=== PATIENT | male | born 1965 | race Caucasian/White ===

== ENCOUNTER 2017-12-16 17:20 | Inpatient (IN) ==
[~2017-12-16 17:20] MED LIST: *HR* Amiodarone Premix 150 MG/100 ML BAG IVPB ONE; *HR* Atropine Sulfate 1 MG/10 ML SYRINGE IV ONE; *HR* EPINEPHrine 1 MG/10 ML SYRINGE IVP ONE; *HR* Norepinephrine 4 MG/4 ML VIAL IVC ONE
[2017-12-16 17:49] LABS: ABG Base Excess -15 mEq/L (-2 to 3); ABG HCO3 21 mEq/L (21-27); ABG Oxygen Saturation 51 % (95-98); ABG PCO2 125 mmHg (35-45); ABG PH 6.84 pH Units (7.32-7.45); ABG PO2 51 mmHg (85-104); ABG TCO2 25 mEq/L (20-26); Blood Gas PEEP 10 cm H2O; Blood Gas Respiration Rate 16; Blood Gas VT 500 cc
[2017-12-16 18:18] LABS: Mean Platelet Volume 10.2 fL (9.4-12.4); Segmented Neutrophils % 51.2 %
[2017-12-16 18:19] LABS: Basophils # 0.4 K/mcL (0.0-0.2); Basophils % 1.1 %; Eosinophils # 0.4 K/mcL (0.0-0.6); Eosinophils % 1.3 %; Hematocrit 40.3 % (37.5-50.1); Hemoglobin 13.2 g/dL (12.9-16.9); Lymphocytes # 10.6 K/mcL (0.6-4.6); Lymphocytes % 33.6 %; Mean Corpuscular HGB Conc 32.8 g/dL (31.6-35.5); Mean Corpuscular Volume 91.6 fL (83.0-100.0); Monocytes # 1.2 K/mcL (0.0-1.3); Monocytes % 3.8 %; Neutrophils # 16.2 K/mcL (1.6-8.9); Nucleated Red Blood Cells 0.3 /100 WBC (0); Platelet Count 187 K/mcL (140-400); Red Cell Distribution Width 13.1 % (11.5-14.5)
--- NOTE | 2017-12-16 18:23 | Emergency Department Note ---
Disposition Clinical Impression: Cardiac arrest, Lactic acidosis, Pulmonary hemorrhage, Unresponsive, Elevated troponin, Hyperglycemia Hypercapnic respiratory failure Qualifiers: Chronicity: acute Qualified Code(s): J96.02 - Acute respiratory failure with hypercapnia Leukocytosis Qualifiers: Leukocytosis type: unspecified Qualified Code(s): D72.829 - Elevated white blood cell count, unspecified Disposition: Admitted As Inpatient Condition: Critical CPR HPI - General Chief Complaint: ED Cardiac Arrest/CPR Stated Complaint: cardiac arrest Time Seen by Provider: 12/16/17 17:31 Source: EMS Mode of arrival: EMS Limitations: altered mental status Nursing Notes Reviewed: Yes Vital Signs Reviewed: Yes - History of Present Illness HPI Narrative: 52-year-old male presents to the ER in full arrest. Report is obtained from EMS and family. Initially was reported that he was unresponsive found to be in V. tach at the time of arrival. He was shocked 4 times prior to arrival. Around 15 minutes prior to him getting here he became a full arrest and CPR was initiated. Upon arrival the patient was noted to be in asystole. ACLS was followed. He received epinephrine and bicarbonate. Shortly after we did have return of spontaneous circulation with a wide-complex rhythm. Heart rate was around 116. Pressure originally normotensive. He was noted to be hypoxic in the 50s to 60s upon initial presentation with blood from his ET tube. AED Applied by Bystander/Nutrition Professor: Yes Shock Advised: Yes Number of Shocks Delivered: >3 Treatments Prior to Arrival: BMV, defibrillated shocks # (4) - Related Data Home Medications Medication Instructions Recorded Confirmed Aspirin [Adult Low Dose Aspirin EC] 81 mg PO DAILY 10/19/15 12/16/17 Lactobacillus Rhamnosus GG 1 cap PO DAILY 10/19/15 12/16/17 [Culturelle] Cholecalciferol (D-3) [Vitamin D] 2,000 unit PO DAILY 08/26/17 12/16/17 Melatonin [Melatin] 3 mg PO HS 08/26/17 12/16/17 Memantine [Namenda] 5 mg PO BID 08/26/17 12/16/17 Pantoprazole Sodium 40 mg PO DAILY 08/26/17 12/16/17 Insulin Glargine [Lantus] 36 unit SQ DAILY 12/16/17 12/16/17 Lidocaine Patch [Lidoderm 5% patch] 2 each TP DAILY 12/16/17 12/16/17 Sertraline [Zoloft] 100 mg PO DAILY 12/16/17 12/16/17 Sildenafil Citrate [Viagra] 100 mg PO DAILY PRN 12/16/17 12/16/17 Topiramate [Topamax] 100 mg PO BID 12/16/17 12/16/17 glipiZIDE [Glipizide] 10 mg PO DAILY 12/16/17 12/16/17 Rifaximin [Xifaxan] 550 mg PO DAILY 12/17/17 12/17/17 Previous Rx's Medication Instructions Recorded Acetaminophen [Tylenol] 325 mg PO Q6HR PRN #10 tablet 11/03/15 Allergies Allergy/AdvReac Type Severity Reaction Status Date / Time codeine Allergy Hives Verified 08/26/17 08:05 [From Tylenol-Codeine #3] diphenhydramine Allergy Unconscious Verified 08/26/17 08:05 [From Benadryl] hydrocodone [From Vicodin] Allergy Hives Verified 08/26/17 08:05 Latex, Natural Rubber Allergy Hives Verified 08/26/17 08:05 metoclopramide [From Reglan] Allergy See Verified 08/26/17 08:05 Comments Oxycodone [From Percocet] Allergy Hives Verified 08/26/17 08:05 tramadol Allergy Hives Verified 08/26/17 08:05 Limitations: ROS unobtainable due to patients medical condition CPR PMH - Past Medical History Medical history: Reports: non-contributory Male Surgical history: Reports: colectomy Psychiatric history: Reports: PTSD - Social History Smoking Status: Former smoker Alcohol use: Reports: none Drug use: Reports: none Physical Exam - General Limitations: other (Currently being bagged) General appearance: obtunded - Head Head exam: other (Cyanotic) - Chest Chest inspection: Present: normal inspection - Respiratory Respiratory exam: Present: other (Course breath sounds bilaterally.) - Cardiovascular Cardiovascular exam: Present: other (CPR in progress) - Abdominal Exam Abdominal exam: Present: soft. Absent: distention, rigidity - Extremities Exam Extremities exam: Present: normal inspection - Expanded Upper Extremity Exam Shoulder exam: Present: normal inspection Arm exam: Present: normal inspection Elbow exam: Present: normal inspection Forearm/Wrist exam: Present: normal inspection Hand exam: Present: normal inspection - Expanded Lower Extremity Exam Hip/Pelvis exam: Present: normal inspection Upper leg exam: Present: normal inspection Knee exam: Present: normal inspection Lower leg exam: Present: normal inspection Ankle exam: Present: normal inspection Foot/toe exam: Present: normal inspection - Neurological Exam Neurological exam: Present: other (Obtunded) Course Course Narrative: Patient seen immediately upon arrival. CPR in progress. Initial rhythm asystole on pulse check. After round of CPR the patient was noted to be in PEA. The patient was intubated in the department first pass without difficulty. Patient received epinephrine and bicarbonate. He then had return of spontaneous circulation with a wide complex tachycardia in the 115 range. Plan to speak with interventional cardiology for potential Tile Classifier following arrest. A right femoral trauma line was inserted during CPR. Please see note for details. Once return of spontaneous circulation this was exchanged for a right femoral central line. - Reevaluation(s) Reevaluation #1: Patient now bradycardic to 55. 0.5 mg atropine given. Quickly went to PE a. CPR resumed. At the time of CPR the patient began to have gross blood from his endotracheal tube. Roughly 500 mL was removed. He remained 55-60% while intubated. After additional bicarbonate and epinephrine the patient had return of spontaneous circulation. Reevaluation #2: The patient continues to have gross blood from his endotracheal tube. Currently around 750 mL. His pressures are starting to drop. Plan to speak again with interventional cardiology. His ABG shows a severe acidosis. Additional bicarbonate given with a total of 3. At this point plan to begin transfusion with trauma blood. 2 units will be ordered. Reevaluation #3: Pressures continued to drop. Now systolic around 60. Levophed for hypotension. , Blood being infused. Additional Reevaluation(s): Patient to Tile Classifier at 18:55. - Consultations Consultation #1: Immediately after ROSC, I spoke with the senior staff accountant Dr. Heredia. Discussed what was available in terms of the patient's history, EKG which was transmitted for her interpretation as well as our interventions up to this point. Discussed the patient's presenting rhythm was reported as ventricular tachycardia with 4 shocks given. Reports that she will interpret the EKG, requests to get labs currently to find a potential reversible etiology and to call back. Does not recommend to go to the r&d lab technician at this time. Time: 17:29 Consultation #2: I spoke again with Dr. Heredia after she evaluated the EKG. Reports that it appears to be a ventricular rhythm status post his arrest. She reviewed his ABG showing a severe acidosis. There is also concern as to whether or not he did not receive CPR at the beginning of his unresponsiveness. I discussed I had not been able to speak with family up but we will get a better history and find out. She requests to repeat an ABG and an EKG. Consultation #3: I spoke again with Dr. Heredia after speaking with family. Family reports that he did not require CPR prior to EMS arrival and that he was breathing on his own at the time of their arrival. Discussed that we are currently starting trauma blood and he is requiring a pressor. She will be down to see the patient. Time: 18:24 Additional Consultation(s): 18:30 Dr. Heredia at bedside to discuss options of potential Tile Classifier. There is a concern over the blood coming from the patient's endotracheal tube as he will have to be anticoagulated for the procedure. This seemed to arise after his second round of CPR. Roughly 700 mL has been removed. Trauma blood ordered. On bedside evaluation the bleeding has significantly declined. At this point it was decided the patient would go to the Tile Classifier for evaluation. Vital Signs O2 Sat by Pulse Oximetry 74 12/16/17 17:22 Temperature 98.8 F 12/17/17 20:00 Pulse Rate 70 12/17/17 21:00 Respiratory Rate 20 12/17/17 21:00 Blood Pressure 122/70 12/17/17 21:00 O2 Sat by Pulse Oximetry 100 12/17/17 21:00 Oxygen Delivery Oxygen Delivery Ventilator Procedures - Central Line Placement Right Femoral Central Line Insertion: emergent Procedural Pause: assemble equipment and verify supplies Patient Placed on Monitor/Pulse Ox: Yes During the Procedure: clinician is wearing sterile gloves, cap, mask,& gown during insertion, sterile field and sterile technique are maintained Central Line Prep: Chlorhexidine scrub Prep the Procedure Site: apply chloraprep to the skin using a back and forth scrubbing motion Ultrasound Used for Placement: No Central Line Lumen Inserted: single Post Procedure: sutured in place, good blood return, all ports aspirated, flushed, capped Patient Tolerated Procedure: well Name of Clinician Inserting Central Line: Dr. Odalis Preston Clinician Assisting/Completing Checklist: Dr. Sullivan Additional Comments: Right femoral trauma line placed during cardiac arrest. After return of spontaneous circulation the trauma line was removed and a right femoral central line was placed over guidewire exchange. - Intubation Time out performed: Yes Laryngoscope: Low ET Tube Size: Oral ET Tube Uncuffed: No Tube Secured Depth (cm): 22 Tube Secured Location: lips Tube Placement Confirmation: visualized tube passing through cords, equal breath sounds bilaterally, no breath sounds over epigastrium, confirmation by capnometry Patient Tolerated Procedure: well, no complications Intubation Complications: none Cardiac Arrest/CPR - MDM Narrative Medical decision making narrative: 52-year-old male presents to the ER in cardiac arrest. Witnessed decompensation at home with initial presenting ventricular tachycardia. Defibrillated 4 times prior to arrival. Patient presented in asystole with return of spontaneous circulation after ACLS. Interventional cardiology was consulted who did not deem him a candidate for initial emergent Tile Classifier evaluation. Please see prior documentation for complete details. He then deteriorated back into pulseless electrical activity. After his second return of spontaneous circulation he had roughly 900 mL in total of blood out of his endotracheal tube. His pressure deteriorated requiring trauma blood and eventually vasopressor support. Severe acidosis treated with bicarbonate pushes. EKG post resuscitation demonstrates a new wide-complex rhythm that was treated empirically for hyperkalemia with calcium, insulin and bicarbonate. Interventional cardiology evaluated the patient in the emergency department and the patient was taken to the Tile Classifier at 18:55 for further evaluation given his ventricular tachycardia and arrest. - Lab Data Lab results reviewed: Yes I reviewed the patient's lab results. Result diagrams: 12/17/17 13:50 12/17/17 03:25 Lab Results 12/16/17 12/16/17 12/16/17 Range/Units 17:22 17:31 17:58 WBC (4.3-11.1) K/mcL RBC (4.19-5.50) M/mcL Hgb (12.9-16.9) g/dL Hct (37.5-50.1) % MCV (83.0-100.0) fL MCH (28.0-33.3) pg MCHC (31.6-35.5) g/dL RDW (11.5-14.5) % Plt Count (140-400) K/mcL MPV (9.4-12.4) fL Immature Gran % (0-4) % Seg Neutrophils % % Lymphocytes % % Monocytes % % Eosinophils % % Basophils % % Neutrophils # (1.6-8.9) K/mcL Lymphocytes # (0.6-4.6) K/mcL Monocytes # (0.0-1.3) K/mcL Eosinophils # (0.0-0.6) K/mcL Basophils # (0.0-0.2) K/mcL Nucleated RBCs/100 WBC (0) /100 WBC PT 14.8 H (9.4-12.1) Seconds INR 1.4 APTT 51.5 H (26.0-36.0) Seconds Sample Site ABG pH 6.84 L* (7.32-7.45) pH Units ABG pCO2 125 H* (35-45) mmHg ABG pO2 51 L (85-104) mmHg ABG HCO3 21 (21-27) mEq/L ABG Total CO2 25 (20-26) mEq/L ABG O2 Saturation 51 L (95-98) % ABG Base Excess -15 L (-2 to 3) mEq/L [place] Test Respiration Rate 16 O2 Delivery Device Adult Vent Inspired O2 100.0 (1-15=lpm jr62-111=%) Tidal Volume 500 cc PEEP 10 cm H2O Sodium (136-145) mEq/L Potassium (3.5-5.1) mEq/L Chloride (98-107) mEq/L Carbon Dioxide (23-29) mEq/L BUN (6-20) mg/dL Creatinine (0.70-1.30) mg/dL Est GFR ( Amer) (> 60) Est GFR (Non-Af Amer) (> 60) BUN/Creatinine Ratio (6-26) Glucose (70-105) mg/dL POC Glucose 361 H (70-99) mg/dL Calculated Osmolality (280-300) Lactic Acid (0.5-2.2) mmol/L Calcium (8.6-10.3) mg/dL Troponin I (< 0.04) ng/mL B-Natriuretic Peptide (Less than 100) pg/mL Blood Type Antibody Screen Crossmatch 12/16/17 12/16/17 12/16/17 Range/Units 17:58 17:58 17:58 WBC 31.6 H* (4.3-11.1) K/mcL RBC 4.40 (4.19-5.50) M/mcL Hgb 13.2 (12.9-16.9) g/dL Hct 40.3 (37.5-50.1) % MCV 91.6 (83.0-100.0) fL MCH 30.0 (28.0-33.3) pg MCHC 32.8 (31.6-35.5) g/dL RDW 13.1 (11.5-14.5) % Plt Count 187 (140-400) K/mcL MPV 10.2 (9.4-12.4) fL Immature Gran % 9.0 H (0-4) % Seg Neutrophils % 51.2 % Lymphocytes % 33.6 % Monocytes % 3.8 % Eosinophils % 1.3 % Basophils % 1.1 % Neutrophils # 16.2 H (1.6-8.9) K/mcL Lymphocytes # 10.6 H (0.6-4.6) K/mcL Monocytes # 1.2 (0.0-1.3) K/mcL Eosinophils # 0.4 (0.0-0.6) K/mcL Basophils # 0.4 H (0.0-0.2) K/mcL Nucleated RBCs/100 WBC 0.3 H (0) /100 WBC PT (9.4-12.1) Seconds INR APTT (26.0-36.0) Seconds Sample Site ABG pH (7.32-7.45) pH Units ABG pCO2 (35-45) mmHg ABG pO2 (85-104) mmHg ABG HCO3 (21-27) mEq/L ABG Total CO2 (20-26) mEq/L ABG O2 Saturation (95-98) % ABG Base Excess (-2 to 3) mEq/L [place] Test Respiration Rate O2 Delivery Device Inspired O2 (1-15=lpm ob87-406=%) Tidal Volume cc PEEP cm H2O Sodium (136-145) mEq/L Potassium (3.5-5.1) mEq/L Chloride (98-107) mEq/L Carbon Dioxide (23-29) mEq/L BUN (6-20) mg/dL Creatinine (0.70-1.30) mg/dL Est GFR ( Amer) (> 60) Est GFR (Non-Af Amer) (> 60) BUN/Creatinine Ratio (6-26) Glucose (70-105) mg/dL POC Glucose (70-99) mg/dL Calculated Osmolality (280-300) Lactic Acid > 10.0 H* (0.5-2.2) mmol/L Calcium (8.6-10.3) mg/dL Troponin I (< 0.04) ng/mL B-Natriuretic Peptide 216 H (Less than 100) pg/mL Blood Type Antibody Screen Crossmatch 12/16/17 12/16/17 12/16/17 Range/Units 17:58 18:23 18:25 WBC (4.3-11.1) K/mcL RBC (4.19-5.50) M/mcL Hgb (12.9-16.9) g/dL Hct (37.5-50.1) % MCV (83.0-100.0) fL MCH (28.0-33.3) pg MCHC (31.6-35.5) g/dL RDW (11.5-14.5) % Plt Count (140-400) K/mcL MPV (9.4-12.4) fL Immature Gran % (0-4) % Seg Neutrophils % % Lymphocytes % % Monocytes % % Eosinophils % % Basophils % % Neutrophils # (1.6-8.9) K/mcL Lymphocytes # (0.6-4.6) K/mcL Monocytes # (0.0-1.3) K/mcL Eosinophils # (0.0-0.6) K/mcL Basophils # (0.0-0.2) K/mcL Nucleated RBCs/100 WBC (0) /100 WBC PT (9.4-12.1) Seconds INR APTT (26.0-36.0) Seconds Sample Site ABG pH 7.01 L* D (7.32-7.45) pH Units ABG pCO2 81 H* D (35-45) mmHg ABG pO2 192 H D (85-104) mmHg ABG HCO3 21 (21-27) mEq/L ABG Total CO2 23 (20-26) mEq/L ABG O2 Saturation 99 H (95-98) % ABG Base Excess -11 L (-2 to 3) mEq/L [place] Test Respiration Rate 24 O2 Delivery Device Adult Vent Inspired O2 100.0 (1-15=lpm ki44-175=%) Tidal Volume 450 cc PEEP 8 cm H2O Sodium 142 (136-145) mEq/L Potassium 2.8 L (3.5-5.1) mEq/L Chloride 107 (98-107) mEq/L Carbon Dioxide 21 L (23-29) mEq/L BUN 10 (6-20) mg/dL Creatinine 1.28 (0.70-1.30) mg/dL Est GFR ( Amer) > 60 (> 60) Est GFR (Non-Af Amer) 59 L (> 60) BUN/Creatinine Ratio 8 (6-26) Glucose 458 H (70-105) mg/dL POC Glucose (70-99) mg/dL Calculated Osmolality 313 H (280-300) Lactic Acid (0.5-2.2) mmol/L Calcium 8.3 L (8.6-10.3) mg/dL Troponin I 0.07 H* (< 0.04) ng/mL B-Natriuretic Peptide (Less than 100) pg/mL Blood Type O NEGATIVE Antibody Screen NEGATIVE Crossmatch See Detail 12/16/17 Range/Units 19:09 WBC (4.3-11.1) K/mcL RBC (4.19-5.50) M/mcL Hgb (12.9-16.9) g/dL Hct (37.5-50.1) % MCV (83.0-100.0) fL MCH (28.0-33.3) pg MCHC (31.6-35.5) g/dL RDW (11.5-14.5) % Plt Count (140-400) K/mcL MPV (9.4-12.4) fL Immature Gran % (0-4) % Seg Neutrophils % % Lymphocytes % % Monocytes % % Eosinophils % % Basophils % % Neutrophils # (1.6-8.9) K/mcL Lymphocytes # (0.6-4.6) K/mcL Monocytes # (0.0-1.3) K/mcL Eosinophils # (0.0-0.6) K/mcL Basophils # (0.0-0.2) K/mcL Nucleated RBCs/100 WBC (0) /100 WBC PT (9.4-12.1) Seconds INR APTT (26.0-36.0) Seconds Sample Site Art Line ABG pH 7.03 L* (7.32-7.45) pH Units ABG pCO2 81 H* (35-45) mmHg ABG pO2 54 L D (85-104) mmHg ABG HCO3 21 (21-27) mEq/L ABG Total CO2 24 (20-26) mEq/L ABG O2 Saturation 69 L (95-98) % ABG Base Excess -11 L (-2 to 3) mEq/L [place] Test N/A Respiration Rate 24 O2 Delivery Device Adult Vent Inspired O2 100.0 (1-15=lpm aa20-241=%) Tidal Volume 450 cc PEEP 15 cm H2O Sodium (136-145) mEq/L Potassium (3.5-5.1) mEq/L Chloride (98-107) mEq/L Carbon Dioxide (23-29) mEq/L BUN (6-20) mg/dL Creatinine (0.70-1.30) mg/dL Est GFR ( Amer) (> 60) Est GFR (Non-Af Amer) (> 60) BUN/Creatinine Ratio (6-26) Glucose (70-105) mg/dL POC Glucose (70-99) mg/dL Calculated Osmolality (280-300) Lactic Acid (0.5-2.2) mmol/L Calcium (8.6-10.3) mg/dL Troponin I (< 0.04) ng/mL B-Natriuretic Peptide (Less than 100) pg/mL Blood Type Antibody Screen Crossmatch - Radiology Data Radiology results reviewed: Yes I reviewed the patient's radiology results. Chest X-Ray 12/16/17 17:31 IMPRESSION: 1. Endotracheal tube tip is 5.1 cm above the lalit. 2. No pneumothorax. 3. Diffuse interstitial airspace opacities are nonspecific, possibly representing multifocal infection or pulmonary edema. 4. Mild cardiomegaly. D/ / 12/16/2017 17:54:31 Refugio Roque MD / [email or web address] Interpreting Provider: Refugio Roque MD - EKG Data EKG attestation: Yes I reviewed and interpreted this EKG. EKG results narrative: Postarrest EKG demonstrates a wide complex tachycardia with a rate of 116. Prolonged QRS duration of 222. Appearance of left bundle branch block. Previous EKG demonstrates sinus rhythm. Critical Care Time Critical Care Time: Yes Total Critical Care Time: 60 Attestation: The high probability of a clinically significant, sudden or life threatening deterioration of the [CV] system(s) required my full and direct attention, intervention and personal management. The aggregate critical care time was [60] minutes. This time is in addition to time spent performing reported procedures but includes the following: [x] Data Review and interpretation [x] Patient assessment and monitoring of vital signs [x] Documentation [x] Medication orders and management Attestation Statement - Attestation Attestation: I examined this patient and my medical decision-making was reviewed with the Resident Physician, Dr. Sullivan. I agree with the documented findings, disposition and treatment plan as described except to the extent set forth below. Patient's 52-year-old white male who is brought to us by EMS in full cardiac arrest. Unable to obtain information until family arrived and more detailed information provided by patient's . Full resuscitation per ACLS guidelines was instituted. I agreed with patient's physical exam assessment. Patient's initial EKG showed a wide complex tachycardia with a bundle-branch morphology, all new and in the setting of V. tach arrest meets criteria for heart catheterization. Dr. Heredia was notified 2 and declined heart catheter each time. Dr. Cortez was notified and cardiology. Please see code resuscitation sheet for details of resuscitation. After numerous phone calls and involvement of ED director and had a cardiology patient was ultimately taken to r&d lab technician. Critical care procedures included rapid sequence intubation , right femoral line central venous catheter placement, bedside ultrasound, and management of cardiac arrest. Please see detailed procedure notes. I agree with ED course and was present at bedside to place CVL, and supervise intubationa dn resuscitation. I personally spoke with and family members toobtain additional hx, and provide updates in his status.
[2017-12-16 18:24] LABS: INR 1.4; Prothrombin Time 14.8 Seconds (9.4-12.1)
[2017-12-16 18:27] LABS: Activated Partial Thrombo Time 51.5 Seconds (26.0-36.0)
[2017-12-16 18:29] LABS: ABG Base Excess -11 mEq/L (-2 to 3); ABG HCO3 21 mEq/L (21-27); ABG Oxygen Saturation 99 % (95-98); ABG PCO2 81 mmHg (35-45); ABG PH 7.01 pH Units (7.32-7.45); ABG PO2 192 mmHg (85-104); ABG TCO2 23 mEq/L (20-26); Blood Gas PEEP 8 cm H2O; Blood Gas Respiration Rate 24; Blood Gas VT 450 cc
[2017-12-16] MEDS ORDERED: Heparin 1,000 UNITS/500 mL 500 ML ONE (18:37)
[2017-12-16] MEDS ORDERED: 0.9 % Sodium Chloride 1,000 ML ONE (18:37)
[2017-12-16] MEDS ORDERED: Nitroglycerin 1,000 MCG/10 ML VIAL IV ONE (18:37)
[2017-12-16] MEDS ORDERED: *HR* Heparin 10,000 UNIT/10 ML VIAL ONE (18:37)
[2017-12-16] MEDS ORDERED: ISOVUE-370 200 ML INFUS..BTL IV ONE (18:37)
[2017-12-16 18:38] LABS: BUN/Creatinine Ratio 8 (6-26); Blood Urea Nitrogen 10 mg/dL (6-20); Calcium 8.3 mg/dL (8.6-10.3); Carbon Dioxide 21 mEq/L (23-29); Chloride 107 mEq/L (98-107); Glucose 458 mg/dL (70-105); Osmolality,Calculated 313 (280-300); Potassium 2.8 mEq/L (3.5-5.1); Sodium 142 mEq/L (136-145); eGFR For African Americans > 60 (> 60); eGFR For Non-African Americans 59 (> 60)
[2017-12-16 18:48] LABS: Troponin I 0.07 ng/mL (< 0.04)
[2017-12-16] MEDS ORDERED: Potassium Chloride 40 MEQ, Lidocaine 1% 2 ML in D5% in Water 500 ML IVPB ONE (19:08)
[2017-12-16 19:14] LABS: ABG Base Excess -11 mEq/L (-2 to 3); ABG HCO3 21 mEq/L (21-27); ABG Oxygen Saturation 69 % (95-98); ABG PCO2 81 mmHg (35-45); ABG PH 7.03 pH Units (7.32-7.45); ABG PO2 54 mmHg (85-104); ABG TCO2 24 mEq/L (20-26); Blood Gas PEEP 15 cm H2O; Blood Gas Respiration Rate 24; Blood Gas VT 450 cc
[2017-12-16] MEDS ORDERED: *HR* Ticagrelor 90 MG TABLET ONE (19:28)
[2017-12-16] MEDS ORDERED: Amiodarone Premix 360 MG/200 ML BAG IVC ONE (19:49)
[2017-12-16] MEDS ORDERED: Lacri-Lube 3.5 GM TUBE BOTH EYES PRN (19:53)
--- NOTE | 2017-12-16 19:58 | Invasive Diagnostic Lab Proc ---
Name: Ronni Delgado Date of Study: 12/16/2017 Date: 1965 Ht: 68.9in Medical Record#: [id number] Age: 52 Wt: 244.71lb Gender: Male BSA: 2.25 Order #: [id number] BMI: 36.24 Physicians Procedure Physician: Ludy Heredia MD, [facility] Referring MD: Referring MD: Staff Name Position Time In Afshin Simon RN Welding Tester 07:08 PM Carmelo Manzano RT (R) Scrub 07:08 PM Bishop Almanzar RN Welding Tester 07:09 PM Torie Quinonez RN Monitor 07:09 PM Amelia De La Fuente RT 07:10 PM Indications Indication STEMI Cardiac arrest Procedures Performed Procedure L HRT ARTERY/VENTRICLE ANGIO PRQ CARD VIOLA STENT W/ANGIO 1 VSL Pre-Procedure Checklist H&P is on chart. ID band is on and ID verified with patient. Patient NPO for procedure The procedure was described for the patient and questions were answered. ECG is on chart. Plan of Care Patient will tolerate the procedure without complications. Adequate level of comfort will be maintained. Hemodynamics will remain stable Patient will recover from procedure without complications. Respiratory function will be maintained. Cardiac rhythm will remain stable. Patient temperature will be maintained. Patient and/or family have verbalized understanding of the procedure. Patient Education Developmentally Appropriate for Age: No Intravenous Access Time IV Size Location DC'd Fluid/Drip Rate Units RN 07:00 PM Rt groin Levophed Afshin Simon RN 07:00 PM 18g 1 /" Patent On Arrival Rt Arm Afshin Simon RN Allergies Oxycodone BENADRYL,CODIENE codeine ACETA/HYDROCODONE (500MG/5MG) Acetaminophen/Oxycodone Hydr NKDA Latex, Natural Rubber hydrocodone acetaminophen tramadol diphenhydramine Vital Signs Time BP (mmHg) HR (bpm) O2 Sat. RR (bpm) LOC 07:04 PM 117 / 74 111 77 % 07:09 PM 105 / 70 110 81 % 07:14 PM 109 / 68 106 96 % 07:19 PM 113 / 75 105 99 % 07:24 PM 124 / 75 105 99 % 07:29 PM 126 / 82 105 100 % Procedural Medications Time Medication Dose Units Method Given By 07:08 PM Lidocaine 2% 20 ml Subcutaneous Ludy Heredia, MD, FACC 07:16 PM Heparin 5000 units Intravenous Afshin Simon RN 07:17 PM Levophed 20 mcg/min Intravenous 07:17 PM Amiodarone 33.3 ml/hr Intravenous 07:25 PM Brilinta 180 mg Orally Afshin Simon RN 07:34 PM Potassium Chloride 100 ml/hr Intravenous Afshin Simon RN Chucho Score Preprocedure Postprocedure Activity Activity Circulation Circulation Consciousness Consciousness O2 Saturation O2 Saturation Respiratory Respiratory Total Score Total Score Contrast Agent: Isovue Diagnostic Contrast: 125 ml Total Contrast: 125 ml Fluoro Dose: 460 mGy Activated Clotting Time Time Seconds to Clot 07:34 PM 283 Procedure Log Time Note Enter By 07:00 PM 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 Respiratory present [facility] 07:00 PM Patient arrived at 19:17 with Amiodarone Intravenous drip @ 33.3 ml/hr [facility] 07:00 PM Carmelo Manzano RT (R) Position: Scrub Time in: 19:08 [facility] 07:00 PM Amelia De La Fuente RT Position: Time in: 19:10 [facility] 07:00 PM Pt arrived to labor relations analyst 2 at 19:00 [facility] 07:00 PM Torie Quinonez RN Position: Monitor Time in: 19:00 [facility] 07:00 PM Patient arrived at 19:17 with Levophed Intravenous drip @ 20 mcg/min [facility] 07:00 PM Afshin Simon RN Position: Welding Tester Time in: 19:00 [facility] 07:03 PM CathStat 07:03 PM Vitals capture started with the following parameters, Patient=Adult, Interval=5 min, Initial Evitdudu=982 mmHg, Deflation Rate=5 mmHg, Cuff placed on Right Arm 07:04 PM PV=735 bpm, FOVA=852/74 mmhg, SpO2=77.0 % 07:04 PM Hair removed from procedure site in procedure lab using clippers. Bilateral groin prepped with Chloraprep by Torie Quinonez RN, then patient was draped. Skin intact. [facility] 07:06 PM Recorded ECG: TB=622 Condition=Condition 1 07:07 PM Sign in performed according to hospital policy. [facility] PM Procedure start 19:09 [facility] 07:08 PM Time out performed according to hospital policy 07:08 PM Time: : 20 ml Lidocaine 2% to left groin Subcutaneous Given by Ludy Heredia MD, [facility] oummers 07:09 PM Pressure channel 1 zero failed. 07:09 PM Pressure channel 1 zeroed. 07:09 PM Patient charges- Angio tray pack, Navilyst 3mm J, Pulse Oximetry and ACIST tubing and transducer tsoumm 07:09 PM Bishop Almanzar RN Position: Welding Tester Time in: 19:09 tsoummers 07:09 PM Patient charges- Angio tray pack, Navilyst 3mm J, Pulse Oximetry and ACIST tubing and transducer tsoummers 07:09 PM Recorded Pressure: Ao, MR=576, Condition=Condition 1 (Aorta) Ao 74/42/56 07:09 PM TT=330 bpm, XDFM=816/70 mmhg, SpO2=81.0 % 07:10 PM Access obtained by percutaneous puncture. 6Fr 10cm Terumo [place] sheath placed in left Femoral artery. [id number] oummers 07:10 PM 0.035 145cm Navilyst 3mmJ wire [id number] oumm 07:10 PM 5Fr FL 4 catheter inserted over the wire [facility] mm 07:10 PM wire removed 07:10 PM LCA angiography performed in multiple views. tsoumm 07:10 PM Catheter removed mm 07:11 PM 5Fr FR 4 catheter inserted over the wire [facility] mm 07:12 PM Recorded Pressure: Ao, PE=538, Condition=Condition 1 (Aorta) Ao 79/67/73 07:12 PM RCA angiography performed in multiple views. tsoumm 07:12 PM Catheter removed mm 07:12 PM 5Fr Pigtail catheter inserted over the wire [facility] mm 07:13 PM Catheter selectively placed in left ventricle tsoumm 07:14 PM Recorded Pressure: LV, IC=009, Condition=Condition 1 (Left Ventricle) LV 70/23/27 07:14 PM XP=168 bpm, BXLD=268/68 mmhg, SpO2=96.0 % 07:14 PM Recorded Pressure: LV, Ao, HU=625, Condition=Condition 1 (Left Ventricle) LV 80/39/49, (Aorta) Ao 88/68/79 07:15 PM Bolus angiogram of left Ventricle complete: 8 ml/sec for a total of 24 mls 07:15 PM Catheter removed 07:15 PM Inflation device was opened. 07:15 PM 6Fr XB LAD 3.5 Baxter Bright-Tip guide catheter was used to cannulate the PCI vessel successfully. reused? No tsoummers 07:15 PM .014 Prowater 180cm guide wire across target lesion- successful. reused? No tsoummers 07:15 PM Coronary Dominance: right tsoumm 07:15 PM Lesion found in Proximal LAD. Pre Stenosis: 90 Pre GHULAM Flow: 3: Complete and Brisk Flow/Perfusion 07:16 PM Proximal Left Anterior Descending Coronary Artery with 90% stenosis. If graft is supplying this territory, 0 % stenosis. 07:17 PM Time: 19:16 Heparin 5000 units Intravenous Given by Afshin Simon RN 07:18 PM Recorded Pressure: Ao, EL=514, Condition=Condition 1 (Aorta) Ao 86/65/74 07:19 PM TO=139 bpm, GCVQ=694/75 mmhg, SpO2=99.0 % 07:19 PM 3.5mm x 16mm Synergy drug-eluting stent across target lesion- successful Lot #[id number] 07:21 PM Stent deployed @ 12 anisa for 30 seconds 07:22 PM Stent balloon reinflated @ 20 anisa for 16 seconds [facility] 07:22 PM Recorded Pressure: Ao, SB=523, Condition=Condition 1 (Aorta) Ao 93/66/77 07:24 PM Stent delivery system removed intact. tsmm 07:24 PM Recorded Pressure: Ao, RN=620, Condition=Condition 1 (Aorta) Ao 99/70/82 07:24 PM OG=117 bpm, LIFD=999/75 mmhg, SpO2=99.0 % 07:24 PM Guide wire removed intact. mm 07:24 PM Guide catheter removed intact. [facility] 07:26 PM Bolus angiogram of left Femoral complete: 4 ml/sec for a total of 7 mls 07:27 PM Time: 19:25 Brilinta 180 mg Orally crushed via OG tube Given by Afshin Simon RN [facility] 07:27 PM Procedure completed at 19:27 [facility] 07:27 PM Sign out completed: Radiation Dose 460.38 mGy Fluoro Time: 3.3 Isovue 370 - 200ml contrast 125 ml given by Ludy Heredia MD, [facility]. Complications: NoneCardiac Rehab Consult needed: YesConfirmed administered medications: Yes [facility] 07:27 PM Isovue 370 - 200ml,1 Bottle(s) used. 07:27 PM Sheath left in place to be pulled on floor/holding area 07:28 PM Estimated Blood Loss: less than 20cc mm 07:28 PM Post ECG Sinus Tachycardia mm 07:28 PM Post Blood Pressure 124/75 [facility] 07:28 PM Education needs Procedure, Plan of Care, and Responsibilities of Patient in Care [facility] 07:28 PM Learning barriers :Sedated [facility] 07:28 PM Site status No bleeding/hematoma - Lt Groin as reported by Carmelo Manzano RT (R) at 19:28 [facility] 07:28 PM Opsite applied [facility] 07:29 PM Plavix, Effient or Brilinta given Yes mm 07:29 PM Family placed in consult room. oumm 07:29 PM Complications: None [facility] 07:29 PM Fluoro Time: 3.3 tsoumm 07:29 PM BP=587 bpm, TMTT=051/82 mmhg, HeS5=427.0 % 07:30 PM Isovue 370 - 200ml contrast 125 ml given by ludy heredia. [facility] 07:30 PM Radiation Dose 460.38 mGy [facility] 07:34 PM At 19:34 the ACT was 283 seconds. [facility] 07:35 PM Time: 19:34 40meq Potassium Chloride 100 ml/hr Intravenous Given by Afshin Simon RN [facility] 07:35 PM OG tube verified placement per auscultation per Bishop Almanzar [facility] 07:50 PM bedside report given to ICU nurse [facility] 07:50 PM Patient out of room: 19:50 [facility] Complications Complication None Hemodynamics Pressures Site Systolic/A Wave Diastolic/V Wave Mean AO 74 42 56 AO 79 67 73 LV 70 23 27 LV 80 39 49 AO 88 68 79 AO 86 65 74 AO 93 66 77 AO 99 70 82 Post Procedure Information Blood Pressure: 124/75 mmHg Rhythm: Sinus Tachycardia Post procedural instructions were given Site Checks Time Location Status Staff Sheath In? Note 07:28 PM Lt Groin No bleeding/hematoma Carmelo Manzano RT (R) Pulses Updated by Torie Quinonez RN on 12/16/2017 7:50:22 PM electronically signed on 12/16/2017 7:50:53 PM with status of Final
[2017-12-16] MEDS ORDERED: *HR* Meperidine 50 MG/ML SYRINGE IVP PRN (20:10)
[2017-12-16] MEDS ORDERED: 0.9 % Sodium Chloride 500 ML ONE (20:20)
--- NOTE | 2017-12-16 20:40 | Internal Med History&Physical ---
<John Pandya - Last Filed: 12/17/17 02:13> Date of Encounter: 12/17/17 Time of Encounter: 20:40 Internal Medicine - H&P: HPI Chief complaint: Cardiac arrest Admitted From: Emergency Dept History of present illness: Mr. Delgado is a 52 year old male with possible history of diabetes, TIA with left-sided weakness who presented to the emergency department in cardiac arrest. Patient was unconscious and is unable to get history as when he came to the ICU he is arty unabated. History was obtained from family by my self as well as through sweatband decorating machine operator in the emergency department physician. According to family patient was normal prior to the event occurring today. Stated he was outside cutting tree branches and can side because he was not feeling well. He reported to family that he was lightheaded and nauseated. He started coughing up/spitting blood. He then told his son to get a bucket in case he vomited. The son at that time went to the back and also called 911. Patient went back and noticed that he was lying on the couch staring at the ceiling and started breathing funny to her he was snorting. Patient then turned blue. Stated only last a few minutes patient's breathing then normalized and his color did come back. Patient was very confused after coming back. There were no chest compressions done at this time. Took about 15 minutes for EMS to arrive son said that you must stabilize the patient and then brought him into the embolus. CPR apparently was started in the ambulance on their Y as patient is going to V. tach with a started CPR and ACS protocol was followed. Upon arrival to the emergency department he was in asystole. They gave epinephrine and bicarbonate shortly after he did have ROSC With a wide complex rhythm. Patient was noted to be hypoxic in the 50s and 60s as he was intubated in the emergency department. After patient gained Rosc they noticed blood coming out from the endotracheal tube. They got approximately 800 mL of blood coming up from that. He has never had hemoptysis prior to this event. The emergency department team spoke with the sweatband decorating machine operator Dr. Heredia who agreed to take him to the catheter lab. Patient did become bradycardic one-time a 55 and was given a half milligram of atropine. Then he quickly again went into PA and CPR was again resumed additional bicarbonate and epi were given and then he again had ROSC ABG was done which did show severe acidosis total of 3 bicarbonate amps were given. Patient's pressures continue to drop and he started hypotension. And also gave 2 units of packed red blood cells. Patient was then taken to the [facility] where they placed a stent in LAD due to 90% occlusion. Patient was then transferred to the ICU for further management Past Med Surg Social Fam HX - Past Medical History Medical history: non-contributory Psychiatric history: PTSD - Past Surgical History Surgical History: colectomy - Social History Smoking Status: Former smoker Smokeless Tobacco Status: No Alcohol use: none Drug use: none - Family History Mother Hx Family Cardiac Disorders: Yes Hx Family Cancer: Yes (BLOOD CANCER-LEUKEMIA FAMILY) Hx Family Endocrine Disorder: Yes (DIABETES) Father Living Status: Still Living Hx Family Cardiac Disorders: Yes (CAD s/p PCI, CMP, ICD) Internal Medicine - H&P: Meds Aspirin [Adult Low Dose Aspirin EC] 81 mg PO DAILY 10/19/15 [History] Lactobacillus Rhamnosus GG [Culturelle] 1 cap PO DAILY 10/19/15 [History] Acetaminophen [Tylenol] 325 mg PO Q6HR PRN #10 tablet 11/03/15 [Rx] Cholecalciferol (D-3) [Vitamin D] 2,000 unit PO DAILY 08/26/17 [History] Melatonin [Melatin] 3 mg PO HS 08/26/17 [History] Memantine [Namenda] 5 mg PO BID 08/26/17 [History] Pantoprazole Sodium 40 mg PO DAILY 08/26/17 [History] Insulin Glargine [Lantus] 36 unit SQ DAILY 12/16/17 [History] Lidocaine Patch [Lidoderm 5% patch] 2 each TP DAILY 12/16/17 [History] Sertraline [Zoloft] 100 mg PO DAILY 12/16/17 [History] Sildenafil Citrate [Viagra] 100 mg PO DAILY PRN 12/16/17 [History] Topiramate [Topamax] 100 mg PO BID 12/16/17 [History] glipiZIDE [Glipizide] 10 mg PO DAILY 12/16/17 [History] 3 Allergy/AdvReac Type Severity Reaction Status Date / Time codeine Allergy Hives Verified 08/26/17 08:05 [From Tylenol-Codeine #3] diphenhydramine Allergy Unconscious Verified 08/26/17 08:05 [From Benadryl] hydrocodone [From Vicodin] Allergy Hives Verified 08/26/17 08:05 Latex, Natural Rubber Allergy Hives Verified 08/26/17 08:05 metoclopramide [From Reglan] Allergy See Verified 08/26/17 08:05 Comments Oxycodone [From Percocet] Allergy Hives Verified 08/26/17 08:05 tramadol Allergy Hives Verified 08/26/17 08:05 ROS unobtainable: due to endotracheal tube All Systems PM: A 10-system review of systems was performed and is negative for pertinent findings except as documented above in the HPI. - Constitutional Vitals: Temp Pulse Resp BP Pulse Ox 99.1 F 106 12 106/73 94 12/16/17 17:31 12/16/17 18:49 12/16/17 18:49 12/16/17 18:49 12/16/17 18:49 General appearance: Present: no acute distress Exam: Somnolent and sedated - Head Head exam: Present: atraumatic, normocephalic - Eye Eye exam: Present: PERRL - Neck Neck exam general surgery: Present: supple, trachea midline. Absent: lymphadenopathy - Respiratory Respiratory exam: Present: rhonchi. Absent: accessory muscle use, rales, wheezes - Cardiovascular Cardiovascular exam: Present: RRR, +S1, +S2. Absent: diastolic murmur, gallop, rubs, systolic murmur - GI/Abdominal GI/Abdominal exam: Present: normal bowel sounds, soft, no peritoneal signs. Absent: distended, tenderness - Extremities Exam Extremities exam: Present: warm, radial pulses palpable and symmetrical. Absent : calf tenderness, cyanotic, pedal edema - Neurological Exam Neurological exam: Present: CN II-XII intact, oriented X3, no focal deficits. Absent: pronater drift, facial droop, speech deficit - Skin Skin exam: Present: dry, intact Internal Med - H&P Results - Labs CBC & Chem 7: 12/16/17 19:36 12/16/17 19:36 - VTE Reasons for not Prescribing Prophylaxis: Not indicated-Anticoagulated or INR therapeutic - Assessment and plan (1) Cardiopulmonary arrest with successful resuscitation Current Visit: Yes Status: Acute Assessment and plan: Patient presented to the emergency department in cardiac arrest. To see was fully done in the emergency department please refer to the history of present illness. Patient was unresponsive with asystole/PA/V.tach multiple times and did get Rosc More than once. They she was given multiple aunts of bicarbonate was intubated and placed on the ventilator. Patient also received multiple rounds of epinephrine. Patient was taken to the catheter lab where a stent was placed in the LAD. Patient was then transferred to the ICU. Patient was started on Levaquin fed while in the emergency department. He arrived here to the ICU blood pressure was stable. At 120/70 without any sedation. Patient was started on hypothermic postarrest protocol. After starting the protocol patient then became more responsive and was able to follow commands where he would open his eyes and squeeze hands on both sides and able to move his feet when asked. At this time we decided to stop the hypothermic protocol this was agreed upon by interventionalist Dr. Heredia at bedside. Patient was then sedated using Precedex and fentanyl. We have fed had to be turned on due to this blood pressure dropping most likely due to sedation. Consult with cardiology and follow their recommendations for post catheter treatment. Continue patient on ventilator and intubated with sedation. (2) S/P coronary artery stent placement Current Visit: Yes Status: Acute Assessment and plan: Stent placed in the proximal LAD from 90% occlusion. For full report please refer to cardiology consultation. Patient is currently on amiodarone per their request (3) Cardiac arrest Current Visit: Yes Status: Acute Assessment and plan: Refer to above assessment and plan for cardiac arrest most this was done in the emergency Department there has been none in the ICU during his stay here up to now. (4) Hypercapnic respiratory failure Current Visit: Yes Status: Acute Assessment and plan: Patient was placed on the ventilator and sedated with Precedex and fentanyl. Patient did have elevated lactic acid within Qualifiers: Chronicity: acute Qualified Code(s): J96.02 - Acute respiratory failure with hypercapnia (5) Lactic acidosis Current Visit: Yes Status: Acute Assessment and plan: Patient did have elevated lactic acid. This most likely is due to the stress of the body after having CPR and undergoing arrest. We will continue to monitor N Almendarez. (6) Cardiomyopathy Current Visit: Yes Status: Acute Assessment and plan: Managed by cardiology but patient and [facility] had an EF of 25% will get formal echocardiogram once patient stabilizes tomorrow. 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 This most likely is due to bleeding during CPR. Due to patient's current hemodynamic status we do not feel sending patient to CT for further evaluation is needed at this time and can be done later. Consider CT chest, abdomen and pelvis once patient stabilizes. For further evaluation (9) Coronary artery disease Current Visit: Yes Status: Acute Assessment and plan: Continue home meds once patient is more stable Qualifiers: Coronary Disease-Associated Artery/Lesion type: [place] artery [place] vs. transplanted heart: [place] heart Associated angina: with unspecified angina Qualified Code(s): I25.119 - Atherosclerotic heart disease of [place] coronary artery with unspecified angina pectoris - Time Spent With Patient Total time spent is greater than 50% in coordination of care (as documented) at patient's floor/unit and/or counseling patient: <Vincenzo Garza P - Last Filed: 12/17/17 03:57> Date of Encounter: 12/17/17 Internal Medicine - H&P: HPI History of present illness: Mr. Delgado is a 52 year old male All Systems PM: A 10-system review of systems was performed and is negative for pertinent findings except as documented above in the HPI. - Constitutional Vitals: Temp Pulse Resp BP Pulse Ox 98.3 F 79 20 115/66 98 12/17/17 03:00 12/17/17 03:00 12/17/17 03:26 12/17/17 03:00 12/17/17 03:26 Internal Med - H&P Results - Labs CBC & Chem 7: 12/16/17 19:36 12/16/17 19:36 Labs: Short CBC 12/16/17 Range/Units 19:36 WBC 33.3 H* (4.3-11.1) K/mcL Hgb 15.6 D (12.9-16.9) g/dL Hct 45.6 (37.5-50.1) % Plt Count 196 (140-400) K/mcL Neutrophils # 26.8 H (1.6-8.9) K/mcL BMP 12/16/17 19:36 Sodium 140 Potassium 3.6 D Chloride 108 H Carbon Dioxide 23 BUN 11 Creatinine 1.34 H Glucose 452 H Calcium 7.7 L Cardiac Enzymes 12/16/17 Range/Units 19:36 Troponin I 0.66 H* (< 0.04) ng/mL - ABG Interpretation ABG results: 12/16/17 12/17/17 20:52 01:17 ABG pH 7.10 L* 7.25 L D ABG pCO2 73 H* 47 H D ABG pO2 161 H D 71 L D ABG HCO3 23 21 ABG Total CO2 25 22 ABG O2 Saturation 99 H 91 L ABG Base Excess -9 L -7 L - Impressions ITS Impressions Chest X-Ray 12/16/17 19:49 IMPRESSION: NG tube and endotracheal tube appear stable in appearance and in adequate position. Diffuse interstitial airspace disease in a perihilar and dependent distribution remains somewhat asymmetric right compared to left. Findings overall are improved from the comparison. Findings may represent asymmetric edema, multifocal pneumonia, or a combination of the above. D/ : / 12/16/2017 21:56:58 Luiz Saldana MD / echo Interpreting Provider: Luiz Saldana MD X-Ray 12/16/17 19:56 IMPRESSION: NG tube and endotracheal tube appear stable in appearance and in adequate position. Diffuse interstitial airspace disease in a perihilar and dependent distribution remains somewhat asymmetric right compared to left. Findings overall are improved from the comparison. Findings may represent asymmetric edema, multifocal pneumonia, or a combination of the above. D/ /16/2017 21:56:58 Luiz Saldana MD / echo Interpreting Provider: Luiz Saldana MD - Attending Attestation I saw, examined, and evaluated the patient. Discussed with the resident and agree with resident's findings and plan as documented in the resident's note. Briefly, patient presented in cardiac arrest. Now in ICU intubated and sedated. He is s/p [facility] with 1 stent in LAD. Will monitor closely overnight. - Time Spent With Patient Total time spent is greater than 50% in coordination of care (as documented) at patient's floor/unit and/or counseling patient:
[2017-12-16] MEDS ORDERED: Acetaminophen 325 MG TABLET PO ONE (20:42)
[2017-12-16] MEDS ORDERED: Vecuronium 50 MG in 0.9 % Sodium Chloride 150 ML IVC SCH (20:45)
[2017-12-16 20:55] LABS: ABG Base Excess -9 mEq/L (-2 to 3); ABG HCO3 23 mEq/L (21-27); ABG Oxygen Saturation 99 % (95-98); ABG PCO2 73 mmHg (35-45); ABG PO2 161 mmHg (85-104); ABG TCO2 25 mEq/L (20-26); Blood Gas Modality VC; Blood Gas PEEP 5 cm H2O; Blood Gas Respiration Rate 18; Blood Gas VT 550 cc
[2017-12-16] MEDS: FentaNYL (PF) 1,000 MCG in 0.9 % Sodium Chloride 80 ML IVC SCH (21:02)
--- NOTE | 2017-12-16 21:10 | Cardiology Consult Note ---
Date of Encounter: 12/16/17 Time of Encounter: 18:30 Assessment and Plan (1) Cardiopulmonary arrest with successful resuscitation Current Visit: Yes Status: Acute Pt was taken emergently to cardiac catheterization lab after stabilized by ED. Unable to oxygenate patient initially which improved with suctioning of BRB. Hemodynamically improved with pressors, trauma blood. Pulmonary hemorrhage resolved prior to transport to photofinishing laboratory worker. Cardiac catheterization demonstrated global LV dysfunction with EF 30%. RCA, Cx angiographically normal. Proximal LAD with 90% lesion- successfully stented with VIOLA to 0%. Will place on hypothermia protocol. No further arrhythmias or bleeding from ETT while in photofinishing laboratory worker. Family updated regarding results of catheterization and advised of critical illness of patient. Will interrogate loop recorder. Conflicting information regarding how long patient was down with/without CPR. (2) Coronary artery disease Current Visit: Yes Status: Acute S/P PCI of LAD. Statin, DAPT. Will add beta blockade and LOREN-I as BP tolerates. Qualifiers: Coronary Disease-Associated Artery/Lesion type: [place] artery [place] vs. transplanted heart: [place] heart Associated angina: with unspecified angina Qualified Code(s): I25.119 - Atherosclerotic heart disease of [place] coronary artery with unspecified angina pectoris (3) S/P coronary artery stent placement Current Visit: Yes Status: Acute (4) Cardiomyopathy Current Visit: Yes Status: Acute EF may be reduced due to cardiac arrest/resuscitation. Will check echocardiogram. Obtain records from [place] regarding prior cardiac testing. Qualifiers: Cardiomyopathy type: unspecified Qualified Code(s): I42.9 - Cardiomyopathy , unspecified Discussion w patient/family: The assessment and plan as outlined above was discussed with the patient and/or family members who expressed understanding and agreement. All questions were answered. Thank you for involving us in the care of your patient. Please call with any questions. History of Present Illness Consult date: 12/16/17 Consult reason: cardiac arrest Chief complaint: cardiac arrest History of present illness: Mr. Delgado is a 52 year old male with hx DM, TIA presents to [place] ED in cardiopulmonary arrest. Pt unable to provide history. History obtained from family, ED. According to family, pt was in baseline state of health until this afternoon. Was outside cutting tree branches and came inside bc did not feel well. Reportedly felt lightheaded, nauseated. Started coughing/spitting blood. Told son to get bucket for possible emesis. Son called EMS and went back to patient. Patient was lying on couch staring at ceiling at this point and then started "breathing funny, snorting." Patient then turned blue. After a few minutes, pt's breathing seemed to normalize and color came back per son, but pt seemed very confused. According to son took approximately 15minutes for EMS to arrive. Per son, EMS stablilized patient and brought into ambulance. Per reports, during transport pt became unstable and required CPR as well as defib x 4 for VT. Upon arrival to ED pt was noted to be in asystole. ACLS protocol initiated. Was in PEA after intial round of CPR. Received epinephrine and bicarbonate and had ROSC. Initial EKG demonstrated wide complex rhythm consistent with accelerated idioventricular rhythm. Had another episode of PEA and again received CPR. Had another round of epinephrine , bicarbonate. Pt then noted to have BRB from ETT. O2 sats in 50-60s. Suctioned approximately 850cc of BRB from ETT. Pt was administered trauma blood. Started on pressors. Presenting ABG 6.84/125/51/21 on FiO2 100%. Lactate > 10. Per family, no cardiac history other than loop recorder. Pt had loop recorder implanted at [facility] last year due to "mini-strokes" per family. Per family, has had prior cardiac catheterizations with no CAD- no records available for my review. Per family, all prior cardiac care at [place]. Past Med Surg Social Fam HX - Past Medical History Source: obtained from family Medical history: diabetes, GERD, TIA Psychiatric history: PTSD - Past Surgical History Surgical History: colectomy - Social History Smoking Status: Former smoker Smokeless Tobacco Status: No Alcohol use: none Drug use: none - Family History Mother Hx Family Cardiac Disorders: Yes Hx Family Cancer: Yes (BLOOD CANCER-LEUKEMIA FAMILY) Hx Family Endocrine Disorder: Yes (DIABETES) Father Living Status: Still Living Hx Family Cardiac Disorders: Yes (CAD s/p PCI, CMP, ICD) Medications and Allergies Aspirin [Adult Low Dose Aspirin EC] 81 mg PO DAILY 10/19/15 [History] Lactobacillus Rhamnosus GG [Culturelle] 1 cap PO DAILY 10/19/15 [History] Acetaminophen [Tylenol] 325 mg PO Q6HR PRN #10 tablet 11/03/15 [Rx] Cholecalciferol (D-3) [Vitamin D] 2,000 unit PO DAILY 08/26/17 [History] Melatonin [Melatin] 3 mg PO HS 08/26/17 [History] Memantine [Namenda] 5 mg PO BID 08/26/17 [History] Pantoprazole Sodium 40 mg PO DAILY 08/26/17 [History] Insulin Glargine [Lantus] 36 unit SQ DAILY 12/16/17 [History] Lidocaine Patch [Lidoderm 5% patch] 2 each TP DAILY 12/16/17 [History] Sertraline [Zoloft] 100 mg PO DAILY 12/16/17 [History] Sildenafil Citrate [Viagra] 100 mg PO DAILY PRN 12/16/17 [History] Topiramate [Topamax] 100 mg PO BID 12/16/17 [History] glipiZIDE [Glipizide] 10 mg PO DAILY 12/16/17 [History] 3 Allergy/AdvReac Type Severity Reaction Status Date / Time codeine Allergy Hives Verified 08/26/17 08:05 [From Tylenol-Codeine #3] diphenhydramine Allergy Unconscious Verified 08/26/17 08:05 [From Benadryl] hydrocodone [From Vicodin] Allergy Hives Verified 08/26/17 08:05 Latex, Natural Rubber Allergy Hives Verified 08/26/17 08:05 metoclopramide [From Reglan] Allergy See Verified 08/26/17 08:05 Comments Oxycodone [From Percocet] Allergy Hives Verified 08/26/17 08:05 tramadol Allergy Hives Verified 08/26/17 08:05 ROS unobtainable: due to endotracheal tube All Systems Review: The remainder of the systems were reviewed and are negative Physical Examination General: Other (intubated, unresponsive on mechanical ventilation) HEENT: Atraumatic, Normocephaly, Mucus Membranes Moist Neck: No JVD, Normal carotid pulses Cardiac: Reg Rate and Rhythm, Normal S1 and S2, No Murmur Lungs: Normal Breath Sounds, No Wheeze, Rales, Rhonchi Neuro: Other (unresponsive, did move R arm spontaneously while examining patient ) Abdomen: Soft, Non-Tender Skin: No rashes noted on visualized skin Musculoskeletal: No Chest Wall Tenderness Extremities: No Clubbing, No Cyanosis, No Edema, Normal Pulses Results 12/16/17 17:58 12/16/17 17:58 - EKG Interpretation EKG results cardiology: personally reviewed (accelerated idioventricular rhythm) Consult Discharge Plan - Plan [facility]: [facility]Primary Care Provider[facility] -
[2017-12-16 21:11] LABS: Basophils % 0.5 %; Eosinophils % 0.1 %; Lymphocytes % 8.3 %; Red Cell Distribution Width 13.6 % (11.5-14.5)
[2017-12-16 21:12] LABS: Basophils # 0.2 K/mcL (0.0-0.2); Hematocrit 45.6 % (37.5-50.1); Hemoglobin 15.6 g/dL (12.9-16.9); Immature Granulocytes % 2.2 % (0-4); Lymphocytes # 2.8 K/mcL (0.6-4.6); Mean Corpuscular HGB Conc 34.2 g/dL (31.6-35.5); Mean Corpuscular Hemoglobin 30.3 pg (28.0-33.3); Mean Corpuscular Volume 88.5 fL (83.0-100.0); Mean Platelet Volume 9.7 fL (9.4-12.4); Monocytes # 2.8 K/mcL (0.0-1.3); Monocytes % 8.3 %; Platelet Count 196 K/mcL (140-400); Red Blood Count 5.15 M/mcL (4.19-5.50); Segmented Neutrophils % 80.6 %
[2017-12-16] MEDS: Lacri-Lube 3.5 GM TUBE BOTH EYES SCH ×2 (21:18→23:46)
[2017-12-16 21:20] LABS: Neutrophils # 26.8 K/mcL (1.6-8.9)
[2017-12-16 21:42] LABS: BUN/Creatinine Ratio 8 (6-26); Blood Urea Nitrogen 11 mg/dL (6-20); Calcium 7.7 mg/dL (8.6-10.3); Carbon Dioxide 23 mEq/L (23-29); Chloride 108 mEq/L (98-107); Glucose 452 mg/dL (70-105); Osmolality,Calculated 309 (280-300); Potassium 3.6 mEq/L (3.5-5.1); Sodium 140 mEq/L (136-145); Troponin I 0.66 ng/mL (< 0.04); eGFR For African Americans > 60 (> 60); eGFR For Non-African Americans 56 (> 60)
[2017-12-16] MEDS: Norepinephrine 8 MG in D5% in Water 500 ML IVC SCH (22:59)
--- NOTE | 2017-12-16 23:20 | Electrocardiograph Report ---
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
[2017-12-16] MEDS: Amiodarone Premix 360 MG/200 ML BAG IVC SCH (23:43)
[2017-12-16] MEDS: Dexmedetomidine HCl 400 MCG/100 ML MLS IVC SCH (23:43)
[2017-12-16] MEDS: Chlorhexidine Rinse 15 ML MOUTHWASH MM SCH (23:46)
[2017-12-17] MEDS ORDERED: *HR* Dextrose 50 % in Water (Syg) 50 ML SYRINGE IVP PRN ×2 (00:07→08:08)
[2017-12-17] MEDS ORDERED: D5% in Water 1,000 ML IVC PRN (00:07)
[2017-12-17] MEDS ORDERED: Dextrose Gel 15 GM/37.5 ML TUBE PO PRN ×2 (00:07)
[2017-12-17] MEDS: Insulin LISPRO 300 UNITS/3 ML VIAL SQ SCH ×2 (00:34→05:27)
[2017-12-17 01:21] LABS: ABG Base Excess -7 mEq/L (-2 to 3); ABG HCO3 21 mEq/L (21-27); ABG Oxygen Saturation 91 % (95-98); ABG PCO2 47 mmHg (35-45); ABG PH 7.25 pH Units (7.32-7.45); ABG PO2 71 mmHg (85-104); ABG TCO2 22 mEq/L (20-26); Blood Gas Modality VC; Blood Gas PEEP 5 cm H2O; Blood Gas Respiration Rate 14; Blood Gas VT 500 cc
[2017-12-17 03:42] LABS: Basophils % 0.2 %; Immature Granulocytes % 1.1 % (0-4)
[2017-12-17 03:44] LABS: Basophils # 0.1 K/mcL (0.0-0.2); Hematocrit 44.1 % (37.5-50.1); Hemoglobin 15.4 g/dL (12.9-16.9); Lymphocytes # 0.7 K/mcL (0.6-4.6); Lymphocytes % 2.1 %; Mean Corpuscular HGB Conc 34.9 g/dL (31.6-35.5); Mean Platelet Volume 9.7 fL (9.4-12.4); Monocytes % 6.3 %; Neutrophils # 28.7 K/mcL (1.6-8.9); Platelet Count 197 K/mcL (140-400); Red Blood Count 5.13 M/mcL (4.19-5.50); Red Cell Distribution Width 13.6 % (11.5-14.5); Segmented Neutrophils % 90.3 %
[2017-12-17 03:54] LABS: INR 1.3; Prothrombin Time 13.6 Seconds (9.4-12.1)
[2017-12-17 04:23] LABS: BUN/Creatinine Ratio 11 (6-26); Blood Urea Nitrogen 14 mg/dL (6-20); Calcium 7.6 mg/dL (8.6-10.3); Carbon Dioxide 20 mEq/L (23-29); Chloride 107 mEq/L (98-107); Chol/HDL Ratio 5.5 (0-4.9); Cholesterol 115 mg/dL (< 200); Glucose 491 mg/dL (70-105); HDL Cholesterol 21 mg/dL (40-59); LDL Cholesterol,Calculated 30 mg/dL (0-99); Osmolality,Calculated 302 (280-300); Potassium 5.4 mEq/L (3.5-5.1); Sodium 135 mEq/L (136-145); Thyroid Stimulating Hormone 3.953 mcIU/mL (0.340-5.600); Triglycerides 318 mg/dL (< 150); Troponin I 1.56 ng/mL (< 0.04); eGFR For African Americans > 60 (> 60); eGFR For Non-African Americans > 60 (> 60)
[2017-12-17 04:45] LABS: Platelet Estimate Normal (Normal)
[2017-12-17 05:03] LABS: ABG Base Excess -4 mEq/L (-2 to 3); ABG HCO3 22 mEq/L (21-27); ABG Oxygen Saturation 97 % (95-98); ABG PCO2 44 mmHg (35-45); ABG PH 7.31 pH Units (7.32-7.45); ABG PO2 102 mmHg (85-104); ABG TCO2 23 mEq/L (20-26); Blood Gas Modality VC; Blood Gas PEEP 5 cm H2O; Blood Gas Respiration Rate 18; Blood Gas VT 550 cc
[2017-12-17] MEDS: Lacri-Lube 3.5 GM TUBE BOTH EYES SCH ×6 (05:28→23:20)
--- NOTE | 2017-12-17 07:30 | Pulmonology History & Physical ---
<Anam Washington W - Last Filed: 12/17/17 10:18> Date of Encounter: 12/17/17 History of Present Illness HPI: Mr. Delgado is a 52 year old male Medications and Allergies Aspirin [Adult Low Dose Aspirin EC] 81 mg PO DAILY 10/19/15 [History] Lactobacillus Rhamnosus GG [Culturelle] 1 cap PO DAILY 10/19/15 [History] Acetaminophen [Tylenol] 325 mg PO Q6HR PRN #10 tablet 11/03/15 [Rx] Cholecalciferol (D-3) [Vitamin D] 2,000 unit PO DAILY 08/26/17 [History] Melatonin [Melatin] 3 mg PO HS 08/26/17 [History] Memantine [Namenda] 5 mg PO BID 08/26/17 [History] Pantoprazole Sodium 40 mg PO DAILY 08/26/17 [History] Insulin Glargine [Lantus] 36 unit SQ DAILY 12/16/17 [History] Lidocaine Patch [Lidoderm 5% patch] 2 each TP DAILY 12/16/17 [History] Sertraline [Zoloft] 100 mg PO DAILY 12/16/17 [History] Sildenafil Citrate [Viagra] 100 mg PO DAILY PRN 12/16/17 [History] Topiramate [Topamax] 100 mg PO BID 12/16/17 [History] glipiZIDE [Glipizide] 10 mg PO DAILY 12/16/17 [History] 3 Allergy/AdvReac Type Severity Reaction Status Date / Time codeine Allergy Hives Verified 08/26/17 08:05 [From Tylenol-Codeine #3] diphenhydramine Allergy Unconscious Verified 08/26/17 08:05 [From Benadryl] hydrocodone [From Vicodin] Allergy Hives Verified 08/26/17 08:05 Latex, Natural Rubber Allergy Hives Verified 08/26/17 08:05 metoclopramide [From Reglan] Allergy See Verified 08/26/17 08:05 Comments Oxycodone [From Percocet] Allergy Hives Verified 08/26/17 08:05 tramadol Allergy Hives Verified 08/26/17 08:05 All Systems: The remainder of the systems were reviewed and are negative Physical Examination Vital Signs: Vital Signs, Last 4 Hours Temp Pulse Resp BP Pulse Ox 12/17/17 09:00 99.1 F 73 20 90/57 98 12/17/17 08:00 99.2 F 80 20 83/51 97 12/17/17 07:41 99.3 F 12/17/17 07:00 99.2 F 79 20 100/60 98 12/17/17 06:14 18 109/66 98 12/17/17 06:00 99.2 F 77 18 107/64 98 Results - Laboratory Findings CBC and BMP: 12/17/17 03:25 12/17/17 03:25 ABG ABG pH 7.31 pH Units (7.32-7.45) L 12/17/17 04:55 ABG pCO2 44 mmHg (35-45) 12/17/17 04:55 ABG pO2 102 mmHg (85-104) 12/17/17 04:55 ABG O2 Saturation 97 % (95-98) 12/17/17 04:55 PT/INR, D-dimer PT 13.6 Seconds (9.4-12.1) H 12/17/17 03:25 Abnormal lab findings: Abnormal lab results WBC 31.8 K/mcL (4.3-11.1) H* 12/17/17 03:25 Neutrophils # 28.7 K/mcL (1.6-8.9) H 12/17/17 03:25 Monocytes # 2.0 K/mcL (0.0-1.3) H 12/17/17 03:25 Nucleated RBCs/100 WBC 0.3 /100 WBC (0) H 12/16/17 17:58 PT 13.6 Seconds (9.4-12.1) H 12/17/17 03:25 APTT 51.5 Seconds (26.0-36.0) H 12/16/17 17:58 ABG pH 7.31 pH Units (7.32-7.45) L 12/17/17 04:55 ABG Base Excess -4 mEq/L (-2 to 3) L 12/17/17 04:55 Sodium 135 mEq/L (136-145) L 12/17/17 03:25 Potassium 5.4 mEq/L (3.5-5.1) H D 12/17/17 03:25 Carbon Dioxide 20 mEq/L (23-29) L 12/17/17 03:25 Glucose 491 mg/dL (70-105) H 12/17/17 03:25 POC Glucose 473 mg/dL (70-99) H* 12/17/17 00:19 Calculated Osmolality 302 (280-300) H 12/17/17 03:25 Lactic Acid 3.3 mmol/L (0.5-2.2) H 12/16/17 23:20 Calcium 7.6 mg/dL (8.6-10.3) L 12/17/17 03:25 Troponin I 1.56 ng/mL (< 0.04) H* 12/17/17 03:25 B-Natriuretic Peptide 216 pg/mL (Less than 100) H 12/16/17 17:58 Triglycerides 318 mg/dL (< 150) H 12/17/17 03:25 VLDL Cholesterol, Calc 64 mg/dL (< 31) H 12/17/17 03:25 HDL Cholesterol 21 mg/dL (40-59) L 12/17/17 03:25 Cholesterol/HDL Ratio 5.5 (0-4.9) H 12/17/17 03:25 - Attending Attestation I examined this patient and my medical decision-making was reviewed with the Resident Physician. I agree with the documented findings, disposition and treatment plan as described except to the extent set forth below. We independently had [id number] contact with the patient I spent 35min of Critical Care time with this patient. It involved decision making of high complexity to assess, manipulate, and support vital organ system failure and/or to prevent further life threatening deterioration of the patient' s condition. The time involved in the performance of separately reportable procedures was not counted toward critical care time. Patient seen and examined at bedside Labs, radiology, chart personally reviewed. Management was reviewed during multidisciplinary critical care rounds. 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 Daily SAT as clinically able. Pulm: nAcute respiratory failure s/t to cardiogenic edema. Minor hemoptysis has resolved suspect hemorrhage related to CHF. Acceptable gas exchange today on Vent. Use low tidal volume vent strategy (i decreased TV today); likely aspiration on ABx. NO SBT today s/t to post arrest with cardiac ischemia. Cards: S/p cardiac arrest s/t ACS. Emergent LHC with PCI to LAD (90% occlusion) appreciate cardiology recs. Cardiogenic shock on Vasopressor. ECHO pending; cont Amiodarone. ASA statin (BB contraindicated because of blood pressure) FEN-GI: NPO for now GI prophylaxis given Renal: UOP and accetable. Cont to monitor sCr ID: Start empiric abx for aspiration cultures will be obtained Heme/Onc: DVT porphylaxis given Endo: Glucose Monitored Integ/MSK: Skin Care per routine ICU Nursing Protocol to prevent ulcers. Lines: All lines examined without evidence of infection : Dispo: Reamin in ICU CODE: Full Code <Linda Camara - Last Filed: 12/17/17 16:42> Date of Encounter: 12/17/17 Time of Encounter: 07:30 Assessment and Plan (1) Cardiopulmonary arrest with successful resuscitation Current visit: Yes Status: Acute Patient taken urgently to cardiac catheterization lab by ED. There was noted to be blood in the ETT during CPR, likely pulmonary hemorrhage. Cath demonstrated EF 30%. Proximal LAD with 90% lesion was successfully stented with VIOLA -per cardiology on amiodarone, DAPT, Lipitor, metoprolol (2) Abnormal head CT Current visit: Yes Status: Acute Radiology call with results of the head CT scan that demonstrated temporal lesions that appeared not to be hemorrhagic or infarct in nature but instead a mass. They recommended contrast enhanced CT scan to further evaluate. The family of the patient was notified of the results and the new imaging. -Contrast enhanced CT scan of head ordered (3) Leukocytosis Current visit: Yes Status: Acute Leukocytosis WBC 31.6 in setting of cardiopulmonary arrest, concern for aspiration pneumonia WBC 20.5 CXR concerning for edema or pneumonia -repeat CBC in a.m. -treat empirically with IV Zosyn, will de-escalate as able -blood cultures and sputum pending Qualifiers: Leukocytosis type: unspecified Qualified Code(s): D72.829 - Elevated white blood cell count, unspecified (4) Cardiomyopathy Current visit: Yes Status: Acute New Cardiomyopathy with EF on catheterization 30%. Likely due to cardiac arrest plan to order TTE. -Ordered TTE Qualifiers: Cardiomyopathy type: unspecified Qualified Code(s): I42.9 - Cardiomyopathy , unspecified (5) Hypercapnic respiratory failure Current visit: Yes Status: Acute Hypercapnic respiratory failure requiring intubation Initial ABG: pH 6.84, CO2 125, HCO3 21 Repeat ABG: pH 7.38,CO2 42, HCO3 25 -continue mechanical ventilation -ABG in a.m. Qualifiers: Chronicity: acute Qualified Code(s): J96.02 - Acute respiratory failure with hypercapnia (6) Atrial fibrillation Current visit: Yes Status: Acute Loop recorder was interrogated by cardiology and demonstrated atrial fibrillation with RVR. No VT/VF recorded. -Cardiology started amiodarone and will discuss long-term anticoagulation with patient. Qualifiers: Atrial fibrillation type: paroxysmal Qualified Code(s): I48.0 - Paroxysmal atrial fibrillation (7) Hyperglycemia Current visit: Yes Status: Acute Hyperglycemia with glucose 491 initially. -Continue IV insulin drip -Accu check q1h -NPO (8) Elevated troponin Current visit: Yes Status: Acute Elevated Troponin 0.07 > 0.66 > 1.56 -management as above (9) Coronary artery disease Current visit: Yes Status: Acute s/p PCI to LAD with VIOLA. -Management as above Qualifiers: Coronary Disease-Associated Artery/Lesion type: [place] artery [place] vs. 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 Delgado is a 52 year old male with PMH diabetes, TIA, Gerd who presented to [facility] in cardiopulmonary arrest. Upon my examination the patient was intubated so history was primarily taken from medical records. Her medical records the patient had been at home shopping would wear he started to feel unwell. He was lightheaded and nauseated, coughing up blood. His son called EMS. The patient then started to turn blue and was breathing irregularly which lasted about a minute and then resolved. While in the ambulance the patient became unstable and required CPR and defib x 4 for VT. upon arrival to the ED the patient was in asystole and a CLS protocol was initiated. After initial round of CPR he was in PEA but after epinephrine and HCO3 had ROSC. Initial EKG demonstrated by complex rhythm consistent with accelerated idioventricular rhythm. He went into PEA again received CPR, epinephrine, HCO3. In his endotracheal tube was noted he had bright red blood. He was given trauma blood after suctioning of about 850cc. According to family he has a loop recorder that was implanted last year due to "mini strokes". He is had cardiac catheterization in the past with no stenting needed. Of note he was sent for cardiac catheterization. Troponin initially 0.07 and increased to 1.56. Glucose is noted to be 491. Past Med Surg Social Fam HX - Past Medical History Medical history: non-contributory Psychiatric history: PTSD - Past Surgical History Surgical History: colectomy - Social History Smoking Status: Former smoker Smokeless Tobacco Status: No Alcohol use: none Drug use: none - Family History Father Living Status: Still Living Hx Family Cardiac Disorders: Yes (CAD s/p PCI, CMP, ICD) Mother Hx Family Cardiac Disorders: Yes Hx Family Cancer: Yes (BLOOD CANCER-LEUKEMIA FAMILY) Hx Family Endocrine Disorder: Yes (DIABETES) ROS unobtainable: due to endotracheal tube All Systems: The remainder of the systems were reviewed and are negative Physical Examination Vital Signs: Vital Signs, Last 4 Hours Temp Pulse Resp BP Pulse Ox 12/17/17 06:14 18 109/66 98 12/17/17 06:00 99.2 F 77 18 107/64 98 12/17/17 05:00 99.1 F 81 18 116/69 98 12/17/17 04:55 99.1 F 12/17/17 04:00 98.6 F 76 19 108/65 97 General appearance: no acute distress, asleep Eyes: nonicteric ENT: oropharynx moist Neck: supple Effort: normal Inspection: normal Auscultation: bilateral: clear Cardiovascular: regular rate and rhythm Gastrointestinal: normoactive bowel sounds Integumentary: normal Extremities: no cyanosis Musculoskeletal: no deformities unable to assess due to mental status Results - Laboratory Findings CBC and BMP: 12/17/17 13:50 12/17/17 03:25 ABG ABG pH 7.31 pH Units (7.32-7.45) L 12/17/17 04:55 ABG pCO2 44 mmHg (35-45) 12/17/17 04:55 ABG pO2 102 mmHg (85-104) 12/17/17 04:55 ABG O2 Saturation 97 % (95-98) 12/17/17 04:55 PT/INR, D-dimer PT 13.6 Seconds (9.4-12.1) H 12/17/17 03:25 Abnormal lab findings: Abnormal lab results WBC 31.8 K/mcL (4.3-11.1) H* 12/17/17 03:25 Neutrophils # 28.7 K/mcL (1.6-8.9) H 12/17/17 03:25 Monocytes # 2.0 K/mcL (0.0-1.3) H 12/17/17 03:25 Nucleated RBCs/100 WBC 0.3 /100 WBC (0) H 12/16/17 17:58 PT 13.6 Seconds (9.4-12.1) H 12/17/17 03:25 APTT 51.5 Seconds (26.0-36.0) H 12/16/17 17:58 ABG pH 7.31 pH Units (7.32-7.45) L 12/17/17 04:55 ABG Base Excess -4 mEq/L (-2 to 3) L 12/17/17 04:55 Sodium 135 mEq/L (136-145) L 12/17/17 03:25 Potassium 5.4 mEq/L (3.5-5.1) H D 12/17/17 03:25 Carbon Dioxide 20 mEq/L (23-29) L 12/17/17 03:25 Glucose 491 mg/dL (70-105) H 12/17/17 03:25 POC Glucose 473 mg/dL (70-99) H* 12/17/17 00:19 Calculated Osmolality 302 (280-300) H 12/17/17 03:25 Lactic Acid 3.3 mmol/L (0.5-2.2) H 12/16/17 23:20 Calcium 7.6 mg/dL (8.6-10.3) L 12/17/17 03:25 Troponin I 1.56 ng/mL (< 0.04) H* 12/17/17 03:25 B-Natriuretic Peptide 216 pg/mL (Less than 100) H 12/16/17 17:58 Triglycerides 318 mg/dL (< 150) H 12/17/17 03:25 VLDL Cholesterol, Calc 64 mg/dL (< 31) H 12/17/17 03:25 HDL Cholesterol 21 mg/dL (40-59) L 12/17/17 03:25 Cholesterol/HDL Ratio 5.5 (0-4.9) H 12/17/17 03:25 - VTE Reasons for not Prescribing Prophylaxis: Not indicated-Anticoagulated or INR therapeutic
[2017-12-17] MEDS ORDERED: Insulin Regular, Human 100 UNIT/ML IV PRN (08:08)
[2017-12-17] MEDS ORDERED: D5% in 0.45% NACL w KCl 20 MEQ/1,000 ML MLS IVC PRN (08:08)
[2017-12-17] MEDS ORDERED: Insulin Human Regular 100 UNIT in 0.9 % Sodium Chloride 100 ML IVC SCH (08:15)
[2017-12-17] MEDS: Chlorhexidine Rinse 15 ML MOUTHWASH MM SCH ×2 (08:15→20:26)
[2017-12-17] MEDS: Pantoprazole 40 MG VIAL IVP SCH (08:15)
[2017-12-17] MEDS: Amiodarone Premix 360 MG/200 ML BAG IVC SCH ×2 (08:15→22:07)
[2017-12-17] MEDS: Aspirin 81 MG TAB.CHEW PO SCH (08:15)
--- NOTE | 2017-12-17 09:14 | Cardiology Progress Note ---
Date of Encounter: 12/17/17 Time of Encounter: 09:00 Assessment and Plan (1) Cardiopulmonary arrest with successful resuscitation Current Visit: Yes Status: Acute Pt was taken emergently to cardiac catheterization lab after stabilized by ED. Unable to oxygenate patient initially which improved with suctioning of BRB. Hemodynamically improved with pressors, trauma blood. Pulmonary hemorrhage resolved prior to transport to labor relations representative. Cardiac catheterization demonstrated global LV dysfunction with EF 30%. RCA, Cx angiographically normal. Proximal LAD with 90% lesion- successfully stented with VIOLA to 0%. Conflicting information regarding how long patient was down with/without CPR. No arrhythmias noted overnight, remains in NSR. On amiodarone gtt per protcol. Purposeful movements per bedside RN. Leukocytosis, WBC >30, Pulmonology following. Head CT ordered. Interrogate loop today, further recommendations to follow. Awaiting OR records for hx, recent testing. (2) Cardiomyopathy Current Visit: Yes Status: Acute EF may be reduced due to cardiac arrest/resuscitation. Will check echocardiogram. Obtain records from OR regarding prior cardiac testing. Prior EF assessment at [facility] (2012) demonstrated preserved LVEF per LV gram EF 30 %. BNP mildly elevated upon presentation. No overt volume overload noted upon exam. Qualifiers: Cardiomyopathy type: unspecified Qualified Code(s): I42.9 - Cardiomyopathy , unspecified (3) Atrial fibrillation Current Visit: Yes Status: Acute Loop recorder ([employer] interrogated. Appears rhythm prior to event was atrial fibrillation with RVR. No VT/VF noted on loop recorder interrogation. Will need to discuss long-term AC; CHA2Ds Vasc=5 (DMII, CAD, CMP, TIA). Discussed with Dr. Murdock who recommends starting in the outpatient setting after 2-3 weeks of DAPT. Will continue to follow and monitor. No PAF noted since admission. Discussed with Dr. Murdock; will continue amiodarone for now. Qualifiers: Atrial fibrillation type: paroxysmal Qualified Code(s): I48.0 - Paroxysmal atrial fibrillation (4) Coronary artery disease Current Visit: Yes Status: Acute S/P PCI of LAD. Statin, DAPT. Will add beta blockade and LOREN-I as BP tolerates. Qualifiers: Coronary Disease-Associated Artery/Lesion type: hughes artery [place] vs. transplanted heart: hughes heart Associated angina: with unspecified angina Qualified Code(s): I25.119 - Atherosclerotic heart disease of hughes coronary artery with unspecified angina pectoris (5) S/P coronary artery stent placement Current Visit: Yes Status: Acute Discussion w patient/family: The assessment and plan as outlined above was discussed with the patient and/or family members who expressed understanding and agreement. All questions were answered. Thank you for involving us in the care of your patient. Please call with any questions. The patient will be discussed and reviewed with , changes to be made accordingly. Subjective Principal diagnosis: Cardio-pulmonary arrest Interval history: Seen and examined. Remains intubated/sedated. Bedside RN reports purposeful movements this AM. Objective Vital Signs, Last 4 Hours Temp Pulse Resp BP Pulse Ox 12/17/17 07:41 99.3 F 12/17/17 06:14 18 109/66 98 12/17/17 06:00 99.2 F 77 18 107/64 98 General: Other (intubated/sedated) Cardiac: Reg Rate and Rhythm, Normal S1 and S2 Lungs: Normal Breath Sounds Neuro: Other (intubated/sedated) Abdomen: Soft Extremities: No Edema, Normal Pulses, Other (bilateral LE's cool to touch) Results 12/17/17 03:25 12/17/17 03:25 Lab Results 12/16/17 12/16/17 12/17/17 19:36 19:36 03:25 WBC 33.3 H* 31.8 H* Hgb 15.6 D 15.4 Hct 45.6 44.1 Plt Count 196 197 INR Sodium 140 Potassium 3.6 D Chloride 108 H Carbon Dioxide 23 BUN 11 Creatinine 1.34 H Glucose 452 H Calcium 7.7 L Troponin I 0.66 H* TSH 12/17/17 12/17/17 03:25 03:25 WBC Hgb Hct Plt Count INR 1.3 Sodium 135 L Potassium 5.4 H D Chloride 107 Carbon Dioxide 20 L BUN 14 Creatinine 1.26 Glucose 491 H Calcium 7.6 L Troponin I 1.56 H* TSH 3.953 Active Medications Albuterol Sulfate (Albuterol Inhaler) 2 puff IH Q2HR PRN PRN Reason: Shortness Of Breath/Wheezing Stop: 06/17/18 19:54 Artificial Tears (Lacri-Lube) 1 appl BOTH EYES Q4HR KATIE PRN Reason: Protocol Stop: 06/17/18 20:01 Last Admin: 12/17/17 08:15 Dose: 1 appl Artificial Tears (Lacri-Lube) 1 appl BOTH EYES Q2HR PRN; Protocol PRN Reason: Dry Eyes Stop: 06/17/18 19:54 Aspirin (Aspirin) 81 mg PO DAILY KATIE Stop: 06/18/18 09:01 Last Admin: 12/17/17 08:15 Dose: 81 mg Atorvastatin Calcium (Lipitor) 80 mg PO HS KATIE Stop: 06/17/18 21:01 Last Admin: 12/16/17 23:46 Dose: 80 mg Chlorhexidine Gluconate (Chlorhexidine Rinse) 15 ml MM BID KATIE Stop: 06/17/18 21:01 Last Admin: 12/17/17 08:15 Dose: 15 ml Clopidogrel Bisulfate (Plavix) 75 mg PO DAILY KATIE Stop: 06/18/18 09:01 Last Admin: 12/17/17 08:15 Dose: 75 mg Dextrose/Water (Dextrose 50% (Syg)) 25 ml IVP AD PRN PRN Reason: Hypoglycemia Stop: 06/18/18 00:08 Dextrose/Water (Dextrose 50% (Syg)) 25 ml IVP Q15MIN PRN PRN Reason: Hypoglycemia Stop: 06/18/18 08:09 Glucagon (Glucagen) 1 mg IM ONCE PRN PRN Reason: Hypoglycemia Stop: 06/18/18 00:08 Glucose (Gluctose) 15 gm PO ONCE PRN PRN Reason: Hypoglycemia Stop: 06/18/18 00:08 Glucose (Gluctose) 30 gm PO ONCE PRN PRN Reason: Hypoglycemia Stop: 06/18/18 00:08 Amiodarone HCl/Dextrose (Amiodarone Drip Premix 360mg/200ml) 360 mg in 200 mls @ 16.667 mls/hr IVC CONT KATIE PRN Reason: 0.5 MG/MIN Stop: 06/18/18 02:01 Last Admin: 12/17/17 08:15 Dose: 0.5 mg/min, 16.667 mls/hr Norepinephrine Bitartrate 8 mg (/ Dextrose) 508 mls @ 76.2 mls/hr IVC CONT KATIE ; 20 MCG/MIN PRN Reason: Protocol Stop: 06/17/18 20:01 Last Titration: 12/17/17 05:29 Dose: 0 mcg/min, 0 mls/hr Dexmedetomidine HCl (Precedex Premix) 400 mcg in 100 mls @ 5.557 mls/hr IVC .Q18H KATIE; 0.2 MCG/KG/HR PRN Reason: Protocol Stop: 06/17/18 20:01 Last Admin: 12/16/17 23:43 Dose: Not Given Fentanyl Citrate 1,000 mcg/ (Sodium Chloride) 100 mls @ 5 mls/hr IVC CONT KATIE; 50 MCG/HR PRN Reason: Protocol Stop: 06/17/18 20:01 Last Admin: 12/16/17 21:02 Dose: 50 mcg/hr, 5 mls/hr Vecuronium [place] 50 mg/ (Sodium Chloride) 200 mls @ 26.67 mls/hr IVC CONT KATIE ; 1 MCG/KG/MIN PRN Reason: Protocol Stop: 06/17/18 20:46 Last Admin: 12/16/17 21:18 Dose: Not Given Midazolam HCl 50 mg/ Sodium (Chloride) 100 mls @ 4 mls/hr IVC CONT KATIE; 2 MG/HR PRN Reason: Protocol Stop: 06/17/18 20:46 Last Admin: 12/17/17 07:01 Dose: 4 mg/hr, 8 mls/hr Dextrose (Dextrose 5%) 1,000 mls @ 100 mls/hr IVC .Q10H PRN PRN Reason: HYPOGLYCEMIA Stop: 06/18/18 00:08 Insulin Human Regular 100 unit (/ Sodium Chloride) 101 mls @ 11.11 mls/hr IVC CONT KATIE; 11 UNIT/HR PRN Reason: Protocol Stop: 06/18/18 08:46 Last Admin: 12/17/17 09:28 Dose: Not Given Insulin Human Regular (Humulin R) 5 unit IV ONCE PRN PRN Reason: SEE COMMENTS Stop: 06/18/18 08:09 Metoprolol Tartrate (Lopressor) 12.5 mg PO Q6HR [facility] Stop: 06/18/18 00:01 Last Admin: 12/17/17 05:29 Dose: Not Given Pantoprazole Sodium (Protonix) 40 mg IVP DAILY [facility] Stop: 06/18/18 09:01 Last Admin: 12/17/17 08:15 Dose: 40 mg - Imaging and Cardiology Echo: pending Cardiac cath: report reviewed - EKG Interpretation EKG results cardiology: personally reviewed - VTE Reasons for not Prescribing Prophylaxis: Not indicated-Anticoagulated or INR therapeutic Consult Discharge Plan - Plan [facility]: [facility] [Primary Care Provider[facility] -
[2017-12-17] MEDS: Insulin Human Regular 100 UNIT in 0.9 % Sodium Chloride 100 ML IVC SCH ×2 (09:28→21:51)
[2017-12-17] MEDS ORDERED: *HR* Midazolam HCl 5 MG/5 ML VIAL IVP ONE (09:48)
[2017-12-17] MEDS ORDERED: *HR* Rocuronium Bromide 50 MG/5 ML VIAL IVC ONE (09:48)
[2017-12-17] MEDS: FentaNYL (PF) 1,000 MCG in 0.9 % Sodium Chloride 80 ML IVC SCH ×2 (10:55→21:53)
[2017-12-17] MEDS: Dexmedetomidine HCl 400 MCG/100 ML MLS IVC SCH (10:57)
[2017-12-17 12:22] LABS: ABG Base Excess -1 mEq/L (-2 to 3); ABG HCO3 25 mEq/L (21-27); ABG Oxygen Saturation 99 % (95-98); ABG PCO2 42 mmHg (35-45); ABG PH 7.38 pH Units (7.32-7.45); ABG PO2 162 mmHg (85-104); ABG TCO2 26 mEq/L (20-26); Blood Gas Modality ASSIST CONTROL; Blood Gas PEEP 5 cm H2O; Blood Gas Respiration Rate 20; Blood Gas VT 500 cc
[2017-12-17] MEDS: *HR* Heparin 5,000 UNIT/ML VIAL SQ SCH ×2 (13:32→20:26)
[2017-12-17 14:06] LABS: Basophils % 0.1 %; Hematocrit 39.8 % (37.5-50.1); Hemoglobin 14.2 g/dL (12.9-16.9); Immature Granulocytes % 0.5 % (0-4); Lymphocytes # 1.7 K/mcL (0.6-4.6); Mean Corpuscular HGB Conc 35.7 g/dL (31.6-35.5); Mean Corpuscular Hemoglobin 30.7 pg (28.0-33.3); Mean Corpuscular Volume 86.1 fL (83.0-100.0); Mean Platelet Volume 9.4 fL (9.4-12.4); Monocytes # 1.7 K/mcL (0.0-1.3); Monocytes % 8.3 %; Platelet Count 155 K/mcL (140-400); Red Blood Count 4.62 M/mcL (4.19-5.50); Red Cell Distribution Width 13.6 % (11.5-14.5); Segmented Neutrophils % 83.1 %
--- NOTE | 2017-12-17 15:32 | Event Note ---
Date of Encounter: 12/17/17 Time of Encounter: 15:32 The pulmonary H&P was supposed to be a pulmonary consult note.
[2017-12-17] MEDS ORDERED: Isovue-370 500 ML INFUS..BTL IV ONE (15:49)
[2017-12-17] MEDS: Piperacillin/Tazobactam 3.375 GM in 0.9 % Sodium Chloride Mini Bag 100 ML IVPB SCH ×2 (15:59→23:20)
--- NOTE | 2017-12-17 16:06 | Event Note ---
Date of Encounter: 12/17/17 Time of Encounter: 16:03 Radiology called with results of head CT that demonstrated temporal lesions that appeared not be hemorrhagic in nature but may be a mass. Radiology recommended contrast enhanced CT scan to further evaluate. He has a loop recorder so MRI cannot be done. Contrast enhanced CT scan of head was ordered
[2017-12-17 16:41] LABS: VBG Ionized Calcium 1.07 mmol/L (1.15-1.35); VBG PH 7.34 pH Units (7.32-7.42)
[2017-12-18] MEDS: Norepinephrine 8 MG in D5% in Water 500 ML IVC SCH (01:12)
[2017-12-18 04:26] LABS: ABG Base Excess 1 mEq/L (-2 to 3); ABG HCO3 24 mEq/L (21-27); ABG Oxygen Saturation 97 % (95-98); ABG PCO2 34 mmHg (35-45); ABG PH 7.46 pH Units (7.32-7.45); ABG PO2 83 mmHg (85-104); ABG TCO2 25 mEq/L (20-26); Blood Gas Modality PRVC; Blood Gas PEEP 5 cm H2O; Blood Gas Respiration Rate 20; Blood Gas VT 500 cc
[2017-12-18 04:28] LABS: Basophils % 0.2 %; Eosinophils # 0.1 K/mcL (0.0-0.6); Eosinophils % 0.3 %; Hematocrit 36.7 % (37.5-50.1); Hemoglobin 12.7 g/dL (12.9-16.9); Immature Granulocytes % 0.5 % (0-4); Lymphocytes # 2.1 K/mcL (0.6-4.6); Lymphocytes % 12.4 %; Mean Corpuscular HGB Conc 34.6 g/dL (31.6-35.5); Mean Corpuscular Hemoglobin 29.7 pg (28.0-33.3); Mean Corpuscular Volume 85.7 fL (83.0-100.0); Mean Platelet Volume 9.9 fL (9.4-12.4); Monocytes # 0.9 K/mcL (0.0-1.3); Monocytes % 5.1 %; Neutrophils # 13.7 K/mcL (1.6-8.9); Platelet Count 123 K/mcL (140-400); Red Blood Count 4.28 M/mcL (4.19-5.50); Red Cell Distribution Width 13.7 % (11.5-14.5); Segmented Neutrophils % 81.5 %
[2017-12-18 04:38] LABS: BUN/Creatinine Ratio 17 (6-26); Blood Urea Nitrogen 17 mg/dL (6-20); Carbon Dioxide 25 mEq/L (23-29); Chloride 111 mEq/L (98-107); Glucose 128 mg/dL (70-105); Osmolality,Calculated 297 (280-300); Potassium 3.1 mEq/L (3.5-5.1); Sodium 142 mEq/L (136-145); eGFR For African Americans > 60 (> 60); eGFR For Non-African Americans > 60 (> 60)
[2017-12-18] MEDS: *HR* Heparin 5,000 UNIT/ML VIAL SQ SCH ×3 (06:12→20:53)
[2017-12-18] MEDS: Lacri-Lube 3.5 GM TUBE BOTH EYES SCH ×6 (06:12→23:38)
--- NOTE | 2017-12-18 07:06 | Pulmonology Progress Note ---
<PadminiAnam W - Last Filed: 12/18/17 10:51> Date of Encounter: 12/18/17 Objective PUL Vital signs: Last Vital Signs Temp 99.5 F 12/18/17 06:00 Pulse 68 12/18/17 06:00 Resp 20 12/18/17 06:00 BP 107/62 12/18/17 06:00 Pulse Ox 96 12/18/17 06:00 Ventilator Settings Ventilator Settings: Ventilator Settings, Last 8 Hours Ventilator Mode VC+ Ventilator Mode VC+ Ventilator Mode A/C Ventilator Mode VC+ Ventilator Mode VC+ Ventilator Mode VC+ Ventilator Tidal Volume 500 Setting Ventilator Tidal Volume 500 Setting Ventilator Tidal Volume 500 Setting Ventilator Tidal Volume 500 Setting Ventilator Tidal Volume 500 Setting Ventilator Tidal Volume 500 Setting Ventilator Tidal Volume 500 Setting Ventilator Tidal Volume 500 Setting Ventilator Tidal Volume 500 Setting Ventilator Tidal Volume 500 Setting Ventilator Tidal Volume 500 Setting Ventilator Tidal Volume 500 Setting Ventilator Respiratory Rate 20 Setting Ventilator Respiratory Rate 20 Setting Ventilator Respiratory Rate 20 Setting Ventilator Respiratory Rate 20 Setting Ventilator Respiratory Rate 20 Setting Ventilator Respiratory Rate 20 Setting Ventilator Respiratory Rate 20 Setting Ventilator Respiratory Rate 20 Setting Ventilator Respiratory Rate 20 Setting Ventilator Respiratory Rate 20 Setting Ventilator Respiratory Rate 20 Setting Ventilator Respiratory Rate 20 Setting Actual Respiratory Rate 20 Actual Respiratory Rate 20 Actual Respiratory Rate 20 Actual Respiratory Rate 20 Actual Respiratory Rate 20 Actual Respiratory Rate 20 Actual Respiratory Rate 20 Actual Respiratory Rate 20 Actual Respiratory Rate 20 Actual Respiratory Rate 20 Actual Respiratory Rate 20 Positive End Expiratory 5 Pressure Positive End Expiratory 5 Pressure Positive End Expiratory 5 Pressure Positive End Expiratory 5 Pressure Positive End Expiratory 5 Pressure Positive End Expiratory 5 Pressure Positive End Expiratory 5 Pressure Positive End Expiratory 5 Pressure Positive End Expiratory 5 Pressure Positive End Expiratory 5 Pressure Positive End Expiratory 5 Pressure Positive End Expiratory 5 Pressure Peak Inspiratory Airway 27 Pressure Peak Inspiratory Airway 24 Pressure Peak Inspiratory Airway 24 Pressure Peak Inspiratory Airway 24 Pressure Peak Inspiratory Airway 24 Pressure Peak Inspiratory Airway 24 Pressure Peak Inspiratory Airway 23 Pressure Peak Inspiratory Airway 23 Pressure Peak Inspiratory Airway 23 Pressure Peak Inspiratory Airway 23 Pressure Peak Inspiratory Airway 23 Pressure Results - Laboratory Findings CBC and BMP: 12/18/17 03:55 12/18/17 03:55 ABG ABG pH 7.46 pH Units (7.32-7.45) H 12/18/17 04:23 ABG pCO2 34 mmHg (35-45) L 12/18/17 04:23 ABG pO2 83 mmHg (85-104) L 12/18/17 04:23 ABG O2 Saturation 97 % (95-98) 12/18/17 04:23 PT/INR, D-dimer PT 13.6 Seconds (9.4-12.1) H 12/17/17 03:25 Abnormal lab findings: Abnormal lab results WBC 16.8 K/mcL (4.3-11.1) H 12/18/17 03:55 Hgb 12.7 g/dL (12.9-16.9) L D 12/18/17 03:55 Hct 36.7 % (37.5-50.1) L 12/18/17 03:55 Plt Count 123 K/mcL (140-400) L 12/18/17 03:55 Neutrophils # 13.7 K/mcL (1.6-8.9) H 12/18/17 03:55 Nucleated RBCs/100 WBC 0.3 /100 WBC (0) H 12/16/17 17:58 PT 13.6 Seconds (9.4-12.1) H 12/17/17 03:25 APTT 51.5 Seconds (26.0-36.0) H 12/16/17 17:58 ABG pH 7.46 pH Units (7.32-7.45) H 12/18/17 04:23 ABG pCO2 34 mmHg (35-45) L 12/18/17 04:23 ABG pO2 83 mmHg (85-104) L 12/18/17 04:23 Potassium 3.1 mEq/L (3.5-5.1) L 12/18/17 03:55 Chloride 111 mEq/L (98-107) H 12/18/17 03:55 Glucose 128 mg/dL (70-105) H 12/18/17 03:55 POC Glucose 149 mg/dL (70-99) H 12/18/17 00:16 Lactic Acid 3.3 mmol/L (0.5-2.2) H 12/16/17 23:20 Calcium 8.0 mg/dL (8.6-10.3) L 12/18/17 03:55 Venous Ioniz Calcium 1.07 mmol/L (1.15-1.35) L 12/17/17 16:34 Troponin I 1.56 ng/mL (< 0.04) H* 12/17/17 03:25 B-Natriuretic Peptide 216 pg/mL (Less than 100) H 12/16/17 17:58 Triglycerides 318 mg/dL (< 150) H 12/17/17 03:25 VLDL Cholesterol, Calc 64 mg/dL (< 31) H 12/17/17 03:25 HDL Cholesterol 21 mg/dL (40-59) L 12/17/17 03:25 Cholesterol/HDL Ratio 5.5 (0-4.9) H 12/17/17 03:25 - Microbiology Findings Microbiology Findings: Microbiology, Last 48 Hours 12/17/17 13:50 Sputum Culture - Preliminary Sputum - Clinical Findings Intake & Output: Intake & Output 12/17/17 12/17/17 12/18/17 15:59 23:59 07:59 Intake Total 393 / 393 761.0 / 761.0 794 / 794 Output Total 150 / 150 350 / 350 325 / 325 Balance 243 / 243 411.0 / 411.0 469 / 469 Consult Discharge Plan - Plan Referrals: [facility] [Primary Care Provider[facility] - - Attending Attestation I examined this patient and my medical decision-making was reviewed with the Resident Physician. I agree with the documented findings, disposition and treatment plan as described except to the extent set forth below. We independently had [id number] contact with the patient I spent 35min of Critical Care time with this patient. It involved decision making of high complexity to assess, manipulate, and support vital organ system failure and/or to prevent further life threatening deterioration of the patient' s condition. The time involved in the performance of separately reportable procedures was not counted toward critical care time. Patient seen and examined at bedside Labs, radiology, chart personally reviewed. Management was reviewed during multidisciplinary critical care rounds. DIAGNOSTIC CARDIAC SONOGRAPHER: The patient is awake and alert off sedation able to follow commands; he has a new right temporal lesion that was identified on CT scan yesterday contrast enhanced CT scan was unable to fully delineate the characteristic of this but may represent neoplastic process. He will need an MRI when he is more stable for evaluation of this. Pulm: He has had evidence of worsening hypoxemic respiratory failure in including an episode of acute desaturation requiring emergent banging to maintain oxygen saturation this is life threatening desaturation that required my full attention to manage. Chest x-ray appears stable there may be a new increasing left opacity consistent with pneumonia however this is very mild. There is a high probability patient developing ARDS giving insults of the previous 48 hours. At this point I do not see any clear evidence of this but he has required maximal ventilator support will continue to give her low tidal volume ventilatory strategy with high PEEP to FiO2 strategy at this time. Cards: Patient presented with cardiac arrest secondary to ACS he went to catheter lab for proximal LAD lesion and received stent. His been hemodynamically stable since this and her intervention. High risk for further complications related to stenting of this lesion and is possible that his hypoxemia could be cardiac driven we will check lactate troponin ECG at this time. Echo was done yesterday and suggests EF of 35% and so I suspect a component of cardiogenic pulmonary edema complicating his respiratory status and will attempt to diuresis and is clinically able FEN-GI: Continue enteral nutrition per dietary recommendations GI prophylaxis given Renal: Urine output monitored serum creatinine stable continue to monitor electrolytes ID: He is being treated for concern for pneumonia possibly aspiration white count trending down he remains afebrile today cultures pending Heme/Onc: DVT prophylaxis given possibility of DIAGNOSTIC CARDIAC SONOGRAPHER neoplasm and I recommend CT with contrast of chest abdomen pelvis for further evaluation of malignancy although he is on too unstable to do this now and I feel that the additional contrast load would be detrimental Endo: Glucose Monitored Integ/MSK: Skin Care per routine ICU Nursing Protocol to prevent ulcers. Lines: All lines examined without evidence of infection : Dispo: Remain in ICU for critical illness CODE: Full family updated <Linda Camara - Last Filed: 12/18/17 14:31> Date of Encounter: 12/18/17 Time of Encounter: 07:06 Assessment and Plan (1) Cardiopulmonary arrest with successful resuscitation Current Visit: Yes Status: Acute Patient taken urgently to cardiac catheterization lab by ED. There was noted to be blood in the ETT during CPR, likely pulmonary hemorrhage. Cath demonstrated EF 30%. Proximal LAD with 90% lesion was successfully stented with VIOLA patient has been hemodynamically stable not requiring pressor support -per cardiology on amiodarone, DAPT, Lipitor, metoprolol -cardiology will add lisinopril -cardiology is going to have [employer] come and do a full interrogation of the loop recorder. (2) Abnormal head CT Current Visit: Yes Status: Acute Radiology call with results of the head CT scan that demonstrated temporal lesions that appeared not to be hemorrhagic or infarct in nature but instead a mass. They recommended contrast enhanced CT scan to further evaluate. The family of the patient was notified of the results and the new imaging. -Contrast enhanced CT scan of head demonstrated low-density lesion and anterior right temporal lobe. Differential diagnosis including cystic or necrotic neoplasm, abscess, demyelinating lesion, less likely acute to subacute infarct. Recommends MRI. -Cardiology reported that loop recorder is safe for the patient to have an MRI. They asked that we wait until after [employer] interrogates the loop recorder for a full report because the MRI may clear the history of the loop recorder. -Patient is to unstable at the moment for MRI but when more stable will proceed (3) Hypercapnic respiratory failure Current Visit: Yes Status: Acute -Today the patient had an episode of acute hypoxic desaturation that required bagging by respiratory. A stat troponin, lactic acid, chest x-ray, EKG was ordered. The patient has a high probability of developing ARDS since this past upset of desaturation. -12/18/2017 CXR demonstrated resolved pulmonary edema and new left basilar atelectasis versus pneumonia Hypercapnic respiratory failure requiring intubation Initial ABG: pH 6.84, CO2 125, HCO3 21 Repeat ABG: pH 7.35,CO2 49, HCO3 27 -Patient requiring maximum mechanical ventilation -ABG in a.m. Qualifiers: Chronicity: acute Qualified Code(s): J96.02 - Acute respiratory failure with hypercapnia (4) Aspiration pneumonia Current Visit: Yes Status: Acute Aspiration pneumonia demonstrated by chest x-ray in setting of cardiopulmonary arrest WBC 16.8 (31.6) improving afebrile CXR concerning for edema or pneumonia sputum culture-no growth thus far -repeat CBC in a.m. -treated empirically with IV Zosyn -blood cultures pending Qualifiers: Qualified Code(s): J69.0 - Pneumonitis due to inhalation of food and vomit (5) Cardiomyopathy Current Visit: Yes Status: Acute New Cardiomyopathy with EF on catheterization 30%. Likely due to cardiac arrest plan to order TTE. TTE- EF 35%, mild LV diastolic dysfunction, no pulmonary hypertension or valvular dysfunction -will be cautious with IVF Qualifiers: Cardiomyopathy type: unspecified Qualified Code(s): I42.9 - Cardiomyopathy , unspecified (6) Atrial fibrillation Current Visit: Yes Status: Acute Loop recorder was interrogated by cardiology and demonstrated atrial fibrillation with RVR. No VT/VF recorded. -Cardiology had [employer] come do a full interrogation of the loop recorder -Cardiology started amiodarone and will discuss long-term anticoagulation with patient. Qualifiers: Atrial fibrillation type: paroxysmal Qualified Code(s): I48.0 - Paroxysmal atrial fibrillation (7) Hyperglycemia Current Visit: Yes Status: Acute Hyperglycemia with glucose 491 initially. Glucose 128 -medium dose sliding scale insulin Q4h -Accu check q4h -nutrition managing tube feedings (8) Elevated troponin Current Visit: Yes Status: Acute Elevated Troponin 0.07 > 0.66 > 1.56 > 0.71 troponin was recheck today and improved -management as above (9) Coronary artery disease Current Visit: Yes Status: Acute s/p PCI to LAD with VIOLA. -Management as above Qualifiers: Coronary Disease-Associated Artery/Lesion type: [place] artery [place] vs. 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 Is currently intubated. He had an episode where he de-saturated and needed to be bag masked. STAT troponin, lactate, and EKG where ordered. Objective PUL Vital signs: Last Vital Signs Temp 99.5 F 12/18/17 06:00 Pulse 68 12/18/17 06:00 Resp 20 12/18/17 06:00 BP 107/62 12/18/17 06:00 Pulse Ox 96 12/18/17 06:00 General appearance: no acute distress Eyes: nonicteric ENT: oropharynx moist Neck: supple Effort: normal Auscultation: left: clear, right: diminished breath sounds (base) Cardiovascular: regular rate and rhythm Gastrointestinal: normoactive bowel sounds, hypoactive bowel sounds, soft Integumentary: normal Extremities: no cyanosis, no edema, pulses normal Musculoskeletal: no deformities unable to assess due to mental status Ventilator Settings Ventilator Settings: Ventilator Settings, Last 8 Hours Ventilator Mode VC+ Ventilator Mode VC+ Ventilator Mode A/C Ventilator Mode VC+ Ventilator Mode VC+ Ventilator Mode VC+ Ventilator Tidal Volume 500 Setting Ventilator Tidal Volume 500 Setting Ventilator Tidal Volume 500 Setting Ventilator Tidal Volume 500 Setting Ventilator Tidal Volume 500 Setting Ventilator Tidal Volume 500 Setting Ventilator Tidal Volume 500 Setting Ventilator Tidal Volume 500 Setting Ventilator Tidal Volume 500 Setting Ventilator Tidal Volume 500 Setting Ventilator Tidal Volume 500 Setting Ventilator Tidal Volume 500 Setting Ventilator Respiratory Rate 20 Setting Ventilator Respiratory Rate 20 Setting Ventilator Respiratory Rate 20 Setting Ventilator Respiratory Rate 20 Setting Ventilator Respiratory Rate 20 Setting Ventilator Respiratory Rate 20 Setting Ventilator Respiratory Rate 20 Setting Ventilator Respiratory Rate 20 Setting Ventilator Respiratory Rate 20 Setting Ventilator Respiratory Rate 20 Setting Ventilator Respiratory Rate 20 Setting Ventilator Respiratory Rate 20 Setting Actual Respiratory Rate 20 Actual Respiratory Rate 20 Actual Respiratory Rate 20 Actual Respiratory Rate 20 Actual Respiratory Rate 20 Actual Respiratory Rate 20 Actual Respiratory Rate 20 Actual Respiratory Rate 20 Actual Respiratory Rate 20 Actual Respiratory Rate 20 Actual Respiratory Rate 20 Positive End Expiratory 5 Pressure Positive End Expiratory 5 Pressure Positive End Expiratory 5 Pressure Positive End Expiratory 5 Pressure Positive End Expiratory 5 Pressure Positive End Expiratory 5 Pressure Positive End Expiratory 5 Pressure Positive End Expiratory 5 Pressure Positive End Expiratory 5 Pressure Positive End Expiratory 5 Pressure Positive End Expiratory 5 Pressure Positive End Expiratory 5 Pressure Peak Inspiratory Airway 27 Pressure Peak Inspiratory Airway 24 Pressure Peak Inspiratory Airway 24 Pressure Peak Inspiratory Airway 24 Pressure Peak Inspiratory Airway 24 Pressure Peak Inspiratory Airway 24 Pressure Peak Inspiratory Airway 23 Pressure Peak Inspiratory Airway 23 Pressure Peak Inspiratory Airway 23 Pressure Peak Inspiratory Airway 23 Pressure Peak Inspiratory Airway 23 Pressure Results - Laboratory Findings CBC and BMP: 12/18/17 03:55 12/18/17 03:55 ABG ABG pH 7.46 pH Units (7.32-7.45) H 12/18/17 04:23 ABG pCO2 34 mmHg (35-45) L 12/18/17 04:23 ABG pO2 83 mmHg (85-104) L 12/18/17 04:23 ABG O2 Saturation 97 % (95-98) 12/18/17 04:23 PT/INR, D-dimer PT 13.6 Seconds (9.4-12.1) H 12/17/17 03:25 Abnormal lab findings: Abnormal lab results WBC 16.8 K/mcL (4.3-11.1) H 12/18/17 03:55 Hgb 12.7 g/dL (12.9-16.9) L D 12/18/17 03:55 Hct 36.7 % (37.5-50.1) L 12/18/17 03:55 Plt Count 123 K/mcL (140-400) L 12/18/17 03:55 Neutrophils # 13.7 K/mcL (1.6-8.9) H 12/18/17 03:55 Nucleated RBCs/100 WBC 0.3 /100 WBC (0) H 12/16/17 17:58 PT 13.6 Seconds (9.4-12.1) H 12/17/17 03:25 APTT 51.5 Seconds (26.0-36.0) H 12/16/17 17:58 ABG pH 7.46 pH Units (7.32-7.45) H 12/18/17 04:23 ABG pCO2 34 mmHg (35-45) L 12/18/17 04:23 ABG pO2 83 mmHg (85-104) L 12/18/17 04:23 Potassium 3.1 mEq/L (3.5-5.1) L 12/18/17 03:55 Chloride 111 mEq/L (98-107) H 12/18/17 03:55 Glucose 128 mg/dL (70-105) H 12/18/17 03:55 POC Glucose 149 mg/dL (70-99) H 12/18/17 00:16 Lactic Acid 3.3 mmol/L (0.5-2.2) H 12/16/17 23:20 Calcium 8.0 mg/dL (8.6-10.3) L 12/18/17 03:55 Venous Ioniz Calcium 1.07 mmol/L (1.15-1.35) L 12/17/17 16:34 Troponin I 1.56 ng/mL (< 0.04) H* 12/17/17 03:25 B-Natriuretic Peptide 216 pg/mL (Less than 100) H 12/16/17 17:58 Triglycerides 318 mg/dL (< 150) H 12/17/17 03:25 VLDL Cholesterol, Calc 64 mg/dL (< 31) H 12/17/17 03:25 HDL Cholesterol 21 mg/dL (40-59) L 12/17/17 03:25 Cholesterol/HDL Ratio 5.5 (0-4.9) H 12/17/17 03:25 - Microbiology Findings Microbiology Findings: Microbiology, Last 48 Hours 12/17/17 13:50 Sputum Culture - Preliminary Sputum - Clinical Findings Intake & Output: Intake & Output 12/17/17 12/17/17 12/18/17 15:59 23:59 07:59 Intake Total 393 / 393 761.0 / 761.0 792 / 792 Output Total 150 / 150 350 / 350 325 / 325 Balance 243 / 243 411.0 / 411.0 467 / 467 - VTE Reasons for not Prescribing Prophylaxis: Not indicated-Anticoagulated or INR therapeutic
[2017-12-18] MEDS ORDERED: Potassium Chloride 40 MEQ, Lidocaine 1% 2 ML in D5% in Water 500 ML IVPB ONE (07:16)
[2017-12-18] MEDS: Dexmedetomidine HCl 400 MCG/100 ML MLS IVC SCH ×3 (08:14→20:52)
[2017-12-18] MEDS: Piperacillin/Tazobactam 3.375 GM in 0.9 % Sodium Chloride Mini Bag 100 ML IVPB SCH ×3 (08:24→23:37)
[2017-12-18] MEDS: Pantoprazole 40 MG VIAL IVP SCH (08:28)
[2017-12-18] MEDS: Aspirin 81 MG TAB.CHEW PO SCH (08:28)
[2017-12-18] MEDS: Chlorhexidine Rinse 15 ML MOUTHWASH MM SCH ×2 (08:28→20:54)
--- NOTE | 2017-12-18 08:46 | Cardiology Progress Note ---
Date of Encounter: 12/18/17 Time of Encounter: 08:00 Assessment and Plan (1) Cardiopulmonary arrest with successful resuscitation Current Visit: Yes Status: Acute Pt was taken emergently to cardiac catheterization lab after stabilized by ED. Unable to oxygenate patient initially which improved with suctioning of BRB. Hemodynamically improved with pressors, trauma blood. 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 Cardiac catheterization demonstrated global LV dysfunction with EF 30%. RCA, Cx angiographically normal. Proximal LAD with 90% lesion- successfully stented with VIOLA to 0%. Conflicting information regarding how long patient was down with/without CPR. No arrhythmias noted overnight, remains in NSR. On amiodarone gtt per protcol. Spontaneously opens eyes this AM. Leukocytosis, WBC >30 upon admission, now improved. Low-grade temp this AM. Pulmonology following. Abnormal head CT yesterday, MRI recommended. Discussed with EP, Dr. Osito Heredia , loop recorder does not prohibit MRI as loop recorders are MRI safe. Full loop recorder interrogation completed this AM by [employer] rep. Awaiting [place] records for hx, recent testing. (2) Cardiomyopathy Current Visit: Yes Status: Acute EF may be reduced due to cardiac arrest/resuscitation Obtain records from [place] regarding prior cardiac testing. Prior EF assessment at [facility] (2012) demonstrated preserved LVEF per LV gram EF 30 %. BNP mildly elevated upon presentation. No overt volume overload noted upon exam. TTE 12/17/17: LVEF 35%, global LV systolic dysfunction, mild LVDD, grossly normal RV function (not well visualized), no PH, no significant valvular dysfunction. Caution use of supplemental IVF. Strict I&O's, daily weights. Ideally recommend BB, ACEi when able. Qualifiers: Cardiomyopathy type: unspecified Qualified Code(s): I42.9 - Cardiomyopathy , unspecified (3) Atrial fibrillation Current Visit: Yes Status: Acute Loop recorder ([email or web address]) interrogated. Appears rhythm prior to event was atrial fibrillation with RVR. Full interrogation of loop completed this AM by [employer] rep, awaiting report. Will need to discuss long-term AC; CHA2Ds Vasc=5 (DMII, CAD, CMP, TIA). Discussed with Dr. Murdock who recommends starting in the outpatient setting after 2-3 weeks of DAPT. Will continue to follow and monitor. No PAF noted since admission. Discussed with Dr. Murdock; will continue amiodarone for now. Qualifiers: Atrial fibrillation type: paroxysmal Qualified Code(s): I48.0 - Paroxysmal atrial fibrillation (4) Coronary artery disease Current Visit: Yes Status: Acute S/P PCI of LAD. Statin, DAPT. Will add beta blockade and LOREN-I as BP tolerates. Qualifiers: Coronary Disease-Associated Artery/Lesion type: [place] artery [place] vs. transplanted heart: [place] heart Associated angina: with unspecified angina Qualified Code(s): I25.119 - Atherosclerotic heart disease of [place] coronary artery with unspecified angina pectoris (5) S/P coronary artery stent placement Current Visit: Yes Status: Acute Discussion w patient/family: The assessment and plan as outlined above was discussed with the patient and/or family members who expressed understanding and agreement. All questions were answered. Thank you for involving us in the care of your patient. Please call with any questions. The patient will be discussed and reviewed with , changes to be made accordingly. Subjective Principal diagnosis: Cardio-pulmonary arrest Interval history: Seen and examined. Remains intubated/sedated. Spontaneously opens eyes. Objective Vital Signs, Last 4 Hours Temp Pulse Resp BP Pulse Ox 12/18/17 07:51 21 141/70 94 12/18/17 07:43 99.8 F H 12/18/17 07:30 99.8 F H 79 20 145/73 100 12/18/17 06:00 99.5 F 68 20 107/62 96 12/18/17 05:00 67 20 115/58 96 General: Other (Intubated/sedated. ) HEENT: Atraumatic, Normocephaly Cardiac: Reg Rate and Rhythm, Normal S1 and S2 Lungs: Other (Decreased bibasilar) Neuro: Other (Intubated/sedated) Abdomen: Soft Extremities: Other (left groin CVC; right groin a-line. Dressing(s) C/D/I. ) Other: Shafer cath--cloudy/concentrated urine. Results 12/18/17 03:55 12/18/17 03:55 Lab Results 12/17/17 12/18/17 12/18/17 13:50 03:55 03:55 WBC 20.5 H 16.8 H Hgb 14.2 12.7 L D Hct 39.8 36.7 L Plt Count 155 123 L Sodium 142 Potassium 3.1 L Chloride 111 H Carbon Dioxide 25 BUN 17 Creatinine 1.02 Glucose 128 H Calcium 8.0 L Active Medications Acetaminophen (Tylenol Susp) 650 mg GTUBE Q6HR PRN PRN Reason: fever GREATER than 101.2 F Stop: 06/18/18 11:10 Last Admin: 12/17/17 11:47 Dose: 650 mg Albuterol Sulfate (Albuterol Inhaler) 2 puff IH Q2HR PRN PRN Reason: Shortness Of Breath/Wheezing Stop: 06/17/18 19:54 Artificial Tears (Lacri-Lube) 1 appl BOTH EYES Q4HR KATIE PRN Reason: Protocol Stop: 06/17/18 20:01 Last Admin: 12/18/17 08:29 Dose: 1 appl Artificial Tears (Lacri-Lube) 1 appl BOTH EYES Q2HR PRN; Protocol PRN Reason: Dry Eyes Stop: 06/17/18 19:54 Aspirin (Aspirin) 81 mg PO DAILY KATIE Stop: 06/18/18 09:01 Last Admin: 12/18/17 08:28 Dose: 81 mg Atorvastatin Calcium (Lipitor) 80 mg PO HS KATIE Stop: 06/17/18 21:01 Last Admin: 12/17/17 20:26 Dose: 80 mg Chlorhexidine Gluconate (Chlorhexidine Rinse) 15 ml MM BID KATIE Stop: 06/17/18 21:01 Last Admin: 12/18/17 08:28 Dose: 15 ml Clopidogrel Bisulfate (Plavix) 75 mg PO DAILY KATIE Stop: 06/18/18 09:01 Last Admin: 12/18/17 08:28 Dose: 75 mg Dextrose/Water (Dextrose 50% (Syg)) 25 ml IVP AD PRN PRN Reason: Hypoglycemia Stop: 06/18/18 00:08 Dextrose/Water (Dextrose 50% (Syg)) 25 ml IVP Q15MIN PRN PRN Reason: Hypoglycemia Stop: 06/18/18 08:09 Glucagon (Glucagen) 1 mg IM ONCE PRN PRN Reason: Hypoglycemia Stop: 06/18/18 00:08 Glucose (Gluctose) 15 gm PO ONCE PRN PRN Reason: Hypoglycemia Stop: 06/18/18 00:08 Glucose (Gluctose) 30 gm PO ONCE PRN PRN Reason: Hypoglycemia Stop: 06/18/18 00:08 Heparin Sodium (Porcine) (Heparin) 5,000 unit SQ Q8HCO KATIE Stop: 06/18/18 14:01 Last Admin: 12/18/17 06:12 Dose: 5,000 unit Heparin Sodium (Porcine) (Heparin Lock) 500 unit IV ONCE PRN PRN Reason: Port Flush while in RADIOLOGY Stop: 12/19/17 15:50 Amiodarone HCl/Dextrose (Amiodarone Drip Premix 360mg/200ml) 360 mg in 200 mls @ 16.667 mls/hr IVC CONT KATIE PRN Reason: 0.5 MG/MIN Stop: 06/18/18 02:01 Last Admin: 12/17/17 22:07 Dose: 0.5 mg/min, 16.667 mls/hr Norepinephrine Bitartrate 8 mg (/ Dextrose) 508 mls @ 76.2 mls/hr IVC CONT KATIE ; 20 MCG/MIN PRN Reason: Protocol Stop: 06/17/18 20:01 Last Titration: 12/18/17 07:51 Dose: 0 mcg/min, 0 mls/hr Dexmedetomidine HCl (Precedex Premix) 400 mcg in 100 mls @ 5.557 mls/hr IVC .Q18H KATIE; 0.2 MCG/KG/HR PRN Reason: Protocol Stop: 06/17/18 20:01 Last Admin: 12/18/17 08:14 Dose: 0.5 mcg/kg/hr, 13.891 mls/hr Fentanyl Citrate 1,000 mcg/ (Sodium Chloride) 100 mls @ 5 mls/hr IVC CONT KATIE; 50 MCG/HR PRN Reason: Protocol Stop: 06/17/18 20:01 Last Titration: 12/18/17 07:50 Dose: 50 mcg/hr, 5 mls/hr Midazolam HCl 50 mg/ Sodium (Chloride) 100 mls @ 4 mls/hr IVC CONT KATIE; 2 MG/HR PRN Reason: Protocol Stop: 06/17/18 20:46 Last Titration: 12/18/17 07:50 Dose: 3 mg/hr, 6 mls/hr Dextrose (Dextrose 5%) 1,000 mls @ 100 mls/hr IVC .Q10H PRN PRN Reason: HYPOGLYCEMIA Stop: 06/18/18 00:08 Piperacillin Sod/Tazobactam (Sod 3.375 gm/ Sodium Chloride) 100 mls @ 25 mls/ hr IVPB Q8HR [facility] Stop: 06/18/18 16:01 Last Admin: 12/18/17 08:24 Dose: 25 mls/hr Potassium Chloride 40 meq/ (Lidocaine 2 ml/ Dextrose) 522 mls @ 130.5 mls/hr IVPB ONCE ONE Stop: 12/18/17 11:15 Last Admin: 12/18/17 08:48 Dose: 130.5 mls/hr Insulin Human Lispro (Humalog) 0 units SQ Q4HR KATIE PRN Reason: Protocol Stop: 06/19/18 12:01 Metoprolol Tartrate (Lopressor) 12.5 mg PO Q6HR [facility] Stop: 06/18/18 00:01 Last Admin: 12/18/17 06:13 Dose: Not Given Pantoprazole Sodium (Protonix) 40 mg IVP DAILY [facility] Stop: 06/18/18 09:01 Last Admin: 12/18/17 08:28 Dose: 40 mg - Imaging and Cardiology Echo: report reviewed Cardiac cath: report reviewed Other Results: 12 hour tele: avg HR=69 SR. No events noted. - EKG Interpretation EKG results cardiology: personally reviewed - VTE Reasons for not Prescribing Prophylaxis: Not indicated-Anticoagulated or INR therapeutic Consult Discharge Plan - Plan [facility]: [facility]Primary Care Provider[facility] -
[2017-12-18 09:36] LABS: ABG Base Excess 1 mEq/L (-2 to 3); ABG HCO3 27 mEq/L (21-27); ABG Oxygen Saturation 72 % (95-98); ABG PCO2 49 mmHg (35-45); ABG PH 7.35 pH Units (7.32-7.45); ABG PO2 40 mmHg (85-104); ABG TCO2 28 mEq/L (20-26)
[2017-12-18] MEDS ORDERED: Ringers Solution, Lactated 1,000 ML IVC ONE (09:44)
[2017-12-18] MEDS: Amiodarone Premix 360 MG/200 ML BAG IVC SCH ×2 (10:07→20:53)
[2017-12-18] MEDS ORDERED: Gadolinium Contrast Agent (WT Based) IV PRN (10:51)
[2017-12-18] MEDS: FentaNYL (PF) 1,000 MCG in 0.9 % Sodium Chloride 80 ML IVC SCH (11:25)
[2017-12-18 11:53] LABS: Bilirubin,Urine Moderate (Negative); Blood,Urine Large (Negative); Clarity,Urine Turbid (Clear); Glucose,Urine (UA) Normal (Normal); Ketones,Urine Trace mg/dL (Negative); Leukocyte Esterase,Urine Small (Negative); Nitrite,Urine Negative (Negative); PH,Urine 5.5 pH Units (5.0-8.0); Protein,Urine 100 mg/dL (Neg-Trace); Specific Gravity,Urine > 1.030 (1.010-1.025); Urobilinogen,Urine Normal (Normal)
[2017-12-18 11:55] LABS: Color,Urine Amber (Yellow)
[2017-12-18 11:57] LABS: RBC,Urine 50-100 per hpf (0-3)
[2017-12-18 11:58] LABS: Bacteria,Urine Moderate per hpf (None-Few)
[2017-12-18 12:00] LABS: Uric Acid Crystals,Urine Present
[2017-12-18] MEDS: Insulin LISPRO 300 UNITS/3 ML VIAL SQ SCH ×4 (12:40→23:38)
[2017-12-18] MEDS ORDERED: Vancomycin 1,750 MG in 0.9 % Sodium Chloride 250 ML IVPB SCH (17:00)
--- NOTE | 2017-12-18 22:54 | Electrocardiograph Report ---
[address] [address] Test Date: 2017-12-16 Pat Name: Ronni Delgado Department: 103 Room: [facility] Gender: M Paver Operator: : 1965 Requested By: Lizeth Heredia Order Number: [id number] Reading MD: Lizeth Heredia Measurements Intervals [place] Rate: 116 P: 202 HI: 72 QRS: -59 QRSD: 222 T: 101 QT: 407 QTc: 476 Interpretive Statements ACCELERATED IDIOVENTRICULAR RHYTHM Electronically Signed On 12-18-2017 22:51:59 EDT by Lizeth Heredia
--- NOTE | 2017-12-18 22:56 | Electrocardiograph Report ---
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
--- NOTE | 2017-12-18 23:31 | Electrocardiograph Report ---
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
[2017-12-19 03:53] LABS: Basophils % 0.2 %; Eosinophils # 0.1 K/mcL (0.0-0.6); Hematocrit 31.7 % (37.5-50.1); Hemoglobin 11.2 g/dL (12.9-16.9); Immature Granulocytes % 0.4 % (0-4); Immature Platelets 3.3 % (1.1-6.1); Lymphocytes # 1.5 K/mcL (0.6-4.6); Lymphocytes % 12.9 %; Mean Corpuscular HGB Conc 35.3 g/dL (31.6-35.5); Mean Corpuscular Hemoglobin 31.6 pg (28.0-33.3); Mean Corpuscular Volume 89.5 fL (83.0-100.0); Mean Platelet Volume 10.7 fL (9.4-12.4); Monocytes # 0.6 K/mcL (0.0-1.3); Neutrophils # 9.1 K/mcL (1.6-8.9); Red Blood Count 3.54 M/mcL (4.19-5.50); Red Cell Distribution Width 13.4 % (11.5-14.5); Segmented Neutrophils % 80.5 %
[2017-12-19 03:54] LABS: Platelet Count 91 K/mcL (140-400)
[2017-12-19 03:55] LABS: Platelet Estimate Decreased (Normal)
[2017-12-19 03:58] LABS: ABG Base Excess -1 mEq/L (-2 to 3); ABG HCO3 25 mEq/L (21-27); ABG Oxygen Saturation 88 % (95-98); ABG PCO2 45 mmHg (35-45); ABG PH 7.34 pH Units (7.32-7.45); ABG PO2 59 mmHg (85-104); ABG TCO2 26 mEq/L (20-26)
[2017-12-19 04:10] LABS: BUN/Creatinine Ratio 22 (6-26); Blood Urea Nitrogen 22 mg/dL (6-20); Calcium 7.9 mg/dL (8.6-10.3); Carbon Dioxide 26 mEq/L (23-29); Chloride 108 mEq/L (98-107); Glucose 211 mg/dL (70-105); Magnesium 1.9 mg/dL (1.6-2.6); Osmolality,Calculated 292 (280-300); Potassium 3.7 mEq/L (3.5-5.1); Sodium 136 mEq/L (136-145); eGFR For African Americans > 60 (> 60); eGFR For Non-African Americans > 60 (> 60)
[2017-12-19] MEDS: Insulin LISPRO 300 UNITS/3 ML VIAL SQ SCH ×6 (04:56→23:26)
[2017-12-19] MEDS: Lacri-Lube 3.5 GM TUBE BOTH EYES SCH ×6 (04:57→23:26)
[2017-12-19 05:24] LABS: ABG Base Excess 0 mEq/L (-2 to 3); ABG HCO3 24 mEq/L (21-27); ABG Oxygen Saturation 97 % (95-98); ABG PCO2 39 mmHg (35-45); ABG PO2 90 mmHg (85-104); ABG TCO2 25 mEq/L (20-26); Blood Gas Modality BiLevel; Blood Gas PEEP 7 cm H2O
[2017-12-19] MEDS: *HR* Heparin 5,000 UNIT/ML VIAL SQ SCH ×3 (05:25→20:31)
--- NOTE | 2017-12-19 05:34 | Event Note ---
Date of Encounter: 12/19/17 Time of Encounter: 03:56 I was paged overhead to head to ICU. I arrived in patient room with patient's RN, respiratory therapy, and ED physician. I took over care from ED physician. Per nurse, patient pulled out his ET tube. It was half way out so they took it out. Patient has had somnolence since admission. He was on sedatives while intubated; they have now been discontinued. Per night nurse, patient actually was more alert when he came on. He is on oxymask with O2 saturations in high 90s at this time. He is in no distress. He is easy to arouse, and answers questions with nods and shakes of his head appropriately. He does not express any concerns at this time. Chest and lung exam are clear. Nurse did say they found a new pneumonia on him, but he is on appropriate antibiotic. We will do trial of this extubation. I spoke with RT, who is following, and I asked him to order an ABG after being on oxymask for 1-2 hours. Monitor patient closely for any signs of decompensation. Recovery Room Nurse will see him in the morning.
[2017-12-19] MEDS ORDERED: Furosemide 20 MG/2 ML VIAL IVP ONE (07:54)
[2017-12-19] MEDS ORDERED: *HR* HYDROmorphone 2 MG/ML SYRINGE IVP PRN (07:57)
--- NOTE | 2017-12-19 08:07 | Pulmonology Progress Note ---
<PadminiAnam W - Last Filed: 12/19/17 10:45> Date of Encounter: 12/19/17 Objective PUL Vital signs: Last Vital Signs Temp 100.6 F H 12/19/17 08:23 Pulse 83 12/19/17 08:23 Resp 22 12/19/17 08:23 BP 123/57 12/19/17 08:23 Pulse Ox 94 12/19/17 08:23 Ventilator Settings Ventilator Settings: Ventilator Settings, Last 8 Hours Ventilator Mode VC+ Ventilator Mode VC+ Ventilator Tidal Volume 470 Setting Ventilator Tidal Volume 470 Setting Ventilator Tidal Volume 470 Setting Ventilator Tidal Volume 470 Setting Ventilator Respiratory Rate 16 Setting Ventilator Respiratory Rate 16 Setting Ventilator Respiratory Rate 16 Setting Ventilator Respiratory Rate 16 Setting Actual Respiratory Rate 16 Actual Respiratory Rate 16 Actual Respiratory Rate 16 Actual Respiratory Rate 16 Positive End Expiratory 16 Pressure Positive End Expiratory 16 Pressure Positive End Expiratory 16 Pressure Positive End Expiratory 16 Pressure Peak Inspiratory Airway 28 Pressure Peak Inspiratory Airway 28 Pressure Peak Inspiratory Airway 28 Pressure Peak Inspiratory Airway 27 Pressure Peak Inspiratory Airway 27 Pressure Results - Laboratory Findings CBC and BMP: 12/19/17 03:20 12/19/17 03:20 ABG ABG pH 7.40 pH Units (7.32-7.45) 12/19/17 05:21 ABG pCO2 39 mmHg (35-45) 12/19/17 05:21 ABG pO2 90 mmHg (85-104) 12/19/17 05:21 ABG O2 Saturation 97 % (95-98) 12/19/17 05:21 PT/INR, D-dimer PT 13.6 Seconds (9.4-12.1) H 12/17/17 03:25 Abnormal lab findings: Abnormal lab results WBC 11.3 K/mcL (4.3-11.1) H 12/19/17 03:20 RBC 3.54 M/mcL (4.19-5.50) L 12/19/17 03:20 Hgb 11.2 g/dL (12.9-16.9) L D 12/19/17 03:20 Hct 31.7 % (37.5-50.1) L 12/19/17 03:20 Plt Count 91 K/mcL (140-400) L 12/19/17 03:20 Neutrophils # 9.1 K/mcL (1.6-8.9) H 12/19/17 03:20 Nucleated RBCs/100 WBC 0.3 /100 WBC (0) H 12/16/17 17:58 Platelet Estimate Decreased (Normal) L 12/19/17 03:20 PT 13.6 Seconds (9.4-12.1) H 12/17/17 03:25 APTT 51.5 Seconds (26.0-36.0) H 12/16/17 17:58 Chloride 108 mEq/L (98-107) H 12/19/17 03:20 BUN 22 mg/dL (6-20) H 12/19/17 03:20 Glucose 211 mg/dL (70-105) H 12/19/17 03:20 POC Glucose 291 mg/dL (70-99) H 12/18/17 23:35 Calcium 7.9 mg/dL (8.6-10.3) L 12/19/17 03:20 Venous Ioniz Calcium 1.07 mmol/L (1.15-1.35) L 12/17/17 16:34 Troponin I 0.71 ng/mL (< 0.04) H* 12/18/17 10:05 B-Natriuretic Peptide 216 pg/mL (Less than 100) H 12/16/17 17:58 Triglycerides 318 mg/dL (< 150) H 12/17/17 03:25 VLDL Cholesterol, Calc 64 mg/dL (< 31) H 12/17/17 03:25 HDL Cholesterol 21 mg/dL (40-59) L 12/17/17 03:25 Cholesterol/HDL Ratio 5.5 (0-4.9) H 12/17/17 03:25 Ur Specimen Adequacy See below A 12/18/17 09:44 Urine Color [place] (Yellow) A 12/18/17 09:44 Urine Clarity Turbid (Clear) A 12/18/17 09:44 Ur Specific [place] > 1.030 (1.010-1.025) H 12/18/17 09:44 Urine Protein 100 mg/dL (Neg-Trace) H 12/18/17 09:44 Urine Ketones Trace mg/dL (Negative) H 12/18/17 09:44 Urine Blood Large (Negative) H 12/18/17 09:44 Urine Bilirubin Moderate (Negative) H 12/18/17 09:44 Ur Leukocyte Esterase Small (Negative) H 12/18/17 09:44 Urine Microscopic RBC 50-100 per hpf (0-3) H 12/18/17 09:44 Urine Microscopic WBC 3-5 per hpf (0-3) H 12/18/17 09:44 Urine Bacteria Moderate per hpf (None-Few) H 12/18/17 09:44 Ur Culture Indicated? YES (NO) A 12/18/17 09:44 Nasal Screen MRSA (PCR) Positive (Negative) A 12/18/17 12:40 - Microbiology Findings Microbiology Findings: Microbiology, Last 48 Hours 12/17/17 12:54 Blood Culture - Preliminary Peripheral Venipuncture No growth. 12/17/17 12:54 Blood Culture - Preliminary Peripheral Venipuncture No growth. 12/17/17 13:50 Sputum Culture - Preliminary Sputum 12/18/17 07:55 Sputum Culture - Preliminary Sputum - Clinical Findings Intake & Output: Intake & Output 12/18/17 12/19/17 12/19/17 23:59 07:59 15:59 Intake Total 1814 / 1814 1002 / 1002 Output Total 400 / 400 350 / 350 Balance 1414 / 1414 652 / 652 Consult Discharge Plan - Plan [facility]errals: [facility] [Primary Care Provider] - - Attending Attestation I examined this patient and my medical decision-making was reviewed with the Resident Physician. I agree with the documented findings, disposition and treatment plan as described except to the extent set forth below. We independently had [id number] contact with the patient Patient seen and examined at bedside Labs, radiology, chart personally reviewed. Management was reviewed during multidisciplinary critical care rounds. 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 There is no focal deficit on today's exam. He has a temporal lesion of unclear chronicity or significance possibly neoplastic process versus benign tumor needs MRI when stable possible neurology consult Pulm: Hypoxic respiratory failure patient self extubated overnight but has had acceptable oxygenation on oxygen mask. Wean FiO2 as tolerated diuresis for cardiogenic pulmonary edema continue treatment for possible aspiration pneumonia Cards: Status post cardiac arrest likely secondary to ACS with PCI to the LAD he is on DAPT and statin and beta mariama. Echo shows reduced ejection fraction defer to cardiology about placement of possible ICD. He remains off vasopressor support FEN-GI: Advance diet as tolerated after speech and swallow eval Renal: Urine output monitored serum creatinine stable continue to monitor electrolytes ID: He is on broad-spectrum antibiotics for presumed sepsis likely aspiration MRSA swab from the nares is positive we have added MRSA coverage fever trend is going in the right direction leukocytosis is trending down as well cultures remain negative thus far we will de-escalate based upon culture results Heme/Onc: DVT prophylaxis given Endo: Glucose Monitored Integ/MSK: Skin Care per routine ICU Nursing Protocol to prevent ulcers. Lines: All lines examined without evidence of infection : Dispo: Remain in ICU for close monitoring CODE: Full <Linda Camara - Last Filed: 12/19/17 13:34> Date of Encounter: 12/19/17 Time of Encounter: 08:05 Assessment and Plan (1) Cardiopulmonary arrest with successful resuscitation Current Visit: Yes Status: Acute Patient taken urgently to cardiac catheterization lab by ED. There was noted to be blood in the ETT during CPR, likely pulmonary hemorrhage. Cath demonstrated EF 30%. Proximal LAD with 90% lesion was successfully stented with VIOLA patient has been hemodynamically stable not requiring pressor support -[employer] performed a full interrogation of the loop recorder. -per cardiology on amiodarone, DAPT, Lipitor, metoprolol, lisinopril (2) Abnormal head CT Current Visit: Yes Status: Acute Possible new neoplasm demonstrated by head CT Head CT scan that demonstrated temporal lesions that appeared not to be hemorrhagic or infarct in nature but instead a mass. -Contrast enhanced CT scan of head demonstrated low-density lesion and anterior right temporal lobe. Differential diagnosis including cystic or necrotic neoplasm, abscess, demyelinating lesion, less likely acute to subacute infarct. Recommends MRI. -The family of the patient was notified of the results and the new imaging. -Cardiology reported that loop recorder is safe for the patient to have an MRI -Patient is to unstable at the moment for MRI but when more stable will proceed (3) Hypercapnic respiratory failure Current Visit: Yes Status: Acute Hypercapnic respiratory failure requiring intubation -12/18/2017 CXR demonstrated resolved pulmonary edema and new left basilar atelectasis versus pneumonia Initial ABG: pH 6.84, CO2 125, HCO3 21 Repeat ABG: pH 7.40,CO2 39, HCO3 24 -Patient self extubated 0339 on 12/19/2017 -saturating 99% on oxymask -Lasix 20 mg, will diuresed as able Qualifiers: Chronicity: acute Qualified Code(s): J96.02 - Acute respiratory failure with hypercapnia (4) Aspiration pneumonia Current Visit: Yes Status: Acute Aspiration pneumonia demonstrated by chest x-ray in setting of cardiopulmonary arrest WBC 11.3 (31.6) improving afebrile CXR concerning for edema or pneumonia sputum culture-no growth thus far -blood cultures negative -MRSA positive -treated empirically with IV Zosyn day 3 -vancomycin day 2 Qualifiers: Qualified Code(s): J69.0 - Pneumonitis due to inhalation of food and vomit (5) Cardiomyopathy Current Visit: Yes Status: Acute New Cardiomyopathy with EF on catheterization 30%. Likely due to cardiac arrest plan to order TTE. TTE- EF 35%, mild LV diastolic dysfunction, no pulmonary hypertension or valvular dysfunction -will be cautious with IVF Qualifiers: Cardiomyopathy type: unspecified Qualified Code(s): I42.9 - Cardiomyopathy , unspecified (6) Atrial fibrillation Current Visit: Yes Status: Acute Loop recorder was interrogated by cardiology and demonstrated atrial fibrillation with RVR. No VT/VF recorded. -Cardiology had [email or web address]. come do a full interrogation of the loop recorder -Cardiology started amiodarone Qualifiers: Atrial fibrillation type: paroxysmal Qualified Code(s): I48.0 - Paroxysmal atrial fibrillation (7) Hyperglycemia Current Visit: Yes Status: Acute Hyperglycemia with glucose 491 initially. Glucose 211 -medium dose sliding scale insulin Q4h -Accu check q4h (8) Elevated troponin Current Visit: Yes Status: Acute Elevated Troponin 0.07 > 0.66 > 1.56 > 0.71 troponin was recheck today and improved -management as above (9) Coronary artery disease Current Visit: Yes Status: Acute s/p PCI to LAD with VIOLA. -Management as above Qualifiers: Coronary Disease-Associated Artery/Lesion type: [place] artery [place] vs. 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 Overnight the patient self extubated. The patient is currently alert and oriented but requesting that we get his to the hospital. Objective PUL Vital signs: Last Vital Signs Temp 100.1 F H 12/19/17 07:38 Pulse 84 12/19/17 07:30 Resp 20 12/19/17 07:30 BP 109/52 12/19/17 07:30 Pulse Ox 95 12/19/17 07:30 General appearance: no acute distress, alert Eyes: nonicteric ENT: oropharynx moist Neck: supple Effort: normal Auscultation: bilateral: clear Cardiovascular: regular rate and rhythm Gastrointestinal: normoactive bowel sounds Integumentary: normal Extremities: no cyanosis, no edema Musculoskeletal: no deformities normal mental status, non-focal exam anxious Ventilator Settings Ventilator Settings: Ventilator Settings, Last 8 Hours Ventilator Mode VC+ Ventilator Mode VC+ Ventilator Tidal Volume 470 Setting Ventilator Tidal Volume 470 Setting Ventilator Tidal Volume 470 Setting Ventilator Tidal Volume 470 Setting Ventilator Respiratory Rate 16 Setting Ventilator Respiratory Rate 16 Setting Ventilator Respiratory Rate 16 Setting Ventilator Respiratory Rate 16 Setting Actual Respiratory Rate 16 Actual Respiratory Rate 16 Actual Respiratory Rate 16 Actual Respiratory Rate 16 Positive End Expiratory 16 Pressure Positive End Expiratory 16 Pressure Positive End Expiratory 16 Pressure Positive End Expiratory 16 Pressure Peak Inspiratory Airway 28 Pressure Peak Inspiratory Airway 28 Pressure Peak Inspiratory Airway 28 Pressure Peak Inspiratory Airway 27 Pressure Peak Inspiratory Airway 27 Pressure Results - Laboratory Findings CBC and BMP: 12/19/17 03:20 12/19/17 03:20 ABG ABG pH 7.40 pH Units (7.32-7.45) 12/19/17 05:21 ABG pCO2 39 mmHg (35-45) 12/19/17 05:21 ABG pO2 90 mmHg (85-104) 12/19/17 05:21 ABG O2 Saturation 97 % (95-98) 12/19/17 05:21 PT/INR, D-dimer PT 13.6 Seconds (9.4-12.1) H 12/17/17 03:25 Abnormal lab findings: Abnormal lab results WBC 11.3 K/mcL (4.3-11.1) H 12/19/17 03:20 RBC 3.54 M/mcL (4.19-5.50) L 12/19/17 03:20 Hgb 11.2 g/dL (12.9-16.9) L D 12/19/17 03:20 Hct 31.7 % (37.5-50.1) L 12/19/17 03:20 Plt Count 91 K/mcL (140-400) L 12/19/17 03:20 Neutrophils # 9.1 K/mcL (1.6-8.9) H 12/19/17 03:20 Nucleated RBCs/100 WBC 0.3 /100 WBC (0) H 12/16/17 17:58 Platelet Estimate Decreased (Normal) L 12/19/17 03:20 PT 13.6 Seconds (9.4-12.1) H 12/17/17 03:25 APTT 51.5 Seconds (26.0-36.0) H 12/16/17 17:58 Chloride 108 mEq/L (98-107) H 12/19/17 03:20 BUN 22 mg/dL (6-20) H 12/19/17 03:20 Glucose 211 mg/dL (70-105) H 12/19/17 03:20 POC Glucose 291 mg/dL (70-99) H 12/18/17 23:35 Calcium 7.9 mg/dL (8.6-10.3) L 12/19/17 03:20 Venous Ioniz Calcium 1.07 mmol/L (1.15-1.35) L 12/17/17 16:34 Troponin I 0.71 ng/mL (< 0.04) H* 12/18/17 10:05 B-Natriuretic Peptide 216 pg/mL (Less than 100) H 12/16/17 17:58 Triglycerides 318 mg/dL (< 150) H 12/17/17 03:25 VLDL Cholesterol, Calc 64 mg/dL (< 31) H 12/17/17 03:25 HDL Cholesterol 21 mg/dL (40-59) L 12/17/17 03:25 Cholesterol/HDL Ratio 5.5 (0-4.9) H 12/17/17 03:25 Ur Specimen Adequacy See below A 12/18/17 09:44 Urine Color [place] (Yellow) A 12/18/17 09:44 Urine Clarity Turbid (Clear) A 12/18/17 09:44 Ur Specific [place] > 1.030 (1.010-1.025) H 12/18/17 09:44 Urine Protein 100 mg/dL (Neg-Trace) H 12/18/17 09:44 Urine Ketones Trace mg/dL (Negative) H 12/18/17 09:44 Urine Blood Large (Negative) H 12/18/17 09:44 Urine Bilirubin Moderate (Negative) H 12/18/17 09:44 Ur Leukocyte Esterase Small (Negative) H 12/18/17 09:44 Urine Microscopic RBC 50-100 per hpf (0-3) H 12/18/17 09:44 Urine Microscopic WBC 3-5 per hpf (0-3) H 12/18/17 09:44 Urine Bacteria Moderate per hpf (None-Few) H 12/18/17 09:44 Ur Culture Indicated? YES (NO) A 12/18/17 09:44 Nasal Screen MRSA (PCR) Positive (Negative) A 12/18/17 12:40 - Microbiology Findings Microbiology Findings: Microbiology, Last 48 Hours 12/17/17 13:50 Sputum Culture - Preliminary Sputum 12/18/17 07:55 Sputum Culture - Preliminary Sputum - Clinical Findings Intake & Output: Intake & Output 12/18/17 12/19/17 12/19/17 23:59 07:59 15:59 Intake Total 1814 / 1814 1002 / 1002 Output Total 400 / 400 350 / 350 Balance 1414 / 1414 652 / 652 - VTE Reasons for not Prescribing Prophylaxis: Not indicated-Anticoagulated or INR therapeutic
[2017-12-19] MEDS: Chlorhexidine Rinse 15 ML MOUTHWASH MM SCH ×2 (08:09→20:32)
[2017-12-19] MEDS: Pantoprazole 40 MG VIAL IVP SCH (08:09)
[2017-12-19] MEDS: Piperacillin/Tazobactam 3.375 GM in 0.9 % Sodium Chloride Mini Bag 100 ML IVPB SCH ×3 (08:09→23:26)
[2017-12-19] MEDS: Norepinephrine 8 MG in D5% in Water 500 ML IVC SCH (08:11)
[2017-12-19] MEDS ORDERED: *HR* FentaNYL (PF) 100 MCG/2 ML VIAL IVP PRN (08:22)
[2017-12-19] MEDS: Amiodarone Premix 360 MG/200 ML BAG IVC SCH (09:32)
[2017-12-19] MEDS: Aspirin 81 MG TAB.CHEW PO SCH (11:05)
--- NOTE | 2017-12-19 12:43 | Cardiology Progress Note ---
Date of Encounter: 12/19/17 Time of Encounter: 10:00 Assessment and Plan (1) Cardiopulmonary arrest with successful resuscitation Current Visit: Yes Status: Acute Loop recorder interrogation reviewed. Did not have any evidence of atrial or ventricular arrhythmias prior to EMS arrival. Initial detection of a fib with RVR at 4:45pm lasting approximately 6 minutes followed by a period of bigeminy and external defibrillation-induced VF by R on T. Subsequently externally defibrillated a 2nd time to atrial fib with controlled VR. One other detection at approximately 5:05pm of idioventricular rhythm with several pauses. No other detections noted. No loop detections prior to EMS arrival. Although had 90% proximal LAD lesion that was successfully stented, no evidence that event was primarily cardiac in etiology. No evidence of ACS. Pt was taken emergently to cardiac catheterization lab after stabilized by ED. Unable to oxygenate patient initially which improved with suctioning of BRB. Hemodynamically improved with pressors, trauma blood. Pulmonary hemorrhage resolved prior to transport to laboratory chemical assistant. Cardiac catheterization demonstrated global LV dysfunction with EF 30%. RCA, Cx angiographically normal. Proximal LAD with 90% lesion- successfully stented with VIOLA to 0%. (2) Coronary artery disease Current Visit: Yes Status: Acute S/P PCI of LAD. Statin, DAPT. Will add beta blockade and LOREN-I as BP tolerates. Qualifiers: Coronary Disease-Associated Artery/Lesion type: [place] artery [place] vs. transplanted heart: [place] heart Associated angina: with unspecified angina Qualified Code(s): I25.119 - Atherosclerotic heart disease of [place] coronary artery with unspecified angina pectoris (3) S/P coronary artery stent placement Current Visit: Yes Status: Acute (4) Cardiomyopathy Current Visit: Yes Status: Acute EF may be reduced due to cardiac arrest/resuscitation Obtain records from [place] regarding prior cardiac testing. Prior EF assessment at [facility] (2012) demonstrated preserved LVEF per LV gram EF 30 %. BNP mildly elevated upon presentation. No overt volume overload noted upon exam. TTE 12/17/17: LVEF 35%, global LV systolic dysfunction, mild LVDD, grossly normal RV function (not well visualized), no PH, no significant valvular dysfunction. Caution use of supplemental IVF. Strict I&O's, daily weights. Ideally recommend BB, ACEi when able. Qualifiers: Cardiomyopathy type: unspecified Qualified Code(s): I42.9 - Cardiomyopathy , unspecified (5) Atrial fibrillation Current Visit: Yes Status: Acute Will continue to follow and monitor. No PAF noted since admission. Will d/c amiodarone. 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 Qualifiers: Atrial fibrillation type: paroxysmal Qualified Code(s): I48.0 - Paroxysmal atrial fibrillation Discussion w patient/family: The assessment and plan as outlined above was discussed with the patient and/or family members who expressed understanding and agreement. All questions were answered. Thank you for involving us in the care of your patient. Please call with any questions. Subjective Principal diagnosis: Cardio-pulmonary arrest Interval history: Events this AM reviewed. Pt self-extubated. Currently on face mask, appears drowsy. Family in room. Per family, pt recognizes them, realizes that he was supposed to go on vacation, but does not recall recent events leading to hospitalization. Pt asking me for a drink of water, moving all extremities spontaneously. No arrhythmias overnight on telemetry. Objective Vital Signs, Last 4 Hours Temp Pulse Resp BP Pulse Ox 12/19/17 12:00 83 20 122/62 99 12/19/17 11:00 99.7 F H 89 22 118/61 98 12/19/17 10:00 92 22 126/65 97 12/19/17 09:00 101.0 F H 84 20 114/56 98 Results 12/19/17 03:20 12/19/17 03:20 Lab Results 12/19/17 12/19/17 03:20 03:20 WBC 11.3 H Hgb 11.2 L D Hct 31.7 L Plt Count 91 L Sodium 136 Potassium 3.7 Chloride 108 H Carbon Dioxide 26 BUN 22 H Creatinine 1.00 Glucose 211 H Calcium 7.9 L Magnesium 1.9 - VTE Reasons for not Prescribing Prophylaxis: Not indicated-Anticoagulated or INR therapeutic Consult Discharge Plan - Plan Referrals: [facility] [Primary Care Provider] -
[2017-12-19 16:41] LABS: BUN/Creatinine Ratio 19 (6-26); Blood Urea Nitrogen 18 mg/dL (6-20); Carbon Dioxide 27 mEq/L (23-29); Chloride 109 mEq/L (98-107); Glucose 130 mg/dL (70-105); Magnesium 1.6 mg/dL (1.6-2.6); Osmolality,Calculated 292 (280-300); Potassium 3.6 mEq/L (3.5-5.1); Sodium 139 mEq/L (136-145); eGFR For African Americans > 60 (> 60); eGFR For Non-African Americans > 60 (> 60)
[2017-12-19] MEDS: FentaNYL (PF) 1,000 MCG in 0.9 % Sodium Chloride 80 ML IVC SCH (18:54)
[2017-12-19] MEDS: Dexmedetomidine HCl 400 MCG/100 ML MLS IVC SCH (18:55)
[2017-12-20 03:44] LABS: Basophils % 0.3 %; Red Cell Distribution Width 13.2 % (11.5-14.5)
[2017-12-20 03:46] LABS: Eosinophils # 0.1 K/mcL (0.0-0.6); Eosinophils % 0.6 %; Hematocrit 29.4 % (37.5-50.1); Hemoglobin 10.3 g/dL (12.9-16.9); Immature Granulocytes % 0.8 % (0-4); Immature Platelets 3.6 % (1.1-6.1); Lymphocytes # 1.1 K/mcL (0.6-4.6); Mean Corpuscular Hemoglobin 31.2 pg (28.0-33.3); Mean Corpuscular Volume 89.1 fL (83.0-100.0); Mean Platelet Volume 10.5 fL (9.4-12.4); Monocytes # 0.5 K/mcL (0.0-1.3); Monocytes % 5.6 %; Neutrophils # 7.2 K/mcL (1.6-8.9); Nucleated Red Blood Cells 0.2 /100 WBC (0); Platelet Count 92 K/mcL (140-400); Segmented Neutrophils % 80.7 %
[2017-12-20 04:05] LABS: BUN/Creatinine Ratio 21 (6-26); Blood Urea Nitrogen 20 mg/dL (6-20); Calcium 8.3 mg/dL (8.6-10.3); Carbon Dioxide 25 mEq/L (23-29); Chloride 109 mEq/L (98-107); Glucose 147 mg/dL (70-105); Magnesium 1.7 mg/dL (1.6-2.6); Osmolality,Calculated 293 (280-300); Potassium 3.9 mEq/L (3.5-5.1); Sodium 139 mEq/L (136-145); Vancomycin,Trough 13 mcg/mL (5-10); eGFR For African Americans > 60 (> 60); eGFR For Non-African Americans > 60 (> 60)
[2017-12-20] MEDS: Norepinephrine 8 MG in D5% in Water 500 ML IVC SCH ×2 (07:28→20:50)
[2017-12-20] MEDS: Lacri-Lube 3.5 GM TUBE BOTH EYES SCH ×6 (07:28→23:28)
[2017-12-20] MEDS: *HR* Heparin 5,000 UNIT/ML VIAL SQ SCH ×3 (07:39→20:51)
[2017-12-20] MEDS: Insulin LISPRO 300 UNITS/3 ML VIAL SQ SCH ×6 (07:40→23:37)
--- NOTE | 2017-12-20 07:47 | Pulmonology Progress Note ---
<Linda Camara - Last Filed: 12/20/17 09:43> Date of Encounter: 12/20/17 Time of Encounter: 07:35 Assessment and Plan (1) Cardiopulmonary arrest with successful resuscitation Current Visit: Yes Status: Acute Patient taken urgently to cardiac catheterization lab by ED. There was noted to be blood in the ETT during CPR, likely pulmonary hemorrhage. Cath demonstrated EF 30%. Proximal LAD with 90% lesion was successfully stented with VIOLA patient has been hemodynamically stable not requiring pressor support -[employer] performed a full interrogation of the loop recorder. -Patient is still having chest pain but it is tolerable, he feels weak -per cardiology on, DAPT, Lipitor, metoprolol, lisinopril -stopped amiodarone -CTA of chest ordered to evaluate if there is another cause for the cardiopulmonary arrest since the LAD had not been completely obstructed. (2) Abnormal head CT Current Visit: Yes Status: Acute Possible new neoplasm demonstrated by head CT Head CT scan that demonstrated temporal lesions that appeared not to be hemorrhagic or infarct in nature but instead a mass. -Contrast enhanced CT scan of head demonstrated low-density lesion and anterior right temporal lobe. Differential diagnosis including cystic or necrotic neoplasm, abscess, demyelinating lesion, less likely acute to subacute infarct. Recommends MRI. -The family of the patient was notified of the results and the new imaging. -Cardiology reported that loop recorder is safe for the patient to have an MRI -Patient is hemodynamically stable today, will proceed with MRI today (3) Hypercapnic respiratory failure Current Visit: Yes Status: Acute Hypercapnic respiratory failure requiring intubation -12/18/2017 CXR demonstrated resolved pulmonary edema and new left basilar atelectasis versus pneumonia Initial ABG: pH 6.84, CO2 125, HCO3 21 Repeat ABG: pH 7.40,CO2 39, HCO3 24 Patient self extubated 0339 on 12/19/2017 -saturating 99% on oxymask -Lasix 20 mg, will diuresed as able -encouraged spirometry and sitting up Qualifiers: Chronicity: acute Qualified Code(s): J96.02 - Acute respiratory failure with hypercapnia (4) Aspiration pneumonia Current Visit: Yes Status: Acute Aspiration pneumonia demonstrated by chest x-ray in setting of cardiopulmonary arrest WBC 8.9 (31.6) afebrile CXR concerning for edema or pneumonia sputum culture-GPC -blood cultures negative -MRSA positive -Continue IV Zosyn day 4 -continue vancomycin day 3 Qualifiers: Qualified Code(s): J69.0 - Pneumonitis due to inhalation of food and vomit (5) Cardiomyopathy Current Visit: Yes Status: Acute New Cardiomyopathy with EF on catheterization 30%. Likely due to cardiac arrest plan to order TTE. TTE- EF 35%, mild LV diastolic dysfunction, no pulmonary hypertension or valvular dysfunction -will be cautious with IVF Qualifiers: Cardiomyopathy type: unspecified Qualified Code(s): I42.9 - Cardiomyopathy , unspecified (6) Atrial fibrillation Current Visit: Yes Status: Acute Loop recorder was interrogated by cardiology and demonstrated atrial fibrillation with RVR. No VT/VF recorded. -Cardiology had [employer] come do a full interrogation of the loop recorder -Cardiology stopped amiodarone -anticoagulation per cardiology recommendations Qualifiers: Atrial fibrillation type: paroxysmal Qualified Code(s): I48.0 - Paroxysmal atrial fibrillation (7) Hyperglycemia Current Visit: Yes Status: Acute Hyperglycemia with glucose 491 initially. Glucose stable had been on insulin drip -medium dose sliding scale insulin Q4h -Accu check q4h (8) Elevated troponin Current Visit: Yes Status: Acute Elevated Troponin 0.07 > 0.66 > 1.56 > 0.71 troponin was recheck today and improved -management as above (9) Coronary artery disease Current Visit: Yes Status: Acute s/p PCI to LAD with VIOLA. -Management as above Qualifiers: Coronary Disease-Associated Artery/Lesion type: [place] artery [place] vs. transplanted heart: [place] heart Associated angina: with unspecified angina Qualified Code(s): I25.119 - Atherosclerotic heart disease of [place] coronary artery with unspecified angina pectoris (10) Lactic acidosis Current Visit: Yes Status: Acute Lactic acidosis improving 0.9 (>10) secondary to cardiopulmonary arrest -lactic acid was recheck today and improved (11) Pulmonary hemorrhage Current Visit: Yes Status: Acute Blood seen in endotracheal tube during CPR -will continue to monitor for blood in ETT (12) Anemia Current Visit: Yes Status: Acute Anemia likely secondary to blood draws hemoglobin 10.3 (11.2, 15.6) no obvious active bleeding will continue to monitor H&H Qualifiers: Qualified Code(s): D64.9 - Anemia, unspecified (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 The patient is alert and oriented times 3 and in no acute distress. He reports that his chest hurts, a little nausea, and feels weak. He denies shortness of breath, abdominal pain, constipation, fever, chills. He has passed gas and had a bowel movement. Objective PUL Vital signs: Last Vital Signs Temp 97.7 F 12/20/17 05:11 Pulse 55 12/20/17 07:00 Resp 18 12/20/17 07:00 BP 126/62 12/20/17 07:00 Pulse Ox 94 12/20/17 07:00 General appearance: no acute distress, lethargic Eyes: nonicteric ENT: oropharynx moist Neck: supple Effort: normal Auscultation: bilateral: clear Cardiovascular: regular rate and rhythm Gastrointestinal: normoactive bowel sounds, soft, non-tender Integumentary: normal Extremities: no cyanosis, no edema normal mental status, non-focal exam mood appropriate, affect normal Results - Laboratory Findings CBC and BMP: 12/20/17 03:15 12/20/17 03:15 ABG ABG pH 7.40 pH Units (7.32-7.45) 12/19/17 05:21 ABG pCO2 39 mmHg (35-45) 12/19/17 05:21 ABG pO2 90 mmHg (85-104) 12/19/17 05:21 ABG O2 Saturation 97 % (95-98) 12/19/17 05:21 PT/INR, D-dimer PT 13.6 Seconds (9.4-12.1) H 12/17/17 03:25 Abnormal lab findings: Abnormal lab results RBC 3.30 M/mcL (4.19-5.50) L 12/20/17 03:15 Hgb 10.3 g/dL (12.9-16.9) L 12/20/17 03:15 Hct 29.4 % (37.5-50.1) L 12/20/17 03:15 Plt Count 92 K/mcL (140-400) L 12/20/17 03:15 Nucleated RBCs/100 WBC 0.2 /100 WBC (0) H 12/20/17 03:15 Platelet Estimate Decreased (Normal) L 12/19/17 03:20 PT 13.6 Seconds (9.4-12.1) H 12/17/17 03:25 APTT 51.5 Seconds (26.0-36.0) H 12/16/17 17:58 Chloride 109 mEq/L (98-107) H 12/20/17 03:15 Glucose 147 mg/dL (70-105) H 12/20/17 03:15 POC Glucose 126 mg/dL (70-99) H 12/19/17 23:16 Calcium 8.3 mg/dL (8.6-10.3) L 12/20/17 03:15 Venous Ioniz Calcium 1.07 mmol/L (1.15-1.35) L 12/17/17 16:34 Troponin I 0.71 ng/mL (< 0.04) H* 12/18/17 10:05 B-Natriuretic Peptide 216 pg/mL (Less than 100) H 12/16/17 17:58 Triglycerides 318 mg/dL (< 150) H 12/17/17 03:25 VLDL Cholesterol, Calc 64 mg/dL (< 31) H 12/17/17 03:25 HDL Cholesterol 21 mg/dL (40-59) L 12/17/17 03:25 Cholesterol/HDL Ratio 5.5 (0-4.9) H 12/17/17 03:25 Ur Specimen Adequacy See below A 12/18/17 09:44 Urine Color [place] (Yellow) A 12/18/17 09:44 Urine Clarity Turbid (Clear) A 12/18/17 09:44 Ur Specific [place] > 1.030 (1.010-1.025) H 12/18/17 09:44 Urine Protein 100 mg/dL (Neg-Trace) H 12/18/17 09:44 Urine Ketones Trace mg/dL (Negative) H 12/18/17 09:44 Urine Blood Large (Negative) H 12/18/17 09:44 Urine Bilirubin Moderate (Negative) H 12/18/17 09:44 Ur Leukocyte Esterase Small (Negative) H 12/18/17 09:44 Urine Microscopic RBC 50-100 per hpf (0-3) H 12/18/17 09:44 Urine Microscopic WBC 3-5 per hpf (0-3) H 12/18/17 09:44 Urine Bacteria Moderate per hpf (None-Few) H 12/18/17 09:44 Ur Culture Indicated? YES (NO) A 12/18/17 09:44 Nasal Screen MRSA (PCR) Positive (Negative) A 12/18/17 12:40 Vancomycin Trough 13 mcg/mL (5-10) H 12/20/17 03:15 - Microbiology Findings Microbiology Findings: Microbiology, Last 48 Hours 12/18/17 07:55 Sputum Culture - Preliminary Sputum Gram Positive Cocci 12/17/17 13:50 Sputum Culture - Final Sputum 12/18/17 09:44 Urine Culture - Preliminary Urine,Clean Catch No growth. 12/17/17 12:54 Blood Culture - Preliminary Peripheral Venipuncture No growth. 12/17/17 12:54 Blood Culture - Preliminary Peripheral Venipuncture No growth. - Clinical Findings Intake & Output: Intake & Output 12/19/17 12/19/17 12/20/17 15:59 23:59 07:59 Intake Total 390 / 390 695 / 695 45 / 45 Output Total 1500 / 1500 100 / 100 350 / 350 Balance -1110 / -1110 595 / 595 -305 / -305 Weight 99.5 kg - VTE Reasons for not Prescribing Prophylaxis: Not indicated-Anticoagulated or INR therapeutic Consult Discharge Plan - Plan [facility]errals: [facility]Primary Care Provider[facility] - <Anam [place] W - Last Filed: 12/20/17 10:07> Date of Encounter: 12/20/17 Objective PUL Vital signs: Last Vital Signs Temp 96.9 F L 12/20/17 08:07 Pulse 60 12/20/17 09:30 Resp 16 12/20/17 09:30 BP 115/68 12/20/17 09:30 Pulse Ox 93 12/20/17 09:30 Results - Laboratory Findings CBC and BMP: 12/20/17 03:15 12/20/17 03:15 ABG ABG pH 7.40 pH Units (7.32-7.45) 12/19/17 05:21 ABG pCO2 39 mmHg (35-45) 12/19/17 05:21 ABG pO2 90 mmHg (85-104) 12/19/17 05:21 ABG O2 Saturation 97 % (95-98) 12/19/17 05:21 PT/INR, D-dimer PT 13.6 Seconds (9.4-12.1) H 12/17/17 03:25 Abnormal lab findings: Abnormal lab results RBC 3.30 M/mcL (4.19-5.50) L 12/20/17 03:15 Hgb 10.3 g/dL (12.9-16.9) L 12/20/17 03:15 Hct 29.4 % (37.5-50.1) L 12/20/17 03:15 Plt Count 92 K/mcL (140-400) L 12/20/17 03:15 Nucleated RBCs/100 WBC 0.2 /100 WBC (0) H 12/20/17 03:15 Platelet Estimate Decreased (Normal) L 12/19/17 03:20 PT 13.6 Seconds (9.4-12.1) H 12/17/17 03:25 APTT 51.5 Seconds (26.0-36.0) H 12/16/17 17:58 Chloride 109 mEq/L (98-107) H 12/20/17 03:15 Glucose 147 mg/dL (70-105) H 12/20/17 03:15 POC Glucose 126 mg/dL (70-99) H 12/19/17 23:16 Calcium 8.3 mg/dL (8.6-10.3) L 12/20/17 03:15 Venous Ioniz Calcium 1.07 mmol/L (1.15-1.35) L 12/17/17 16:34 Troponin I 0.71 ng/mL (< 0.04) H* 12/18/17 10:05 B-Natriuretic Peptide 216 pg/mL (Less than 100) H 12/16/17 17:58 Triglycerides 318 mg/dL (< 150) H 12/17/17 03:25 VLDL Cholesterol, Calc 64 mg/dL (< 31) H 12/17/17 03:25 HDL Cholesterol 21 mg/dL (40-59) L 12/17/17 03:25 Cholesterol/HDL Ratio 5.5 (0-4.9) H 12/17/17 03:25 Ur Specimen Adequacy See below A 12/18/17 09:44 Urine Color [place] (Yellow) A 12/18/17 09:44 Urine Clarity Turbid (Clear) A 12/18/17 09:44 Ur Specific [place] > 1.030 (1.010-1.025) H 12/18/17 09:44 Urine Protein 100 mg/dL (Neg-Trace) H 12/18/17 09:44 Urine Ketones Trace mg/dL (Negative) H 12/18/17 09:44 Urine Blood Large (Negative) H 12/18/17 09:44 Urine Bilirubin Moderate (Negative) H 12/18/17 09:44 Ur Leukocyte Esterase Small (Negative) H 12/18/17 09:44 Urine Microscopic RBC 50-100 per hpf (0-3) H 12/18/17 09:44 Urine Microscopic WBC 3-5 per hpf (0-3) H 12/18/17 09:44 Urine Bacteria Moderate per hpf (None-Few) H 12/18/17 09:44 Ur Culture Indicated? YES (NO) A 12/18/17 09:44 Nasal Screen MRSA (PCR) Positive (Negative) A 12/18/17 12:40 Vancomycin Trough 13 mcg/mL (5-10) H 12/20/17 03:15 - Microbiology Findings Microbiology Findings: Microbiology, Last 48 Hours 12/18/17 17:25 Blood Culture - Preliminary Peripheral Venipuncture No growth. 12/18/17 17:25 Blood Culture - Preliminary Peripheral Venipuncture No growth. 12/18/17 17:25 Blood Culture - Preliminary Central Venous Catheter No growth. 12/18/17 17:25 Blood Culture - Preliminary Central Venous Catheter No growth. 12/18/17 07:55 Sputum Culture - Preliminary Sputum Gram Positive Cocci 12/17/17 13:50 Sputum Culture - Final Sputum 12/18/17 09:44 Urine Culture - Preliminary Urine,Clean Catch No growth. 12/17/17 12:54 Blood Culture - Preliminary Peripheral Venipuncture No growth. 12/17/17 12:54 Blood Culture - Preliminary Peripheral Venipuncture No growth. - Clinical Findings Intake & Output: Intake & Output 12/19/17 12/20/17 12/20/17 23:59 07:59 15:59 Intake Total 695 / 695 145 / 145 Output Total 100 / 100 350 / 350 100 / 100 Balance 595 / 595 -205 / -205 -100 / -100 Weight 99.5 kg - Attending Attestation I examined this patient and my medical decision-making was reviewed with the Resident Physician. I agree with the documented findings, disposition and treatment plan as described except to the extent set forth below. We independently had [id number] contact with the patient Patient seen and examined at bedside Labs, radiology, chart personally reviewed. Management was reviewed during multidisciplinary critical care rounds. 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 The patient has a right temporal lesion we are awaiting MRI for further delineation of this. Pulm: Acceptable oxygen saturation on oxygen mask we are able to wean from 15 L down to 8 L today I think in large part this is secondary to cardiogenic pulmonary edema with likely superimposed pneumonia. I do recommend contrast study of the chest 1 able to evaluate for other potential pulmonary etiologies of his cardiac arrest given degree of pulmonary hemorrhage although I think that PE is very unlikely in that situation as that would likely have proven to be fatal. There may be some underlying malignant process given lesion in the brain Cards: Status post cardiac arrest suspected acute coronary syndrome cardiology is questioning whether cardiac ischemia precipitated this event. He is status post PCI of a proximal LAD lesion and is on dual antiplatelet therapy statin and aspirin appreciate cardiology recommendations. He does have an echocardiogram with reduced ejection fraction and will continue diuresis for heart failure FEN-GI: Advance diet as tolerated after speech and swallow eval Renal: Urine output monitored and stable ID: Presumptive staph pneumonia possibly MRSA as his nasal swab was positive we will continue antibiotics with planned to de-escalate Heme/Onc: DVT prophylaxis given Endo: Glucose Monitored Integ/MSK: Skin Care per routine ICU Nursing Protocol to prevent ulcers. Lines: All lines examined without evidence of infection : Dispo: Remain in ICU today likely can transition to med telemetry tomorrow CODE: Full
[2017-12-20] MEDS ORDERED: Isovue-370 500 ML INFUS..BTL IV ONE (08:08)
--- NOTE | 2017-12-20 08:14 | Cardiology Progress Note ---
Date of Encounter: 12/20/17 Time of Encounter: 07:30 Assessment and Plan (1) Cardiopulmonary arrest with successful resuscitation Current Visit: Yes Status: Acute Loop recorder interrogation reviewed. Did not have any evidence of atrial or ventricular arrhythmias prior to EMS arrival. Initial detection of a fib with RVR at 4:45pm lasting approximately 6 minutes followed by a period of bigeminy and external defibrillation-induced VF by R on T. Subsequently externally defibrillated a 2nd time to atrial fib with controlled VR. One other detection at approximately 5:05pm of idioventricular rhythm with several pauses. No other detections noted. No loop detections prior to EMS arrival. Although had 90% proximal LAD lesion that was successfully stented, no evidence that event was primarily cardiac in etiology. No evidence of ACS. Amiodarone d/c'ed. Start on low dose beta blockade and LOREN-I if BP tolerates. MRI brain and CT chest ordered. Pt was taken emergently to cardiac catheterization lab after stabilized by ED. Unable to oxygenate patient initially which improved with suctioning of BRB. Hemodynamically improved with pressors, trauma blood. 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 Cardiac catheterization demonstrated global LV dysfunction with EF 30%. RCA, Cx angiographically normal. Proximal LAD with 90% lesion- successfully stented with VIOLA to 0%. (2) Coronary artery disease Current Visit: Yes Status: Acute S/P PCI of LAD. Statin, DAPT. Will add beta blockade and LOREN-I as BP tolerates. Qualifiers: Coronary Disease-Associated Artery/Lesion type: [place] artery [place] vs. transplanted heart: [place] heart Associated angina: with unspecified angina Qualified Code(s): I25.119 - Atherosclerotic heart disease of [place] coronary artery with unspecified angina pectoris (3) S/P coronary artery stent placement Current Visit: Yes Status: Acute (4) Cardiomyopathy Current Visit: Yes Status: Acute Appears compensated. Add low dose beta blockade and LOREN-I today and will titrate as BP tolerates. EF may be reduced due to cardiac arrest/resuscitation Obtain records from [place] regarding prior cardiac testing. Prior EF assessment at [facility] (2012) demonstrated preserved LVEF per LV gram EF 30 %. BNP mildly elevated upon presentation. No overt volume overload noted upon exam. TTE 12/17/17: LVEF 35%, global LV systolic dysfunction, mild LVDD, grossly normal RV function (not well visualized), no PH, no significant valvular dysfunction. Caution use of supplemental IVF. Strict I&O's, daily weights. Qualifiers: Cardiomyopathy type: unspecified Qualified Code(s): I42.9 - Cardiomyopathy , unspecified (5) Atrial fibrillation Current Visit: Yes Status: Acute Will continue to follow and monitor. No PAF noted since admission. Will d/c amiodarone. Hold on anticoagulation at this time due to question of MEDICAL RECORDS SECRETARY neoplasm. Qualifiers: Atrial fibrillation type: paroxysmal Qualified Code(s): I48.0 - Paroxysmal atrial fibrillation Discussion w patient/family: The assessment and plan as outlined above was discussed with the patient and/or family members who expressed understanding and agreement. All questions were answered. Thank you for involving us in the care of your patient. Please call with any questions. Subjective Principal diagnosis: Cardio-pulmonary arrest Interval history: Pt more alert this AM, oriented. No events overnight. C/O chest soreness likely from CPR. Objective Vital Signs, Last 4 Hours Temp Pulse Resp BP Pulse Ox 12/20/17 08:07 96.9 F L 12/20/17 07:47 55 12/20/17 07:00 55 18 126/62 94 12/20/17 06:00 61 16 122/61 94 12/20/17 05:11 97.7 F General: No Apparent Distress HEENT: Atraumatic, Normocephaly, Mucus Membranes Moist Neck: No JVD, Normal carotid pulses Cardiac: Reg Rate and Rhythm, Normal S1 and S2, No Murmur Lungs: Normal Breath Sounds, No Wheeze, Rales, Rhonchi Neuro: Alert and responsive, No focal deficits noted Abdomen: Soft, Non-Tender Skin: No rashes noted on visualized skin Extremities: No Clubbing, No Cyanosis, No Edema, Normal Pulses Results 12/20/17 03:15 12/20/17 03:15 Lab Results 12/19/17 12/20/17 12/20/17 15:00 03:15 03:15 WBC 8.9 Hgb 10.3 L Hct 29.4 L Plt Count 92 L Sodium 139 139 Potassium 3.6 3.9 Chloride 109 H 109 H Carbon Dioxide 27 25 BUN 18 20 Creatinine 0.95 0.95 Glucose 130 H 147 H Calcium 8.0 L 8.3 L Magnesium 1.6 1.7 - VTE Reasons for not Prescribing Prophylaxis: Not indicated-Anticoagulated or INR therapeutic Consult Discharge Plan - Plan [facility]errals: [facility] [Primary Care Provider] -
[2017-12-20] MEDS ORDERED: *HR* Atropine Sulfate 1 MG/10 ML SYRINGE ONE (08:21)
[2017-12-20] MEDS: Pantoprazole 40 MG VIAL IVP SCH (08:52)
[2017-12-20] MEDS: Piperacillin/Tazobactam 3.375 GM in 0.9 % Sodium Chloride Mini Bag 100 ML IVPB SCH ×3 (08:52→23:38)
[2017-12-20] MEDS ORDERED: Furosemide 20 MG/2 ML VIAL IVP ONE (09:38)
[2017-12-20] MEDS: Aspirin 81 MG TAB.CHEW PO SCH (10:13)
[2017-12-20] MEDS: Chlorhexidine Rinse 15 ML MOUTHWASH MM SCH ×2 (10:13→20:33)
[2017-12-20] MEDS: Ondansetron ODT 4 MG TAB.RAPDIS SL PRN ×2 (10:54→17:50)
[2017-12-20] MEDS: Dexmedetomidine HCl 400 MCG/100 ML MLS IVC SCH (14:19)
[2017-12-20] MEDS: FentaNYL (PF) 1,000 MCG in 0.9 % Sodium Chloride 80 ML IVC SCH (21:09)
[2017-12-20] MEDS ORDERED: Ipratropium/Albuterol Neb 3 ML IH ONE (23:22)
[2017-12-21] MEDS: Ondansetron ODT 4 MG TAB.RAPDIS SL PRN (02:18)
[2017-12-21] MEDS ORDERED: Furosemide 20 MG/2 ML VIAL IVP ONE (02:56)
--- NOTE | 2017-12-21 04:11 | Event Note ---
Date of Encounter: 12/21/17 Time of Encounter: 03:59 Nurse paged about patient having increasing supplemental O2 needs due to hypoxemia and some LLL crackles. I went to see patient. He is in no distress. He denies SOB. He is alert and oriented x 3; much better than when I saw him previously. His oxygen saturation was 93%. He is not showing any increased WOB. We are still treating for aspiration pneumonia with antibiotic. He received one time dose of IV lasix 2 days ago and diuresed 1.5 liters. He has bilateral pleural effusions on last CXR; this is likely cardiogenic. I asked nurse to give him lasix 20 mg IV once stat. Monitor strict I&Os and sign out to day team.
[2017-12-21] MEDS: Lacri-Lube 3.5 GM TUBE BOTH EYES SCH ×2 (04:15→07:49)
[2017-12-21] MEDS: Insulin LISPRO 300 UNITS/3 ML VIAL SQ SCH ×4 (04:19→21:30)
[2017-12-21 04:22] LABS: Basophils % 0.5 %; Eosinophils # 0.1 K/mcL (0.0-0.6); Eosinophils % 0.9 %; Hematocrit 29.9 % (37.5-50.1); Hemoglobin 10.4 g/dL (12.9-16.9); Lymphocytes # 0.7 K/mcL (0.6-4.6); Lymphocytes % 7.9 %; Mean Corpuscular HGB Conc 34.8 g/dL (31.6-35.5); Mean Platelet Volume 10.5 fL (9.4-12.4); Monocytes # 0.6 K/mcL (0.0-1.3); Monocytes % 6.4 %; Neutrophils # 7.2 K/mcL (1.6-8.9); Nucleated Red Blood Cells 0.3 /100 WBC (0); Platelet Count 111 K/mcL (140-400); Red Blood Count 3.36 M/mcL (4.19-5.50); Red Cell Distribution Width 12.9 % (11.5-14.5); Segmented Neutrophils % 83.3 %
[2017-12-21 04:39] LABS: BUN/Creatinine Ratio 17 (6-26); Blood Urea Nitrogen 17 mg/dL (6-20); Calcium 8.3 mg/dL (8.6-10.3); Carbon Dioxide 26 mEq/L (23-29); Chloride 108 mEq/L (98-107); Glucose 155 mg/dL (70-105); Magnesium 1.8 mg/dL (1.6-2.6); Osmolality,Calculated 295 (280-300); Phosphorous 2.4 mg/dL (2.7-4.5); Potassium 3.5 mEq/L (3.5-5.1); Sodium 140 mEq/L (136-145); eGFR For African Americans > 60 (> 60); eGFR For Non-African Americans > 60 (> 60)
[2017-12-21] MEDS: *HR* Heparin 5,000 UNIT/ML VIAL SQ SCH ×3 (06:03→21:29)
--- NOTE | 2017-12-21 07:35 | Pulmonology Progress Note ---
<JennifferaaronMin garibay M - Last Filed: 12/21/17 10:04> Date of Encounter: 12/21/17 Objective PUL Vital signs: Last Vital Signs Temp 97.7 F 12/21/17 08:00 Pulse 59 12/21/17 08:00 Resp 16 12/21/17 08:00 BP 127/64 12/21/17 08:00 Pulse Ox 95 12/21/17 08:00 Results - Laboratory Findings CBC and BMP: 12/21/17 04:00 12/21/17 04:00 ABG ABG pH 7.40 pH Units (7.32-7.45) 12/19/17 05:21 ABG pCO2 39 mmHg (35-45) 12/19/17 05:21 ABG pO2 90 mmHg (85-104) 12/19/17 05:21 ABG O2 Saturation 97 % (95-98) 12/19/17 05:21 PT/INR, D-dimer PT 13.6 Seconds (9.4-12.1) H 12/17/17 03:25 Abnormal lab findings: Abnormal lab results RBC 3.36 M/mcL (4.19-5.50) L 12/21/17 04:00 Hgb 10.4 g/dL (12.9-16.9) L 12/21/17 04:00 Hct 29.9 % (37.5-50.1) L 12/21/17 04:00 Plt Count 111 K/mcL (140-400) L 12/21/17 04:00 Nucleated RBCs/100 WBC 0.3 /100 WBC (0) H 12/21/17 04:00 Platelet Estimate Decreased (Normal) L 12/19/17 03:20 PT 13.6 Seconds (9.4-12.1) H 12/17/17 03:25 APTT 51.5 Seconds (26.0-36.0) H 12/16/17 17:58 Chloride 108 mEq/L (98-107) H 12/21/17 04:00 Glucose 155 mg/dL (70-105) H 12/21/17 04:00 POC Glucose 138 mg/dL (70-99) H 12/20/17 23:28 Calcium 8.3 mg/dL (8.6-10.3) L 12/21/17 04:00 Venous Ioniz Calcium 1.07 mmol/L (1.15-1.35) L 12/17/17 16:34 Phosphorus 2.4 mg/dL (2.7-4.5) L 12/21/17 04:00 Troponin I 0.71 ng/mL (< 0.04) H* 12/18/17 10:05 B-Natriuretic Peptide 216 pg/mL (Less than 100) H 12/16/17 17:58 Triglycerides 318 mg/dL (< 150) H 12/17/17 03:25 VLDL Cholesterol, Calc 64 mg/dL (< 31) H 12/17/17 03:25 HDL Cholesterol 21 mg/dL (40-59) L 12/17/17 03:25 Cholesterol/HDL Ratio 5.5 (0-4.9) H 12/17/17 03:25 Ur Specimen Adequacy See below A 12/18/17 09:44 Urine Color Jaja (Yellow) A 12/18/17 09:44 Urine Clarity Turbid (Clear) A 12/18/17 09:44 Ur Specific [place] > 1.030 (1.010-1.025) H 12/18/17 09:44 Urine Protein 100 mg/dL (Neg-Trace) H 12/18/17 09:44 Urine Ketones Trace mg/dL (Negative) H 12/18/17 09:44 Urine Blood Large (Negative) H 12/18/17 09:44 Urine Bilirubin Moderate (Negative) H 12/18/17 09:44 Ur Leukocyte Esterase Small (Negative) H 12/18/17 09:44 Urine Microscopic RBC 50-100 per hpf (0-3) H 12/18/17 09:44 Urine Microscopic WBC 3-5 per hpf (0-3) H 12/18/17 09:44 Urine Bacteria Moderate per hpf (None-Few) H 12/18/17 09:44 Ur Culture Indicated? YES (NO) A 12/18/17 09:44 Nasal Screen MRSA (PCR) Positive (Negative) A 12/18/17 12:40 Vancomycin Trough 13 mcg/mL (5-10) H 12/20/17 03:15 - Microbiology Findings Microbiology Findings: Microbiology, Last 48 Hours 12/18/17 07:55 Sputum Culture - Final Sputum Methicillin Resistant S.aureus 12/18/17 09:44 Urine Culture - Final Urine,Clean Catch No growth. 12/18/17 17:25 Blood Culture - Preliminary Peripheral Venipuncture No growth. 12/18/17 17:25 Blood Culture - Preliminary Peripheral Venipuncture No growth. 12/18/17 17:25 Blood Culture - Preliminary Central Venous Catheter No growth. 12/18/17 17:25 Blood Culture - Preliminary Central Venous Catheter No growth. 12/17/17 13:50 Sputum Culture - Final Sputum 12/17/17 12:54 Blood Culture - Preliminary Peripheral Venipuncture No growth. 12/17/17 12:54 Blood Culture - Preliminary Peripheral Venipuncture No growth. - Clinical Findings Intake & Output: Intake & Output 12/20/17 12/21/17 12/21/17 23:59 07:59 15:59 Intake Total 600 / 600 600 / 600 Output Total 450 / 450 1700 / 1700 Balance 150 / 150 -1100 / -1100 Weight 97.8 kg Consult Discharge Plan - Plan [facility]errals: [facility] [Primary Care Provider[facility] - - Attending Attestation I examined this patient and my medical decision-making was reviewed with the Resident Physician. I agree with the documented findings, disposition and treatment plan as described except to the extent set forth below. Patient seen and examined. Labs, radiology, chart personally reviewed. 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 Patient is claustrophobic and neurology recommendations is needed. Patient needs to reusme his seizure. Pulmonary: Acceptable oxygenation and ventilation and need IS because of the chest pain from CPR and pain control. Cardiovascular: stable and cardiology follow up. Hemodynamically stable to be transfer to the floor with telem. GI: Nutrition per dietary and GI prophylaxis per routine Heme: DVT prophylaxis per routine ID: Continue antibiotics and plan to de-escalation Renal; urine out put and renal funtion reviewed Endorcine: blood glucose is monitored Lines: all lines checked and no evidence of infections Skin: skin care to prevent pressure ulcers per nursing routine care <John Pandya - Last Filed: 12/21/17 11:28> Date of Encounter: 12/21/17 Time of Encounter: 08:44 Assessment and Plan (1) Cardiopulmonary arrest with successful resuscitation Current Visit: Yes Status: Acute Patient taken urgently to cardiac catheterization lab by ED. There was noted to be blood in the ETT during CPR, likely pulmonary hemorrhage. Cath demonstrated EF 30%. Proximal LAD with 90% lesion was successfully stented with VIOLA patient has been hemodynamically stable not requiring pressor support -[employer] performed a full interrogation of the loop recorder. -Patient is still having chest pain but it is tolerable, he feels weak -per cardiology on, DAPT, Lipitor, metoprolol, lisinopril -stopped amiodarone -CTA of chest came back with no acute findings other than pulmonary edema and possible aspiration pneumonia. There is no signs of pulmonary embolism. (2) Abnormal head CT Current Visit: Yes Status: Acute Possible new neoplasm demonstrated by head CT Head CT scan that demonstrated temporal lesions that appeared not to be hemorrhagic or infarct in nature but instead a mass. -Contrast enhanced CT scan of head demonstrated low-density lesion and anterior right temporal lobe. Differential diagnosis including cystic or necrotic neoplasm, abscess, demyelinating lesion, less likely acute to subacute infarct. Recommends MRI. -The family of the patient was notified of the results and the new imaging. -Cardiology reported that loop recorder is safe for the patient to have an MRI -Patient is hemodynamically stable today, will proceed with MRI today -Consultation made with neurology spoke with Dr. Stovall who said they would come see the patient and give their recommendations. Vaccinations are still pending at this time. -Did restart patient on his Topamax as well as Zoloft as these are home medications for seizures and psychiatric disorders. (3) Aspiration pneumonia Current Visit: Yes Status: Acute Aspiration pneumonia demonstrated by chest x-ray in the setting of CPR. White blood cell count is 8.9 from 31.6. Afebrile Chest x-ray concerning for edema or pneumonia. CT also showed edema or pneumonia. Sputum culture was GPC Blood cultures negative MRSA positive Patient still on IV Zosyn day 5 and vancomycin day 4 Qualifiers: Aspiration pneumonia type: unspecified Laterality: bilateral Lung location: unspecified part of lung Qualified Code(s): J69.0 - Pneumonitis due to inhalation of food and vomit (4) Hypercapnic respiratory failure Current Visit: Yes Status: Acute Hypercapnic respiratory failure requiring intubation has since been extubated as of yesterday -12/18/2017 CXR demonstrated resolved pulmonary edema and new left basilar atelectasis versus pneumonia Initial ABG: pH 6.84, CO2 125, HCO3 21 Repeat ABG: pH 7.40,CO2 39, HCO3 24 Patient self extubated 0339 on 12/19/2017 -saturating 99% on oxymask -Lasix 20 mg, will diuresed as able -encouraged spirometry and sitting up Qualifiers: Chronicity: acute Qualified Code(s): J96.02 - Acute respiratory failure with hypercapnia (5) Lactic acidosis Current Visit: Yes Status: Acute Lactic acidosis improving 0.9 from greater than 10 secondary to cardiopulmonary arrest Lactic acid has since improved (6) Cardiomyopathy Current Visit: Yes Status: Acute New cardiomyopathy with EF on catheterization at 30%. Likely due to cardiac arrest plan for TTE. TTE showed an EF of 35% with mild left ventricular diastolic dysfunction, no pulmonary hypertension or valvular dysfunction. 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 transplanted heart: [place] heart Associated angina: with unspecified angina Qualified Code(s): I25.119 - Atherosclerotic heart disease of [place] coronary artery with unspecified angina pectoris (9) Atrial fibrillation Current Visit: Yes Status: Acute Loop recorder was interrogated by cardiology and demonstrated A. fib with RVR no VT/VF was recorded. Cardiology had [employer] come to do full interrogation a loop recorder Cardiology stopped amiodarone Anticoagulation per cardiology recommendations Qualifiers: Atrial fibrillation type: paroxysmal Qualified Code(s): I48.0 - Paroxysmal atrial fibrillation (10) DVT prophylaxis Current Visit: No Status: Acute Subcutaneous heparin Subjective Principal diagnosis: Cardio-pulmonary arrest Interval history: Patient did well overnight he was at one time had a low oxygen saturation of 93 % there is no increased work of breathing he is still being treated for aspiration pneumonia with antibiotics. This most likely was due to cardiogenic effects. He was given 20 mg of Lasix IV once which did help. They will continue to monitor I's and O's. Plan is to transfer patient out of the ICU is critical care is no longer needed. Objective PUL Vital signs: Last Vital Signs Temp 97.6 F 12/21/17 07:20 Pulse 61 12/21/17 06:00 Resp 20 05/21/18 06:00 BP 109/72 12/21/17 06:00 Pulse Ox 95 12/21/17 06:00 General appearance: no acute distress Eyes: nonicteric ENT: oropharynx moist Neck: supple Effort: normal Auscultation: bilateral: clear Cardiovascular: regular rate and rhythm Gastrointestinal: normoactive bowel sounds, non-distended Integumentary: normal Extremities: no cyanosis, no edema, no clubbing Musculoskeletal: no deformities, ROM normal normal mental status, non-focal exam Results - Laboratory Findings CBC and BMP: 12/21/17 04:00 12/21/17 04:00 ABG ABG pH 7.40 pH Units (7.32-7.45) 12/19/17 05:21 ABG pCO2 39 mmHg (35-45) 12/19/17 05:21 ABG pO2 90 mmHg (85-104) 12/19/17 05:21 ABG O2 Saturation 97 % (95-98) 12/19/17 05:21 PT/INR, D-dimer PT 13.6 Seconds (9.4-12.1) H 12/17/17 03:25 Abnormal lab findings: Abnormal lab results RBC 3.36 M/mcL (4.19-5.50) L 12/21/17 04:00 Hgb 10.4 g/dL (12.9-16.9) L 12/21/17 04:00 Hct 29.9 % (37.5-50.1) L 12/21/17 04:00 Plt Count 111 K/mcL (140-400) L 12/21/17 04:00 Nucleated RBCs/100 WBC 0.3 /100 WBC (0) H 12/21/17 04:00 Platelet Estimate Decreased (Normal) L 12/19/17 03:20 PT 13.6 Seconds (9.4-12.1) H 12/17/17 03:25 APTT 51.5 Seconds (26.0-36.0) H 12/16/17 17:58 Chloride 108 mEq/L (98-107) H 12/21/17 04:00 Glucose 155 mg/dL (70-105) H 12/21/17 04:00 POC Glucose 138 mg/dL (70-99) H 12/20/17 23:28 Calcium 8.3 mg/dL (8.6-10.3) L 12/21/17 04:00 Venous Ioniz Calcium 1.07 mmol/L (1.15-1.35) L 12/17/17 16:34 Phosphorus 2.4 mg/dL (2.7-4.5) L 12/21/17 04:00 Troponin I 0.71 ng/mL (< 0.04) H* 12/18/17 10:05 B-Natriuretic Peptide 216 pg/mL (Less than 100) H 12/16/17 17:58 Triglycerides 318 mg/dL (< 150) H 12/17/17 03:25 VLDL Cholesterol, Calc 64 mg/dL (< 31) H 12/17/17 03:25 HDL Cholesterol 21 mg/dL (40-59) L 12/17/17 03:25 Cholesterol/HDL Ratio 5.5 (0-4.9) H 12/17/17 03:25 Ur Specimen Adequacy See below A 12/18/17 09:44 Urine Color Jaja (Yellow) A 12/18/17 09:44 Urine Clarity Turbid (Clear) A 12/18/17 09:44 Ur Specific [place] > 1.030 (1.010-1.025) H 12/18/17 09:44 Urine Protein 100 mg/dL (Neg-Trace) H 12/18/17 09:44 Urine Ketones Trace mg/dL (Negative) H 12/18/17 09:44 Urine Blood Large (Negative) H 12/18/17 09:44 Urine Bilirubin Moderate (Negative) H 12/18/17 09:44 Ur Leukocyte Esterase Small (Negative) H 12/18/17 09:44 Urine Microscopic RBC 50-100 per hpf (0-3) H 12/18/17 09:44 Urine Microscopic WBC 3-5 per hpf (0-3) H 12/18/17 09:44 Urine Bacteria Moderate per hpf (None-Few) H 12/18/17 09:44 Ur Culture Indicated? YES (NO) A 12/18/17 09:44 Nasal Screen MRSA (PCR) Positive (Negative) A 12/18/17 12:40 Vancomycin Trough 13 mcg/mL (5-10) H 12/20/17 03:15 - Microbiology Findings Microbiology Findings: Microbiology, Last 48 Hours 12/18/17 09:44 Urine Culture - Final Urine,Clean Catch No growth. 12/18/17 17:25 Blood Culture - Preliminary Peripheral Venipuncture No growth. 12/18/17 17:25 Blood Culture - Preliminary Peripheral Venipuncture No growth. 12/18/17 17:25 Blood Culture - Preliminary Central Venous Catheter No growth. 12/18/17 17:25 Blood Culture - Preliminary Central Venous Catheter No growth. 12/18/17 07:55 Sputum Culture - Preliminary Sputum Gram Positive Cocci 12/17/17 13:50 Sputum Culture - Final Sputum 12/17/17 12:54 Blood Culture - Preliminary Peripheral Venipuncture No growth. 12/17/17 12:54 Blood Culture - Preliminary Peripheral Venipuncture No growth. - Clinical Findings Intake & Output: Intake & Output 12/20/17 12/20/17 12/21/17 15:59 23:59 07:59 Intake Total 699 / 699 600 / 600 600 / 600 Output Total 1550 / 1550 450 / 450 1700 / 1700 Balance -851 / -851 150 / 150 -1100 / -1100 Weight 97.8 kg - VTE Reasons for not Prescribing Prophylaxis: Not indicated-Anticoagulated or INR therapeutic
[2017-12-21] MEDS: Dexmedetomidine HCl 400 MCG/100 ML MLS IVC SCH (07:49)
[2017-12-21] MEDS: Chlorhexidine Rinse 15 ML MOUTHWASH MM SCH (07:50)
[2017-12-21] MEDS: Pantoprazole 40 MG VIAL IVP SCH (08:10)
[2017-12-21] MEDS: Piperacillin/Tazobactam 3.375 GM in 0.9 % Sodium Chloride Mini Bag 100 ML IVPB SCH ×2 (08:10→17:23)
[2017-12-21] MEDS: Aspirin 81 MG TAB.CHEW PO SCH ×2 (08:11→09:18)
[2017-12-21] MEDS ORDERED: D5% in Water 1,000 ML IVC PRN (08:47)
[2017-12-21] MEDS ORDERED: *HR* FentaNYL (PF) 100 MCG/2 ML VIAL IVP PRN (08:47)
[2017-12-21] MEDS ORDERED: Ondansetron ODT 4 MG TAB.RAPDIS SL PRN (08:47)
[2017-12-21] MEDS ORDERED: Dextrose Gel 15 GM/37.5 ML TUBE PO PRN ×2 (08:47)
[2017-12-21] MEDS ORDERED: *HR* Dextrose 50 % in Water (Syg) 50 ML SYRINGE IVP PRN (08:47)
[2017-12-21] MEDS ORDERED: Insulin LISPRO 300 UNITS/3 ML VIAL SQ SCH ×2 (11:30→21:00)
--- NOTE | 2017-12-21 12:37 | Cardiology Progress Note ---
Date of Encounter: 12/21/17 Time of Encounter: 12:40 Assessment and Plan (1) Cardiopulmonary arrest with successful resuscitation Current Visit: Yes Status: Acute Loop recorder interrogation reviewed. Did not have any evidence of atrial or ventricular arrhythmias prior to EMS arrival. Initial detection of a fib with RVR at 4:45pm lasting approximately 6 minutes followed by a period of bigeminy and external defibrillation-induced VF by R on T. Subsequently externally defibrillated a 2nd time to atrial fib with controlled VR. One other detection at approximately 5:05pm of idioventricular rhythm with several pauses. No other detections noted. No loop detections prior to EMS arrival. Although had 90% proximal LAD lesion that was successfully stented, no evidence that event was primarily cardiac in etiology. No evidence of ACS. Amiodarone d/c'ed. Start on low dose beta blockade and LOREN-I if BP tolerates. MRI brain and CT chest ordered. Pt was taken emergently to cardiac catheterization lab after stabilized by ED. Unable to oxygenate patient initially which improved with suctioning of BRB. Hemodynamically improved with pressors, trauma blood. 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 Cardiac catheterization demonstrated global LV dysfunction with EF 30%. RCA, Cx angiographically normal. Proximal LAD with 90% lesion- successfully stented with VIOLA to 0%. (2) Cardiomyopathy Current Visit: Yes Status: Acute Appears compensated. Continue low dose beta blockade and LOREN-I today and will titrate as BP tolerates. Transition to long-acting betablocker in the outpatient setting. EF may be reduced due to cardiac arrest/resuscitation Obtain records from [place] regarding prior cardiac testing--will request again. Prior EF assessment at [facility] [place] (2012) demonstrated preserved, LVEF per LV gram EF 30%. BNP mildly elevated upon presentation. No overt volume overload noted upon exam. TTE 12/17/17: LVEF 35%, global LV systolic dysfunction, mild LVDD, grossly normal RV function (not well visualized), no PH, no significant valvular dysfunction. Caution use of supplemental IVF. Strict I&O's, daily weights. Qualifiers: Cardiomyopathy type: unspecified Qualified Code(s): I42.9 - Cardiomyopathy , unspecified (3) Atrial fibrillation Current Visit: Yes Status: Acute Will continue to follow and monitor. No PAF noted since admission. Will d/c amiodarone. 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 Qualifiers: Atrial fibrillation type: paroxysmal Qualified Code(s): I48.0 - Paroxysmal atrial fibrillation (4) Coronary artery disease Current Visit: Yes Status: Acute S/P PCI of LAD. Statin, DAPT. Will add beta blockade and LOREN-I as BP tolerates. Qualifiers: Coronary Disease-Associated Artery/Lesion type: [place] artery [place] vs. transplanted heart: [place] heart Associated angina: with unspecified angina Qualified Code(s): I25.119 - Atherosclerotic heart disease of [place] coronary artery with unspecified angina pectoris (5) S/P coronary artery stent placement Current Visit: Yes Status: Acute Discussion w patient/family: The assessment and plan as outlined above was discussed with the patient and/or family members who expressed understanding and agreement. All questions were answered. Thank you for involving us in the care of your patient. Please call with any questions. The patient will be discussed and reviewed with , changes to be made accordingly. Subjective Principal diagnosis: Cardio-pulmonary arrest Interval history: Seen and examined. Alert and oriented x3. No complaints, aside from anxiety, today upon exam. Objective Vital Signs, Last 4 Hours Temp 12/21/17 11:33 98.0 F General: Conversant, No Apparent Distress HEENT: Atraumatic, Normocephaly Cardiac: Reg Rate and Rhythm, Normal S1 and S2 Lungs: Other (Bibasilar rales) Neuro: Alert and responsive Abdomen: Soft Skin: No rashes noted on visualized skin Musculoskeletal: No Chest Wall Tenderness Extremities: No Edema, Normal Pulses Results 12/21/17 04:00 12/21/17 04:00 Lab Results 12/21/17 12/21/17 04:00 04:00 WBC 8.7 Hgb 10.4 L Hct 29.9 L Plt Count 111 L Sodium 140 Potassium 3.5 Chloride 108 H Carbon Dioxide 26 BUN 17 Creatinine 0.99 Glucose 155 H Calcium 8.3 L Magnesium 1.8 Active Medications Acetaminophen (Tylenol Susp) 650 mg GTUBE Q6H PRN PRN Reason: fever GREATER than 101.2 F Stop: 06/22/18 08:48 Albuterol Sulfate (Albuterol Inhaler) 2 puff IH Q2H PRN PRN Reason: Shortness Of Breath/Wheezing Stop: 06/22/18 08:48 Aspirin (Aspirin) 81 mg PO DAILY KATIE Stop: 06/18/18 09:01 Last Admin: 12/21/17 09:18 Dose: Not Given Atorvastatin Calcium (Lipitor) 80 mg PO HS [facility] Stop: 06/17/18 21:01 Clopidogrel Bisulfate (Plavix) 75 mg PO DAILY [facility] Stop: 06/18/18 09:01 Last Admin: 12/21/17 09:19 Dose: Not Given Dextrose/Water (Dextrose 50% (Syg)) 25 ml IVP AD PRN PRN Reason: Hypoglycemia Stop: 06/18/18 00:08 Dextrose/Water (Dextrose 50% (Syg)) 25 ml IVP Q15MIN PRN PRN Reason: Hypoglycemia Stop: 06/18/18 08:09 Fentanyl Citrate (Fentanyl (Pf)) 25 mcg IVP Q1H PRN PRN Reason: Pain Stop: 06/20/18 08:23 Glucagon (Glucagen) 1 mg IM ONCE PRN PRN Reason: Hypoglycemia Stop: 06/18/18 00:08 Glucose (Gluctose) 15 gm PO ONCE PRN PRN Reason: Hypoglycemia Stop: 06/18/18 00:08 Glucose (Gluctose) 30 gm PO ONCE PRN PRN Reason: Hypoglycemia Stop: 06/18/18 00:08 Guaifenesin (Mucinex) 600 mg PO BID PRN PRN Reason: Congestion Stop: 06/21/18 23:20 Heparin Sodium (Porcine) (Heparin) 5,000 unit SQ Q8HCO [facility] Stop: 06/18/18 14:01 Last Admin: 12/21/17 12:48 Dose: 5,000 unit Heparin Sodium (Porcine) (Heparin Lock) 500 unit IV ONCE PRN PRN Reason: Port [place] while in RADIOLOGY Stop: 12/22/17 08:09 Dextrose (Dextrose 5%) 1,000 mls @ 100 mls/hr IVC .Q10H PRN PRN Reason: HYPOGLYCEMIA Stop: 06/18/18 00:08 Piperacillin Sod/Tazobactam (Sod 3.375 gm/ Sodium Chloride) 100 mls @ 25 mls/ hr IVPB Q8HR [facility] Stop: 06/18/18 16:01 Vancomycin HCl 1,750 mg/ (Sodium Chloride) 500 mls @ 333.3 mls/hr IVPB Q12H [facility] Stop: 06/19/18 17:01 Insulin Human Lispro (Humalog) 0 units SQ HS KATIE PRN Reason: Protocol Stop: 06/22/18 21:01 Insulin Human Lispro (Humalog) 0 units SQ TIDAC KATIE PRN Reason: Protocol Stop: 06/22/18 11:31 Last Admin: 12/21/17 12:49 Dose: 8 units Lisinopril (Zestril) 2.5 mg PO DAILY KATIE PRN Reason: Protocol Stop: 06/21/18 09:01 Last Admin: 12/21/17 09:19 Dose: Not Given Memantine (Namenda) 5 mg PO BID [facility] Stop: 06/22/18 21:01 Metoprolol Tartrate (Lopressor) 12.5 mg PO Q6HR [facility] Stop: 06/21/18 12:01 Last Admin: 12/21/17 12:49 Dose: 12.5 mg Omeprazole (Prilosec) 40 mg PO DAILY@0630 [facility] PRN Reason: Protocol Stop: 06/23/18 06:31 Ondansetron HCl (Zofran Odt) 4 mg SL Q6H PRN PRN Reason: Nausea And Vomiting Stop: 06/22/18 08:48 Sertraline HCl (Zoloft) 100 mg PO DAILY [facility] Stop: 06/23/18 09:01 Topiramate (Topamax) 100 mg PO BID [facility] Stop: 06/22/18 21:01 - Imaging and Cardiology Echo: report reviewed Cardiac cath: report reviewed Other Results: 12 hour tele: avg HR=64 SR - EKG Interpretation EKG results cardiology: personally reviewed - VTE Reasons for not Prescribing Prophylaxis: Not indicated-Anticoagulated or INR therapeutic Consult Discharge Plan - Plan [facility]errals: [facility] [Primary Care Provider] -
--- NOTE | 2017-12-21 13:56 | Electrocardiograph Report ---
[address] [place], [place] [address] Test Date: 2017-12-21 Pat Name: Ronni Delgado Department: 109 Room: [facility] Gender: M Midwife: SHANICE : 1965 Requested By: Siomara Hooker Order Number: [id number] Reading MD: Jennifer Leal Measurements Intervals [place] Rate: 71 P: 50 WV: 176 QRS: 21 QRSD: 104 T: 23 QT: 458 QTc: 480 Interpretive Statements SINUS RHYTHM PROLONGED QT INTERVAL Electronically Signed On 12-21-2017 13:54:16 EDT by Jennifer Leal
--- NOTE | 2017-12-21 16:44 | Neurology - Consult Note ---
Date of Encounter: 12/21/17 Time of Encounter: 16:41 Assessment and Plan (1) Mass, brain Current Visit: Yes Status: Acute Differential considerations are wide, including cystic malignancy, stroke, infectious abscess, history of previous stroke. Infectious process less likely due to lack of systemic symptoms. Plus Abscess usually will not be cystic but will have hypodensity to brain parenchyma. Anyway he will need an MRI of brain without and with contrast for further evaluation. He currently has no symptoms suggesting ongoing intracranial hypertension, in that he has no headache, no nausea vomiting and his mental status has been improving. Will follow up in Am. Please continue medical and supportive care Total time spent on this case was approximatel 50 minutes. History of Present Illness Chief complaint: cardiac arrest and brain mass HPI: Mr. Delgado is a 52 year old male with PMH significant for DM, history of CVA, IN, obesity who developed cardiac arrest on 12/16/2017 and fortunately he was successfully resuscitated and was initially treated in the ICU since 2017. Has had stat cardiac stent placement. He was transferred out of the ICU today. neurology was consulted due to findings of abnormal CT of head shwing mass? cystic lesion at the right temporal lobe with mass effect. Repeat CT of head with and without contrast showed 'Peripherally enhancing low-density lesion in the anterior right temporal lobe without significant surrounding vasogenic edema. Differential diagnosis includes cystic or necrotic neoplasm, abscess, demyelinating lesion, or less likely acute to subacute infarct. MRI of the brain with and without contrast is recommended for further evaluation unless contraindicated.' Patient was unable to complete MRI of brain due to ongoing medical conditions and now since he is medically doing better and will proceed with neurological consultation. Patient says that he has had few TIA's and history of small strokes. He states that he was treated at [facility] in 2004 for a stroke. Was told that he 'is going to have them'. He apparently had an MRI done at the time. No report of mass or tumor. He has migraines. he has been experiencing TIAs, usually described as having intermittent left facial numbness. Has service related left hearing loss. Currently he is weak but strength appears equal. Slightly dysarthric. I reviewed the images personally and agree with the reading. Large round cystic lesion at the left temporal region with mass effect cause midline shift. Past Med Surg Social Fam HX - Past Medical History Medical history: non-contributory Psychiatric history: PTSD - Past Surgical History Surgical History: colectomy - Social History Smoking Status: Former smoker Smokeless Tobacco Status: No Alcohol use: none Drug use: none - Family History Father Living Status: Still Living Hx Family Cardiac Disorders: Yes (CAD s/p PCI, CMP, ICD) Mother Hx Family Cardiac Disorders: Yes Hx Family Cancer: Yes (BLOOD CANCER-LEUKEMIA FAMILY) Hx Family Endocrine Disorder: Yes (DIABETES) Medications and Allergies Aspirin [Adult Low Dose Aspirin EC] 81 mg PO DAILY 10/19/15 [History] Lactobacillus Rhamnosus GG [Culturelle] 1 cap PO DAILY 10/19/15 [History] Acetaminophen [Tylenol] 325 mg PO Q6HR PRN #10 tablet 11/03/15 [Rx] Cholecalciferol (D-3) [Vitamin D] 2,000 unit PO DAILY 08/26/17 [History] Melatonin [Melatin] 3 mg PO HS 08/26/17 [History] Memantine [Namenda] 5 mg PO BID 08/26/17 [History] Pantoprazole Sodium 40 mg PO DAILY 08/26/17 [History] Insulin Glargine [Lantus] 36 unit SQ DAILY 12/16/17 [History] Lidocaine Patch [Lidoderm 5% patch] 2 each TP DAILY 12/16/17 [History] Sertraline [Zoloft] 100 mg PO DAILY 12/16/17 [History] Sildenafil Citrate [Viagra] 100 mg PO DAILY PRN 12/16/17 [History] Topiramate [Topamax] 100 mg PO BID 12/16/17 [History] glipiZIDE [Glipizide] 10 mg PO DAILY 12/16/17 [History] Rifaximin [Xifaxan] 550 mg PO DAILY 12/17/17 [History] 3 Allergy/AdvReac Type Severity Reaction Status Date / Time codeine Allergy Hives Verified 08/26/17 08:05 [From Tylenol-Codeine #3] diphenhydramine Allergy Unconscious Verified 08/26/17 08:05 [From Benadryl] hydrocodone [From Vicodin] Allergy Hives Verified 08/26/17 08:05 Latex, Natural Rubber Allergy Hives Verified 08/26/17 08:05 metoclopramide [From Reglan] Allergy See Verified 08/26/17 08:05 Comments Oxycodone [From Percocet] Allergy Hives Verified 08/26/17 08:05 tramadol Allergy Hives Verified 08/26/17 08:05 All Systems: The remainder of the systems were reviewed and are negative Physical Examination - Vital Signs Vital Signs: Initial Vital Signs Pulse Ox 74 12/16/17 17:22 - Constitutional General appearance: chronically ill - Neurologic Sensorimotor examination: intact (Grossly intact) Detailed motor examination: full strength in all major muscle groups Motor examination - right side: 5/5: deltoids, biceps, triceps, wrist flexion, wrist extension, oracle developer, hip flexors, tibialis Anterior, quadriceps, toe extension (EHL), plantarflexion Motor examination - left side: 5/5: deltoids, biceps, triceps, wrist flexion, wrist extension, hip flexors, oracle developer, quadriceps, tibialis Anterior, toe extension (EHL), plantarflexion Detailed sensory examination: intact Posture: other (None) Reflex and gait examination: intact Reflexes: Biceps: 1+, Triceps: 1+, Brachioradialis: 1+, Patella: 1+, Achilles: 1 + Mental Status Examination: awake, alert, oriented to person, oriented to place, oriented to time, follows commands appropriately, answers questions appropriately, no agnosia, no aphasia, no aproxia Cranial nerve examination: PERRL, EOMI, visual contreras intact, corneal reflexes brisk symmetrically, sensory to face intact, mastication intact, no facial asymmetry is present, no dysarthria, hearing is intact symmetrically, soft palate elevates bilaterally upon phonation, gag reflex intact, flexes SCM and trapezius muscles symmetrically with full power, tongue protrudes midline, no atrophy or facial fasiculations present Results - Laboratory Findings CBC and BMP: 12/21/17 04:00 12/21/17 04:00 Abnormal lab findings: Abnormal lab results RBC 3.36 M/mcL (4.19-5.50) L 12/21/17 04:00 Hgb 10.4 g/dL (12.9-16.9) L 12/21/17 04:00 Hct 29.9 % (37.5-50.1) L 12/21/17 04:00 Plt Count 111 K/mcL (140-400) L 12/21/17 04:00 Nucleated RBCs/100 WBC 0.3 /100 WBC (0) H 12/21/17 04:00 Platelet Estimate Decreased (Normal) L 12/19/17 03:20 PT 13.6 Seconds (9.4-12.1) H 12/17/17 03:25 APTT 51.5 Seconds (26.0-36.0) H 12/16/17 17:58 Chloride 108 mEq/L (98-107) H 12/21/17 04:00 Glucose 155 mg/dL (70-105) H 12/21/17 04:00 POC Glucose 138 mg/dL (70-99) H 12/20/17 23:28 Calcium 8.3 mg/dL (8.6-10.3) L 12/21/17 04:00 Venous Ioniz Calcium 1.07 mmol/L (1.15-1.35) L 12/17/17 16:34 Phosphorus 2.4 mg/dL (2.7-4.5) L 12/21/17 04:00 Troponin I 0.71 ng/mL (< 0.04) H* 12/18/17 10:05 B-Natriuretic Peptide 216 pg/mL (Less than 100) H 12/16/17 17:58 Triglycerides 318 mg/dL (< 150) H 12/17/17 03:25 VLDL Cholesterol, Calc 64 mg/dL (< 31) H 12/17/17 03:25 HDL Cholesterol 21 mg/dL (40-59) L 12/17/17 03:25 Cholesterol/HDL Ratio 5.5 (0-4.9) H 12/17/17 03:25 Ur Specimen Adequacy See below A 12/18/17 09:44 Urine Color Jaja (Yellow) A 12/18/17 09:44 Urine Clarity Turbid (Clear) A 12/18/17 09:44 Ur Specific [place] > 1.030 (1.010-1.025) H 12/18/17 09:44 Urine Protein 100 mg/dL (Neg-Trace) H 12/18/17 09:44 Urine Ketones Trace mg/dL (Negative) H 12/18/17 09:44 Urine Blood Large (Negative) H 12/18/17 09:44 Urine Bilirubin Moderate (Negative) H 12/18/17 09:44 Ur Leukocyte Esterase Small (Negative) H 12/18/17 09:44 Urine Microscopic RBC 50-100 per hpf (0-3) H 12/18/17 09:44 Urine Microscopic WBC 3-5 per hpf (0-3) H 12/18/17 09:44 Urine Bacteria Moderate per hpf (None-Few) H 12/18/17 09:44 Ur Culture Indicated? YES (NO) A 12/18/17 09:44 Nasal Screen MRSA (PCR) Positive (Negative) A 12/18/17 12:40 Vancomycin Trough 13 mcg/mL (5-10) H 12/20/17 03:15 - Diagnostic Findings Additional findings: CT OF THE HEAD WITH CONTRAST 12/17/2017 6:07 pm TECHNIQUE: CT of the head/brain was performed with the administration of intravenous contrast. Multiplanar reformatted images are provided for review. Dose modulation, iterative reconstruction, and/or weight based adjustment of the mA/kV was utilized to reduce the radiation dose to as low as reasonably achievable. COMPARISON: CT head earlier today. HISTORY: ORDERING SYSTEM PROVIDED HISTORY: Attn to Right temporal lobe Additional tech notes: SCANNING AT 1700 PER NURSE TK 75 ml of [id number] Initial encounter acute illness. FINDINGS: BRAIN/VENTRICLES: There is a 1.7 x 2.2 x 1.9 cm peripherally enhancing hypodense lesion in the anterior right temporal lobe. There is no significant surrounding vasogenic edema. No additional abnormal intracranial enhancement is seen. There is no hydrocephalus or extra-axial fluid collection. Midline is maintained. The basal cisterns are patent. ORBITS: The visualized portion of the orbits demonstrate no acute abnormality. SINUSES: The visualized paranasal sinuses and mastoid air cells demonstrate no acute abnormality. SOFT TISSUES/SKULL: No acute abnormality of the visualized skull or soft tissues. CT/CT head/brain w con IMPRESSION: Peripherally enhancing low-density lesion in the anterior right temporal lobe without significant surrounding vasogenic edema. Differential diagnosis includes cystic or necrotic neoplasm, abscess, demyelinating lesion, or less likely acute to subacute infarct. MRI of the brain with and without contrast is recommended for further evaluation unless contraindicated. Consult Discharge Plan - Plan [facility]errals: [facility] [Primary Care Provider] -
[2017-12-21] MEDS: Topiramate 100 MG TABLET PO SCH (21:29)
[2017-12-22] MEDS: Piperacillin/Tazobactam 3.375 GM in 0.9 % Sodium Chloride Mini Bag 100 ML IVPB SCH ×2 (00:17→10:21)
[2017-12-22] MEDS: Metoprolol XL (24 HR) Succ 25 MG TAB.ER.24H PO SCH (10:15)
[2017-12-22] MEDS: Topiramate 100 MG TABLET PO SCH ×2 (10:15→21:55)
[2017-12-22] MEDS: Aspirin 81 MG TAB.CHEW PO SCH (10:16)
[2017-12-22] MEDS: *HR* Heparin 5,000 UNIT/ML VIAL SQ SCH (10:21)
[2017-12-22] MEDS: Insulin LISPRO 300 UNITS/3 ML VIAL SQ SCH ×5 (12:21→21:55)
--- NOTE | 2017-12-22 13:23 | Internal Med Progress Note ---
<Rogelio Kc - Last Filed: 12/22/17 13:17> Date of Encounter: 12/22/17 Time of Encounter: 13:17 - Assessment and plan (1) Hypercapnic respiratory failure Current Visit: Yes Status: Acute Assessment and plan: Acute respiratory failure with hypoxia and hypercapnia. Secondary to pneumonia and cardiac arrest. Currently requiring oxygen supplementation. Consult PT/OT. Qualifiers: Chronicity: acute Qualified Code(s): J96.02 - Acute respiratory failure with hypercapnia (2) Abnormal head CT Current Visit: Yes Status: Acute Assessment and plan: Head CT demonstrated possible neoplasm. Neurology on board and recommended MRI. MRI pending. Continue Zoloft and Topamax. (3) Cardiomyopathy Current Visit: Yes Status: Acute Assessment and plan: Ischemic cardiomyopathy. EF of 30% Patient status post left heart catheterization Continue aspirin, Plavix, Lipitor, metoprolol, lisinopril. Qualifiers: Cardiomyopathy type: ischemic Qualified Code(s): I25.5 - Ischemic cardiomyopathy (4) Atrial fibrillation Current Visit: Yes Status: Acute Assessment and plan: Rate controlled on metoprolol. Anticoagulation as per cardiology. Qualifiers: Atrial fibrillation type: paroxysmal Qualified Code(s): I48.0 - Paroxysmal atrial fibrillation (5) Cardiopulmonary arrest with successful resuscitation Current Visit: Yes Status: Resolved Assessment and plan: Presented with cardiac arrest. Underwent left heart catheter with placement of drug-eluting stent in the proximal LAD. Cardiology on board. Patient is full code. 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 Continue insulin regimen. (7) DVT prophylaxis Current Visit: Yes Status: Acute Assessment and plan: Subcutaneous heparin (8) Aspiration pneumonia Current Visit: Yes Status: Acute Assessment and plan: Aspiration pneumonia as seen on chest x-ray. Recent white blood cell count is stable. Afebrile. Sputum culture grew MRSA. On vancomycin day 5. Discontinue Zosyn. Patient requiring oxygen supplementation. Qualifiers: Aspiration pneumonia type: unspecified Laterality: bilateral Lung location: unspecified part of lung Qualified Code(s): J69.0 - Pneumonitis due to inhalation of food and vomit - Time Spent With Patient Total time spent is greater than 50% in coordination of care (as documented) at patient's floor/unit and/or counseling patient: - Subjective Interval history: Patient lying in bed. Comfortable. Eating breakfast. He reports pleuritic chest pain with cough located on the left chest. Patient was transferred from the ICU yesterday. He had a cardiac arrest and required intubation and emergent left heart catheterization. He is tolerating his diet. - Constitutional Vitals: Temp Pulse Resp BP Pulse Ox 97.9 F 57 16 116/62 95 12/22/17 11:21 12/22/17 11:21 12/22/17 11:21 12/22/17 11:21 12/22/17 11:21 General appearance: Present: no acute distress - Other Additional findings: General: Pleasant without distress HEENT: Head atraumatic, normocephalic, EOMI, PERRL, neck nontender to palpation , absent lymphadenopathy, Moist Mucous Membranes, Heart: Regular rate and rhythm with no murmur Lungs: Clear to auscultation bilaterally Abdomen: Soft nontender, nondistended positive bowel sounds Skin: warm and dry, absent rash. b/l groin incisions intact. Extremities: Absent pedal edema, Neuro: alert oriented x3 Vascular: Pedal and radial pulses 2 out of 4 Internal Medicine: Result - Labs CBC & Chem 7: 12/21/17 04:00 12/21/17 04:00 - ABG Interpretation ABG results: ABG ABG pH 7.40 pH Units (7.32-7.45) 12/19/17 05:21 ABG pCO2 39 mmHg (35-45) 12/19/17 05:21 ABG pO2 90 mmHg (85-104) 12/19/17 05:21 ABG O2 Saturation 97 % (95-98) 12/19/17 05:21 PT/INR, D-dimer PT 13.6 Seconds (9.4-12.1) H 12/17/17 03:25 - Impressions Impressions Chest X-Ray 12/19/17 05:00 IMPRESSION: Interval extubation. No focal pneumonia. Pulmonary vascular redistribution is nonspecific and may relate to low lung volumes. D/ / 12/19/2017 09:02:55 Rolando Piedra MD / evangelist Interpreting Provider: Rolando Piedra MD - VTE Reasons for not Prescribing Prophylaxis: Not indicated-Anticoagulated or INR therapeutic Consult Discharge Plan - Plan Referrals: [facility] [Primary Care Provider] - <Reinaldo Alejandre H - Last Filed: 12/22/17 14:15> Date of Encounter: 12/22/17 - Assessment and plan (1) Diabetes mellitus associated with pancreatic disease Current Visit: Yes Status: Acute (2) DVT prophylaxis Current Visit: Yes Status: Acute (3) Hypercapnic respiratory failure Current Visit: Yes Status: Acute Qualifiers: Chronicity: acute Qualified Code(s): J96.02 - Acute respiratory failure with hypercapnia (4) Cardiopulmonary arrest with successful resuscitation Current Visit: Yes Status: Resolved (5) Cardiomyopathy Current Visit: Yes Status: Acute Qualifiers: Cardiomyopathy type: ischemic Qualified Code(s): I25.5 - Ischemic cardiomyopathy (6) Atrial fibrillation Current Visit: Yes Status: Acute Qualifiers: Atrial fibrillation type: paroxysmal Qualified Code(s): I48.0 - Paroxysmal atrial fibrillation (7) Abnormal head CT Current Visit: Yes Status: Acute (8) Aspiration pneumonia Current Visit: Yes Status: Acute Qualifiers: Aspiration pneumonia type: unspecified Laterality: bilateral Lung location: unspecified part of lung Qualified Code(s): J69.0 - Pneumonitis due to inhalation of food and vomit - Time Spent With Patient Total time spent is greater than 50% in coordination of care (as documented) at patient's floor/unit and/or counseling patient: - Constitutional Vitals: Temp Pulse Resp BP Pulse Ox 97.9 F 57 16 116/62 95 12/22/17 11:21 12/22/17 11:21 12/22/17 11:21 12/22/17 11:21 12/22/17 11:21 Internal Medicine: Result - Labs CBC & Chem 7: 12/21/17 04:00 12/21/17 04:00 - ABG Interpretation ABG results: ABG ABG pH 7.40 pH Units (7.32-7.45) 12/19/17 05:21 ABG pCO2 39 mmHg (35-45) 12/19/17 05:21 ABG pO2 90 mmHg (85-104) 12/19/17 05:21 ABG O2 Saturation 97 % (95-98) 12/19/17 05:21 PT/INR, D-dimer PT 13.6 Seconds (9.4-12.1) H 12/17/17 03:25 - Impressions Impressions Chest X-Ray 12/19/17 05:00 IMPRESSION: Interval extubation. No focal pneumonia. Pulmonary vascular redistribution is nonspecific and may relate to low lung volumes. D/ / 12/19/2017 09:02:55 Rolando Piedra MD / evangelist Interpreting Provider: Rolando Piedra MD - Attending Attestation Acute respiratory failure secondary to aspiration/MRSA pneumonia present upon admission Continue vancomycin day #5, completed 6 days of Zosyn Possible right temporal mass Ordered MRI of the brain I examined this patient and my medical decision-making was reviewed with the Resident Physician. I agree with the documented findings, disposition and treatment plan as described except to the extent set forth below.
--- NOTE | 2017-12-22 14:02 | Cardiology Progress Note ---
Date of Encounter: 12/22/17 Time of Encounter: 13:30 Assessment and Plan (1) Cardiopulmonary arrest with successful resuscitation Current Visit: Yes Status: Resolved Loop recorder interrogation reviewed. Did not have any evidence of atrial or ventricular arrhythmias prior to EMS arrival. Initial detection of a fib with RVR at 4:45pm lasting approximately 6 minutes followed by a period of bigeminy and external defibrillation-induced VF by R on T. Subsequently externally defibrillated a 2nd time to atrial fib with controlled VR. One other detection at approximately 5:05pm of idioventricular rhythm with several pauses. No other detections noted. No loop detections prior to EMS arrival. Although had 90% proximal LAD lesion that was successfully stented, no evidence that event was primarily cardiac in etiology. No evidence of ACS. Amiodarone d/c'ed, QT/QTc now normal. Started on low dose beta blockade/ACEi, tolerating. MRI brain and CT chest ordered. Pt was taken emergently to cardiac catheterization lab after stabilized by ED. Unable to oxygenate patient initially which improved with suctioning of BRB. Hemodynamically improved with pressors, trauma blood. Pulmonary hemorrhage resolved prior to transport to operations label clerk. Cardiac catheterization demonstrated global LV dysfunction with EF 30%. RCA, Cx angiographically normal. Proximal LAD with 90% lesion- successfully stented with VIOLA to 0%. (2) Cardiomyopathy Current Visit: Yes Status: Acute Appears compensated. Continue low dose beta blockade and LOREN-I today and will titrate as BP tolerates. Transition to long-acting betablocker in the outpatient setting. EF may be reduced due to cardiac arrest/resuscitation Obtain records from OR regarding prior cardiac testing--will request again. Prior EF assessment at [facility] (2012) demonstrated preserved, LVEF per LV gram EF 30%. BNP mildly elevated upon presentation. No overt volume overload noted upon exam. TTE 12/17/17: LVEF 35%, global LV systolic dysfunction, mild LVDD, grossly normal RV function (not well visualized), no PH, no significant valvular dysfunction. Caution use of supplemental IVF. Strict I&O's, daily weights. Qualifiers: Cardiomyopathy type: ischemic Qualified Code(s): I25.5 - Ischemic cardiomyopathy (3) Atrial fibrillation Current Visit: Yes Status: Acute Will continue to follow and monitor. No PAF noted since admission. Will d/c amiodarone. Hold on anticoagulation at this time due to question of ETL MANAGER neoplasm. Qualifiers: Atrial fibrillation type: paroxysmal Qualified Code(s): I48.0 - Paroxysmal atrial fibrillation (4) Coronary artery disease Current Visit: Yes Status: Acute S/P PCI of LAD. Statin, DAPT. Will add beta blockade and LOREN-I as BP tolerates. Qualifiers: Coronary Disease-Associated Artery/Lesion type: [place] artery [place] vs. transplanted heart: [place] heart Associated angina: with unspecified angina Qualified Code(s): I25.119 - Atherosclerotic heart disease of [place] coronary artery with unspecified angina pectoris (5) S/P coronary artery stent placement Current Visit: Yes Status: Acute Discussion w patient/family: The assessment and plan as outlined above was discussed with the patient and/or family members who expressed understanding and agreement. All questions were answered. Thank you for involving us in the care of your patient. Please call with any questions. The patient will be discussed and reviewed with , changes to be made accordingly. Subjective Principal diagnosis: Cardio-pulmonary arrest Interval history: Seen and examined. Alert and oriented x3. Reports episode of hematuria today, occurred after bermeo cath removal. Plan for Brain MRI today. Objective Vital Signs, Last 4 Hours Temp Pulse Resp BP Pulse Ox 12/22/17 11:21 97.9 F 57 16 116/62 95 General: Conversant HEENT: Atraumatic, Normocephaly Cardiac: Reg Rate and Rhythm, Normal S1 and S2 Lungs: Other (decreased bibasilar) Neuro: Alert and responsive Abdomen: Soft Skin: No rashes noted on visualized skin Musculoskeletal: No Chest Wall Tenderness Extremities: No Edema, Normal Pulses Results 12/21/17 04:00 12/21/17 04:00 Active Medications Acetaminophen (Tylenol Susp) 650 mg GTUBE Q6H PRN PRN Reason: fever GREATER than 101.2 F Stop: 06/22/18 08:48 Albuterol Sulfate (Albuterol Inhaler) 2 puff IH Q2H PRN PRN Reason: Shortness Of Breath/Wheezing Stop: 06/22/18 08:48 Aspirin (Aspirin) 81 mg PO DAILY KATIE Stop: 06/18/18 09:01 Last Admin: 12/22/17 10:16 Dose: 81 mg Atorvastatin Calcium (Lipitor) 80 mg PO HS KATIE Stop: 06/17/18 21:01 Last Admin: 12/21/17 21:28 Dose: 80 mg Clopidogrel Bisulfate (Plavix) 75 mg PO DAILY [facility] Stop: 06/18/18 09:01 Last Admin: 12/22/17 10:16 Dose: 75 mg Dextrose/Water (Dextrose 50% (Syg)) 25 ml IVP AD PRN PRN Reason: Hypoglycemia Stop: 06/18/18 00:08 Dextrose/Water (Dextrose 50% (Syg)) 25 ml IVP Q15MIN PRN PRN Reason: Hypoglycemia Stop: 06/18/18 08:09 Fentanyl Citrate (Fentanyl (Pf)) 25 mcg IVP Q1H PRN PRN Reason: Pain Stop: 06/20/18 08:23 Glucagon (Glucagen) 1 mg IM ONCE PRN PRN Reason: Hypoglycemia Stop: 06/18/18 00:08 Glucose (Gluctose) 15 gm PO ONCE PRN PRN Reason: Hypoglycemia Stop: 06/18/18 00:08 Glucose (Gluctose) 30 gm PO ONCE PRN PRN Reason: Hypoglycemia Stop: 06/18/18 00:08 Guaifenesin (Mucinex) 600 mg PO BID PRN PRN Reason: Congestion Stop: 06/21/18 23:20 Last Admin: 12/21/17 17:22 Dose: 600 mg Heparin Sodium (Porcine) (Heparin) 5,000 unit SQ Q8HCO [facility] Stop: 06/18/18 14:01 Last Admin: 12/22/17 10:21 Dose: Not Given Dextrose (Dextrose 5%) 1,000 mls @ 100 mls/hr IVC .Q10H PRN PRN Reason: HYPOGLYCEMIA Stop: 06/18/18 00:08 Vancomycin HCl 1,750 mg/ (Sodium Chloride) 500 mls @ 333.3 mls/hr IVPB Q12H [facility] Stop: 06/19/18 17:01 Last Admin: 12/22/17 05:45 Dose: 333.3 mls/hr Insulin Human Lispro (Humalog) 0 units SQ HS KATIE PRN Reason: Protocol Stop: 06/22/18 21:01 Last Admin: 12/21/17 21:30 Dose: Not Given Insulin Human Lispro (Humalog) 0 units SQ TIDAC [facility] PRN Reason: Protocol Stop: 06/22/18 11:31 Last Admin: 12/22/17 12:38 Dose: 8 units Lisinopril (Zestril) 2.5 mg PO DAILY [facility] PRN Reason: Protocol Stop: 06/21/18 09:01 Last Admin: 12/22/17 10:16 Dose: 2.5 mg Memantine (Namenda) 5 mg PO BID [facility] Stop: 06/22/18 21:01 Last Admin: 12/22/17 10:16 Dose: 5 mg Metoprolol Succinate (Toprol Xl) 25 mg PO DAILY [facility] Stop: 06/23/18 09:01 Last Admin: 12/22/17 10:15 Dose: 25 mg Omeprazole (Prilosec) 40 mg PO DAILY@0630 [facility] PRN Reason: Protocol Stop: 06/23/18 06:31 Last Admin: 12/22/17 05:46 Dose: 40 mg Ondansetron HCl (Zofran Odt) 4 mg SL Q6H PRN PRN Reason: Nausea And Vomiting Stop: 06/22/18 08:48 Sertraline HCl (Zoloft) 100 mg PO DAILY [facility] Stop: 06/23/18 09:01 Last Admin: 12/22/17 10:15 Dose: 100 mg Topiramate (Topamax) 100 mg PO BID [facility] Stop: 06/22/18 21:01 Last Admin: 12/22/17 10:15 Dose: 100 mg - Imaging and Cardiology Echo: report reviewed Cardiac cath: report reviewed Other Results: 12 hour tele: avg HR=59 SR. No events noted. - EKG Interpretation EKG results cardiology: personally reviewed - VTE Reasons for not Prescribing Prophylaxis: Not indicated-Anticoagulated or INR therapeutic Consult Discharge Plan - Plan Referrals: [facility] [Primary Care Provider] -
[2017-12-22] MEDS ORDERED: *HR* LORazepam 2 MG/ML VIAL IVP ONE (14:08)
[2017-12-22] MEDS ORDERED: *HR* LORazepam 2 MG/ML VIAL IVP PRN (14:29)
--- NOTE | 2017-12-22 16:40 | Event Note ---
Date of Encounter: 12/22/17 Time of Encounter: 16:39 Patient with gross hematuria over the last 24 hours. Patient off the floor for testing at the time my evaluation. Will reevaluate in the morning. No need to place Shafer catheter if he continues to urinate without difficulty even if grossly bloody urine. If clot retention occurs tonight, place large 3-way catheter and attempt irrigation. Call urology if catheter is not draining appropriately
--- NOTE | 2017-12-22 18:26 | Neurology Progress Note ---
Date of Encounter: 12/22/17 Time of Encounter: 18:14 Assessment and Plan (1) Mass, brain Current Visit: Yes Status: Acute Subjective Principal diagnosis: Brain mass Interval history: Patient seen and examined. He has been doing essentially the same today, easily arousable and has sat today morning. No focal weakness. he did complete MRI of brain with and without contrast unfortunately MRI of brain reported:1. Intra-axial peripherally enhancing, centrally necrotic mass within the right temporal lobe with a small air separate lesion located just anterior to the dominant lesion. Differential considerations include a primary glioma such as an anaplastic astrocytoma or glioblastoma multiforme. Alternatively, metastatic disease could also have this appearance. 2. Vasogenic edema surrounding the primary mass with resulting [id number] midline shift measuring 2 mm. 3. Fluid level within the left sphenoid sinus suggesting acute sinusitis. In reviewed the images personally and i agree with the reading. My impression towards cystic GBM or other type of brain malignancy or metastasis but we do not have a primary at this time and the there are no multiple lesions that would be typical for brain metastasis. Clinically the patient does not have focal neurological deficits that could correlate with the findings. He has long history of migraines for more than 30 years that has been controlled with medications. He has no prior history of seizure disorder. No nausea and vomiting to suggest intracranial hypertension. There is already mass effect from the observed mass causing midline shift therefore prompt evaluation and treatment is needed. Would recommend transfer to [facility] or [place] where neurosurgery care is available. This would be done when medical condition is stable enough for transfer. Treatment may include diagnosis, surgical resection , radiation therapy and chemotherapy. please continue medical and supportive care Objective - Constitutional Vitals: Temp Pulse Resp BP Pulse Ox 98.7 F 59 16 123/65 92 12/22/17 15:49 12/22/17 15:49 12/22/17 15:49 12/22/17 15:49 12/22/17 15:49 - Neurological Exam Sensorimotor examination: Present: intact (Grossly intact) Motor Examination: Present: full strength in all major muscle groups Motor examination - left side: 5/5: deltoids, biceps, triceps, wrist flexion, wrist extension, hip flexors, surgery aid, quadriceps, tibialis Anterior, toe extension (EHL), plantarflexion Sensation intact: Present: intact Posture: Present: other (None) Reflex and gait examination: intact Mental Status Examination: Present: awake, alert, oriented to person, oriented to place, oriented to time, follows commands appropriately, answers questions appropriately, no agnosia, no aphasia, no aproxia Cranial nerve examination: Present: PERRL, EOMI, visual contreras intact, corneal reflexes brisk symmetrically, sensory to face intact, mastication intact, no facial asymmetry is present, no dysarthria, hearing is intact symmetrically, soft palate elevates bilaterally upon phonation, gag reflex intact, flexes SCM and trapezius muscles symmetrically with full power, tongue protrudes midline, no atrophy or facial fasiculations present - VTE Reasons for not Prescribing Prophylaxis: Not indicated-Anticoagulated or INR therapeutic Results - Laboratory Findings CBC and BMP: 12/21/17 04:00 12/21/17 04:00 Abnormal lab findings: Abnormal lab results RBC 3.36 M/mcL (4.19-5.50) L 12/21/17 04:00 Hgb 10.4 g/dL (12.9-16.9) L 12/21/17 04:00 Hct 29.9 % (37.5-50.1) L 12/21/17 04:00 Plt Count 111 K/mcL (140-400) L 12/21/17 04:00 Nucleated RBCs/100 WBC 0.3 /100 WBC (0) H 12/21/17 04:00 Platelet Estimate Decreased (Normal) L 12/19/17 03:20 PT 13.6 Seconds (9.4-12.1) H 12/17/17 03:25 APTT 51.5 Seconds (26.0-36.0) H 12/16/17 17:58 Chloride 108 mEq/L (98-107) H 12/21/17 04:00 Glucose 155 mg/dL (70-105) H 12/21/17 04:00 POC Glucose 192 mg/dL (70-99) H 12/22/17 15:51 Calcium 8.3 mg/dL (8.6-10.3) L 12/21/17 04:00 Venous Ioniz Calcium 1.07 mmol/L (1.15-1.35) L 12/17/17 16:34 Phosphorus 2.4 mg/dL (2.7-4.5) L 12/21/17 04:00 Troponin I 0.71 ng/mL (< 0.04) H* 12/18/17 10:05 B-Natriuretic Peptide 216 pg/mL (Less than 100) H 12/16/17 17:58 Triglycerides 318 mg/dL (< 150) H 12/17/17 03:25 VLDL Cholesterol, Calc 64 mg/dL (< 31) H 12/17/17 03:25 HDL Cholesterol 21 mg/dL (40-59) L 12/17/17 03:25 Cholesterol/HDL Ratio 5.5 (0-4.9) H 12/17/17 03:25 Ur Specimen Adequacy See below A 12/18/17 09:44 Urine Color Jaja (Yellow) A 12/18/17 09:44 Urine Clarity Turbid (Clear) A 12/18/17 09:44 Ur Specific [place] > 1.030 (1.010-1.025) H 12/18/17 09:44 Urine Protein 100 mg/dL (Neg-Trace) H 12/18/17 09:44 Urine Ketones Trace mg/dL (Negative) H 12/18/17 09:44 Urine Blood Large (Negative) H 12/18/17 09:44 Urine Bilirubin Moderate (Negative) H 12/18/17 09:44 Ur Leukocyte Esterase Small (Negative) H 12/18/17 09:44 Urine Microscopic RBC 50-100 per hpf (0-3) H 12/18/17 09:44 Urine Microscopic WBC 3-5 per hpf (0-3) H 12/18/17 09:44 Urine Bacteria Moderate per hpf (None-Few) H 12/18/17 09:44 Ur Culture Indicated? YES (NO) A 12/18/17 09:44 Nasal Screen MRSA (PCR) Positive (Negative) A 12/18/17 12:40 Vancomycin Trough 13 mcg/mL (5-10) H 12/20/17 03:15 - Diagnostic Findings Additional findings: MRI OF THE BRAIN WITHOUT AND WITH CONTRAST 12/22/2017 5:00 pm TECHNIQUE: Multiplanar multisequence MRI of the head/brain was performed without and with the administration of intravenous contrast. COMPARISON: None. HISTORY: ORDERING SYSTEM PROVIDED HISTORY: Lesions found on CT head Additional tech notes: Patient alert/oriented and stable to have MRI now- RN to work on screening FINDINGS: INTRACRANIAL STRUCTURES/VENTRICLES: There is a peripheral enhancing, centrally necrotic intra-axial mass within the anterior aspect of the right temporal lobe. The mass measures 3.0 x 2.0 x 2.1 cm in AP by transverse by craniocaudal dimension. There is a 2nd separate well-circumscribed ring-enhancing lesion just anterior to the dominant lesion. The 2nd smaller lesion measures 0.5 x 0.4 x 0.5 cm in AP by transverse by craniocaudal dimension. There is vasogenic edema surrounding the dominant mass. No other lesions are identified. There is no restricted diffusion identified within this lesion . There is 2 mm of [id number] midline shift. There is no acute infarct or acute intracranial hemorrhage. There are several foci of abnormal increased T2/FLAIR signal intensity within the periventricular, subcortical and deep white matter of both hemispheres. There is no ventriculomegaly. There is no sellar or suprasellar mass identified. The proximal portions of the solomon of [place] demonstrate normal flow voids. ORBITS: Limited evaluation of the orbits is unremarkable. SINUSES: There is a fluid level within the left sphenoid sinus. Polypoid mucosal thickening is present within the sphenoid sinuses. There is fluid within the middle ears and mastoid air cells. BONES/SOFT TISSUES: Bone marrow signal intensity is normal. An incidental hemangioma is noted within the left frontal skull. MR/MR head/brain wo/w con IMPRESSION: 1. Intra-axial peripherally enhancing, centrally necrotic mass within the right temporal lobe with a smaller separate lesion located just anterior to the dominant lesion. Differential considerations include a primary glioma such as an anaplastic astrocytoma or glioblastoma multiforme. Alternatively, metastatic disease could also have this appearance. 2. Vasogenic edema surrounding the primary mass with resulting [id number] midline shift measuring 2 mm. 3. Fluid level within the left sphenoid sinus suggesting acute sinusitis. The above findings were discussed with Dr. Villegas at 5:30 p.m. on 12/22/2017. Consult Discharge Plan - Plan [facility]errals: [facility] [Primary Care Provider[facility] -
[2017-12-23 05:03] LABS: Basophils # 0.1 K/mcL (0.0-0.2); Basophils % 0.8 %; Eosinophils # 0.2 K/mcL (0.0-0.6); Eosinophils % 3.3 %; Hematocrit 30.4 % (37.5-50.1); Hemoglobin 10.5 g/dL (12.9-16.9); Immature Granulocytes % 3.9 % (0-4); Lymphocytes # 1.1 K/mcL (0.6-4.6); Lymphocytes % 14.7 %; Mean Corpuscular HGB Conc 34.5 g/dL (31.6-35.5); Mean Corpuscular Hemoglobin 30.9 pg (28.0-33.3); Mean Corpuscular Volume 89.4 fL (83.0-100.0); Mean Platelet Volume 10.4 fL (9.4-12.4); Monocytes # 0.6 K/mcL (0.0-1.3); Monocytes % 8.2 %; Nucleated Red Blood Cells 0.3 /100 WBC (0); Platelet Count 163 K/mcL (140-400); Segmented Neutrophils % 69.1 %
[2017-12-23 05:31] LABS: BUN/Creatinine Ratio 14 (6-26); Blood Urea Nitrogen 12 mg/dL (6-20); Carbon Dioxide 22 mEq/L (23-29); Chloride 111 mEq/L (98-107); Glucose 265 mg/dL (70-105); Osmolality,Calculated 295 (280-300); Sodium 138 mEq/L (136-145); eGFR For African Americans > 60 (> 60); eGFR For Non-African Americans > 60 (> 60)
--- NOTE | 2017-12-23 07:14 | Urology - Consult Note ---
Date of Encounter: 12/23/17 Time of Encounter: 07:12 - Assessment and Plan (1) Gross hematuria Current Visit: Yes Status: Acute Assessment and plan: Patient has a multitude of serious medical issues at this time including recent cardiopulmonary arrest and potential brain tumors. Multiple possible etiologies exist for his recent gross hematuria. Most likely is catheter trauma or irritation exacerbated by anticoagulation. Also included is urologic malignancy. Patient is now urinating clear urine and I do not feel placement of a catheter or other urologic intervention is necessary. Consider hematuria workup in the future but this will depend on the workup and treatment options for the brain lesions. Urology CN:KONRAD Consult date: 12/23/17 Reason for consult Urology: Gross Hematuria History of present illness: 52-year-old male. Known to urology service for history of urolithiasis and erectile dysfunction. Admitted with cardiopulmonary arrest and coronary disease. Also found to have possible brain tumor on recent MRI. Had catheter in place during hospitalization which was removed earlier in the week. Developed significant gross hematuria over the last 24 hours. Patient reports that it has completely resolved overnight. Dysuria is resolving. No major hesitancy. Past Med Surg Social Fam HX - Past Medical History Medical history: non-contributory Psychiatric history: PTSD - Past Surgical History Surgical History: colectomy - Social History Smoking Status: Former smoker Smokeless Tobacco Status: No Alcohol use: none Drug use: none - Family History Father Living Status: Still Living Hx Family Cardiac Disorders: Yes (CAD s/p PCI, CMP, ICD) Mother Hx Family Cardiac Disorders: Yes Hx Family Cancer: Yes (BLOOD CANCER-LEUKEMIA FAMILY) Hx Family Endocrine Disorder: Yes (DIABETES) Medications and Allergies Aspirin [Adult Low Dose Aspirin EC] 81 mg PO DAILY 10/19/15 [History] Lactobacillus Rhamnosus GG [Culturelle] 1 cap PO DAILY 10/19/15 [History] Acetaminophen [Tylenol] 325 mg PO Q6HR PRN #10 tablet 11/03/15 [Rx] Cholecalciferol (D-3) [Vitamin D] 2,000 unit PO DAILY 08/26/17 [History] Melatonin [Melatin] 3 mg PO HS 08/26/17 [History] Memantine [Namenda] 5 mg PO BID 08/26/17 [History] Pantoprazole Sodium 40 mg PO DAILY 08/26/17 [History] Insulin Glargine [Lantus] 36 unit SQ DAILY 12/16/17 [History] Lidocaine Patch [Lidoderm 5% patch] 2 each TP DAILY 12/16/17 [History] Sertraline [Zoloft] 100 mg PO DAILY 12/16/17 [History] Sildenafil Citrate [Viagra] 100 mg PO DAILY PRN 12/16/17 [History] Topiramate [Topamax] 100 mg PO BID 12/16/17 [History] glipiZIDE [Glipizide] 10 mg PO DAILY 12/16/17 [History] Rifaximin [Xifaxan] 550 mg PO DAILY 12/17/17 [History] 3 Allergy/AdvReac Type Severity Reaction Status Date / Time codeine Allergy Hives Verified 08/26/17 08:05 [From Tylenol-Codeine #3] diphenhydramine Allergy Unconscious Verified 08/26/17 08:05 [From Benadryl] hydrocodone [From Vicodin] Allergy Hives Verified 08/26/17 08:05 Latex, Natural Rubber Allergy Hives Verified 08/26/17 08:05 metoclopramide [From Reglan] Allergy See Verified 08/26/17 08:05 Comments Oxycodone [From Percocet] Allergy Hives Verified 08/26/17 08:05 tramadol Allergy Hives Verified 08/26/17 08:05 Review of Systems - Constitutional fatigue, no fever(s) - EENT Nose, mouth and throat: dizziness - Cardiovascular no chest pain - Gastrointestinal no abdominal pain - Genitourinary hematuria - Musculoskeletal back pain - Integumentary no erythema - Neurological no confusion - Psychiatric anxiety - Hematologic/Lymphatic easy bleeding - Allergic/Immunologic no throat swelling Exam Initial Vital Signs Pulse Ox 74 12/16/17 17:22 - General physical appearance Present: well developed, no distress - Eyes Present: PERRL, conjunctiva is clear - ENT Present: normal nares - Neck Present: no masses, no lymphadenopathy - Respiratory Present: normal respiratory effort - Cardiovascular Cardiovascular exam IM: RRR - Abdomen Abdomen: Present: soft. Absent: masses, suprapubic tenderness - Integumentary Present: no rash - Neurologic Present: normal coordination. Absent: disoriented, confused - Additional Findings No urine available for visualization Urology Results - Labs 12/23/17 04:06 12/23/17 04:06 Abnormal lab results RBC 3.40 M/mcL (4.19-5.50) L 12/23/17 04:06 Hgb 10.5 g/dL (12.9-16.9) L 12/23/17 04:06 Hct 30.4 % (37.5-50.1) L 12/23/17 04:06 Nucleated RBCs/100 WBC 0.3 /100 WBC (0) H 12/23/17 04:06 Platelet Estimate Decreased (Normal) L 12/19/17 03:20 PT 13.6 Seconds (9.4-12.1) H 12/17/17 03:25 APTT 51.5 Seconds (26.0-36.0) H 12/16/17 17:58 Chloride 111 mEq/L (98-107) H 12/23/17 04:06 Carbon Dioxide 22 mEq/L (23-29) L 12/23/17 04:06 Glucose 265 mg/dL (70-105) H 12/23/17 04:06 POC Glucose 192 mg/dL (70-99) H 12/22/17 15:51 Venous Ioniz Calcium 1.07 mmol/L (1.15-1.35) L 12/17/17 16:34 Phosphorus 2.4 mg/dL (2.7-4.5) L 12/21/17 04:00 Troponin I 0.71 ng/mL (< 0.04) H* 12/18/17 10:05 B-Natriuretic Peptide 216 pg/mL (Less than 100) H 12/16/17 17:58 Triglycerides 318 mg/dL (< 150) H 12/17/17 03:25 VLDL Cholesterol, Calc 64 mg/dL (< 31) H 12/17/17 03:25 HDL Cholesterol 21 mg/dL (40-59) L 12/17/17 03:25 Cholesterol/HDL Ratio 5.5 (0-4.9) H 12/17/17 03:25 Ur Specimen Adequacy See below A 12/18/17 09:44 Urine Color Jaja (Yellow) A 12/18/17 09:44 Urine Clarity Turbid (Clear) A 12/18/17 09:44 Ur Specific [place] > 1.030 (1.010-1.025) H 12/18/17 09:44 Urine Protein 100 mg/dL (Neg-Trace) H 12/18/17 09:44 Urine Ketones Trace mg/dL (Negative) H 12/18/17 09:44 Urine Blood Large (Negative) H 12/18/17 09:44 Urine Bilirubin Moderate (Negative) H 12/18/17 09:44 Ur Leukocyte Esterase Small (Negative) H 12/18/17 09:44 Urine Microscopic RBC 50-100 per hpf (0-3) H 12/18/17 09:44 Urine Microscopic WBC 3-5 per hpf (0-3) H 12/18/17 09:44 Urine Bacteria Moderate per hpf (None-Few) H 12/18/17 09:44 Ur Culture Indicated? YES (NO) A 12/18/17 09:44 Nasal Screen MRSA (PCR) Positive (Negative) A 12/18/17 12:40 Vancomycin Trough 22 mcg/mL (5-10) H 12/23/17 04:06 Diabetes panel 12/23/17 Range/Units 04:06 Sodium 138 (136-145) mEq/L Potassium 4.0 (3.5-5.1) mEq/L Chloride 111 H (98-107) mEq/L Carbon Dioxide 22 L (23-29) mEq/L BUN 12 (6-20) mg/dL Creatinine 0.87 (0.70-1.30) mg/dL Glucose 265 H (70-105) mg/dL Calcium 9.0 (8.6-10.3) mg/dL Calcium panel 12/23/17 Range/Units 04:06 Calcium 9.0 (8.6-10.3) mg/dL Pituitary panel 12/23/17 Range/Units 04:06 Sodium 138 (136-145) mEq/L Potassium 4.0 (3.5-5.1) mEq/L Chloride 111 H (98-107) mEq/L Carbon Dioxide 22 L (23-29) mEq/L BUN 12 (6-20) mg/dL Creatinine 0.87 (0.70-1.30) mg/dL Glucose 265 H (70-105) mg/dL Calcium 9.0 (8.6-10.3) mg/dL Adrenal panel 12/23/17 Range/Units 04:06 Sodium 138 (136-145) mEq/L Potassium 4.0 (3.5-5.1) mEq/L Chloride 111 H (98-107) mEq/L Carbon Dioxide 22 L (23-29) mEq/L BUN 12 (6-20) mg/dL Creatinine 0.87 (0.70-1.30) mg/dL Glucose 265 H (70-105) mg/dL Calcium 9.0 (8.6-10.3) mg/dL All other labs normal. Consult Discharge Plan - Plan [facility]errals: [facility] [Primary Care Provider[facility] -
--- NOTE | 2017-12-23 09:47 | Internal Med Progress Note ---
<Rogelio Kc - Last Filed: 12/23/17 09:45> Date of Encounter: 12/23/17 Time of Encounter: 09:45 - Assessment and plan (1) Cardiopulmonary arrest with successful resuscitation Current Visit: Yes Status: Resolved (2) Hypercapnic respiratory failure Current Visit: Yes Status: Acute Assessment and plan: Acute respiratory failure with hypoxia and hypercapnia. Secondary to pneumonia and cardiac arrest. Currently requiring oxygen supplementation. PT/OT recs pending Qualifiers: Chronicity: acute Qualified Code(s): J96.02 - Acute respiratory failure with hypercapnia (3) Aspiration pneumonia Current Visit: Yes Status: Acute Assessment and plan: Aspiration pneumonia as seen on chest x-ray. Recent white blood cell count is stable. Afebrile. Sputum culture grew MRSA. On vancomycin day 6 today treated with zosyn for 6 days Patient requiring oxygen supplementation. Qualifiers: Aspiration pneumonia type: unspecified Laterality: bilateral Lung location: unspecified part of lung Qualified Code(s): J69.0 - Pneumonitis due to inhalation of food and vomit (4) Cardiomyopathy Current Visit: Yes Status: Acute Assessment and plan: Ischemic cardiomyopathy. EF of 30% Patient status post left heart catheterization Continue aspirin, Plavix, Lipitor, metoprolol, lisinopril. Qualifiers: Cardiomyopathy type: ischemic Qualified Code(s): I25.5 - Ischemic cardiomyopathy (5) Atrial fibrillation Current Visit: Yes Status: Chronic Assessment and plan: Rate controlled on metoprolol. Likely not a candidate for anticoagulation as patient has a necrotic brain tumor. 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 Continue insulin regimen. (7) DVT prophylaxis Current Visit: Yes Status: Acute Assessment and plan: Subcutaneous heparin (8) Mass, brain Current Visit: Yes Status: Acute Assessment and plan: CT head showed a 1.7 x 2.2 x 1.9 cm enhancing lesion in the anterior right temporal lobe. MRI: Centrally necrotic mass within the right temporal lobe measuring 322.1 cm and a second smaller lesion measuring 0.5 x 0.4 x 0.5 cm. There is edema surrounding the mass with right to left midline shift measuring 2 mm. We will continue Topamax Awaiting neurology recommendations. - Time Spent With Patient Total time spent is greater than 50% in coordination of care (as documented) at patient's floor/unit and/or counseling patient: - Subjective Interval history: No acute events overnight. This morning patient is able to urinate without any difficulties. Urinalysis clear and yellow. Reports chest soreness where he had chest compressions. - Constitutional Vitals: Temp Pulse Resp BP Pulse Ox 97.7 F 65 18 140/72 95 12/23/17 04:00 12/23/17 06:51 12/23/17 06:51 12/23/17 06:51 12/23/17 06:51 General appearance: Present: no acute distress - Other Additional findings: General: Pleasant without distress Heart: Regular rate and rhythm with no murmur Lungs: Clear to auscultation bilaterally Abdomen: Soft nontender, nondistended positive bowel sounds Skin: warm and dry, absent rash. b/l groin incisions intact. Extremities: Absent pedal edema, Neuro: alert oriented x3 Vascular: Pedal and radial pulses 2 out of 4 Internal Medicine: Result - Labs CBC & Chem 7: 12/23/17 04:06 12/23/17 04:06 Labs: Short CBC 12/23/17 Range/Units 04:06 WBC 7.2 (4.3-11.1) K/mcL Hgb 10.5 L (12.9-16.9) g/dL Hct 30.4 L (37.5-50.1) % Plt Count 163 (140-400) K/mcL Neutrophils # 5.0 (1.6-8.9) K/mcL BMP 12/23/17 04:06 Sodium 138 Potassium 4.0 Chloride 111 H Carbon Dioxide 22 L BUN 12 Creatinine 0.87 Glucose 265 H Calcium 9.0 - ABG Interpretation ABG results: ABG ABG pH 7.40 pH Units (7.32-7.45) 12/19/17 05:21 ABG pCO2 39 mmHg (35-45) 12/19/17 05:21 ABG pO2 90 mmHg (85-104) 12/19/17 05:21 ABG O2 Saturation 97 % (95-98) 12/19/17 05:21 PT/INR, D-dimer PT 13.6 Seconds (9.4-12.1) H 12/17/17 03:25 - Impressions Impressions Chest CTA 12/20/17 08:08 IMPRESSION: 1. No evidence of pulmonary embolism. 2. Patchy ground-glass opacities at both lung apices, as well as along the periphery of the mid lungs. While nonspecific, these could be related to infection, pneumonitis, or an atypical appearance of pulmonary edema. 3. Small bilateral pleural effusions with basilar atelectasis and/or consolidation. 4. Hepatic steatosis. D/ / 12/20/2017 18:29:05 Ronni Marin MD / [facility] Interpreting Provider: Ronni Marin MD Brain MRI 12/22/17 10:51 IMPRESSION: 1. Intra-axial peripherally enhancing, centrally necrotic mass within the right temporal lobe with a smaller separate lesion located just anterior to the dominant lesion. Differential considerations include a primary glioma such as an anaplastic astrocytoma or glioblastoma multiforme. Alternatively, metastatic disease could also have this appearance. 2. Vasogenic edema surrounding the primary mass with resulting [id number] midline shift measuring 2 mm. 3. Fluid level within the left sphenoid sinus suggesting acute sinusitis. The above findings were discussed with Dr. Villegas at 5:30 p.m. on 12/22/2017. D/ / 12/22/2017 17:47:24 Jeremy Saldivar MD / [facility] Interpreting Provider: Jeremy Saldivar MD - VTE Reasons for not Prescribing Prophylaxis: Not indicated-Anticoagulated or INR therapeutic Consult Discharge Plan - Plan [facility]errals: [facility] [Primary Care Provider] - <Reinaldo Alejandre - Last Filed: 12/23/17 13:08> Date of Encounter: 12/23/17 - Assessment and plan (1) Diabetes mellitus associated with pancreatic disease Current Visit: Yes Status: Acute (2) DVT prophylaxis Current Visit: Yes Status: Acute (3) Hypercapnic respiratory failure Current Visit: Yes Status: Acute Qualifiers: Chronicity: acute Qualified Code(s): J96.02 - Acute respiratory failure with hypercapnia (4) Cardiopulmonary arrest with successful resuscitation Current Visit: Yes Status: Resolved (5) Cardiomyopathy Current Visit: Yes Status: Acute Qualifiers: Cardiomyopathy type: ischemic Qualified Code(s): I25.5 - Ischemic cardiomyopathy (6) Atrial fibrillation Current Visit: Yes Status: Chronic Qualifiers: Atrial fibrillation type: paroxysmal Qualified Code(s): I48.0 - Paroxysmal atrial fibrillation (7) Aspiration pneumonia Current Visit: Yes Status: Acute Qualifiers: Aspiration pneumonia type: unspecified Laterality: bilateral Lung location: unspecified part of lung Qualified Code(s): J69.0 - Pneumonitis due to inhalation of food and vomit (8) Mass, brain Current Visit: Yes Status: Acute - Time Spent With Patient Total time spent is greater than 50% in coordination of care (as documented) at patient's floor/unit and/or counseling patient: - Constitutional Vitals: Temp Pulse Resp BP Pulse Ox 97.7 F 58 20 146/80 93 12/23/17 04:00 12/23/17 11:36 12/23/17 11:35 12/23/17 11:35 12/23/17 11:35 Internal Medicine: Result - Labs CBC & Chem 7: 12/23/17 04:06 12/23/17 04:06 Labs: Short CBC 12/23/17 Range/Units 04:06 WBC 7.2 (4.3-11.1) K/mcL Hgb 10.5 L (12.9-16.9) g/dL Hct 30.4 L (37.5-50.1) % Plt Count 163 (140-400) K/mcL Neutrophils # 5.0 (1.6-8.9) K/mcL BMP 12/23/17 04:06 Sodium 138 Potassium 4.0 Chloride 111 H Carbon Dioxide 22 L BUN 12 Creatinine 0.87 Glucose 265 H Calcium 9.0 - ABG Interpretation ABG results: ABG ABG pH 7.40 pH Units (7.32-7.45) 12/19/17 05:21 ABG pCO2 39 mmHg (35-45) 12/19/17 05:21 ABG pO2 90 mmHg (85-104) 12/19/17 05:21 ABG O2 Saturation 97 % (95-98) 12/19/17 05:21 PT/INR, D-dimer PT 13.6 Seconds (9.4-12.1) H 12/17/17 03:25 - Impressions Impressions Chest CTA 12/20/17 08:08 IMPRESSION: 1. No evidence of pulmonary embolism. 2. Patchy ground-glass opacities at both lung apices, as well as along the periphery of the mid lungs. While nonspecific, these could be related to infection, pneumonitis, or an atypical appearance of pulmonary edema. 3. Small bilateral pleural effusions with basilar atelectasis and/or consolidation. 4. Hepatic steatosis. D/ / 12/20/2017 18:29:05 Ronni Marin MD / [facility] Interpreting Provider: Ronni Marin MD Brain MRI 12/22/17 10:51 IMPRESSION: 1. Intra-axial peripherally enhancing, centrally necrotic mass within the right temporal lobe with a smaller separate lesion located just anterior to the dominant lesion. Differential considerations include a primary glioma such as an anaplastic astrocytoma or glioblastoma multiforme. Alternatively, metastatic disease could also have this appearance. 2. Vasogenic edema surrounding the primary mass with resulting [id number] midline shift measuring 2 mm. 3. Fluid level within the left sphenoid sinus suggesting acute sinusitis. The above findings were discussed with Dr. Villegas at 5:30 p.m. on 12/22/2017. D/ / 12/22/2017 17:47:24 Jeremy Saldivar MD / [facility] Interpreting Provider: Jeremy Saldivar MD - Attending Attestation Acute respiratory failure secondary to aspiration/MRSA pneumonia present upon admission Continue vancomycin day #6, completed 7 days of Zosyn Right temporal mass/j possible GBM noticed on MRI of the brain Transfer to [place] I examined this patient and my medical decision-making was reviewed with the Resident Physician. I agree with the documented findings, disposition and treatment plan as described except to the extent set forth below.
[2017-12-23] MEDS: Aspirin 81 MG TAB.CHEW PO SCH (11:07)
[2017-12-23] MEDS: Metoprolol XL (24 HR) Succ 25 MG TAB.ER.24H PO SCH (11:08)
[2017-12-23] MEDS: Topiramate 100 MG TABLET PO SCH (11:08)
[2017-12-23] MEDS: Insulin LISPRO 300 UNITS/3 ML VIAL SQ SCH (11:09)
--- NOTE | 2017-12-23 11:15 | Discharge Summary ---
<Rogelio Kc - Last Filed: 12/23/17 11:12> Orders not resulted at time of discharge: Pending orders 12/18/17 17:25 Culture,Blood [BC] Stat Culture,Blood [BC] Stat Date of Encounter: 12/23/17 Time of Encounter: 11:12 - Discharge Diagnosis (1) Cardiopulmonary arrest with successful resuscitation Priority: Primary Status: Resolved Assessment and Plan: Presented with cardiac arrest. Underwent left heart catheter with placement of drug-eluting stent in the proximal LAD. On Plavix, aspirin, Lipitor, metoprolol. (2) Hypercapnic respiratory failure Priority: Secondary Status: Acute Assessment and Plan: Acute respiratory failure with hypoxia and hypercapnia. Secondary to pneumonia and cardiac arrest. was intubated in ICU for three days Currently requiring oxygen supplementation. at 4L on oxymask Qualifiers: Chronicity: acute Qualified Code(s): J96.02 - Acute respiratory failure with hypercapnia (3) Aspiration pneumonia Priority: Secondary Status: Acute Assessment and Plan: Aspiration pneumonia as seen on chest x-ray. Recent white blood cell count is stable. Afebrile. Sputum culture grew MRSA. On vancomycin day 6/7 days treated with zosyn for 6 days Patient requiring oxygen supplementation. Qualifiers: Aspiration pneumonia type: unspecified Laterality: bilateral Lung location: unspecified part of lung Qualified Code(s): J69.0 - Pneumonitis due to inhalation of food and vomit (4) Cardiomyopathy Priority: Secondary Status: Acute Assessment and Plan: Ischemic cardiomyopathy. EF of 30% Patient status post left heart catheterization Continue aspirin, Plavix, Lipitor, metoprolol, lisinopril. echo:LVEF 35%. Global left ventricular systolic dysfunction. Mild left ventricular diastolic dysfunction. Right ventricle was not well visualized. Grossly, it demonstrates near normal function. No evidence of pulmonary hypertension. No significant valvular dysfunction. Left Ventricular Wall Motion: Rest Echo Findings The apex, apical inferior, mid inferior, basal inferior, apical anterior, mid anterior, basal anterior, apical septal, mid inferior septal, basal inferior septal, apical lateral, mid anterior lateral, basal anterior lateral, mid anterior septal, mid inferior lateral, basal anterior septal and basal inferior lateral esparza were hypokinetic. Qualifiers: Cardiomyopathy type: ischemic Qualified Code(s): I25.5 - Ischemic cardiomyopathy (5) Atrial fibrillation Priority: Secondary Status: Chronic Assessment and Plan: Rate controlled on metoprolol. Likely not a candidate for anticoagulation as patient has a necrotic brain tumor. 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 Continue insulin regimen. (7) DVT prophylaxis Priority: Secondary Status: Acute Assessment and Plan: Subcutaneous heparin (8) Mass, brain Priority: Secondary Status: Acute Assessment and Plan: CT head showed a 1.7 x 2.2 x 1.9 cm enhancing lesion in the anterior right temporal lobe. MRI: Centrally necrotic mass within the right temporal lobe measuring 322.1 cm and a second smaller lesion measuring 0.5 x 0.4 x 0.5 cm. suspicious for malignancy There is edema surrounding the mass with right to left midline shift measuring 2 mm. On topamax neurology recommended transfer to [facility] Hospital course: Mr. Delgado is a 52 year old male presented to [facility] in cardiopulmonary arrest on 12/17/17. Patient was at home felt lightheaded, nauseated coughing up blood. Patient's son called EMS. Patient turned blue and started beating irregularly. In the ambulance patient became unstable and required CPR and defibrillation 4 for V. tach. Upon arrival to the emergency department patient was in asystole. After initial rounds of CPR he was in PEA he was given epinephrine and bicarbonate and achieved ROSC. He then again went into PEA and received CPR and ROSC was attained. He was taken emergently to left heart catheterization. He is found to have a EF of 30%, proximal LAD had 90% lesion and was successfully stented with VIOLA to 0%. Day after left heart catheterization patient had purposeful movements. Patient had a loop recorder which was interrogated by cardiology which noted that patient was in atrial fibrillation with RVR prior to event and not in V. tach or V. fib. He was started on dual antiplatelet therapy but not on anticoagulation for atrial fibrillation. Patient was in the ICU intubated for 3 days. Patient self extubated. He required 3 L on oxygen mask He was suspected to have aspiration pneumonia and started on IV antibiotics. Sputum culture grew MRSA. Patient was treated with IV antibiotics for a total 6 days. Patient also went CT of the head that demonstrated right temporal lesion likely a mass not hemorrhagic. MRI of the brain showed right temporal lobe lesion. Neurology recommended transfer. He should also had 1 episode of bright red blood per urine. He was evaluated by urology but at that point his urine had cleared up. This morning patient's urine is clear and yellow. He is having no trouble he urinating. Patient will need to be continued on IV antibiotics after transfer. He is afebrile. Normal white count. He is alert and oriented 3. He is able to move all 4 extremities. He is on Topamax for seizure prophylaxis. Discharge discussed with: patient, family - Time Spent with Patient Total time spent providing and/or coordinating discharge services: - Discharge Medications Home Medications: Aspirin [Adult Low Dose Aspirin EC] 81 mg PO DAILY 10/19/15 [History] Lactobacillus Rhamnosus GG [Culturelle] 1 cap PO DAILY 10/19/15 [History] Acetaminophen [Tylenol] 325 mg PO Q6HR PRN #10 tablet 11/03/15 [Rx] Cholecalciferol (D-3) [Vitamin D] 2,000 unit PO DAILY 08/26/17 [History] Melatonin [Melatin] 3 mg PO HS 08/26/17 [History] Memantine [Namenda] 5 mg PO BID 08/26/17 [History] Pantoprazole Sodium 40 mg PO DAILY 08/26/17 [History] Insulin Glargine [Lantus] 36 unit SQ DAILY 12/16/17 [History] Lidocaine Patch [Lidoderm 5% patch] 2 each TP DAILY 12/16/17 [History] Sertraline [Zoloft] 100 mg PO DAILY 12/16/17 [History] Sildenafil Citrate [Viagra] 100 mg PO DAILY PRN 12/16/17 [History] Topiramate [Topamax] 100 mg PO BID 12/16/17 [History] glipiZIDE [Glipizide] 10 mg PO DAILY 12/16/17 [History] Rifaximin [Xifaxan] 550 mg PO DAILY 12/17/17 [History] Albuterol Sulfate [Albuterol Inhaler] 2 puff IH Q2H PRN inhaler 12/23/17 [Rx] Atorvastatin [Lipitor] 80 mg PO HS tablet 12/23/17 [Rx] Clopidogrel [Plavix] 75 mg PO DAILY tablet 12/23/17 [Rx] GuaiFENesin ER [Mucinex] 600 mg PO BID PRN tbbp.12hr 12/23/17 [Rx] Lisinopril [Zestril] 2.5 mg PO DAILY tablet 12/23/17 [Rx] Metoprolol XL (24 HR) Succ [Toprol Xl] 25 mg PO DAILY tab.er.24h 12/23/17 [Rx] Ondansetron ODT [Zofran ODT] 4 mg SL Q6H PRN tab.rapdis 12/23/17 [Rx] Allergies/Adverse Reactions: 3 Allergy/AdvReac Type Severity Reaction Status Date / Time codeine Allergy Hives Verified 08/26/17 08:05 [From Tylenol-Codeine #3] diphenhydramine Allergy Unconscious Verified 08/26/17 08:05 [From Benadryl] hydrocodone [From Vicodin] Allergy Hives Verified 08/26/17 08:05 Latex, Natural Rubber Allergy Hives Verified 08/26/17 08:05 metoclopramide [From Reglan] Allergy See Verified 08/26/17 08:05 Comments Oxycodone [From Percocet] Allergy Hives Verified 08/26/17 08:05 tramadol Allergy Hives Verified 08/26/17 08:05 Date of admission: 12/16/17 19:11 [facility] care physician: [facility] Consults: 12/16/17 19:36 Consult to Cardiac Rehabilitation-Phase1 [CONS] Routine Comment: Reason for Consult: post op PCI Call Completed: Yes 12/16/17 19:37 Consult to Nurse Navigator [CONS] Routine Comment: 12/17/17 02:17 Consult to Pulmonology [CONS] Routine Consulting Provider: [facility] Reason for Consult: ICU management for post arrest Call Completed: No 12/17/17 11:52 Consult to Nutrition [CONS] Routine Comment: Consulting Provider: NUTRITION Reason for Dietary Consult: Tube Feed Start & Manage 12/21/17 10:24 Consult to Neurology [CONS] Routine Consulting Provider: [facility] Reason for Consult: abnormal head ct Time Notified: 10:24 Call Completed: Yes 12/22/17 13:30 Consult to Occupational Therapy [CONS] Routine Comment: Evaluate, develop and implement POC Reason for Consult: Status post cardiac arrest. Does patient have active BEDREST order?: No Is patient medically & hemodynamically stable?: Yes Consult to Physical Therapy [CONS] Routine Comment: Evaluate, develop and implement POC Reason for Consult: Status post cardiac arrest. Does patient have active BEDREST order?: No Is patient medically & hemodynamically stable?: Yes 12/22/17 15:22 Consult to Urology [CONS] Routine Consulting Provider: Ziyad Gallego Reason for Consult: BRB urine Call Completed: Yes Discharging clinician: Rogelio Kc Anticipated date of discharge: 12/23/17 - Constitutional Vitals: Temp Pulse Resp BP Pulse Ox 97.7 F 65 18 140/72 95 12/23/17 04:00 12/23/17 06:51 12/23/17 06:51 12/23/17 06:51 12/23/17 06:51 General appearance: Present: no acute distress - Other Additional findings: General: Pleasant without distress Heart: Regular rate and rhythm with no murmur Lungs: Clear to auscultation bilaterally Abdomen: Soft nontender, nondistended positive bowel sounds Skin: warm and dry, absent rash. b/l groin incisions intact. Extremities: Absent pedal edema, Neuro: alert oriented x3 Vascular: Pedal and radial pulses 2 out of 4 - Patient Status Disposition: Transfer Short-Term Hosp Condition: Serious Functional capacity at discharge: wheelchair bound Overall status at discharge: patient is not back to baseline - Discharge Instructions Follow Up With: [facility] [Primary Care Provider] - - Diet and Activity Activity: wear oxygen at all times (3L) Diet: diabetic diet, low fat, low cholesterol, low salt diet - VTE Reasons for not Prescribing Prophylaxis: Not indicated-Anticoagulated or INR therapeutic <Reinaldo Alejandre H - Last Filed: 12/23/17 13:09> Orders not resulted at time of discharge: Pending orders 12/18/17 17:25 Culture,Blood [BC] Stat Culture,Blood [BC] Stat Date of Encounter: 12/23/17 - Discharge Diagnosis (1) Diabetes mellitus associated with pancreatic disease Status: Acute (2) DVT prophylaxis Status: Acute (3) Hypercapnic respiratory failure Status: Acute Qualifiers: Chronicity: acute Qualified Code(s): J96.02 - Acute respiratory failure with hypercapnia (4) Cardiopulmonary arrest with successful resuscitation Status: Resolved (5) Cardiomyopathy Status: Acute Qualifiers: Cardiomyopathy type: ischemic Qualified Code(s): I25.5 - Ischemic cardiomyopathy (6) Atrial fibrillation Status: Chronic Qualifiers: Atrial fibrillation type: paroxysmal Qualified Code(s): I48.0 - Paroxysmal atrial fibrillation (7) Aspiration pneumonia Status: Acute Qualifiers: Aspiration pneumonia type: unspecified Laterality: bilateral Lung location: unspecified part of lung Qualified Code(s): J69.0 - Pneumonitis due to inhalation of food and vomit (8) Mass, brain Status: Acute Hospital course: Mr. Delgado is a 52 year old male - Time Spent with Patient Total time spent providing and/or coordinating discharge services: Date of admission: 12/16/17 19:11 Primary care physician: [facility] Consults: 12/16/17 19:36 Consult to Cardiac Rehabilitation-Phase1 [CONS] Routine Comment: Reason for Consult: post op PCI Call Completed: Yes 12/16/17 19:37 Consult to Nurse Navigator [CONS] Routine Comment: 12/17/17 02:17 Consult to Pulmonology [CONS] Routine Consulting Provider: [facility] [place] Reason for Consult: ICU management for post arrest Call Completed: No 12/17/17 11:52 Consult to Nutrition [CONS] Routine Comment: Consulting Provider: NUTRITION Reason for Dietary Consult: Tube Feed Start & Manage 12/21/17 10:24 Consult to Neurology [CONS] Routine Consulting Provider: [facility] Reason for Consult: abnormal head ct Time Notified: 10:24 Call Completed: Yes 12/22/17 13:30 Consult to Occupational Therapy [CONS] Routine Comment: Evaluate, develop and implement POC Reason for Consult: Status post cardiac arrest. Does patient have active BEDREST order?: No Is patient medically & hemodynamically stable?: Yes Consult to Physical Therapy [CONS] Routine Comment: Evaluate, develop and implement POC Reason for Consult: Status post cardiac arrest. Does patient have active BEDREST order?: No Is patient medically & hemodynamically stable?: Yes 12/22/17 15:22 Consult to Urology [CONS] Routine Consulting Provider: [facility] Reason for Consult: BR[facility] urine Call Completed: Yes - Constitutional Vitals: Temp Pulse Resp BP Pulse Ox 97.7 F 58 20 146/80 93 12/23/17 04:00 12/23/17 11:36 12/23/17 11:35 12/23/17 11:35 12/23/17 11:35 - Attending Attestation Acute respiratory failure secondary to aspiration/MRSA pneumonia present upon admission Continue vancomycin day #6, completed 7 days of Zosyn Right temporal mass/j possible GBM noticed on MRI of the brain Transfer to [place] Time spent: 40 min I examined this patient and my medical decision-making was reviewed with the Resident Physician. I agree with the documented findings, disposition and treatment plan as described except to the extent set forth below.
[2017-12-23 11:35] VITALS: BP 146/80
--- NOTE | 2017-12-23 14:11 | Event Note ---
Date of Encounter: 12/23/17 Time of Encounter: 14:00 - Cardiology Event Note Patient is being transferred to [facility] for brain mass per neurology recommendations. Cardiology reports placed in transfer records. Out-pt f/u will be made with [facility] in 1-2 weeks after his discharge.
[2017-12-23] MEDS ORDERED: Aminoglycoside Consult 1 EACH MC ONE (16:02)
== END 2017-12-23 16:03 | disposition short-term general hospital (02) | DRG 981 ==
LOC: EMEROO 17:20 → ICNU 19:11 → 2NENU 12-21 15:08
PROVIDERS: ADMIT Internal Medicine Clinical Cardiac Electrophysiology; ATTEND Family Medicine

== ENCOUNTER 2018-06-10 12:25 | Observation (INO) ==
--- NOTE | 2018-06-10 13:27 | Emergency Department Note ---
Disposition Clinical Impression: Drug-induced nausea and vomiting, Mass, brain Disposition: Admitted As Inpatient Condition: Fair Time of Disposition: 15:40 General Adult HPI - General Chief complaint: ED Nausea/Vomiting/Diarrhea Stated complaint: N/V Time Seen by Provider: 06/10/18 12:31 Source: patient, EMS Limitations: no limitations Nursing Notes Reviewed: Yes Vital Signs Reviewed: Yes - History of Present Illness HPI Narrative: Patient does have a history of primary brain cancer which was diagnosed in December and the patient is currently receiving chemotherapy with the last dose 3 days ago and presents today with vomiting which started home last night, intermittent, he did receive Zofran from the paramedics. I did see the patient upon arrival and also spoke with the paramedics. The patient does not have any current pain. The patient's son said he does feel that the patient is confused. He does have some sneezing. Chills but no recorded fever. No blurred vision. No rhinorrhea or coughing. No blood in the urine or stool. There is a rash in the right groin area but no pain or numbness of the lower extremities. No bruising of the skin. Social history: Nonsmoker Pain Scale: 3 - Related Data Home Medications Medication Instructions Recorded Confirmed Aspirin [Adult Low Dose Aspirin EC] 81 mg PO HS 10/19/15 06/10/18 Cholecalciferol (D-3) [Vitamin D] 1,000 unit PO BID 08/26/17 06/10/18 Melatonin [Melatin] 9 mg PO HS PRN 08/26/17 06/10/18 Pantoprazole Sodium 40 mg PO DAILY 08/26/17 06/10/18 Insulin Glargine [Lantus] 40 unit SQ DAILY 12/16/17 06/10/18 Sertraline [Zoloft] 100 mg PO DAILY 12/16/17 06/10/18 Topiramate [Topamax] 100 mg PO BID 12/16/17 06/10/18 Insulin LISPRO [HumaLOG] 10 units SQ TIDWM 01/11/18 06/10/18 LevETIRAcetam [Roweepra] 500 mg PO BID 01/11/18 06/10/18 Lisinopril [Zestril] 2.5 mg PO DAILY 01/11/18 06/10/18 Rifaximin [Xifaxan] 550 mg PO BID 01/11/18 06/10/18 Albuterol Sulfate [Albuterol 2 puff IH Q6H PRN 02/05/18 06/10/18 Inhaler] Sildenafil Citrate [Viagra] 100 mg PO AD PRN MDD 100MG/24HOURS 02/05/18 06/10/18 glipiZIDE [Glipizide] 10 mg PO DAILY 02/05/18 06/10/18 Dicyclomine [Bentyl] 10 mg PO TID PRN 02/11/18 06/10/18 Lactobacillus Acidophilus 1 cap PO BID 06/10/18 06/10/18 [Acidophilus Lactobacillus] Metoprolol Succinate [Toprol Xl] 25 mg PO DAILY 06/10/18 06/10/18 Nut.tx.gluc.intoler,Lac-Fr,Soy 237 ml PO BID PRN 06/10/18 06/10/18 [Glucerna Therapeutic Nutrition] Sulfamethoxazole/Trimeth DS 1 tab PO BID 06/10/18 06/10/18 [Bactrim DS] Previous Rx's Medication Instructions Recorded Clopidogrel [Plavix] 75 mg PO DAILY tablet 12/23/17 Prochlorperazine Maleate 10 mg PO Q8HR PRN #60 tablet 01/11/18 [Compazine] Loperamide HCl [Imodium A-D] 2 mg PO Q6H PRN #90 tablet 01/20/18 Ondansetron ODT [Zofran ODT] 4 mg SL Q6H PRN #60 tab.rapdis 05/10/18 Dexamethasone [Decadron] 4 mg PO TID #90 tab 05/20/18 Fluconazole [Diflucan] 100 mg PO DAILY #8 tablet 06/07/18 Dexamethasone 2 mg PO BID #28 tab 06/08/18 Allergies Allergy/AdvReac Type Severity Reaction Status Date / Time clobetasol Allergy Hives Verified 06/07/18 13:40 codeine Allergy Hives Verified 06/07/18 13:40 [From Tylenol-Codeine #3] desonide Allergy Hives Verified 06/07/18 13:40 diphenhydramine Allergy Unconscious Verified 06/07/18 13:40 [From Benadryl] hydrocodone [From Vicodin] Allergy Hives Verified 06/07/18 13:40 Latex, Natural Rubber Allergy Hives Verified 06/07/18 13:40 metoclopramide [From Reglan] Allergy See Verified 06/07/18 13:40 Comments Oxycodone [From Percocet] Allergy Hives Verified 06/07/18 13:40 tramadol Allergy Hives Verified 06/07/18 13:40 All systems ED: reviewed and negative except as stated. Review of Systems: As Per HPI Past Medical History - Past Medical History Medical history: Reports: non-contributory, cancer Surgical history: Reports: colectomy Psychiatric history: Reports: PTSD - Social History Smoking Status: Never smoker Smokeless Tobacco Status: No Alcohol use: Reports: none Drug use: Reports: none Physical Exam CONSTITUTIONAL: Alert and oriented X3, well-nourished, well appearing, in no apparent distress HEAD: Normocephalic; atraumatic. EYES: PERRL, no scleral icterus. NOSE: The nose is normal in appearance without rhinorrhea RESP: Normal chest excursion with respiration; breath sounds clear and equal bilaterally; no wheezes, rhonchi, or rales CARD: Regular rhythm, without murmurs, rub or gallop ABD: Non-distended; non-tender, soft,without rigidity, rebound or guarding SKIN: Normal for age and race; warm and dry; no apparent lesions Neuro: Cranial nerves III12 within normal limits, there is no drift of the bilateral upper or lower extremities, finger to nose testing is normal 2, the patient is breathing comfortably, pink and alert, no focal neurologic deficits - General Limitations: no limitations General appearance: alert, in no apparent distress Course Vital Signs Temperature 97.4 F L 06/10/18 12:36 Pulse Rate 72 06/10/18 12:36 Respiratory Rate 18 06/10/18 12:36 Blood Pressure 127/88 06/10/18 12:36 O2 Sat by Pulse Oximetry 98 06/10/18 12:36 Temperature 97.4 F L 06/10/18 12:36 Pulse Rate 72 06/10/18 12:36 Respiratory Rate 16 06/10/18 16:18 Blood Pressure 109/67 06/10/18 16:18 O2 Sat by Pulse Oximetry 98 06/10/18 12:36 Oxygen Delivery Oxygen Delivery Room Air Medical Decision Making - MDM Narrative Medical decision making narrative: Labs, head CT, results pending. He does see oncology here as well as at [facility] in [place] 1327 I did speak with the patient and family again. Still nauseated. Did receive Zofran 8 mg here IV and additionally I will give Phenergan 12.5 mg IV. He is allergic to diphenhydramine. I do have the hospitalist and the oncologist Dr. Nathanael herbert for admission. Head CT does show continued intracranial mass with some surrounding edema but do not show any worsened radiologic findings 1526 I did review the test results and also spoke with oncology and with the hospitalist the patient admitted to medicine with oncology consult to Dr. Angelo and the patient will receive 10 mg IV Decadron. The patient's vomiting most likely secondary to the recent dose of chemotherapy 3 days ago 1540 The hospitalist did request an EKG looking for QT prolongation and the QTC is 438 corrected and 394 and corrected and the EKG shows normal sinus rhythm with a rate of 74 without acute ischemic change and without evidence of arrhythmia 1623 - Medical Records Medical records reviewed: Yes I reviewed the patient's medical records. - Lab Data Lab results reviewed: Yes I reviewed the patient's lab results. Result diagrams: 06/10/18 13:52 06/10/18 13:52 Lab Results 06/10/18 06/10/18 06/10/18 Range/Units 13:52 13:52 14:06 WBC 14.6 H (4.3-11.1) K/mcL RBC 4.97 (4.19-5.50) M/mcL Hgb 14.7 (12.9-16.9) g/dL Hct 41.7 (37.5-50.1) % MCV 83.9 (83.0-100.0) fL MCH 29.6 (28.0-33.3) pg MCHC 35.3 (31.6-35.5) g/dL RDW 13.8 (11.5-14.5) % Plt Count 164 (140-400) K/mcL MPV 9.2 L (9.4-12.4) fL Sodium 134 L (136-145) mEq/L Potassium 4.0 (3.5-5.1) mEq/L Chloride 101 (98-107) mEq/L Carbon Dioxide 23 (23-29) mEq/L BUN 35 H (6-20) mg/dL Creatinine 1.15 (0.70-1.30) mg/dL Est GFR ( Amer) > 60 (> 60) Est GFR (Non-Af Amer) > 60 (> 60) BUN/Creatinine Ratio 30 H (6-26) Glucose 413 H (70-105) mg/dL Calculated Osmolality 303 H (280-300) Calcium 9.5 (8.6-10.3) mg/dL Total Bilirubin 1.1 H (0.3-1.0) mg/dL Direct Bilirubin 0.1 (0.0-0.2) mg/dL Indirect Bilirubin 1.0 (0.0-1.2) mg/dL AST 14 (13-39) Units/L ALT 22 (7-52) Units/L Alkaline Phosphatase 98 (34-104) Units/L Serum Total Protein 6.4 (6.4-8.9) g/dL Albumin 3.9 (3.5-5.7) g/dL Globulin 2.5 (2.4-3.5) g/dL Albumin/Globulin Ratio 1.6 (1.1-2.2) Urine Color Yellow (Yellow) Urine Clarity Hazy (Clear) Urine pH 6.5 (5.0-8.0) pH Units Ur Specific [place] > 1.030 H (1.010-1.025) Urine Protein Trace (Neg-Trace) mg/dL Urine Glucose (UA) >=1000 H (Normal) mg/dL Urine Ketones Trace H (Negative) mg/dL Urine Blood Negative (Negative) Urine Nitrite Negative (Negative) Urine Bilirubin Negative (Negative) Urine Urobilinogen Normal (Normal) mg/dL Ur Leukocyte Esterase Negative (Negative) Urine Microscopic RBC 3-5 H (0-3) per hpf Ur Squamous Epith Cells Moderate H (None-Few) per lpf Urine Bacteria None Seen (None-Few) per hpf Hyaline Casts None Seen (None-Few) per lpf - Radiology Data Radiology results reviewed: Yes I reviewed the patient's radiology results. Critical Care Time Critical Care Time: No
[2018-06-10] MEDS ORDERED: Ondansetron 4 MG/2 ML VIAL IVP ONE (13:29)
[2018-06-10 14:14] LABS: Hematocrit 41.7 % (37.5-50.1); Hemoglobin 14.7 g/dL (12.9-16.9); Mean Corpuscular HGB Conc 35.3 g/dL (31.6-35.5); Mean Corpuscular Hemoglobin 29.6 pg (28.0-33.3); Mean Corpuscular Volume 83.9 fL (83.0-100.0); Mean Platelet Volume 9.2 fL (9.4-12.4); Platelet Count 164 K/mcL (140-400); Red Blood Count 4.97 M/mcL (4.19-5.50); Red Cell Distribution Width 13.8 % (11.5-14.5)
[2018-06-10 14:25] LABS: Bilirubin,Urine Negative (Negative); Blood,Urine Negative (Negative); Color,Urine Yellow (Yellow); Glucose,Urine (UA) >=1000 mg/dL (Normal); Ketones,Urine Trace mg/dL (Negative); Leukocyte Esterase,Urine Negative (Negative); Nitrite,Urine Negative (Negative); PH,Urine 6.5 pH Units (5.0-8.0); Protein,Urine Trace mg/dL (Neg-Trace); Specific Gravity,Urine > 1.030 (1.010-1.025); Urobilinogen,Urine Normal (Normal)
[2018-06-10 14:27] LABS: Alanine Aminotransferase 22 Units/L (7-52); Albumin 3.9 g/dL (3.5-5.7); Albumin/Globulin Ratio 1.6 (1.1-2.2); Alkaline Phosphatase 98 Units/L (34-104); Aspartate Amino Transferase 14 Units/L (13-39); BUN/Creatinine Ratio 30 (6-26); Bilirubin,Direct 0.1 mg/dL (0.0-0.2); Bilirubin,Total 1.1 mg/dL (0.3-1.0); Blood Urea Nitrogen 35 mg/dL (6-20); Calcium 9.5 mg/dL (8.6-10.3); Carbon Dioxide 23 mEq/L (23-29); Chloride 101 mEq/L (98-107); Globulin 2.5 g/dL (2.4-3.5); Glucose 413 mg/dL (70-105); Osmolality,Calculated 303 (280-300); Sodium 134 mEq/L (136-145); Total Protein 6.4 g/dL (6.4-8.9); eGFR For Non-African Americans > 60 (> 60)
[2018-06-10 14:32] LABS: Bacteria,Urine None Seen per hpf (None-Few); Hyaline Casts,Urine None Seen per lpf (None-Few); Squamous Epithelial Cell,Urine Moderate per lpf (None-Few)
[2018-06-10 14:34] LABS: Clarity,Urine Hazy (Clear)
[2018-06-10] MEDS ORDERED: *HR* Promethazine 25 MG/ML VIAL IVP ONE (15:24)
[2018-06-10] MEDS ORDERED: Dexamethasone 4 MG/ML VIAL IVP ONE (15:31)
[2018-06-10] MEDS ORDERED: *HR* Promethazine 25 MG/ML VIAL IVP PRN (15:49)
[2018-06-10] MEDS ORDERED: OXYCODONE Oral CONC 10 MG/0.5 ML ORAL.SYG SL PRN ×2 (15:49)
[2018-06-10] MEDS ORDERED: Naloxone 0.4 MG/ML INJ IVP PRN (15:49)
[2018-06-10] MEDS ORDERED: Melatonin 3 MG TABLET PO PRN (15:52)
[2018-06-10] MEDS ORDERED: NUT TX GLUC INTOLER LAC FR SOY PO PRN (15:52)
[2018-06-10] MEDS ORDERED: [UNRECOGNIZED DRUG - OTHER] PO PRN (15:52)
[2018-06-10] MEDS ORDERED: Dextrose Gel 15 GM/37.5 ML TUBE PO PRN ×2 (15:56)
[2018-06-10] MEDS ORDERED: D5% in Water 1,000 ML IVC PRN (15:56)
[2018-06-10] MEDS ORDERED: *HR* Dextrose 50 % in Water (Syg) 50 ML SYRINGE IVP PRN (15:56)
[2018-06-10] MEDS ORDERED: Folic Acid 1 MG in D5% in Water 50 ML IVPB STA (15:57)
--- NOTE | 2018-06-10 16:01 | Internal Med History&Physical ---
Date of Encounter: 06/10/18 Time of Encounter: 15:59 Internal Medicine - H&P: HPI Chief complaint: N/V Admitted From: Home Plans for Post Hospital Care: Home History of present illness: Mr. 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 As per patient he just finished a cycle of chemotherapy in 06/07/18 subsequently developed nausea and vomiting. His nausea and vomiting has progressively worsened for the past 3 days to the point that he is unable to take any of his oral medications. He reports at least 30 episodes of vomiting in the past 24 hours. He denies hematemesis. Nausea is not associated with any abdominal pain or diarrhea. He does have symptoms similar to this when chemotherapy. He has been unable to keep any of his his medications down today secondary to vomiting. He follows with Dr.J. Smith. He is scheduled for brain surgery at [facility] on 06/23/2018. His Plavix is to be stopped 10 days prior to surgery. He is also an insulin-dependent diabetic however his blood sugars have been poorly controlled secondary to him being on steroids. As per chart review hemoglobin A1c was 10. Family at bedside report that he had difficulty controlling his blood glucose even prior to steroid therapy however now that he is on steroid therapy his blood sugars have remained elevated. He denies fever, chills, loss of function of his extremities, chest pain, shortness of breath, palpitations, vision loss, dysuria or diarrhea Past Med Surg Social Fam HX - Past Medical History Medical history: non-contributory, cancer Additional medical history: GASTROPORESIS, IBS, NEUROPATHY, CHRONIC DIARRHEA, THORACIC SPINE FRACTURE 6 YRS AGO, DDD, CAROTID 60%+ BLOCKED, ARTERIAL HARDENING IN THE BRAIN. SWOLLEN LYMPH NODES IN STOMACH- CHECKED EVERY 6 MO @ [facility]. Psychiatric history: PTSD - Past Surgical History Surgical History: colectomy Additional surgical history: "LINK" 3WKS AGO IN HEART. LITHOTRIPSYX2 - Social History Smoking Status: Never smoker Smokeless Tobacco Status: No Alcohol use: none Drug use: none - Family History Father Living Status: Still Living Hx Family Cardiac Disorders: Yes (CAD s/p PCI, CMP, ICD) Mother Hx Family Cardiac Disorders: Yes Hx Family Cancer: Yes (BLOOD CANCER-LEUKEMIA FAMILY) Hx Family Endocrine Disorder: Yes (DIABETES) Internal Medicine - H&P: Meds Aspirin [Adult Low Dose Aspirin EC] 81 mg PO HS 10/19/15 [History] Cholecalciferol (D-3) [Vitamin D] 1,000 unit PO BID 08/26/17 [History] Melatonin [Melatin] 9 mg PO HS PRN 08/26/17 [History] Pantoprazole Sodium 40 mg PO DAILY 08/26/17 [History] Insulin Glargine [Lantus] 40 unit SQ DAILY 12/16/17 [History] Sertraline [Zoloft] 100 mg PO DAILY 12/16/17 [History] Topiramate [Topamax] 100 mg PO BID 12/16/17 [History] Clopidogrel [Plavix] 75 mg PO DAILY tablet 12/23/17 [Rx] Insulin LISPRO [HumaLOG] 10 units SQ TIDWM 01/11/18 [History] LevETIRAcetam [Roweepra] 500 mg PO BID 01/11/18 [History] Lisinopril [Zestril] 2.5 mg PO DAILY 01/11/18 [History] Prochlorperazine Maleate [Compazine] 10 mg PO Q8HR PRN #60 tablet 01/11/18 [Rx] Rifaximin [Xifaxan] 550 mg PO BID 01/11/18 [History] Loperamide HCl [Imodium A-D] 2 mg PO Q6H PRN #90 tablet 01/20/18 [Rx] Albuterol Sulfate [Albuterol Inhaler] 2 puff IH Q6H PRN 02/05/18 [History] Sildenafil Citrate [Viagra] 100 mg PO AD PRN MDD 100MG/24HOURS 02/05/18 [History] glipiZIDE [Glipizide] 10 mg PO DAILY 02/05/18 [History] Dicyclomine [Bentyl] 10 mg PO TID PRN 02/11/18 [History] Ondansetron ODT [Zofran ODT] 4 mg SL Q6H PRN #60 tab.rapdis 05/10/18 [Rx] Dexamethasone [Decadron] 4 mg PO TID #90 tab 05/20/18 [Rx] Fluconazole [Diflucan] 100 mg PO DAILY #8 tablet 06/07/18 [Rx] Dexamethasone 2 mg PO BID #28 tab 06/08/18 [Rx] Lactobacillus Acidophilus [Acidophilus Lactobacillus] 1 cap PO BID 06/10/18 [History] Metoprolol Succinate [Toprol Xl] 25 mg PO DAILY 06/10/18 [History] Nut.tx.gluc.intoler,Lac-Fr,Soy [Glucerna Therapeutic Nutrition] 237 ml PO BID PRN 06/10/18 [History] Sulfamethoxazole/Trimeth DS [Bactrim DS] 1 tab PO BID 06/10/18 [History] Allergy/AdvReac Type Severity Reaction Status Date / Time clobetasol Allergy Hives Verified 06/07/18 13:40 codeine Allergy Hives Verified 06/07/18 13:40 [From Tylenol-Codeine #3] desonide Allergy Hives Verified 06/07/18 13:40 diphenhydramine Allergy Unconscious Verified 06/07/18 13:40 [From Benadryl] hydrocodone [From Vicodin] Allergy Hives Verified 06/07/18 13:40 Latex, Natural Rubber Allergy Hives Verified 06/07/18 13:40 metoclopramide [From Reglan] Allergy See Verified 06/07/18 13:40 Comments Oxycodone [From Percocet] Allergy Hives Verified 06/07/18 13:40 tramadol Allergy Hives Verified 06/07/18 13:40 All Systems PM: A 10-system review of systems was performed and is negative for pertinent findings except as documented above in the HPI. - Constitutional Vitals: Temp Pulse Resp BP Pulse Ox 97.4 F L 72 18 127/88 98 06/10/18 12:36 06/10/18 12:36 06/10/18 12:36 06/10/18 12:36 06/10/18 12:36 Exam: General: Patient is alert, oriented,moderate distress, looks ill Head: atraumatic, normocephalic, Eye: normal appearance, PERRL, no scleral icterus, no conjunctival injection ENT: Dry mucous membranes, normal external ear exam Neck: normal inspection, trachea midline, full ROM, no carotid bruits Chest: normal inspection, symmetric chest rise Respiratory: Good respiratory effort. Bilateral breath sounds are clear without wheezing, crackles, or rhonchi. Cardiovascular: Regular rate and rhythm. s1 and s2 No clicks, rubs, gallops, or murmors. Abdomen: Bowel sounds present normoactive x-4 quadrants. Abdomen is soft, nondistended. no Epigastric tenderness. No guarding or rebound. No organomegaly noted, musculoskeletal: Spontaneously moving all extremities. no edema, no calf tender ness Skin: warm, dry, intact. Neuro: Alert and oriented x4. Speech is comprehendible, EOMI, tongue is midline, wrinkles forehead, No focal deficit Psych: Patient's affect is normal Internal Med - H&P Results - Labs CBC & Chem 7: 06/10/18 13:52 06/10/18 13:52 Labs: Short CBC 06/10/18 Range/Units 13:52 WBC 14.6 H (4.3-11.1) K/mcL Hgb 14.7 (12.9-16.9) g/dL Hct 41.7 (37.5-50.1) % Plt Count 164 (140-400) K/mcL BMP 06/10/18 13:52 Sodium 134 L Potassium 4.0 Chloride 101 Carbon Dioxide 23 BUN 35 H Creatinine 1.15 Glucose 413 H Calcium 9.5 Liver Function 06/10/18 Range/Units 13:52 Total Bilirubin 1.1 H (0.3-1.0) mg/dL Direct Bilirubin 0.1 (0.0-0.2) mg/dL AST 14 (13-39) Units/L ALT 22 (7-52) Units/L Alkaline Phosphatase 98 (34-104) Units/L Albumin 3.9 (3.5-5.7) g/dL Urine 06/10/18 Range/Units 14:06 Urine Color Yellow (Yellow) Urine Clarity Hazy (Clear) Urine pH 6.5 (5.0-8.0) pH Units Ur Specific [place] > 1.030 H (1.010-1.025) Urine Protein Trace (Neg-Trace) mg/dL Urine Glucose (UA) >=1000 H (Normal) mg/dL - EKG Data -: EKG Interpreted by Myself (Admission EKG is pending) - Impressions ITS Impressions Head CT 06/10/18 12:35 IMPRESSION: Redemonstration of right temporal primarily cystic mass with surrounding vasogenic edema. No definite evidence of interval change or acute process compared to recent MRI examination. D/ / Keith Concepcion MD / Keith Concepcion MD Interpreting Provider: Keith Concepcion MD - Assessment and plan (1) Intractable vomiting with nausea Current Visit: Yes Status: Acute Assessment and plan: most likely secondary to chemotherapy in addition to brain mass with vasogenic edema. 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) Patient started radiation therapy 01/18 He started temozolamide concurrently with RT completed in 03/11/18 On temodar started another cycle on 06/07 Oncology team consulted by the ED physician will follow recommendations We will continue dexamethasone 20 mg daily rest of the management as per oncology Palliative consult for goals of care He is scheduled for brain operation at [facility] on June 23 Continue antiepileptic medications In controlled with sublingual oxycodone Bowel regimen Continue fluconazole and Bactrim Seizure precautions, aspiration, fall precautions Ct head: IMPRESSION: Redemonstration of right temporal primarily cystic mass with surrounding vasogenic edema. No definite evidence of interval change or acute process compared to recent MRI examination. (3) S/P coronary artery stent placement Current Visit: No Status: Acute Assessment and plan: Patient has history of CAD last stent placed in December Also has history of cardiac arrest On aspirin and Plavix As per patient last dose of Plavix is on 06/12/2018- (to finish 6 months of dual antiplatelets for stent placed in December 2017)- prior to brain surgery on 06/23 We will continue metoprolol and lisinopril Admission EKG pending (4) Insulin dependent diabetes mellitus Current Visit: Yes Status: Acute Assessment and plan: Uncontrolled blood glucose level secondary to steroids Continue with home dose long-acting Cover with high-dose sliding scale and adjust as per fingersticks if unable to control glucose consider insulin drip A1c in a.m. (5) DVT prophylaxis Current Visit: No Status: Acute Assessment and plan: Heparin subcutaneous - Time Spent With Patient Total time spent is greater than 50% in coordination of care (as documented) at patient's floor/unit and/or counseling patient:
[2018-06-10] MEDS: Insulin DETEMIR 100 UNIT/ML X5UNITS SQ SCH (17:46)
[2018-06-10] MEDS: Pantoprazole 40 MG VIAL IVP SCH (17:48)
[2018-06-10] MEDS: 0.9 % Sodium Chloride 1,000 ML IVC SCH (17:48)
--- NOTE | 2018-06-10 18:00 | Oncology Inp Consult Note ---
<Briana Lopez L - Last Filed: 06/11/18 15:07> Date of Encounter: 06/10/18 Time of Encounter: 18:00 Assessment and Plan (1) Mass, brain Status: Acute Assessment and plan: Clinically diagnosed Glioblastoma multiforme As noted in HPI, he has completed concurrent chemoradiation, now on maintenance Temodar, he is now scheduled for resection with neuro oncology June 23 following his improved cardiopulmonary status CT head appears stable from prior brain MRI with no midline shift, as noted in Dr. Huffman's clinic note 06/07/18 he was referred for outpatient referral for concern for pseudoprogression versus actual tumor progression given his worsening symptoms Will discuss with Dr. Huffman in AM Plan for N/V: Hold Temodar during acute hospital stay N&V may be secondary to Temodar as it correlates with timing Continue with supportive treatment at this time Will add reglan and GI consultation - Data of Consult Patient: known to practice within the last 3 years Consult date: 06/10/18 Requesting Physician: Raven Ruiz MD Primary Care Provider[facility] - Consult Narrative Reason for consult: Gliobastoma Multiforme History of present illness: Mr. Delgado is a 53 year old male with oncologic history significant for a right temporal enhancing necrotic mass consistent with glioblastoma. Prior treatment history includes: 12/2017: Evaluation by Dr. Cerrato at [facility] for consideration of surgery/biopsy (not recommended due to high risk following recent cardiopulmonary arrest with ongoing Plavix/aspirin) 01/25/2018 - 03/11/2018: External beam radiotherapy to the right temporal lobe, 5940 cGy with concurrent Temodar Adjuvant temodar started 150mg/2 ~320mg daily dose D1-5 q 28 day cycle, , C4 starting At his most recent visit with Dr. Huffman on June 07, his MRI was reviewed and revealed primary cystic mass is again larger with further increase in T2 FLAIR signal abnormality. Other nodules appear similar. Thiw was previously favored as pseudoprogression but there was concern for tumor progression given his increasing headaches that had not improved with now nearly 3 weeks of Decadron. Recommendation for reconsultation with Dr. Cerrato for his opinion regarding resection was made since he has had improvement in cardiac status as mentioned above. According to patient following his consultation he is scheduled for resection June 23. There continues to be logistical and financial issues with getting him started on Optune. 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 SWOLLEN LYMPH NODES IN STOMACH- [facility] 6 MO [facility]. Psychiatric history: PTSD - Past Surgical History Surgical History: colectomy Additional surgical history: "LINK" 3WKS AGO IN HEART. LITHOTRIPSYX2 - Social History Smoking Status: Never smoker Smokeless Tobacco Status: No Alcohol use: none Drug use: none - Family History Father Living Status: Still Living Hx Family Cardiac Disorders: Yes (CAD s/p PCI, CMP, ICD) Mother Hx Family Cardiac Disorders: Yes Hx Family Cancer: Yes (BLOOD CANCER-LEUKEMIA FAMILY) Hx Family Endocrine Disorder: Yes (DIABETES) Medications and Allergies Aspirin [Adult Low Dose Aspirin EC] 81 mg PO HS 10/19/15 [History] Cholecalciferol (D-3) [Vitamin D] 1,000 unit PO BID 08/26/17 [History] Melatonin [Melatin] 9 mg PO HS PRN 08/26/17 [History] Pantoprazole Sodium 40 mg PO DAILY 08/26/17 [History] Insulin Glargine [Lantus] 40 unit SQ DAILY 12/16/17 [History] Sertraline [Zoloft] 100 mg PO DAILY 12/16/17 [History] Topiramate [Topamax] 100 mg PO BID 12/16/17 [History] Clopidogrel [Plavix] 75 mg PO DAILY tablet 12/23/17 [Rx] Insulin LISPRO [HumaLOG] 10 units SQ TIDWM 01/11/18 [History] LevETIRAcetam [Roweepra] 500 mg PO BID 01/11/18 [History] Lisinopril [Zestril] 2.5 mg PO DAILY 01/11/18 [History] Prochlorperazine Maleate [Compazine] 10 mg PO Q8HR PRN #60 tablet 01/11/18 [Rx] Rifaximin [Xifaxan] 550 mg PO BID 01/11/18 [History] Loperamide HCl [Imodium A-D] 2 mg PO Q6H PRN #90 tablet 01/20/18 [Rx] Albuterol Sulfate [Albuterol Inhaler] 2 puff IH Q6H PRN 02/05/18 [History] Sildenafil Citrate [Viagra] 100 mg PO AD PRN MDD 100MG/24HOURS 02/05/18 [History] glipiZIDE [Glipizide] 10 mg PO DAILY 02/05/18 [History] Dicyclomine [Bentyl] 10 mg PO TID PRN 02/11/18 [History] Ondansetron ODT [Zofran ODT] 4 mg SL Q6H PRN #60 tab.rapdis 05/10/18 [Rx] Dexamethasone [Decadron] 4 mg PO TID #90 tab 05/20/18 [Rx] Fluconazole [Diflucan] 100 mg PO DAILY #8 tablet 06/07/18 [Rx] Dexamethasone 2 mg PO BID #28 tab 06/08/18 [Rx] Lactobacillus Acidophilus [Acidophilus Lactobacillus] 1 cap PO BID 06/10/18 [History] Metoprolol Succinate [Toprol Xl] 25 mg PO DAILY 06/10/18 [History] Nut.tx.gluc.intoler,Lac-Fr,Soy [Glucerna Therapeutic Nutrition] 237 ml PO BID PRN 06/10/18 [History] Sulfamethoxazole/Trimeth DS [Bactrim DS] 1 tab PO BID 06/10/18 [History] Allergy/AdvReac Type Severity Reaction Status Date / Time clobetasol Allergy Hives Verified 06/07/18 13:40 codeine Allergy Hives Verified 06/07/18 13:40 [From Tylenol-Codeine #3] desonide Allergy Hives Verified 06/07/18 13:40 diphenhydramine Allergy Unconscious Verified 06/07/18 13:40 [From Benadryl] hydrocodone [From Vicodin] Allergy Hives Verified 06/07/18 13:40 Latex, Natural Rubber Allergy Hives Verified 06/07/18 13:40 metoclopramide [From Reglan] Allergy See Verified 06/07/18 13:40 Comments Oxycodone [From Percocet] Allergy Hives Verified 06/07/18 13:40 tramadol Allergy Hives Verified 06/07/18 13:40 Constitutional: Present: fatigue, headache(s), weakness, weight loss. Absent: anorexia, chills, fever(s), frequent falls Eyes: Absent: change in vision Nose, mouth and throat: Absent: dysphagia, mouth lesions, odynophagia Cardiovascular: Absent: chest pain, palpitations Respiratory: Absent: cough, dyspnea, hemoptysis Gastrointestinal: Present: nausea, vomiting. Absent: abdominal pain, diarrhea, hematemesis, hematochezia, melena Additional comments: denies dysuria Musculoskeletal: Present: muscle weakness Integumentary: Absent: rash, wounds Neurological: Present: headache(s). Absent: dizziness, focal weakness, frequent falls, paresthesias Hematologic/Lymphatic: Present: as per HPI Oncology - Exam - Constitutional Vitals: Temp Pulse Resp BP Pulse Ox 98.7 F 68 15 112/69 96 06/10/18 16:56 06/10/18 16:56 06/10/18 16:56 06/10/18 16:56 06/10/18 16:56 General appearance: cooperative, no acute distress, no febrile Exam: appears uncomfortable secondary to nausea - Head Head exam: Present: atraumatic - ENT ENT exam: Present: mucous membranes moist - Respiratory Respiratory exam: Present: CTAB. Absent: respiratory distress - Cardiovascular Cardiovascular exam: Present: RRR, +S1, +S2 - GI/Abdominal GI/Abdominal exam: Present: normal bowel sounds, soft. Absent: guarding, rebound, tenderness - Extremities Exam Extremities exam: Absent: calf tenderness - Neurological Exam Neurological exam: Present: alert, oriented X3, no focal deficits, strengths equal and symetr throughout - Psychiatric Psychiatric exam: Present: normal affect, normal mood - Skin Skin exam: Present: dry, intact, pallor, warm Consult Discharge Plan - Plan [facility]: [facility]Primary Care Provider[facility] - <Michael Oakley S - Last Filed: 06/11/18 19:10> Date of Encounter: 06/10/18 - Data of Consult Requesting Physician: Raven Ruiz MD Primary Care Provider: PCP [place] - Consult Narrative History of present illness: Mr. Delgado is a 53 year old male Oncology - Exam - Constitutional Vitals: Temp Pulse Resp BP Pulse Ox 98.7 F 68 15 112/69 96 06/10/18 16:56 06/10/18 16:56 06/10/18 16:56 06/10/18 16:56 06/10/18 16:56 Oncology - Results Labs: 06/10/18 06/10/18 06/10/18 14:06 13:52 13:52 WBC 14.6 H RBC 4.97 Hgb 14.7 Hct 41.7 MCV 83.9 MCH 29.6 MCHC 35.3 RDW 13.8 Plt Count 164 MPV 9.2 L Sodium 134 L Potassium 4.0 Chloride 101 Carbon Dioxide 23 BUN 35 H Creatinine 1.15 Est GFR ( Amer) > 60 Est GFR (Non-Af Amer) > 60 BUN/Creatinine Ratio 30 H Glucose 413 H Calculated Osmolality 303 H Calcium 9.5 Total Bilirubin 1.1 H Direct Bilirubin 0.1 Indirect Bilirubin 1.0 AST 14 ALT 22 Alkaline Phosphatase 98 Serum Total Protein 6.4 Albumin 3.9 Globulin 2.5 Albumin/Globulin Ratio 1.6 Urine Color Yellow Urine Clarity Hazy Urine pH 6.5 Ur Specific Center [place] > 1.030 H Urine Protein Trace Urine Glucose (UA) >=1000 H Urine Ketones Trace H Urine Blood Negative Urine Nitrite Negative Urine Bilirubin Negative Urine Urobilinogen Normal Ur Leukocyte Esterase Negative Urine Microscopic RBC 3-5 H Ur Squamous Epith Cells Moderate H Urine Bacteria None Seen Hyaline Casts None Seen - Attending Attestation 1. Glioblastoma multiforme clinical diagnosis and he had a large mass in the right parietal area. At that time he had a cardiac stent and was on aspirin and Plavix so not considered surgical candidate He completed concurrent chemoradiation with Temodar 03/08/2018 Currently on Temodar maintenance 150 mg/m (320 mg by mouth) daily one through 5 every 4 weeks 6 cycles. Started cycle 4 on 06/07/2018. 2. Currently admitted with significant nausea and vomiting which coincides with the start date of cycle 4 Temodar. He took 4 days of treatment and will stop day 5. He did not improve with nausea medication and currently admitted. He claims he is not improved with IV Zofran and Phenergan. He is also on Decadron 2 mg at home. Currently he is on 10 mg IV twice a day He is deconditioned. He also has hiccups. Possible gastroparesis We Will Try Reglan 5 Mg IV Every 6 Hours. Will stop Phenergan GI consult 3. CT head today on 06/10/2018 showed right parietal lesion about 2.7 cm chest has not changed much from MRI 05/20/2018. I reviewed Dr. Nathanael Lee's office notes. There is some enhancement and Dr. Huffman is considering neurosurgical opinion. There is no midline shift. I doubt the current nausea and vomiting is related to his brain lesion. He also has been considered for TTF which his tumor treatment field with low-dose electricity. 4. Poorly controlled type 2 diabetes mellitus with the blood glucose running around 300-400 range aggravated by steroids Inpatient Charges Provider: Dr. Kayley Oakley Consult - Inpatient: [id number]
[2018-06-10] MEDS: Insulin LISPRO 300 UNITS/3 ML VIAL SQ SCH (18:04)
[2018-06-10] MEDS: Thiamine (B-1) 100 MG in D5% in Water 50 ML IVPB SCH (19:33)
[2018-06-10] MEDS: Sulfamethoxazole/Trimeth DS 1 EACH TABLET PO SCH (19:49)
[2018-06-10] MEDS: Topiramate 100 MG TABLET PO SCH (19:49)
[2018-06-10] MEDS: Lactobacillus 1 EACH CAP.SPRINK PO SCH (19:49)
[2018-06-10] MEDS: Cholecalciferol (D-3) 1,000 UNIT TABLET PO SCH (19:50)
[2018-06-10] MEDS: Dexamethasone 4 MG/ML VIAL IVP SCH (19:50)
[2018-06-10] MEDS: Aspirin Enteric Coated 81 MG Tablet PO SCH (19:50)
[2018-06-10] MEDS: levETIRAcetam 250 MG TABLET PO SCH (19:50)
[2018-06-10] MEDS: Ondansetron 4 MG/2 ML VIAL IVP PRN (20:03)
[2018-06-10] MEDS: *HR* Heparin 5,000 UNIT/ML VIAL SQ SCH (21:48)
[2018-06-11] MEDS: Insulin LISPRO 300 UNITS/3 ML VIAL SQ SCH ×4 (00:28→18:44)
[2018-06-11] MEDS: Metoclopramide 10 MG/2 ML VIAL IVP SCH ×3 (00:40→13:52)
[2018-06-11] MEDS: *HR* Heparin 5,000 UNIT/ML VIAL SQ SCH ×3 (04:58→20:52)
[2018-06-11] MEDS: Ondansetron 4 MG/2 ML VIAL IVP PRN ×2 (04:59→14:04)
[2018-06-11 05:38] LABS: BUN/Creatinine Ratio 30 (6-26); Blood Urea Nitrogen 33 mg/dL (6-20); Calcium 9.4 mg/dL (8.6-10.3); Carbon Dioxide 22 mEq/L (23-29); Chloride 105 mEq/L (98-107); Glucose 244 mg/dL (70-105); Magnesium 2.4 mg/dL (1.6-2.6); Osmolality,Calculated 297 (280-300); Phosphorous 2.9 mg/dL (2.7-4.5); Potassium 3.9 mEq/L (3.5-5.1); Sodium 136 mEq/L (136-145); eGFR For Non-African Americans > 60 (> 60)
[2018-06-11 05:51] LABS: Basophils # 0.1 K/mcL (0.0-0.2); Basophils % 0.4 %; Hematocrit 43.2 % (37.5-50.1); Hemoglobin 15.2 g/dL (12.9-16.9); Immature Granulocytes % 2.6 % (0-4); Lymphocytes # 0.9 K/mcL (0.6-4.6); Lymphocytes % 6.2 %; Mean Corpuscular HGB Conc 35.2 g/dL (31.6-35.5); Mean Corpuscular Hemoglobin 29.1 pg (28.0-33.3); Mean Corpuscular Volume 82.6 fL (83.0-100.0); Monocytes # 0.5 K/mcL (0.0-1.3); Neutrophils # 11.9 K/mcL (1.6-8.9); Platelet Count 155 K/mcL (140-400); Red Blood Count 5.23 M/mcL (4.19-5.50); Red Cell Distribution Width 13.5 % (11.5-14.5); Segmented Neutrophils % 86.8 %
[2018-06-11] MEDS: 0.9 % Sodium Chloride 1,000 ML IVC SCH (08:00)
[2018-06-11] MEDS ORDERED: Isovue-370 500 ML INFUS..BTL IV ONE (09:18)
[2018-06-11] MEDS ORDERED: *HR* Promethazine 25 MG/ML VIAL IVP ONE (10:01)
[2018-06-11] MEDS: Dexamethasone 4 MG/ML VIAL IVP SCH ×2 (10:19→20:52)
[2018-06-11] MEDS: Pantoprazole 40 MG VIAL IVP SCH (10:19)
[2018-06-11] MEDS: Lactobacillus 1 EACH CAP.SPRINK PO SCH ×2 (10:20→20:53)
[2018-06-11] MEDS: levETIRAcetam 250 MG TABLET PO SCH ×2 (10:20→20:53)
[2018-06-11] MEDS: Cholecalciferol (D-3) 1,000 UNIT TABLET PO SCH (10:21)
[2018-06-11] MEDS: Insulin DETEMIR 100 UNIT/ML X5UNITS SQ SCH (10:21)
[2018-06-11] MEDS: Topiramate 100 MG TABLET PO SCH ×2 (10:21→20:53)
[2018-06-11] MEDS: Fluconazole 100 MG TABLET PO SCH (10:21)
[2018-06-11] MEDS: Metoprolol XL (24 HR) Succ 25 MG TAB.ER.24H PO SCH (10:21)
--- NOTE | 2018-06-11 11:03 | Gastroenterology Consult Note ---
<Hakeem Lopez Facundo - Last Filed: 06/11/18 11:07> Date of Encounter: 06/11/18 Time of Encounter: 09:30 - Assessment and plan (1) Intractable vomiting with nausea Current Visit: Yes Status: Acute Assessment and plan: Continue Reglan and Zofran. Consider Ativan or Emend for symptomatic control. Likely due to brain mass/chemotherapy. If patient remains symptomatic over the weekend, plan for EGD on Thursday. Keep NPO at midnight Thursday night. Qualifiers: Vomiting type: unspecified Qualified Code(s): R11.2 - Nausea with vomiting, unspecified (2) Mass, brain Current Visit: Yes Status: Acute - Time Spent With Patient Total time spent is greater than 50% in coordination of care (as documented) at patient's floor/unit and/or counseling patient: GI History of Present Illness - Data of Consult Patient: known to practice within the last 3 years Consult date: 06/11/18 Requesting Physician: Raven Ruiz MD - Consult Narrative Reason for consult: Intractable nausea and vomiting History of present illness: Mr. Delgado is a 53 year old male with PMHx of brain mass, gastroparesis, CAD s/p stents last one December 2017-on ASA and Plavix, who presented to the ED with nausea and vomiting. As per patient he just finished a cycle of chemotherapy in 06/07/18 subsequently developed nausea and vomiting. His nausea and vomiting has progressively worsened for the past 3 days to the point that he is unable to take any of his oral medications. He reports at least 30 episodes of vomiting in the 24 hours prior to admission. CT head showed redemonstration of right temporal primarily cystic mass with surrounding vasogenic edema. He denies hematemesis or coffee-ground emesis. He denies abdominal pain, diarrhea, constipation, melena, or hematochezia. He has been unable to keep any of his his medications down due to vomiting. He follows with Dr. Smith. He is scheduled for brain surgery at [facility] on 06/23/2018. Procedures: Colonoscopy 11/21/2014 Dr. Phillip: 8 mm tubular adenoma in cecum, repeat in 5 years. EGD 11/21/2014 Dr. Phillip: Mild chronic gastritis, H pylori negative. NSAIDs: ASA Anticoagulation: Plavix Past Med Surg Social Fam HX - Past Medical History Medical history: non-contributory, cancer Additional medical history: GASTROPORESIS, IBS, NEUROPATHY, CHRONIC DIARRHEA, THORACIC SPINE FRACTURE 6 YRS AGO, DDD, CAROTID 60%+ BLOCKED, ARTERIAL HARDENING IN THE BRAIN. SWOLLEN LYMPH NODES IN STOMACH- [facility] MO [facility]. Psychiatric history: PTSD - Past Surgical History Surgical History: colectomy Additional surgical history: "LINK" 3WKS AGO IN HEART. LITHOTRIPSYX2 - Social History Smoking Status: Never smoker Smokeless Tobacco Status: No Alcohol use: none Drug use: none - Family History Father Living Status: Still Living Hx Family Cardiac Disorders: Yes (CAD s/p PCI, CMP, ICD) Mother Hx Family Cardiac Disorders: Yes Hx Family Cancer: Yes (BLOOD CANCER-LEUKEMIA FAMILY) Hx Family Endocrine Disorder: Yes (DIABETES) - Gastrointestinal Gastrointestinal: Present: as per HPI - Constitutional Constitutional: as per HPI - EENT Eyes: as per HPI Ears: Present: as per HPI Nose, mouth and throat: Present: as per HPI - Cardiovascular Cardiovascular ROS: Present: as per HPI - Respiratory Respiratory IM: Present: as per HPI - Genitourinary Genitourinary: Absent: change in color, Urinary frequency - Neurological ROS Neurological GI: Present: as per HPI - Hematologic/Lymphatic Hematologic/Lymphatic pediatric: Present: as per HPI - Musculoskeletal Musculoskeletal ROS GI: Present: as per HPI - Integumentary Integumentary GI: Present: as per HPI - Psychiatric ROS Psychiatric GI: Present: as per HPI - Endocrine Endocrine IM: Present: as per HPI - Constitutional Vitals: Temp Pulse Resp BP Pulse Ox 98.3 F 72 16 121/74 96 06/11/18 06:52 06/11/18 06:52 06/11/18 06:52 06/11/18 06:52 06/11/18 06:52 General appearance: Present: cooperative, A&O X 3, no acute distress, answers questions appropriately - Head Head exam: Present: atraumatic, normocephalic - Eye Eye exam: Present: normal appearance, sclera anicteric - ENT ENT exam: Present: mucous membranes dry - Neck Neck exam general surgery: Present: normal inspection, trachea midline - Respiratory Respiratory exam: Present: CTAB. Absent: rales, rhonchi - Cardiovascular Cardiovascular exam: Present: RRR, +S1, +S2 - GI/Abdominal GI/Abdominal exam: Present: soft, no peritoneal signs. Absent: distended, firm, guarding, tenderness - Rectal Rectal exam: Present: deferred - Extremities Exam Extremities exam: Present: warm - Neurological Exam Neurological exam: Present: no focal deficits - Psychiatric Psychiatric exam: Present: normal affect, normal mood - Skin Skin exam: Present: dry, intact, normal color, warm Results - Labs CBC & Chem 7: 06/11/18 05:36 06/11/18 04:57 Labs: Last Result Calcium 9.4 mg/dL (8.6-10.3) 06/11/18 04:57 Entire Visit Hgb 15.2 g/dL (12.9-16.9) 06/11/18 05:36 Hct 43.2 % (37.5-50.1) 06/11/18 05:36 Total Bilirubin 1.1 mg/dL (0.3-1.0) H 06/10/18 13:52 AST 14 Units/L (13-39) 06/10/18 13:52 ALT 22 Units/L (7-52) 06/10/18 13:52 - Impressions Impressions Head CT 06/10/18 12:35 IMPRESSION: Redemonstration of right temporal primarily cystic mass with surrounding vasogenic edema. No definite evidence of interval change or acute process compared to recent MRI examination. D/ / Keith Concepcion MD / Keith Concepcion MD Interpreting Provider: Keith Concepcion MD Consult Discharge Plan - Plan [facility]errals: [facility] [Primary Care Provider[facility] - <Peterson Phillip - Last Filed: 06/11/18 12:51> Date of Encounter: 06/11/18 Time of Encounter: 12:00 - Time Spent With Patient Total time spent is greater than 50% in coordination of care (as documented) at patient's floor/unit and/or counseling patient: GI History of Present Illness - Data of Consult Requesting Physician: Raven Ruiz MD - Consult Narrative History of present illness: Mr. Delgado is a 53 year old male - Constitutional Vitals: Temp Pulse Resp BP Pulse Ox 98 F 63 18 182/89 98 06/11/18 12:40 06/11/18 12:40 06/11/18 12:40 06/11/18 12:40 06/11/18 12:40 Results - Labs CBC & Chem 7: 06/11/18 05:36 06/11/18 04:57 Labs: Last Result Calcium 9.4 mg/dL (8.6-10.3) 06/11/18 04:57 Entire Visit Hgb 15.2 g/dL (12.9-16.9) 06/11/18 05:36 Hct 43.2 % (37.5-50.1) 06/11/18 05:36 Total Bilirubin 1.1 mg/dL (0.3-1.0) H 06/10/18 13:52 AST 14 Units/L (13-39) 06/10/18 13:52 ALT 22 Units/L (7-52) 06/10/18 13:52 - Impressions Impressions Head CT 06/10/18 12:35 IMPRESSION: Redemonstration of right temporal primarily cystic mass with surrounding vasogenic edema. No definite evidence of interval change or acute process compared to recent MRI examination. D/ / Keith Concepcion MD / Keith Concepcion MD Interpreting Provider: Keith Concepcion MD - Attending Attestation I have personally performed a face to face evaluation on this patient. I have reviewed and agree with the care plan. History and Exam by me shows: pt with a large mass in the right parietal area intractable nausea and vomiting denies any abdominal pain. On examination abdomen is benign. Assessment patient with brain tumor with intractable nausea and vomiting. Doubt that has any GI causes for his symptoms other than the brain tumor. Rec: Symptomatic treatment can try Ativan and emend. If remains symptomatic then we will do a quick EGD to make sure there is no gastric causes for his sy mptoms
--- NOTE | 2018-06-11 13:26 | Oncology Inp Progress Note ---
<Samm Amaya R - Last Filed: 06/11/18 13:59> Date of Encounter: 06/11/18 Time of Encounter: 13:24 (1) Intractable vomiting with nausea Current Visit: Yes Status: Acute Assessment and plan: History of gastroparesis due to diabetes Suspected GBM, started 4th cycle of Temodar with Dr. Lee on 06/07, he completed 4 of the 5 days of treatment Believe that nausea is more related to recent treatment rather than disease progression. Reports some improvement in nausea with phenergan, no vomiting today. Patient did fall this afternoon, denies worsening headaches, dizziness, or visual changes. Plan: Continue comfort care Discontinue Reglan due to history of poor tolerance Restart phenergan prn nausea Q6H Held Day 5 of Temodar Scheduled for neurosurgery on 06/23 at [facility] consulted, appreciate their recommendations, if no improvement in vomiting will plan for EGD on Thursday Patient going for CT head, abdomen, and pelvis since falling Qualifiers: Vomiting type: unspecified Qualified Code(s): R11.2 - Nausea with vomiting, unspecified Oncology: Subj Interval history: Patient was seen and evaluated this afternoon. Nursing reports patient experienced a fall in the bathroom today. Patient admits to nausea, without vom iting today, although he has no appetite. Reports that phenergan works better than zofran for his nausea, and that he hasn't tolerated reglan in the past. - Constitutional Vitals: Vital Signs Temp Pulse Resp BP Pulse Ox 06/11/18 12:40 98 F 63 18 182/89 98 06/11/18 08:45 96 06/11/18 06:52 98.3 F 72 16 121/74 96 06/11/18 02:49 98.7 F 81 15 161/75 98 06/10/18 22:34 99.2 F 66 14 121/67 95 06/10/18 19:39 96 06/10/18 16:56 98.7 F 68 15 112/69 96 06/10/18 16:18 16 109/67 Intake and Output 06/10/18 06/11/18 06/11/18 23:59 07:59 15:59 Intake Total 1000 / 1000 Output Total 0 / 0 0 / 0 400 / 400 Balance 1000 / 1000 -400 / -400 Intake: IV Fluids 1000 / 1000 0.9 % Sodium Chloride 1,000 ML 1000 / 1000 @ 100 mls/hr IVC .Q10H [facility] Rx#: [id number] Vitamin B-1 100 MG In Dextrose 5% 50 ML @ 50 mls/hr IVPB DAILY [facility] Rx#:[id number] Oral 0 / 0 0 / 0 Output: Urine 0 / 0 0 / 0 400 / 400 Other: Stool Size Moderate Stool Consistency soft Stool Color Brown # Voids 2 Weight 80.5 kg Blood Glucose* 470 238 Patient Weight 06/11/18 23:59 Weight 80.5 kg General appearance: average body habitus, no acute distress - Head Head exam: Present: normocephalic - Eye Eye exam: Present: EOMI, PERRL, conjuntiva pink - ENT ENT exam: Present: mucous membranes dry - Neck Neck exam: Absent: lymphadenopathy, tenderness - Respiratory Respiratory exam: Present: CTAB Additional comments: Improvement in hiccups noted today - Cardiovascular Cardiovascular exam: Present: RRR, +S1, +S2 - GI/Abdominal GI/Abdominal exam: Present: normal bowel sounds, soft. Absent: distended, rigid - Extremities Exam Additional comments: mild bilateral lower extremity edema. - Neurological Exam Neurological exam: Present: alert, CN II-XII intact, oriented X3, no focal deficits - Psychiatric Additional comments: mildy anxious, affect and mood appropriate for situation - Skin Skin exam: Present: normal color (with occassional ecchymosis) Oncology: Obj Data - Labs CBC & Chem 7: 06/11/18 05:36 06/11/18 04:57 Labs: Laboratory Results - last 24 hr 06/10/18 06/10/18 06/10/18 13:52 13:52 14:06 WBC 14.6 H RBC 4.97 Hgb 14.7 Hct 41.7 MCV 83.9 MCH 29.6 MCHC 35.3 RDW 13.8 Plt Count 164 MPV 9.2 L Immature Gran % Seg Neutrophils % Lymphocytes % Monocytes % Eosinophils % Basophils % Neutrophils # Lymphocytes # Monocytes # Eosinophils # Basophils # Sodium 134 L Potassium 4.0 Chloride 101 Carbon Dioxide 23 BUN 35 H Creatinine 1.15 Est GFR ( Amer) > 60 Est GFR (Non-Af Amer) > 60 BUN/Creatinine Ratio 30 H Glucose 413 H POC Glucose Calculated Osmolality 303 H Calcium 9.5 Phosphorus Magnesium Total Bilirubin 1.1 H Direct Bilirubin 0.1 Indirect Bilirubin 1.0 AST 14 ALT 22 Alkaline Phosphatase 98 Serum Total Protein 6.4 Albumin 3.9 Globulin 2.5 Albumin/Globulin Ratio 1.6 Urine Color Yellow Urine Clarity Hazy Urine pH 6.5 Ur Specific [place] > 1.030 H Urine Protein Trace Urine Glucose (UA) >=1000 H Urine Ketones Trace H Urine Blood Negative Urine Nitrite Negative Urine Bilirubin Negative Urine Urobilinogen Normal Ur Leukocyte Esterase Negative Urine Microscopic RBC 3-5 H Ur Squamous Epith Cells Moderate H Urine Bacteria None Seen Hyaline Casts None Seen Specimen Rejected 06/10/18 06/10/18 06/10/18 16:52 20:49 20:50 WBC RBC Hgb Hct MCV MCH MCHC RDW Plt Count MPV Immature Gran % Seg Neutrophils % Lymphocytes % Monocytes % Eosinophils % Basophils % Neutrophils # Lymphocytes # Monocytes # Eosinophils # Basophils # Sodium Potassium Chloride Carbon Dioxide BUN Creatinine Est GFR ( Amer) Est GFR (Non-Af Amer) BUN/Creatinine Ratio Glucose POC Glucose 345 H 453 H* 470 H* Calculated Osmolality Calcium Phosphorus Magnesium Total Bilirubin Direct Bilirubin Indirect Bilirubin AST ALT Alkaline Phosphatase Serum Total Protein Albumin Globulin Albumin/Globulin Ratio Urine Color Urine Clarity Urine pH Ur Specific [place] Urine Protein Urine Glucose (UA) Urine Ketones Urine Blood Urine Nitrite Urine Bilirubin Urine Urobilinogen Ur Leukocyte Esterase Urine Microscopic RBC Ur Squamous Epith Cells Urine Bacteria Hyaline Casts Specimen Rejected 06/11/18 06/11/18 06/11/18 00:12 04:57 05:19 WBC RBC Hgb Hct MCV MCH MCHC RDW Plt Count MPV Immature Gran % Seg Neutrophils % Lymphocytes % Monocytes % Eosinophils % Basophils % Neutrophils # Lymphocytes # Monocytes # Eosinophils # Basophils # Sodium 136 Potassium 3.9 Chloride 105 Carbon Dioxide 22 L BUN 33 H Creatinine 1.11 Est GFR ( Amer) > 60 Est GFR (Non-Af Amer) > 60 BUN/Creatinine Ratio 30 H Glucose 244 H POC Glucose 346 H 238 H Calculated Osmolality 297 Calcium 9.4 Phosphorus 2.9 Magnesium 2.4 Total Bilirubin Direct Bilirubin Indirect Bilirubin AST ALT Alkaline Phosphatase Serum Total Protein Albumin Globulin Albumin/Globulin Ratio Urine Color Urine Clarity Urine pH Ur Specific [place] Urine Protein Urine Glucose (UA) Urine Ketones Urine Blood Urine Nitrite Urine Bilirubin Urine Urobilinogen Ur Leukocyte Esterase Urine Microscopic RBC Ur Squamous Epith Cells Urine Bacteria Hyaline Casts Specimen Rejected 06/11/18 06/11/18 05:22 05:36 WBC 13.7 H RBC 5.23 Hgb 15.2 Hct 43.2 MCV 82.6 L MCH 29.1 MCHC 35.2 RDW 13.5 Plt Count 155 MPV 9.0 L Immature Gran % 2.6 Seg Neutrophils % 86.8 Lymphocytes % 6.2 Monocytes % 4.0 Eosinophils % 0.0 Basophils % 0.4 Neutrophils # 11.9 H Lymphocytes # 0.9 Monocytes # 0.5 Eosinophils # 0.0 Basophils # 0.1 Sodium Potassium Chloride Carbon Dioxide BUN Creatinine Est GFR ( Amer) Est GFR (Non-Af Amer) BUN/Creatinine Ratio Glucose POC Glucose Calculated Osmolality Calcium Phosphorus Magnesium Total Bilirubin Direct Bilirubin Indirect Bilirubin AST ALT Alkaline Phosphatase Serum Total Protein Albumin Globulin Albumin/Globulin Ratio Urine Color Urine Clarity Urine pH Ur Specific [place] Urine Protein Urine Glucose (UA) Urine Ketones Urine Blood Urine Nitrite Urine Bilirubin Urine Urobilinogen Ur Leukocyte Esterase Urine Microscopic RBC Ur Squamous Epith Cells Urine Bacteria Hyaline Casts Specimen Rejected Clotted - Impressions Impressions Forearm X-Ray 06/11/18 12:31 IMPRESSION: No acute right forearm fracture. D/ / 06/11/2018 13:24:31 Luigi House MD / bcarter Interpreting Provider: Luigi House MD Consult Discharge Plan - Plan [facility]Primary Care Provider[facility] - <Leonid Gurrola - Last Filed: 06/11/18 14:13> Date of Encounter: 06/11/18 - Constitutional Vitals: Vital Signs Temp Pulse Resp BP Pulse Ox 06/11/18 12:40 98 F 63 18 182/89 98 06/11/18 08:45 96 06/11/18 06:52 98.3 F 72 16 121/74 96 06/11/18 02:49 98.7 F 81 15 161/75 98 06/10/18 22:34 99.2 F 66 14 121/67 95 06/10/18 19:39 96 06/10/18 16:56 98.7 F 68 15 112/69 96 06/10/18 16:18 16 109/67 Intake and Output 06/11/18 06/11/18 06/11/18 00:59 08:59 16:59 Intake Total 51 / 51 1000 / 1000 Output Total 0 / 0 400 / 400 Balance 1000 / 1000 -400 / -400 Intake: IV Fluids 1000 / 1000 0.9 % Sodium Chloride 1,000 ML 1000 / 1000 @ 100 mls/hr IVC .Q10H [facility] Rx#: [id number] Vitamin B-1 100 MG In Dextrose 5% 50 ML @ 50 mls/hr IVPB DAILY [facility] Rx#:[id number] Oral 0 / 0 Output: Urine 0 / 0 400 / 400 Other: Stool Size Moderate Stool Consistency soft Stool Color Brown # Voids 2 Weight 80.5 kg Blood Glucose* 346 238 Patient Weight 06/12/18 00:59 Weight 80.5 kg Oncology: Obj Data - Labs CBC & Chem 7: 06/11/18 05:36 06/11/18 04:57 Labs: Laboratory Results - last 24 hr 06/10/18 06/10/18 06/10/18 13:52 13:52 14:06 WBC 14.6 H RBC 4.97 Hgb 14.7 Hct 41.7 MCV 83.9 MCH 29.6 MCHC 35.3 RDW 13.8 Plt Count 164 MPV 9.2 L Immature Gran % Seg Neutrophils % Lymphocytes % Monocytes % Eosinophils % Basophils % Neutrophils # Lymphocytes # Monocytes # Eosinophils # Basophils # Sodium 134 L Potassium 4.0 Chloride 101 Carbon Dioxide 23 BUN 35 H Creatinine 1.15 Est GFR ( Amer) > 60 Est GFR (Non-Af Amer) > 60 BUN/Creatinine Ratio 30 H Glucose 413 H POC Glucose Calculated Osmolality 303 H Calcium 9.5 Phosphorus Magnesium Total Bilirubin 1.1 H Direct Bilirubin 0.1 Indirect Bilirubin 1.0 AST 14 ALT 22 Alkaline Phosphatase 98 Serum Total Protein 6.4 Albumin 3.9 Globulin 2.5 Albumin/Globulin Ratio 1.6 Urine Color Yellow Urine Clarity Hazy Urine pH 6.5 Ur Specific [place] > 1.030 H Urine Protein Trace Urine Glucose (UA) >=1000 H Urine Ketones Trace H Urine Blood Negative Urine Nitrite Negative Urine Bilirubin Negative Urine Urobilinogen Normal Ur Leukocyte Esterase Negative Urine Microscopic RBC 3-5 H Ur Squamous Epith Cells Moderate H Urine Bacteria None Seen Hyaline Casts None Seen Specimen Rejected 06/10/18 06/10/18 06/10/18 16:52 20:49 20:50 WBC RBC Hgb Hct MCV MCH MCHC RDW Plt Count MPV Immature Gran % Seg Neutrophils % Lymphocytes % Monocytes % Eosinophils % Basophils % Neutrophils # Lymphocytes # Monocytes # Eosinophils # Basophils # Sodium Potassium Chloride Carbon Dioxide BUN Creatinine Est GFR ( Amer) Est GFR (Non-Af Amer) BUN/Creatinine Ratio Glucose POC Glucose 345 H 453 H* 470 H* Calculated Osmolality Calcium Phosphorus Magnesium Total Bilirubin Direct Bilirubin Indirect Bilirubin AST ALT Alkaline Phosphatase Serum Total Protein Albumin Globulin Albumin/Globulin Ratio Urine Color Urine Clarity Urine pH Ur Specific [place] Urine Protein Urine Glucose (UA) Urine Ketones Urine Blood Urine Nitrite Urine Bilirubin Urine Urobilinogen Ur Leukocyte Esterase Urine Microscopic RBC Ur Squamous Epith Cells Urine Bacteria Hyaline Casts Specimen Rejected 06/11/18 06/11/18 06/11/18 00:12 04:57 05:19 WBC RBC Hgb Hct MCV MCH MCHC RDW Plt Count MPV Immature Gran % Seg Neutrophils % Lymphocytes % Monocytes % Eosinophils % Basophils % Neutrophils # Lymphocytes # Monocytes # Eosinophils # Basophils # Sodium 136 Potassium 3.9 Chloride 105 Carbon Dioxide 22 L BUN 33 H Creatinine 1.11 Est GFR ( Amer) > 60 Est GFR (Non-Af Amer) > 60 BUN/Creatinine Ratio 30 H Glucose 244 H POC Glucose 346 H 238 H Calculated Osmolality 297 Calcium 9.4 Phosphorus 2.9 Magnesium 2.4 Total Bilirubin Direct Bilirubin Indirect Bilirubin AST ALT Alkaline Phosphatase Serum Total Protein Albumin Globulin Albumin/Globulin Ratio Urine Color Urine Clarity Urine pH Ur Specific [place] Urine Protein Urine Glucose (UA) Urine Ketones Urine Blood Urine Nitrite Urine Bilirubin Urine Urobilinogen Ur Leukocyte Esterase Urine Microscopic RBC Ur Squamous Epith Cells Urine Bacteria Hyaline Casts Specimen Rejected 06/11/18 06/11/18 05:22 05:36 WBC 13.7 H RBC 5.23 Hgb 15.2 Hct 43.2 MCV 82.6 L MCH 29.1 MCHC 35.2 RDW 13.5 Plt Count 155 MPV 9.0 L Immature Gran % 2.6 Seg Neutrophils % 86.8 Lymphocytes % 6.2 Monocytes % 4.0 Eosinophils % 0.0 Basophils % 0.4 Neutrophils # 11.9 H Lymphocytes # 0.9 Monocytes # 0.5 Eosinophils # 0.0 Basophils # 0.1 Sodium Potassium Chloride Carbon Dioxide BUN Creatinine Est GFR ( Amer) Est GFR (Non-Af Amer) BUN/Creatinine Ratio Glucose POC Glucose Calculated Osmolality Calcium Phosphorus Magnesium Total Bilirubin Direct Bilirubin Indirect Bilirubin AST ALT Alkaline Phosphatase Serum Total Protein Albumin Globulin Albumin/Globulin Ratio Urine Color Urine Clarity Urine pH Ur Specific [place] Urine Protein Urine Glucose (UA) Urine Ketones Urine Blood Urine Nitrite Urine Bilirubin Urine Urobilinogen Ur Leukocyte Esterase Urine Microscopic RBC Ur Squamous Epith Cells Urine Bacteria Hyaline Casts Specimen Rejected Clotted - Impressions Impressions Head CT 06/11/18 12:30 IMPRESSION: 1. No acute intracranial abnormality. 2. 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 Additional known small adjacent lesions in the right temporal lobe are not evident without contrast, but most likely remain. D/ / Adam Guzman MD / Adam Guzman MD Interpreting Provider: Adam Guzman MD Forearm X-Ray 06/11/18 12:31 IMPRESSION: No acute right forearm fracture. D/ / 06/11/2018 13:24:31 Luigi House MD / katlyn Interpreting Provider: Luigi House MD Inpatient Charges Provider: Dr. Scotty Gurrola Follow up - Inpatient: [id number] - Attending Attestation I examined this patient and my medical decision-making was reviewed with the resident. I agree with the documented findings, disposition and treatment plan as described except to the extent set forth below. (1) Intractable vomiting with nausea Current Visit: Yes Status: Acute Assessment and plan: 1. History of gastroparesis 2/2 diabetes 2. Suspected GBM, started 4th cycle of Temodar with Dr. Lee on 06/07, he completed 4 of the 5 days of treatment. Currently believe that nausea is more related to recent treatment rather than disease progression. 3. Fall Plan: -Patient's nausea/emesis has improved with Phenergan. D/c'ed Reglan due to poor tolerance. Currently holding Temodar. -Now on phenergan PRN nausea/emesis Q6H -Scheduled for neurosurgery on 06/23 at [facility] -Obtaining CT Head w/o contrast and A/P w/contrast after fall -GI consulted, appreciate their recommendations, if no improvement in vomiting will plan for EGD on Thursday
[2018-06-11] MEDS: Thiamine (B-1) 100 MG in D5% in Water 50 ML IVPB SCH (13:34)
--- NOTE | 2018-06-11 15:01 | Internal Med Progress Note ---
<ChanceHeather M - Last Filed: 06/11/18 17:41> Hospitalist Progress Note - Encounter Date of Encounter: 06/11/18 Time of Encounter: 10:45 - Subjective Interval History: Mr. Delgado is a 53Yo male, hospital day 1, PMH glioblastoma (on chemoradiation), CAD s/p stent placement in december 2017 and DM. Pt initally presented c/o nausea and vomiting, s/p chemotherapy on 06/07/18, that worsened within the last 3 days. Pt seen and examined at the bedside. Pt states he is not feeling well and admits to continued nausea and an episode of vomiting this morning. He admits to some mild diffuse abdominal discomfort, chills, dizziness, weakness, and decreased appetite. Pt denies any tingling, numbness, fever, changes in vision, H/A, diarr hea, SOB, chest pain. Nursing reports pt fell in the bathroom today. A head, abdomen/pelvis CT was ordered as well as a forearm Xray. - Exam Vitals: Temp Pulse Resp BP Pulse Ox 98 F 63 18 182/89 98 06/11/18 12:40 06/11/18 12:40 06/11/18 12:40 06/11/18 12:40 06/11/18 12:40 Exam: General: AAOX3, cachetic, fatigued Cardiovascular: RRR, +S1, +S2, no murmurs, no rubs, no gallops Respiratory: CTAB, no wheezes, no rhonchi Abdomen: Normal BSX4, soft, nondistended, nontender to palpation Extremities: No leg/pedal edema Skin: warm, dry and intact - Assessment and Plan (1) Intractable vomiting with nausea Current Visit: Yes Status: Acute Assessment and Plan: Pt initally presented c/o nausea and vomiting, s/p chemotherapy on 06/07/18, that worsened within the last 3 days. Nausea and vomiting most likely d/t brain mass/chemotherapy per GI CT of abdomen/pelvis showed 'No acute intra-abdominal abnormality identified. No finding to explain the patient's acute symptoms. Calcific density along the posterior wall of the urinary bladder which may either represent a passed ureteral calculus or could represent a calcified bladder wall neoplasm. No abnormality previously present in this area on the prior study. No other significant abnormality.' 06/11/18 Plan: -If patient remains symptomatic over the weekend, plan for EGD on Thursday.(Keep NPO at midnight Thursday night) per GI -Reglan d/c -continue zofran -Restart phenergan PRN Q6H -Hold day 5 of Temodar per Oncology -folic acid d/c -on thiamine supplementation -On IV protonix -aspiration, fall and seizure precautions (2) Fall Current Visit: Yes Status: Acute Assessment and Plan: Nursing reports patient experienced a fall in the bathroom today. CT of head showed ' No acute intracranial abnormality. 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 Additional known small adjacent lesions in the right temporal lobe are not evident without contrast, but most likely remain.' 06/11/18 Xray of the forearm showed ' No acute right forearm fracture' 06/11/18 Plan -fall precautions (3) Abnormal finding on CT scan Current Visit: Yes Status: Acute Assessment and Plan: CT ordered s/p fall. Nursing reported pt fell in the bathroom earlier CT of abdomen/pelvis showed 'No acute intra-abdominal abnormality identified. Calcific density along the posterior wall of the urinary bladder which may either represent a passed ureteral calculus or could represent a calcified bladder wall neoplasm. No abnormality previously present in this area on the prior study. ' 06/11/18 Plan: - f/u with urology outpatient (4) S/P coronary artery stent placement Current Visit: No Status: Acute Assessment and Plan: Patient has history of CAD last stent placed in December Also has history of cardiac arrest As per patient last dose of Plavix is on 06/12/2018- (to finish 6 months of dual antiplatelets for stent placed in December 2017)- prior to brain surgery on 06/23 Plan: -on aspirin and Plavix -on metoprolol -on lisinopril (5) Mass, brain Current Visit: Yes Status: Acute Assessment and Plan: possible glioblastoma multiforme (not biopsied) Patient started radiation therapy 01/18 He started temozolamide concurrently with RT completed in 03/11/18 On temodar started another cycle on 06/07 He is scheduled for brain operation at [facility] on June 23, 2018 CT of head showed ' No acute intracranial abnormality. 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 Additional known small adjacent lesions in the right temporal lobe are not evident without contrast, but most likely remain.' 06/11/18 Plan: -on dexamethasone -on fluconazole -on bactrim -Continue antiepileptic medications -Seizure precautions, aspiration, fall precautions -pain control -Oncology holding day 5 of Temodar d/t nausea and vomiting -cardiology consult pending for surgical clearance (6) Insulin dependent diabetes mellitus Current Visit: Yes Status: Acute Assessment and Plan: Uncontrolled blood glucose level secondary to steroids Blood glucose 244 today down from 413 yesterday Plan: -currently on Humalog SQ Q6H -on Levemir 40 units SQ daily (7) DVT prophylaxis Current Visit: No Status: Acute Assessment and Plan: Heparin SQ - Time Spent with Patient Total time spent is greater than 50% in coordination of care (as documented) at patient's floor/unit and/or counseling patient: Internal Medicine: Result - Labs CBC & Chem 7: 06/11/18 05:36 06/11/18 04:57 Labs: Short CBC 06/11/18 Range/Units 05:36 WBC 13.7 H (4.3-11.1) K/mcL Hgb 15.2 (12.9-16.9) g/dL Hct 43.2 (37.5-50.1) % Plt Count 155 (140-400) K/mcL Neutrophils # 11.9 H (1.6-8.9) K/mcL BMP 06/11/18 04:57 Sodium 136 Potassium 3.9 Chloride 105 Carbon Dioxide 22 L BUN 33 H Creatinine 1.11 Glucose 244 H Calcium 9.4 - Impressions Impressions Head CT 06/11/18 12:30 IMPRESSION: 1. No acute intracranial abnormality. 2. 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 Additional known small adjacent lesions in the right temporal lobe are not evident without contrast, but most likely remain. D/ / Adam Guzman MD / Adam Guzman MD Interpreting Provider: Adam Guzman MD Forearm X-Ray 06/11/18 12:31 IMPRESSION: No acute right forearm fracture. D/ / 06/11/2018 13:24:31 Luigi House MD / bcarter Interpreting Provider: Luigi House MD Abdomen/Pelvis CT 06/11/18 12:40 IMPRESSION: No acute intra-abdominal abnormality identified. No finding to explain the patient's acute symptoms. Calcific density along the posterior wall of the urinary bladder which may either represent a passed ureteral calculus or could represent a calcified bladder wall neoplasm. No abnormality previously present in this area on the prior study. No other significant abnormality. RECOMMENDATIONS: Cystoscopy is suggested for further evaluation. D/ / Sushant Singleton MD / Sushant Singleton MD Interpreting Provider: Sushant Singleton MD Consult Discharge Plan - Plan [facility]errals: [facility] [Primary Care Provider] - <Jason Perales A - Last Filed: 06/11/18 18:10> Hospitalist Progress Note - Encounter Date of Encounter: 06/11/18 - Exam Vitals: Temp Pulse Resp BP Pulse Ox 98.8 F 60 14 128/65 96 06/11/18 15:12 06/11/18 15:12 06/11/18 15:12 06/11/18 15:12 06/11/18 15:12 - Assessment and Plan (1) DVT prophylaxis Current Visit: No Status: Acute (2) S/P coronary artery stent placement Current Visit: No Status: Acute (3) Mass, brain Current Visit: Yes Status: Acute (4) Intractable vomiting with nausea Current Visit: Yes Status: Acute (5) Insulin dependent diabetes mellitus Current Visit: Yes Status: Acute - Time Spent with Patient Total time spent is greater than 50% in coordination of care (as documented) at patient's floor/unit and/or counseling patient: Internal Medicine: Result - Labs CBC & Chem 7: 06/11/18 05:36 06/11/18 04:57 Labs: Short CBC 06/11/18 Range/Units 05:36 WBC 13.7 H (4.3-11.1) K/mcL Hgb 15.2 (12.9-16.9) g/dL Hct 43.2 (37.5-50.1) % Plt Count 155 (140-400) K/mcL Neutrophils # 11.9 H (1.6-8.9) K/mcL BMP 06/11/18 04:57 Sodium 136 Potassium 3.9 Chloride 105 Carbon Dioxide 22 L BUN 33 H Creatinine 1.11 Glucose 244 H Calcium 9.4 - Impressions Impressions Head CT 06/11/18 12:30 IMPRESSION: 1. No acute intracranial abnormality. 2. 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 Additional known small adjacent lesions in the right temporal lobe are not evident without contrast, but most likely remain. D/ / Adam Guzman MD / Adam Guzman MD Interpreting Provider: Adam Guzman MD Forearm X-Ray 06/11/18 12:31 IMPRESSION: No acute right forearm fracture. D/ / 06/11/2018 13:24:31 Luigi House MD / katlyn Interpreting Provider: Luigi House MD Abdomen/Pelvis CT 06/11/18 12:40 IMPRESSION: No acute intra-abdominal abnormality identified. No finding to explain the patient's acute symptoms. Calcific density along the posterior wall of the urinary bladder which may either represent a passed ureteral calculus or could represent a calcified bladder wall neoplasm. No abnormality previously present in this area on the prior study. No other significant abnormality. RECOMMENDATIONS: Cystoscopy is suggested for further evaluation. D/ / Sushant Singleton MD / Sushant Singleton MD Interpreting Provider: Sushant Singleton MD - Attending Attestation I have seen and independently assessed this patient and I agree with plan per medical student as above Mr. Delgado is a 53Yo male, hospital day 1, PMH glioblastoma (on chemoradiation), CAD s/p stent placement in december 2017 and DM. Pt initally presented c/o nausea and vomiting, s/p chemotherapy on 06/07/18, that worsened within the last 3 days. Exam General: AAOX3, cachetic, fatigued Cardiovascular: RRR, +S1, +S2, no murmurs, no rubs, no gallops Respiratory: CTAB, no wheezes, no rhonchi Abdomen: Normal BSX4, soft, nondistended, nontender to palpation Extremities: No leg/pedal edema Skin: warm, dry and intact Plan Intractable nausea and vomiting. CT abdomen negative for any acute pathology. Likely related to chemotherapy. Continue symptomatic control with fluids, and antiemetics Bladder density/ mass. Urology consult. Likely outpatient f/u Brain mass. Oncology on board. Continue bactrim, dexamethasone, fluconazole <Heather Fletcher M - Last Filed: 06/11/18 17:41> (1) Intractable vomiting with nausea Qualifiers: Vomiting type: unspecified Qualified Code(s): R11.2 - Nausea with vomiting, unspecified <Jason Perales A - Last Filed: 06/11/18 18:10> (4) Intractable vomiting with nausea Qualifiers: Vomiting type: unspecified Qualified Code(s): R11.2 - Nausea with vomiting, unspecified
--- NOTE | 2018-06-11 17:13 | Electrocardiograph Report ---
[address] [address] Test Date: 2018-06-10 Pat Name: Ronni Delgado Department: EXAM12 Room: [facility] Gender: M Pantomimist: : 1965 Requested By: Hakeem Banks Order Number: [id number] Reading MD: Freddy Hickman Measurements Intervals [place] Rate: 74 P: 45 FL: 121 QRS: 43 QRSD: 96 T: 50 QT: 394 QTc: 438 Interpretive Statements Sinus rhythm Electronically Signed On 06-11-2018 17:11:36 EST by Freddy Hickman
[2018-06-11] MEDS: Aspirin Enteric Coated 81 MG Tablet PO SCH (20:52)
[2018-06-11] MEDS ORDERED: Sulfamethoxazole/Trimeth DS 1 EACH TABLET PO SCH (21:00)
[2018-06-11] MEDS ORDERED: Insulin LISPRO 300 UNITS/3 ML VIAL SQ ONE (21:21)
[2018-06-11] MEDS: Sulfamethoxazole/Trimeth DS 1 EACH TABLET PO SCH (21:49)
[2018-06-12] MEDS ORDERED: hydrALAZINE 10 MG TABLET PO ONE (00:39)
[2018-06-12] MEDS: Insulin LISPRO 300 UNITS/3 ML VIAL SQ SCH ×4 (00:44→17:58)
[2018-06-12] MEDS: Ondansetron 4 MG/2 ML VIAL IVP PRN ×2 (00:44→15:19)
[2018-06-12] MEDS: *HR* Promethazine 25 MG/ML VIAL IVP PRN ×4 (03:10→21:28)
[2018-06-12] MEDS: *HR* Heparin 5,000 UNIT/ML VIAL SQ SCH ×3 (05:01→21:34)
--- NOTE | 2018-06-12 08:29 | Urology - Consult Note ---
Date of Encounter: 06/12/18 Time of Encounter: 08:29 - Assessment and Plan (1) Lesion of bladder Current Visit: Yes Status: Acute Assessment and plan: Incidental finding on CT abdomen and pelvis. Discussed with patient and recom mendations for further evaluation. Plan: Will arrange for outpatient cystoscopy in 2 weeks. Urology CN:KONRAD Consult date: 06/12/18 Requesting physician: Raven Ruiz History of present illness: Very pleasant 53-year-old gentleman is noted for some nausea vomiting which is felt to be secondary to side effects of chemotherapy for suspected GBM. Spot of his workup he had a CT which shows calcific density in the left lateral bladder wall of unknown etiology. Patient denies past urologic history. No significant voiding complaints. No gross hematuria. No associated pain or radiation thereof. I have been consult for further evaluation and management. Past Med Surg Social Fam HX - Past Medical History Medical history: non-contributory, cancer Additional medical history: GASTROPORESIS, IBS, NEUROPATHY, CHRONIC DIARRHEA, THORACIC SPINE FRACTURE 6 YRS AGO, DDD, CAROTID 60%+ BLOCKED, ARTERIAL HARDENING IN THE BRAIN. SWOLLEN LYMPH NODES IN STOMACH- CHECKED EVERY 6 MO @ [place]. Psychiatric history: PTSD - Past Surgical History Surgical History: colectomy Additional surgical history: "LINK" 3WKS AGO IN HEART. LITHOTRIPSYX2 - Social History Smoking Status: Never smoker Smokeless Tobacco Status: No Alcohol use: none Drug use: none - Family History Father Living Status: Still Living Hx Family Cardiac Disorders: Yes (CAD s/p PCI, CMP, ICD) Mother Hx Family Cardiac Disorders: Yes Hx Family Cancer: Yes (BLOOD CANCER-LEUKEMIA FAMILY) Hx Family Endocrine Disorder: Yes (DIABETES) Medications and Allergies Aspirin [Adult Low Dose Aspirin EC] 81 mg PO HS 10/19/15 [History] Cholecalciferol (D-3) [Vitamin D] 1,000 unit PO BID 08/26/17 [History] Melatonin [Melatin] 9 mg PO HS PRN 08/26/17 [History] Pantoprazole Sodium 40 mg PO DAILY 08/26/17 [History] Insulin Glargine [Lantus] 40 unit SQ DAILY 12/16/17 [History] Sertraline [Zoloft] 100 mg PO DAILY 12/16/17 [History] Topiramate [Topamax] 100 mg PO BID 12/16/17 [History] Clopidogrel [Plavix] 75 mg PO DAILY tablet 12/23/17 [Rx] Insulin LISPRO [HumaLOG] 10 units SQ TIDWM 01/11/18 [History] LevETIRAcetam [Roweepra] 500 mg PO BID 01/11/18 [History] Lisinopril [Zestril] 2.5 mg PO DAILY 01/11/18 [History] Prochlorperazine Maleate [Compazine] 10 mg PO Q8HR PRN #60 tablet 01/11/18 [Rx] Rifaximin [Xifaxan] 550 mg PO BID 01/11/18 [History] Loperamide HCl [Imodium A-D] 2 mg PO Q6H PRN #90 tablet 01/20/18 [Rx] Albuterol Sulfate [Albuterol Inhaler] 2 puff IH Q6H PRN 02/05/18 [History] Sildenafil Citrate [Viagra] 100 mg PO AD PRN MDD 100MG/24HOURS 02/05/18 [History] glipiZIDE [Glipizide] 10 mg PO DAILY 02/05/18 [History] Dicyclomine [Bentyl] 10 mg PO TID PRN 02/11/18 [History] Ondansetron ODT [Zofran ODT] 4 mg SL Q6H PRN #60 tab.rapdis 05/10/18 [Rx] Dexamethasone [Decadron] 4 mg PO TID #90 tab 05/20/18 [Rx] Fluconazole [Diflucan] 100 mg PO DAILY #8 tablet 06/07/18 [Rx] Dexamethasone 2 mg PO BID #28 tab 06/08/18 [Rx] Lactobacillus Acidophilus [Acidophilus Lactobacillus] 1 cap PO BID 06/10/18 [History] Metoprolol Succinate [Toprol Xl] 25 mg PO DAILY 06/10/18 [History] Nut.tx.gluc.intoler,Lac-Fr,Soy [Glucerna Therapeutic Nutrition] 237 ml PO BID PRN 06/10/18 [History] Sulfamethoxazole/Trimeth DS [Bactrim DS] 1 tab PO BID 06/10/18 [History] Allergy/AdvReac Type Severity Reaction Status Date / Time clobetasol Allergy Hives Verified 06/07/18 13:40 codeine Allergy Hives Verified 06/07/18 13:40 [From Tylenol-Codeine #3] desonide Allergy Hives Verified 06/07/18 13:40 diphenhydramine Allergy Unconscious Verified 06/07/18 13:40 [From Benadryl] hydrocodone [From Vicodin] Allergy Hives Verified 06/07/18 13:40 Latex, Natural Rubber Allergy Hives Verified 06/07/18 13:40 metoclopramide [From Reglan] Allergy See Verified 06/07/18 13:40 Comments Oxycodone [From Percocet] Allergy Hives Verified 06/07/18 13:40 tramadol Allergy Hives Verified 06/07/18 13:40 Review of Systems - Constitutional no chills, no fever(s) - EENT Nose, mouth and throat: no dry mouth, no throat swelling - Cardiovascular no chest pain, no diaphoresis - Respiratory no cough, no dyspnea - Gastrointestinal abdominal pain, nausea, vomiting - Genitourinary no genital pain, no hematuria - Musculoskeletal no back pain, no numbness - Integumentary no lesions, no rash - Neurological no confusion, no sensory deficit - Psychiatric no anxiety, no confusion - Hematologic/Lymphatic no easy bleeding, no easy bruising - Allergic/Immunologic no throat swelling, no wheezing Exam Initial Vital Signs Temp Pulse Resp BP Pulse Ox 97.4 F L 72 18 127/88 98 06/10/18 12:36 06/10/18 12:36 06/10/18 12:36 06/10/18 12:36 06/10/18 12:36 - General physical appearance Present: well developed, no distress - Eyes Present: normal ocular movement - ENT Present: normal nares, normal mucosa - Neck Present: trachea midline - Respiratory Present: normal respiratory effort - Abdomen Abdomen: Absent: distended - Integumentary Absent: no rash, no abnormal pigmentation - Neurologic Absent: normal coordination - Musculoskeletal Present: other (Normal tone bilaterally) Urology Results - Labs 06/11/18 05:36 06/11/18 04:57 Abnormal lab results WBC 13.7 K/mcL (4.3-11.1) H 06/11/18 05:36 MCV 82.6 fL (83.0-100.0) L 06/11/18 05:36 MPV 9.0 fL (9.4-12.4) L 06/11/18 05:36 Neutrophils # 11.9 K/mcL (1.6-8.9) H 06/11/18 05:36 Carbon Dioxide 22 mEq/L (23-29) L 06/11/18 04:57 BUN 33 mg/dL (6-20) H 06/11/18 04:57 BUN/Creatinine Ratio 30 (6-26) H 06/11/18 04:57 Glucose 244 mg/dL (70-105) H 06/11/18 04:57 POC Glucose 230 mg/dL (70-99) H 06/12/18 04:58 Total Bilirubin 1.1 mg/dL (0.3-1.0) H 06/10/18 13:52 Ur Specific [place] > 1.030 (1.010-1.025) H 06/10/18 14:06 Urine Glucose (UA) >=1000 mg/dL (Normal) H 06/10/18 14:06 Urine Ketones Trace mg/dL (Negative) H 06/10/18 14:06 Urine Microscopic RBC 3-5 per hpf (0-3) H 06/10/18 14:06 Ur Squamous Epith Cells Moderate per lpf (None-Few) H 06/10/18 14:06 All other labs normal. - Imaging CT scan - abdomen: image reviewed (Images reviewed and interpreted independently) CT scan - pelvis: image reviewed Consult Discharge Plan - Plan [facility]errals: [facility] [Primary Care Provider] -
[2018-06-12 08:44] LABS: BUN/Creatinine Ratio 30 (6-26); Blood Urea Nitrogen 31 mg/dL (6-20); Calcium 9.4 mg/dL (8.6-10.3); Carbon Dioxide 20 mEq/L (23-29); Chloride 107 mEq/L (98-107); Glucose 206 mg/dL (70-105); Osmolality,Calculated 295 (280-300); Potassium 4.1 mEq/L (3.5-5.1); Sodium 136 mEq/L (136-145); eGFR For Non-African Americans > 60 (> 60)
[2018-06-12 09:22] LABS: Basophils % 0.2 %; Hematocrit 40.2 % (37.5-50.1); Hemoglobin 14.6 g/dL (12.9-16.9); Immature Granulocytes % 1.9 % (0-4); Lymphocytes # 1.2 K/mcL (0.6-4.6); Mean Corpuscular HGB Conc 36.3 g/dL (31.6-35.5); Mean Corpuscular Hemoglobin 29.6 pg (28.0-33.3); Mean Corpuscular Volume 81.5 fL (83.0-100.0); Mean Platelet Volume 9.1 fL (9.4-12.4); Monocytes % 6.8 %; Platelet Count 135 K/mcL (140-400); Red Blood Count 4.93 M/mcL (4.19-5.50); Red Cell Distribution Width 13.5 % (11.5-14.5); Segmented Neutrophils % 83.1 %
[2018-06-12] MEDS: levETIRAcetam 250 MG TABLET PO SCH ×2 (10:16→21:34)
[2018-06-12] MEDS: Metoprolol XL (24 HR) Succ 25 MG TAB.ER.24H PO SCH (10:16)
[2018-06-12] MEDS: Insulin DETEMIR 100 UNIT/ML X5UNITS SQ SCH (10:16)
[2018-06-12] MEDS: Pantoprazole 40 MG VIAL IVP SCH (10:16)
[2018-06-12] MEDS: Fluconazole 100 MG TABLET PO SCH (10:17)
[2018-06-12] MEDS: Cholecalciferol (D-3) 1,000 UNIT TABLET PO SCH (10:17)
[2018-06-12] MEDS: Dexamethasone 4 MG/ML VIAL IVP SCH ×2 (10:17→21:35)
[2018-06-12] MEDS: Lactobacillus 1 EACH CAP.SPRINK PO SCH ×2 (10:17→21:35)
[2018-06-12] MEDS: Topiramate 100 MG TABLET PO SCH ×2 (10:17→21:34)
[2018-06-12] MEDS: Thiamine (B-1) 100 MG in D5% in Water 50 ML IVPB SCH (11:37)
--- NOTE | 2018-06-12 13:05 | Internal Med Progress Note ---
<Jose Gallardo - Last Filed: 06/12/18 15:05> Hospitalist Progress Note - Encounter Date of Encounter: 06/12/18 Time of Encounter: 09:20 - Subjective Interval History: Patient seen and examined lying in bed. States he feels nausea, but denies any emesis this morning. He denies chest pain, dyspnea, abdominal pain. He admits weakness and dizziness. Recalls fall from last night due to weakness. - Exam Vitals: Temp Pulse Resp BP Pulse Ox 98.3 F 70 16 142/88 97 06/12/18 11:07 06/12/18 11:07 06/12/18 11:07 06/12/18 11:07 06/12/18 11:07 Exam: General: AAOX3, cachetic, fatigued Cardiovascular: RRR, +S1, +S2, no murmurs, no rubs, no gallops Respiratory: CTAB, no wheezes, no rhonchi Abdomen: Normal BSX4, soft, nondistended, nontender to palpation Extremities: No leg/pedal edema Skin: warm, dry and intact - Assessment and Plan (1) Intractable vomiting with nausea Current Visit: Yes Status: Acute Assessment and Plan: Presented c/o nausea and vomiting, s/p chemotherapy on 06/07/18, that worsened within 3 days. Nausea and vomiting most likely d/t brain mass/chemotherapy. Plan: -If patient remains symptomatic over the weekend, plan for EGD on Thursday.(Keep NPO at midnight Thursday night) per GI. -Reglan d/c -continue zofran -Restart phenergan PRN Q6H -Hold day 5 of Temodar per Oncology -folic acid d/c -on thiamine supplementation -On IV protonix -aspiration, fall and seizure precautions -IVFs based on exam and labs. (2) Insulin dependent diabetes mellitus Current Visit: Yes Status: Acute Assessment and Plan: Uncontrolled BG 2/2 to steroids. BG today of 180-300 Continue Basal insulin 40units SQ and High dose corrective SSI. (3) Lesion of bladder Current Visit: Yes Status: Acute Assessment and Plan: Seen by Dr. Laguerre, Urology, plan for outpatient cystoscopy in 2 weeks (4) Preoperative cardiovascular examination Current Visit: Yes Status: Acute Assessment and Plan: Seen today by cardiology for preop clearance for resection of brain tumor (glioblastoma) at [facility] on 06/23/18. They instructed patient to hold Plavix 10 days prior to surgery--last dose would be tomorrow 06/13/18. And they have asked patient's family and to directly contact Neurosurgeon for ASA recommendations. Per Cardiology, patient is at an intermediate risk for stent thrombosis given premature interruption in DAPT. Patient and family are aware of risks associated with interruption in DAPT including [place]. And that Mr. Delgado is an acceptable risk candidate from CV standpoint to proceed with scheduled high risk brain surgery at [facility] on 06/23/18. (5) DVT prophylaxis Current Visit: No Status: Acute Assessment and Plan: SQ heparin DVT Prophylaxis: SQ heparin - Time Spent with Patient Total time spent is greater than 50% in coordination of care (as documented) at patient's floor/unit and/or counseling patient: less than 15 minutes Plan of Care Discussed with: patient Internal Medicine: Result - Labs CBC & Chem 7: 06/12/18 09:10 06/12/18 08:13 Labs: Short CBC 06/12/18 Range/Units 09:10 WBC 14.5 H (4.3-11.1) K/mcL Hgb 14.6 (12.9-16.9) g/dL Hct 40.2 (37.5-50.1) % Plt Count 135 L (140-400) K/mcL Neutrophils # 12.0 H (1.6-8.9) K/mcL BMP 06/12/18 08:13 Sodium 136 Potassium 4.1 Chloride 107 Carbon Dioxide 20 L BUN 31 H Creatinine 1.05 Glucose 206 H Calcium 9.4 - Impressions Impressions Head CT 06/11/18 12:30 IMPRESSION: 1. No acute intracranial abnormality. 2. 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 Additional known small adjacent lesions in the right temporal lobe are not evident without contrast, but most likely remain. D/ / Adam Guzman MD / Adam Guzman MD Interpreting Provider: Adam Guzman MD Forearm X-Ray 06/11/18 12:31 IMPRESSION: No acute right forearm fracture. D/ / 06/11/2018 13:24:31 Luigi House MD / katlyn Interpreting Provider: Luigi House MD Abdomen/Pelvis CT 06/11/18 12:40 IMPRESSION: No acute intra-abdominal abnormality identified. No finding to explain the patient's acute symptoms. Calcific density along the posterior wall of the urinary bladder which may either represent a passed ureteral calculus or could represent a calcified bladder wall neoplasm. No abnormality previously present in this area on the prior study. No other significant abnormality. RECOMMENDATIONS: Cystoscopy is suggested for further evaluation. D/ / Sushant Singleton MD / Sushant Singleton MD Interpreting Provider: Sushant Singleton MD Consult Discharge Plan - Plan [facility]errals: [facility] [Primary Care Provider] - <Jason Perales - Last Filed: 06/12/18 15:59> Hospitalist Progress Note - Encounter Date of Encounter: 06/12/18 - Exam Vitals: Temp Pulse Resp BP Pulse Ox 98.5 F 72 14 131/81 97 06/12/18 15:04 06/12/18 15:04 06/12/18 15:04 06/12/18 15:04 06/12/18 15:04 - Assessment and Plan (1) DVT prophylaxis Current Visit: No Status: Acute (2) S/P coronary artery stent placement Current Visit: No Status: Acute (3) Mass, brain Current Visit: Yes Status: Acute (4) Intractable vomiting with nausea Current Visit: Yes Status: Acute (5) Insulin dependent diabetes mellitus Current Visit: Yes Status: Acute - Time Spent with Patient Total time spent is greater than 50% in coordination of care (as documented) at patient's floor/unit and/or counseling patient: Internal Medicine: Result - Labs CBC & Chem 7: 06/12/18 09:10 06/12/18 08:13 Labs: Short CBC 06/12/18 Range/Units 09:10 WBC 14.5 H (4.3-11.1) K/mcL Hgb 14.6 (12.9-16.9) g/dL Hct 40.2 (37.5-50.1) % Plt Count 135 L (140-400) K/mcL Neutrophils # 12.0 H (1.6-8.9) K/mcL BMP 06/12/18 08:13 Sodium 136 Potassium 4.1 Chloride 107 Carbon Dioxide 20 L BUN 31 H Creatinine 1.05 Glucose 206 H Calcium 9.4 - Attending Attestation I have seen and independently assessed this patient and I agree with plan per resident as above Mr. Delgado is a 53Yo male, hospital day 1, PMH glioblastoma (on chemoradiation), CAD s/p stent placement in december 2017 and DM. Pt initally pre sented c/o nausea and vomiting, s/p chemotherapy on 06/07/18, that worsened within the last 3 days. Exam General: AAOX3, cachetic, fatigued Cardiovascular: RRR, +S1, +S2, no murmurs, no rubs, no gallops Respiratory: CTAB, no wheezes, no rhonchi Abdomen: Normal BSX4, soft, nondistended, nontender to palpation Extremities: No leg/pedal edema Skin: warm, dry and intact Plan Intractable nausea and vomiting. CT abdomen negative for any acute pathology. Likely related to chemotherapy. Continue symptomatic control with fluids, and antiemetics Bladder density/ mass. Urology consult. Likely outpatient f/u Brain mass. Oncology on board. Continue bactrim, dexamethasone, fluconazole <Jose Gallardo - Last Filed: 06/12/18 15:05> (1) Intractable vomiting with nausea Qualifiers: Vomiting type: unspecified Qualified Code(s): R11.2 - Nausea with vomiting, unspecified <Jason Perales - Last Filed: 06/12/18 15:59> (4) Intractable vomiting with nausea Qualifiers: Vomiting type: unspecified Qualified Code(s): R11.2 - Nausea with vomiting, unspecified
--- NOTE | 2018-06-12 13:07 | Cardiology Consult Note ---
<Siomara Hooker - Last Filed: 06/12/18 14:04> Date of Encounter: 06/12/18 Time of Encounter: 12:00 Assessment and Plan (1) Preoperative cardiovascular examination Current Visit: Yes Status: Acute Preoperative risk assessment requested for resection of brain tumor (glioblastoma) at [facility] on 06/23/18. Patient had been instructed to hold Plavix 10 days prior to surgery--last dose would be tomorrow 06/13/18. Unclear recommendations from [facility] regarding asa, I have asked patient's family and to directly contact Neurosurgeon for recommendations. TTE 03/31/18: LVEF 50-55% (improved from previous). Discussed with Dr. Lizeth Heredia, patient is at an intermediate risk for stent thrombosis given premature interruption in DAPT. Hx of PCI in December 2017 with VIOLA (synergy stent) to pLAD. No missed doses of DAPT for the past 6 months. Patient and family are aware of risks associated with interruption in DAPT including [place]. Mr. Delgado is an acceptable risk candidate from CV standpoint to proceed with scheduled high risk brain surgery at [facility] on 06/23/18. Discussed and reviewed with Dr. Leal. (2) Drug-induced nausea and vomiting Current Visit: Yes Status: Acute Presented with acute nausea/vomiting after completed chemotherapy cycle. Family/patient concerned with hydration status given poor po intake since admission. Does not appear to be on maintenance IVF--will start NS @ 75 mL/hr x1 bag. Defer further mgmt to Hospitalist service. EF normal per TTE. Discussion w patient/family: The assessment and plan as outlined above was discussed with the patient and/or family members who expressed understanding and agreement. All questions were answered. Thank you for involving us in the care of your patient. Please call with any questions. History of Present Illness Consult date: 06/12/18 Requesting physician: Jason Perales Consult reason: preoperative CV exam Chief complaint: N/v History of present illness: Mr. Delgado is a 53 year old male with PMHx significant of CAD s/p PCI (December 2017), DMII, and brain cancer (glioblastoma) who presented to the ED with a 3 day history or worsening nausea, vomiting, and anorexia after completed cycle of chemotherapy. He was unable "to keep anything down" which prompted ED evaluation. He denies chest pain/discomfort, shortness of breath, or palpitations. Does reports weakness and significant fatigue associated with chemotherapy. He has planned resection of brain tumor at [facility] on 06/23/18. Patient was scheduled to see Dr. Lizeth Heredia on 06/11/18 in the outpatient setting to discuss pre-operative CV risk; however Cardiology consulted as inpatient given his admission. Past Med Surg Social Fam HX - Past Medical History Attestation: Yes The following information was validated with the patient. Source: patient Medical history: non-contributory, cancer, coronary artery disease, diabetes Additional medical history: GASTROPORESIS, IBS, NEUROPATHY, CHRONIC DIARRHEA, THORACIC SPINE FRACTURE 6 YRS AGO, DDD, CAROTID 60%+ BLOCKED, ARTERIAL HARDENING IN THE BRAIN. SWOLLEN LYMPH NODES IN STOMACH- CHECKED EVERY 6 MO @ [place]. Psychiatric history: PTSD - Past Surgical History Surgical History: angioplasty/stent, colectomy Additional surgical history: Loop recorder. LITHOTRIPSYX2 - Social History Smoking Status: Never smoker Smokeless Tobacco Status: No Alcohol use: none Drug use: none - Family History Father Living Status: Still Living Hx Family Cardiac Disorders: Yes (CAD s/p PCI, CMP, ICD) Mother Hx Family Cardiac Disorders: Yes Hx Family Cancer: Yes (BLOOD CANCER-LEUKEMIA FAMILY) Hx Family Endocrine Disorder: Yes (DIABETES) Medications and Allergies Aspirin [Adult Low Dose Aspirin EC] 81 mg PO HS 10/19/15 [History] Cholecalciferol (D-3) [Vitamin D] 1,000 unit PO BID 08/26/17 [History] Melatonin [Melatin] 9 mg PO HS PRN 08/26/17 [History] Pantoprazole Sodium 40 mg PO DAILY 08/26/17 [History] Insulin Glargine [Lantus] 40 unit SQ DAILY 12/16/17 [History] Sertraline [Zoloft] 100 mg PO DAILY 12/16/17 [History] Topiramate [Topamax] 100 mg PO BID 12/16/17 [History] Clopidogrel [Plavix] 75 mg PO DAILY tablet 12/23/17 [Rx] Insulin LISPRO [HumaLOG] 10 units SQ TIDWM 01/11/18 [History] LevETIRAcetam [Roweepra] 500 mg PO BID 01/11/18 [History] Lisinopril [Zestril] 2.5 mg PO DAILY 01/11/18 [History] Prochlorperazine Maleate [Compazine] 10 mg PO Q8HR PRN #60 tablet 01/11/18 [Rx] Rifaximin [Xifaxan] 550 mg PO BID 01/11/18 [History] Loperamide HCl [Imodium A-D] 2 mg PO Q6H PRN #90 tablet 01/20/18 [Rx] Albuterol Sulfate [Albuterol Inhaler] 2 puff IH Q6H PRN 02/05/18 [History] Sildenafil Citrate [Viagra] 100 mg PO AD PRN MDD 100MG/24HOURS 02/05/18 [History] glipiZIDE [Glipizide] 10 mg PO DAILY 02/05/18 [History] Dicyclomine [Bentyl] 10 mg PO TID PRN 02/11/18 [History] Ondansetron ODT [Zofran ODT] 4 mg SL Q6H PRN #60 tab.rapdis 05/10/18 [Rx] Dexamethasone [Decadron] 4 mg PO TID #90 tab 05/20/18 [Rx] Fluconazole [Diflucan] 100 mg PO DAILY #8 tablet 06/07/18 [Rx] Dexamethasone 2 mg PO BID #28 tab 06/08/18 [Rx] Lactobacillus Acidophilus [Acidophilus Lactobacillus] 1 cap PO BID 06/10/18 [History] Metoprolol Succinate [Toprol Xl] 25 mg PO DAILY 06/10/18 [History] Nut.tx.gluc.intoler,Lac-Fr,Soy [Glucerna Therapeutic Nutrition] 237 ml PO BID PRN 06/10/18 [History] Sulfamethoxazole/Trimeth DS [Bactrim DS] 1 tab PO BID 06/10/18 [History] Allergy/AdvReac Type Severity Reaction Status Date / Time clobetasol Allergy Hives Verified 06/07/18 13:40 codeine Allergy Hives Verified 06/07/18 13:40 [From Tylenol-Codeine #3] desonide Allergy Hives Verified 06/07/18 13:40 diphenhydramine Allergy Unconscious Verified 06/07/18 13:40 [From Benadryl] hydrocodone [From Vicodin] Allergy Hives Verified 06/07/18 13:40 Latex, Natural Rubber Allergy Hives Verified 06/07/18 13:40 metoclopramide [From Reglan] Allergy See Verified 06/07/18 13:40 Comments Oxycodone [From Percocet] Allergy Hives Verified 06/07/18 13:40 tramadol Allergy Hives Verified 06/07/18 13:40 All Systems Review: The remainder of the systems were reviewed and are negative - Cardiovascular Cardiovascular: as per HPI Physical Examination Vital Signs, Last 4 Hours Temp Pulse Resp BP Pulse Ox 06/12/18 11:07 98.3 F 70 16 142/88 97 General: Conversant, Other (appears chronically ill) HEENT: Atraumatic, Normocephaly, Other (dry mucous membranes) Cardiac: Reg Rate and Rhythm, Normal S1 and S2 Lungs: Normal Breath Sounds Neuro: Alert and responsive Abdomen: Soft Skin: No rashes noted on visualized skin Musculoskeletal: No Chest Wall Tenderness Extremities: No Edema, Normal Pulses Results 06/12/18 09:10 06/12/18 08:13 Lab Results 06/12/18 06/12/18 08:13 09:10 WBC 14.5 H Hgb 14.6 Hct 40.2 Plt Count 135 L Sodium 136 Potassium 4.1 Chloride 107 Carbon Dioxide 20 L BUN 31 H Creatinine 1.05 Glucose 206 H Calcium 9.4 Active Medications Albuterol Sulfate (Albuterol Inhaler) 2 puff IH [id number] PRN PRN Reason: Shortness Of Breath Stop: 12/10/18 22:01 Aspirin (Aspirin Ec) 81 mg PO HS [facility] Stop: 12/10/18 21:01 Last Admin: 06/11/18 20:52 Dose: 81 mg Dexamethasone (Decadron) 10 mg IVP BID KATIE Stop: 12/10/18 21:01 Last Admin: 06/12/18 10:17 Dose: 10 mg Dextrose/Water (Dextrose 50% (Syg)) 25 ml IVP AD PRN PRN Reason: Hypoglycemia Stop: 12/10/18 15:57 Dicyclomine HCl (Bentyl) 10 mg PO TID PRN PRN Reason: GI UPSET Stop: 12/10/18 15:53 Docusate Sodium (Colace) 100 mg PO BID [facility] Stop: 12/10/18 21:01 Last Admin: 06/12/18 10:16 Dose: 100 mg Fluconazole (Diflucan) 100 mg PO DAILY [facility] Stop: 12/11/18 09:01 Last Admin: 06/12/18 10:17 Dose: 100 mg Glucagon (Glucagen) 1 mg IM ONCE PRN PRN Reason: Hypoglycemia Stop: 12/10/18 15:57 Glucose (Gluctose) 15 gm PO ONCE PRN PRN Reason: Hypoglycemia Stop: 12/10/18 15:57 Glucose (Gluctose) 30 gm PO ONCE PRN PRN Reason: Hypoglycemia Stop: 12/10/18 15:57 Heparin Sodium (Porcine) (Heparin) 5,000 unit SQ Q8HCO [facility] Stop: 12/10/18 22:01 Last Admin: 06/12/18 05:01 Dose: 5,000 unit Dextrose (Dextrose 5%) 1,000 mls @ 100 mls/hr IVC .Q10H PRN PRN Reason: HYPOGLYCEMIA Stop: 12/10/18 15:57 Thiamine HCl 100 mg/ Dextrose 51 mls @ 50 mls/hr IVPB DAILY [facility] Stop: 12/10/18 16:01 Last Infusion: 06/12/18 12:46 Dose: Infused Insulin Detemir (Levemir) 40 unit SQ DAILY [facility] Stop: 12/10/18 16:01 Last Admin: 06/12/18 10:16 Dose: 40 unit Insulin Human Lispro (Humalog) 0 units SQ Q6HR [facility]; Protocol Stop: 12/10/18 18:01 Last Admin: 06/12/18 11:37 Dose: 8 units Lactobacillus Acidophilus/Rhamnosus (Culturelle) 1 each PO BID [facility] Stop: 12/10/18 21:01 Last Admin: 06/12/18 10:17 Dose: 1 each Levetiracetam (Keppra) 500 mg PO BID [facility] Stop: 12/10/18 21:01 Last Admin: 06/12/18 10:16 Dose: 500 mg Lisinopril (Zestril) 2.5 mg PO DAILY [facility]; Protocol Stop: 12/11/18 09:01 Last Admin: 06/12/18 10:16 Dose: 2.5 mg Melatonin (Melatonin) 9 mg PO HS PRN PRN Reason: Insomnia Stop: 12/10/18 15:53 Metoprolol Succinate (Toprol Xl) 25 mg PO DAILY [facility] Stop: 12/11/18 09:01 Last Admin: 06/12/18 10:16 Dose: 25 mg Naloxone HCl (Narcan) 0.4 mg IVP Q2MIN PRN PRN Reason: SEE COMMENTS Stop: 12/10/18 15:50 Ondansetron HCl (Zofran) 4 mg IVP Q8HR PRN PRN Reason: Nausea And Vomiting Stop: 12/10/18 15:50 Last Admin: 06/12/18 00:44 Dose: 4 mg Oxycodone HCl (Oxycodone Oral Conc) 5 mg SL Q4H PRN; Protocol PRN Reason: mild to moderate pain Stop: 12/10/18 15:50 Last Admin: 06/11/18 20:53 Dose: 5 mg Oxycodone HCl (Oxycodone Oral Conc) 10 mg SL Q4H PRN; Protocol PRN Reason: Severe Pain Stop: 12/10/18 15:50 Pantoprazole Sodium (Protonix) 40 mg IVP DAILY [facility] Stop: 12/10/18 16:01 Last Admin: 06/12/18 10:16 Dose: 40 mg Promethazine HCl (Phenergan) 12.5 mg IVP Q6HR PRN PRN Reason: nausea/vomiting Stop: 12/11/18 12:44 Last Admin: 06/12/18 10:16 Dose: 12.5 mg Sertraline HCl (Zoloft) 100 mg PO DAILY [facility] Stop: 12/11/18 09:01 Last Admin: 06/12/18 10:16 Dose: 100 mg Topiramate (Topamax) 100 mg PO BID [facility] Stop: 12/10/18 21:01 Last Admin: 06/12/18 10:17 Dose: 100 mg Trimethoprim/Sulfamethoxazole (Bactrim Ds) 1 each PO MoWeFr@0900 [facility] Stop: 12/10/18 21:01 Trimethoprim/Sulfamethoxazole (Bactrim Ds) 1 each PO MoWeFr@2100 [facility] Stop: 12/11/18 21:01 Last Admin: 06/11/18 21:52 Dose: 1 each Vitamin D (Vitamin D) 1,000 unit PO DAILY [facility] Stop: 12/10/18 21:01 Last Admin: 06/12/18 10:17 Dose: 1,000 unit - Imaging and Cardiology Echo: report reviewed Cardiac cath: report reviewed - EKG Interpretation EKG results cardiology: personally reviewed Consult Discharge Plan - Plan [facility]errals: [facility] [Primary Care Provider] - <Jennifer Leal - Last Filed: 06/12/18 18:15> Date of Encounter: 06/12/18 - Attending Attestation I examined this patient and my medical decision-making was reviewed with the BILLIARD PARLOR MANAGER. I agree with the documented findings, disposition and treatment plan as described. Mr. Delgado presents to the hospital with nausea and vomiting in the setting of chemotherapy being give for Glioblastoma. He is awaiting tumor resection at [facility] planned for 06/23/2018. Patient was scheduled to see his outpatient coil winder strap for preoperative risk assessment yesterday in the outpatient setting. However, due to patient's presentation, we have been asked to provide our recommendations in anticipation of his upcoming surgery. At the bedside, the patient appears lethargic but is arousable, conversant and oriented 3. He is accompanied by his sister. He remains hemodynamically stable. Regular rate, rhythm without apparent murmur, no LE edema Labs reviewed All pertinent cardiac testing reviewed including LHC December 2017, TTE 03/2018 Presenting ECG demonstrated NSR, no acute ST findings Impression: Preoperative cardiovascular risk assessment requested prior to resection of a brain tumor diagnosed as glioblastoma being performed at [facility] 06/23/2018 under general anesthesia. He underwent left heart catheterization in December 2017 with PCI and VIOLA to pLAD with synergy stent. LV systolic function remains normal. He has been compliant with dual antiplatelet therapy for the past 6 months. While the bioresorbable stent data suggests a favorable trend towards minimizing antiplatelet duration, current guidelines still recommend 12 months of dual antiplatelet therapy. In this particular setting continuing DAPT would delay necessary surgery that could potentially alter patient's outcome. Therefore, it is reasonable after 6 months of compliance to stop DAPT under these unique circumstances. Patient and family are aware that there is a potential risk for in stent thrombosis, [place] and . He will be a moderate risk for perioperative cardiac complications. No further cardiac testing indicated at this time. Assessment and Plan Discussion w patient/family: The assessment and plan as outlined above was discussed with the patient and/or family members who expressed understanding and agreement. All questions were answered. Thank you for involving us in the care of your patient. Please call with any questions. History of Present Illness History of present illness: Mr. Delgado is a 53 year old male All Systems Review: The remainder of the systems were reviewed and are negative Physical Examination Vital Signs, Last 4 Hours Temp Pulse Resp BP Pulse Ox 06/12/18 15:04 98.5 F 72 14 131/81 97 Results 06/12/18 09:10 06/12/18 08:13 Lab Results 06/12/18 06/12/18 08:13 09:10 WBC 14.5 H Hgb 14.6 Hct 40.2 Plt Count 135 L Sodium 136 Potassium 4.1 Chloride 107 Carbon Dioxide 20 L BUN 31 H Creatinine 1.05 Glucose 206 H Calcium 9.4
[2018-06-12] MEDS ORDERED: 0.9 % Sodium Chloride 1,000 ML IVC SCH (14:15)
[2018-06-12] MEDS: 0.9 % Sodium Chloride 1,000 ML IVC SCH (15:20)
[2018-06-12] MEDS: Aspirin Enteric Coated 81 MG Tablet PO SCH (21:34)
[2018-06-13] MEDS: 0.9 % Sodium Chloride 1,000 ML IVC SCH ×2 (05:51→19:15)
[2018-06-13] MEDS: *HR* Promethazine 25 MG/ML VIAL IVP PRN ×2 (05:52→14:58)
[2018-06-13] MEDS: *HR* Heparin 5,000 UNIT/ML VIAL SQ SCH ×3 (05:57→21:53)
[2018-06-13 06:24] LABS: Basophils % 0.2 %; Eosinophils % 0.1 %; Hematocrit 38.9 % (37.5-50.1); Immature Granulocytes % 1.5 % (0-4); Lymphocytes # 0.8 K/mcL (0.6-4.6); Lymphocytes % 6.7 %; Mean Corpuscular Hemoglobin 29.5 pg (28.0-33.3); Mean Corpuscular Volume 81.9 fL (83.0-100.0); Mean Platelet Volume 9.7 fL (9.4-12.4); Monocytes # 0.5 K/mcL (0.0-1.3); Monocytes % 4.2 %; Neutrophils # 9.9 K/mcL (1.6-8.9); Platelet Count 116 K/mcL (140-400); Red Blood Count 4.75 M/mcL (4.19-5.50); Red Cell Distribution Width 13.7 % (11.5-14.5); Segmented Neutrophils % 87.3 %
[2018-06-13 07:32] LABS: Platelet Estimate Decreased (Normal)
[2018-06-13 07:33] LABS: BUN/Creatinine Ratio 32 (6-26); Blood Urea Nitrogen 33 mg/dL (6-20); Calcium 8.8 mg/dL (8.6-10.3); Carbon Dioxide 18 mEq/L (23-29); Chloride 108 mEq/L (98-107); Glucose 231 mg/dL (70-105); Osmolality,Calculated 293 (280-300); Potassium 4.1 mEq/L (3.5-5.1); Sodium 134 mEq/L (136-145); eGFR For Non-African Americans > 60 (> 60)
[2018-06-13] MEDS: Topiramate 100 MG TABLET PO SCH ×2 (09:10→20:24)
[2018-06-13] MEDS: levETIRAcetam 250 MG TABLET PO SCH ×2 (09:10→20:23)
[2018-06-13] MEDS: Insulin LISPRO 300 UNITS/3 ML VIAL SQ SCH ×3 (09:10→17:22)
[2018-06-13] MEDS: Metoprolol XL (24 HR) Succ 25 MG TAB.ER.24H PO SCH (09:10)
[2018-06-13] MEDS: Dexamethasone 4 MG/ML VIAL IVP SCH ×2 (09:11→20:24)
[2018-06-13] MEDS: Fluconazole 100 MG TABLET PO SCH (09:11)
[2018-06-13] MEDS: Pantoprazole 40 MG VIAL IVP SCH (09:11)
[2018-06-13] MEDS: Lactobacillus 1 EACH CAP.SPRINK PO SCH ×2 (09:11→20:23)
[2018-06-13] MEDS: Cholecalciferol (D-3) 1,000 UNIT TABLET PO SCH (09:11)
[2018-06-13] MEDS: Thiamine (B-1) 100 MG in D5% in Water 50 ML IVPB SCH (09:12)
[2018-06-13] MEDS: Insulin DETEMIR 100 UNIT/ML X5UNITS SQ SCH (09:12)
--- NOTE | 2018-06-13 09:27 | Internal Med Progress Note ---
<Jose Gallardo - Last Filed: 06/13/18 14:24> Hospitalist Progress Note - Encounter Date of Encounter: 06/13/18 Time of Encounter: 08:45 - Subjective Interval History: Patient seen and examined lying in bed. More awake and alert then the past two days. States he has some nausea and no appetite, but denies any emesis this morning. He denies chest pain, dyspnea, abdominal pain. He admits weakness and dizziness. For a moment he thought he had fallen last night, but I reminded patient it was the night before. He states he is having BMs. Patient encouraged to try clear liquids today. Update: patient was able to eat some of lunch today. - Exam Vitals: Temp Pulse Resp BP Pulse Ox 98.2 F 63 14 131/84 93 06/13/18 07:02 06/13/18 07:02 06/13/18 07:02 06/13/18 07:02 06/13/18 07:02 Exam: General: AAOX3, cachetic, much more awake and alert today Cardiovascular: RRR, +S1, +S2, no murmurs, no rubs, no gallops Respiratory: CTAB, no wheezes, no rhonchi Abdomen: Normal BSX4, soft, nondistended, nontender to palpation Extremities: No leg/pedal edema Skin: warm, dry and intact - Assessment and Plan (1) Intractable vomiting with nausea Current Visit: Yes Status: Acute Assessment and Plan: Presented c/o nausea and vomiting, s/p chemotherapy on 06/07/18, that worsened within 3 days. Nausea and vomiting most likely d/t brain mass/chemotherapy. Plan: -If patient remains symptomatic over the weekend, plan for EGD on Thursday.(Keep NPO at midnight Thursday night) per GI.---Will see how today goes, should be able to discharge tomorrow, but if still having nausea and vomiting patinet will likely have EGD. -continue zofran and phenergan PRN Q6H -Hold day 5 of Temodar per Oncology -on thiamine supplementation -On IV protonix -aspiration, fall and seizure precautions -IVFs based on exam and labs. (2) Insulin dependent diabetes mellitus Current Visit: Yes Status: Acute Assessment and Plan: Uncontrolled BG 2/2 to steroids. BG today of 120-230 Continue Basal insulin 40units SQ and High dose corrective SSI. (3) Lesion of bladder Current Visit: Yes Status: Acute Assessment and Plan: Seen by Dr. Laguerre, Urology, plan for outpatient cystoscopy in 2 weeks (4) Preoperative cardiovascular examination Current Visit: Yes Status: Acute Assessment and Plan: Seen by cardiology for preop clearance for resection of brain tumor (gliobl astoma) at [facility] on 06/23/18. They instructed patient to hold Plavix 10 days prior to surgery--last dose would be today 06/13/18 (this is held). And they have asked patient's family and to directly contact Neurosurgeon for ASA recommendations. Per Cardiology, patient is at an intermediate risk for stent thrombosis given premature interruption in DAPT. Patient and family are aware of risks associated with interruption in DAPT including NC. And that Mr. Delgado is an acceptable risk candidate from CV standpoint to proceed with scheduled high risk brain surgery at [facility] on 06/23/18. (5) DVT prophylaxis Current Visit: No Status: Acute Assessment and Plan: sq heparin DVT Prophylaxis: SQ heparin - Time Spent with Patient Total time spent is greater than 50% in coordination of care (as documented) at patient's floor/unit and/or counseling patient: less than 15 minutes Plan of Care Discussed with: patient Internal Medicine: Result - Labs CBC & Chem 7: 06/13/18 06:14 06/13/18 07:12 Labs: Short CBC 06/13/18 Range/Units 06:14 WBC 11.3 H (4.3-11.1) K/mcL Hgb 14.0 (12.9-16.9) g/dL Hct 38.9 (37.5-50.1) % Plt Count 116 L (140-400) K/mcL Neutrophils # 9.9 H (1.6-8.9) K/mcL BMP 06/13/18 07:12 Sodium 134 L Potassium 4.1 Chloride 108 H Carbon Dioxide 18 L BUN 33 H Creatinine 1.03 Glucose 231 H Calcium 8.8 Consult Discharge Plan - Plan [facility] Care Provider[facility] - <Jason Perales - Last Filed: 06/13/18 15:37> Hospitalist Progress Note - Encounter Date of Encounter: 06/13/18 - Exam Vitals: Temp Pulse Resp BP Pulse Ox 97.8 F 67 14 128/75 97 06/13/18 14:46 06/13/18 14:46 06/13/18 14:46 06/13/18 14:46 06/13/18 14:46 - Assessment and Plan (1) DVT prophylaxis Current Visit: No Status: Acute (2) S/P coronary artery stent placement Current Visit: No Status: Acute (3) Mass, brain Current Visit: Yes Status: Acute (4) Intractable vomiting with nausea Current Visit: Yes Status: Acute (5) Insulin dependent diabetes mellitus Current Visit: Yes Status: Acute - Time Spent with Patient Total time spent is greater than 50% in coordination of care (as documented) at patient's floor/unit and/or counseling patient: Internal Medicine: Result - Labs CBC & Chem 7: 06/13/18 06:14 06/13/18 07:12 Labs: Short CBC 06/13/18 Range/Units 06:14 WBC 11.3 H (4.3-11.1) K/mcL Hgb 14.0 (12.9-16.9) g/dL Hct 38.9 (37.5-50.1) % Plt Count 116 L (140-400) K/mcL Neutrophils # 9.9 H (1.6-8.9) K/mcL BMP 06/13/18 07:12 Sodium 134 L Potassium 4.1 Chloride 108 H Carbon Dioxide 18 L BUN 33 H Creatinine 1.03 Glucose 231 H Calcium 8.8 - Attending Attestation I have seen and independently assessed this patient and I agree with plan per resident as above Mr. Delgado is a 53Yo male, hospital day 1, PMH glioblastoma (on chemoradiation), CAD s/p stent placement in december 2017 and DM. Pt initally presented c/o nausea and vomiting, s/p chemotherapy on 06/07/18, that worsened within the last 3 days. Exam General: AAOX3, cachetic, fatigued Cardiovascular: RRR, +S1, +S2, no murmurs, no rubs, no gallops Respiratory: CTAB, no wheezes, no rhonchi Abdomen: Normal BSX4, soft, nondistended, nontender to palpation Extremities: No leg/pedal edema Skin: warm, dry and intact Plan Intractable nausea and vomiting. CT abdomen negative for any acute pathology. Likely related to chemotherapy. Continue symptomatic control with fluids, and antiemetics. Plan for EGD in am Bladder density/ mass. Urology consult. Likely outpatient f/u Brain mass. Oncology on board. Continue bactrim, dexamethasone, fluconazole <Jose Gallardo - Last Filed: 06/13/18 14:24> (1) Intractable vomiting with nausea Qualifiers: Vomiting type: unspecified Qualified Code(s): R11.2 - Nausea with vomiting, unspecified <Jason Perales - Last Filed: 06/13/18 15:37> (4) Intractable vomiting with nausea Qualifiers: Vomiting type: unspecified Qualified Code(s): R11.2 - Nausea with vomiting, unspecified
[2018-06-13] MEDS: Ondansetron 4 MG/2 ML VIAL IVP PRN (10:30)
[2018-06-13] MEDS: Aspirin Enteric Coated 81 MG Tablet PO SCH (20:24)
[2018-06-14] MEDS: *HR* Heparin 5,000 UNIT/ML VIAL SQ SCH (06:03)
[2018-06-14 07:53] LABS: BUN/Creatinine Ratio 34 (6-26); Blood Urea Nitrogen 33 mg/dL (6-20); Calcium 8.7 mg/dL (8.6-10.3); Carbon Dioxide 16 mEq/L (23-29); Chloride 110 mEq/L (98-107); Glucose 253 mg/dL (70-105); Osmolality,Calculated 294 (280-300); Potassium 4.6 mEq/L (3.5-5.1); Sodium 134 mEq/L (136-145); eGFR For Non-African Americans > 60 (> 60)
[2018-06-14 07:55] VITALS: BP 133/81
[2018-06-14] MEDS: 0.9 % Sodium Chloride 1,000 ML IVC SCH ×2 (08:42→08:55)
[2018-06-14] MEDS: Dexamethasone 4 MG/ML VIAL IVP SCH (08:46)
[2018-06-14] MEDS: Pantoprazole 40 MG VIAL IVP SCH (08:46)
[2018-06-14] MEDS: Fluconazole 100 MG TABLET PO SCH (08:47)
[2018-06-14] MEDS: Metoprolol XL (24 HR) Succ 25 MG TAB.ER.24H PO SCH (08:47)
[2018-06-14] MEDS: Lactobacillus 1 EACH CAP.SPRINK PO SCH (08:47)
[2018-06-14] MEDS: Topiramate 100 MG TABLET PO SCH (08:47)
[2018-06-14] MEDS: Cholecalciferol (D-3) 1,000 UNIT TABLET PO SCH (08:47)
[2018-06-14] MEDS: levETIRAcetam 250 MG TABLET PO SCH (08:47)
[2018-06-14 08:52] LABS: Basophils % 0.1 %; Hematocrit 37.7 % (37.5-50.1); Hemoglobin 13.4 g/dL (12.9-16.9); Immature Granulocytes % 1.2 % (0-4); Lymphocytes # 0.9 K/mcL (0.6-4.6); Lymphocytes % 7.6 %; Mean Corpuscular HGB Conc 35.5 g/dL (31.6-35.5); Mean Corpuscular Hemoglobin 29.3 pg (28.0-33.3); Mean Corpuscular Volume 82.3 fL (83.0-100.0); Mean Platelet Volume 9.7 fL (9.4-12.4); Monocytes # 0.7 K/mcL (0.0-1.3); Monocytes % 5.8 %; Neutrophils # 9.6 K/mcL (1.6-8.9); Platelet Count 112 K/mcL (140-400); Red Blood Count 4.58 M/mcL (4.19-5.50); Red Cell Distribution Width 13.7 % (11.5-14.5); Segmented Neutrophils % 85.3 %
[2018-06-14] MEDS: Thiamine (B-1) 100 MG in D5% in Water 50 ML IVPB SCH (08:59)
[2018-06-14] MEDS ORDERED: Sulfamethoxazole/Trimeth DS 1 EACH TABLET PO SCH (09:00)
[2018-06-14] MEDS: Insulin DETEMIR 100 UNIT/ML X5UNITS SQ SCH (09:01)
[2018-06-14] MEDS ORDERED: Insulin DETEMIR 100 UNIT/ML X5UNITS SQ SCH (09:15)
--- NOTE | 2018-06-14 09:35 | Discharge Summary ---
<Heather Fletcher - Last Filed: 06/14/18 13:46> - NOTES TO OUTPATIENT PROVIDER Notes to Outpatient Provider: Urology f/u in 2 wks for outpatient cystoscopy d/t CT bladder findings, pt cleared for brain surgery per cardiology. Orders not resulted at time of discharge: Pending orders 06/11/18 13:26 Sputum Culture [Culture,Sputum with Gram Stain] [] Stat Date of Encounter: 06/14/18 Time of Encounter: 08:30 - Discharge Diagnosis (1) Intractable vomiting with nausea Priority: Primary Status: Acute Qualifiers: Vomiting type: unspecified Qualified Code(s): R11.2 - Nausea with vomiting, unspecified (2) Fall Priority: Secondary Status: Acute (3) Abnormal finding on CT scan Priority: Secondary Status: Acute (4) Lesion of bladder Priority: Secondary Status: Acute (5) S/P coronary artery stent placement Priority: Secondary Status: Acute (6) Mass, brain Priority: Secondary Status: Acute (7) Preoperative cardiovascular examination Priority: Secondary Status: Acute (8) Insulin dependent diabetes mellitus Priority: Secondary Status: Acute (9) DVT prophylaxis Priority: Secondary Status: Acute Hospital course: Mr. Delgado is a 53 year old male, Hospital day 4, PMH CAD status post stents last one in December 2017, possible glioblastoma/brain mass (on chemoradiation), insulin dependent DM Pt initially presented to [facility] for intractable nausea and vomiting. Pt states he just finished a cycle of chemotherapy 3 days prior and his nausea and vomiting had worsened to the point where he was unable to take his oral medications. Pt denied hematemesis, abdominal pain or diarrhea. 06/10/18 Pt is scheduled for brain surgery on 06/23/18 at [facility]. Patient started radiation therapy 01/18, He started temozolamide concurrently with RT, Completed in 03/11/18, On temodar started another cycle on 06/07, Pt follows up with Dr.J. Smith. He is an insulin dependent diabetic who has had poorly controlled blood sugars due to being on steroids, hemoglobin A1c was 10 per pt chart. Glucose yesterday was 231 today it was 253. Pt received imaging after falling in bathroom per nursing. CT of head showed ' No acute intracranial abnormality. 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 Additional known small adjacent lesions in the right temporal lobe are not evident without contrast, but most likely remain.' 06/11/18 CT of abdomen/pelvis showed 'No acute intra-abdominal abnormality identified. No finding to explain the patient's acute symptoms. Calcific density along the posterior wall of the urinary bladder which may either represent a passed ureteral calculus or could represent a calcified bladder wall neoplasm. No abnormality previously present in this area on the prior study. No other significant abnormality.' 06/11/18 Pt is to f/u with urology in 2 weeks for outpatient cystoscopy due to CT bladder findings. Xray of the forearm showed ' No acute right forearm fracture' 06/11/18 Cardiology was consulted to examine patient for cardiac clearance for brain surgery on 06/23/18, 'Mr. Delgado is an acceptable risk candidate from CV standpoint to proceed with scheduled high risk brain surgery at [facility], Patient had been instructed to hold Plavix 10 days prior to surgery' per car diology 06/12/18 Pt was seen and examined at bedside today. He states he was mildy disoriented yesterday evening, but this morning pt is AAOX3. Pt nausea and vomiting continuing to improve, had one episode of vomiting yesterday. Pt is hemodynamically stable and is comfortable with discharge today. Discharge discussed with: patient - Time Spent with Patient Total time spent providing and/or coordinating discharge services: - Discharge Medications Prescriptions: Promethazine [Phenergan] 25 mg PO Q6HR PRN 30 Days #60 tablet PRN Reason: Nausea And Vomiting Promethazine [Phenergan] 12.5 mg RC Q6HR PRN 7 Days #12 supp.rect PRN Reason: Nausea And Vomiting Home Medications: Aspirin [Adult Low Dose Aspirin EC] 81 mg PO HS 10/19/15 [History] Cholecalciferol (D-3) [Vitamin D] 1,000 unit PO BID 08/26/17 [History] Melatonin [Melatin] 9 mg PO HS PRN 08/26/17 [History] Pantoprazole Sodium 40 mg PO DAILY 08/26/17 [History] Sertraline [Zoloft] 100 mg PO DAILY 12/16/17 [History] Topiramate [Topamax] 100 mg PO BID 12/16/17 [History] Insulin LISPRO [HumaLOG] 10 units SQ TIDWM 01/11/18 [History] LevETIRAcetam [Roweepra] 500 mg PO BID 01/11/18 [History] Lisinopril [Zestril] 2.5 mg PO DAILY 01/11/18 [History] Prochlorperazine Maleate [Compazine] 10 mg PO Q8HR PRN #60 tablet 01/11/18 [Rx] Rifaximin [Xifaxan] 550 mg PO BID 01/11/18 [History] Loperamide HCl [Imodium A-D] 2 mg PO Q6H PRN #90 tablet 01/20/18 [Rx] Albuterol Sulfate [Albuterol Inhaler] 2 puff IH Q6H PRN 02/05/18 [History] Sildenafil Citrate [Viagra] 100 mg PO AD PRN MDD 100MG/24HOURS 02/05/18 [History] glipiZIDE [Glipizide] 10 mg PO DAILY 02/05/18 [History] Dicyclomine [Bentyl] 10 mg PO TID PRN 02/11/18 [History] Ondansetron ODT [Zofran ODT] 4 mg SL Q6H PRN #60 tab.rapdis 05/10/18 [Rx] Dexamethasone [Decadron] 4 mg PO TID #90 tab 05/20/18 [Rx] Fluconazole [Diflucan] 100 mg PO DAILY #8 tablet 06/07/18 [Rx] Dexamethasone 2 mg PO BID #28 tab 06/08/18 [Rx] Lactobacillus Acidophilus [Acidophilus Lactobacillus] 1 cap PO BID 06/10/18 [History] Metoprolol Succinate [Toprol Xl] 25 mg PO DAILY 06/10/18 [History] Nut.tx.gluc.intoler,Lac-Fr,Soy [Glucerna Therapeutic Nutrition] 237 ml PO BID PRN 06/10/18 [History] Sulfamethoxazole/Trimeth DS [Bactrim Ds] 1 tab PO BID 06/10/18 [History] Insulin Glargine [Lantus] 20 unit SQ DAILY #0 06/14/18 [Rx] Promethazine [Phenergan] 12.5 mg RC Q6HR PRN 7 Days #12 supp.rect 06/14/18 [Rx] Promethazine [Phenergan] 25 mg PO Q6HR PRN 30 Days #60 tablet 06/14/18 [Rx] Sulfamethoxazole/Trimeth DS [Bactrim Ds] 1 each PO MoWeFr@2100 tablet 06/14/18 [Rx] Allergies/Adverse Reactions: Allergy/AdvReac Type Severity Reaction Status Date / Time clobetasol Allergy Hives Verified 06/07/18 13:40 codeine Allergy Hives Verified 06/07/18 13:40 [From Tylenol-Codeine #3] desonide Allergy Hives Verified 06/07/18 13:40 diphenhydramine Allergy Unconscious Verified 06/07/18 13:40 [From Benadryl] hydrocodone [From Vicodin] Allergy Hives Verified 06/07/18 13:40 Latex, Natural Rubber Allergy Hives Verified 06/07/18 13:40 metoclopramide [From Reglan] Allergy See Verified 06/07/18 13:40 Comments Oxycodone [From Percocet] Allergy Hives Verified 06/07/18 13:40 tramadol Allergy Hives Verified 06/07/18 13:40 Date of admission: 06/10/18 15:43 [facility] Consults: 06/10/18 18:20 Consult to Nutrition [CONS] Stat Comment: Consulting Provider: NUTRITION Reason for Dietary Consult: MST Score 06/10/18 18:54 Consult to Gastroenterology [CONS] Routine Consulting Provider: Gastroenterology [place] Reason for Consult: intractable N&V Call Completed: No 06/11/18 15:50 Consult to Urology [CONS] Routine Consulting Provider: Urology [place] Reason for Consult: bladder wall mass/ query neoplasm Call Completed: No 06/11/18 16:46 Consult to Cardiology [CONS] Routine Comment: Consulting Provider: Cardiology [place] Reason for Consult: Surgery Clearance Call Completed: No 06/11/18 16:49 Consult to Cardiology [CONS] Stat Comment: Consulting Provider: Cardiology [place] Reason for Consult: pt uncoming sx, per DR. Stein office Time Notified: 16:40 Call Completed: Yes 06/13/18 09:43 Consult to Invasive Line Access Team [CONS] Routine Reason for Consult: poor vascular access Line Type: EPIV - Constitutional Vitals: Temp Pulse Resp BP Pulse Ox 97.6 F 57 14 133/81 97 06/14/18 07:50 06/14/18 07:50 06/14/18 07:50 06/14/18 07:50 06/14/18 07:50 General appearance: Present: cachectic, A&O X 3, pleasant, no acute distress - Respiratory Respiratory exam: Present: CTAB. Absent: rhonchi, wheezes - Cardiovascular Cardiovascular exam: Present: RRR, +S1, +S2. Absent: diastolic murmur, gallop, rubs, systolic murmur - GI/Abdominal GI/Abdominal exam: Present: normal bowel sounds, soft, tenderness. Absent: distended Additional comments: Tenderness to palpation of the LUQ and LLQ - Extremities Exam Extremities exam: Absent: pedal edema Additional comments: no leg/pedal edema bilaterally - Skin Skin exam: Present: dry, intact, warm - Patient Status Disposition: Home, Self-Care Condition: Fair - Discharge Instructions Follow Up With: Azar Smith MD [Partnered Physician] - 07/07/18 3:00 pm [facility] - ([facility], please call and schedule a hospital follow up for 5-7 days from the date you were discharged. Thank you) Additional Instructions: Follow up with PCP within the next week. [place] was contacted about your anticoagulation, recommending holding Plavix until surgery, but recommendations for Aspirin were not clear. This is a reminder to contact your Neurosurgeon about continuing Aspirin prior to surgery. Please return or seek medical care if your have new or worsening symptoms such as decreased urine output, bloody vomiting, confusion, weakness. <Jose Gallardo - Last Filed: 06/14/18 13:47> Orders not resulted at time of discharge: Pending orders 06/11/18 13:26 Sputum Culture [Culture,Sputum with Gram Stain] [] Stat Date of Encounter: 06/14/18 - Discharge Diagnosis (1) Intractable vomiting with nausea Priority: Primary Status: Acute Qualifiers: Vomiting type: unspecified Qualified Code(s): R11.2 - Nausea with vomiting, unspecified (2) Insulin dependent diabetes mellitus Priority: Secondary Status: Acute (3) Lesion of bladder Priority: Secondary Status: Acute (4) Preoperative cardiovascular examination Priority: Secondary Status: Acute (5) DVT prophylaxis Priority: Secondary Status: Acute Hospital course: Mr. Delgado is a 53 year old male Discharge discussed with: patient - Time Spent with Patient Total time spent providing and/or coordinating discharge services: Less than 30 minutes Date of admission: 06/10/18 15:43 [facility] care physician: [facility] Consults: 06/10/18 18:20 Consult to Nutrition [CONS] Stat Comment: Consulting Provider: NUTRITION Reason for Dietary Consult: MST Score 06/10/18 18:54 Consult to Gastroenterology [CONS] Routine Consulting Provider: Gastroenterology [place] Reason for Consult: intractable N&V Call Completed: No 06/11/18 15:50 Consult to Urology [CONS] Routine Consulting Provider: Urology [place] Reason for Consult: bladder wall mass/ query neoplasm Call Completed: No 06/11/18 16:46 Consult to Cardiology [CONS] Routine Comment: Consulting Provider: Cardiology [place] Reason for Consult: Surgery Clearance Call Completed: No 06/11/18 16:49 Consult to Cardiology [CONS] Stat Comment: Consulting Provider: Cardiology [place] Reason for Consult: pt uncoming sx, per DR. Stein office Time Notified: 16:40 Call Completed: Yes 06/13/18 09:43 Consult to Invasive Line Access Team [CONS] Routine Reason for Consult: poor vascular access Line Type: EPIV Discharging clinician: Jason Perales Anticipated date of discharge: 06/14/18 - Constitutional Vitals: Temp Pulse Resp BP Pulse Ox 97.6 F 57 14 133/81 97 06/14/18 07:50 06/14/18 07:50 06/14/18 07:50 06/14/18 07:50 06/14/18 07:50 Exam: General: AAOX3, cachetic, no acute distress Cardiovascular: RRR, +S1, +S2, no murmurs, no rubs, no gallops Respiratory: CTAB, no wheezes, no rhonchi Abdomen: Normal BSX4, soft, nondistended, mild LLQ tenderness Extremities: No leg/pedal edema Skin: warm, dry and intact - Patient Status Functional capacity at discharge: independent ambulation Overall status at discharge: patient is progressing back to baseline - Diet and Activity Activity: increase activity as tolerated Diet: advance to your usual diet <Jason Perales - Last Filed: 06/14/18 17:28> Orders not resulted at time of discharge: Pending orders 06/11/18 13:26 Sputum Culture [Culture,Sputum with Gram Stain] [RM] Stat Date of Encounter: 06/14/18 - Discharge Diagnosis (1) DVT prophylaxis Status: Acute (2) S/P coronary artery stent placement Status: Acute (3) Mass, brain Status: Acute (4) Intractable vomiting with nausea Status: Acute Qualifiers: Vomiting type: unspecified Qualified Code(s): R11.2 - Nausea with vomiting, unspecified (5) Insulin dependent diabetes mellitus Status: Acute Hospital course: Mr. Delgado is a 53 year old male - Time Spent with Patient Total time spent providing and/or coordinating discharge services: Date of admission: 06/10/18 15:43 [facility] care physician: [facility] Consults: 06/10/18 18:20 Consult to Nutrition [CONS] Stat Comment: Consulting Provider: NUTRITION Reason for Dietary Consult: MST Score 06/10/18 18:54 Consult to Gastroenterology [CONS] Routine Consulting Provider: Gastroenterology [place] Reason for Consult: intractable N&V Call Completed: No 06/11/18 15:50 Consult to Urology [CONS] Routine Consulting Provider: Urology [place] Reason for Consult: bladder wall mass/ query neoplasm Call Completed: No 06/11/18 16:46 Consult to Cardiology [CONS] Routine Comment: Consulting Provider: Cardiology [place] Reason for Consult: Surgery Clearance Call Completed: No 06/11/18 16:49 Consult to Cardiology [CONS] Stat Comment: Consulting Provider: Cardiology [place] Reason for Consult: pt uncoming sx, per DR. Stein office Time Notified: 16:40 Call Completed: Yes 06/13/18 09:43 Consult to Invasive Line Access Team [CONS] Routine Reason for Consult: poor vascular access Line Type: EPIV - Constitutional Vitals: Temp Pulse Resp BP Pulse Ox 97.6 F 57 14 133/81 97 06/14/18 07:50 06/14/18 07:50 06/14/18 07:50 06/14/18 07:50 06/14/18 07:50 - Attending Attestation I have seen and independently assessed this patient and I agree with discharge summary per resident as above Mr. Delgado is a 53Yo male, hospital day 1, PMH glioblastoma (on chemoradiation), CAD s/p stent placement in december 2017 and DM. Pt initally presented c/o nausea and vomiting, s/p chemotherapy on 06/07/18, that worsened within the last 3 days. Exam General: AAOX3, cachetic, fatigued Cardiovascular: RRR, +S1, +S2, no murmurs, no rubs, no gallops Respiratory: CTAB, no wheezes, no rhonchi Abdomen: Normal BSX4, soft, nondistended, nontender to palpation Extremities: No leg/pedal edema Skin: warm, dry and intact Plan Intractable nausea and vomiting. CT abdomen negative for any acute pathology. Likely related to chemotherapy. Continue symptomatic control with fluids, and antiemetics. Symptomatically controlled. No indication for EGD Bladder density/ mass. Urology consult. Outpatient f/u for cystoscopy Brain mass. Oncology on board. Continue bactrim, dexamethasone, fluconazole
[2018-06-14] MEDS ORDERED: Insulin LISPRO 300 UNITS/3 ML VIAL SQ SCH ×3 (11:30→21:00)
== END 2018-06-14 12:46 | disposition home or self-care (01) ==
LOC: EMEROOARM 12:25 → 3ANU 12:25
PROVIDERS: ADMIT Internal Medicine; ATTEND Internal Medicine

== ENCOUNTER 2018-12-23 16:26 | Inpatient (IN) ==
--- NOTE | 2018-12-23 17:23 | Emergency Department Note ---
Disposition Clinical Impression: Shortness of breath Pneumonia Qualifiers: Pneumonia type: due to unspecified organism Laterality: right Lung location: lower lobe of lung Qualified Code(s): J18.1 - Lobar pneumonia, unspecified organism Disposition: Admitted As Inpatient Condition: Fair [facility]: [facility]Primary Care Provider[facility] - Forms: ED Satisfaction Letter Time of Disposition: 18:55 General Adult HPI - General Chief complaint: ED Shortness of Breath/Dyspnea Stated complaint: GABO Time Seen by Provider: 12/23/18 16:35 Source: patient Limitations: no limitations Nursing Notes Reviewed: Yes Vital Signs Reviewed: Yes - History of Present Illness HPI Narrative: 53-year-old male with a past medical history of glioblastoma with recent history of chemotherapy and surgical resection, history of coronary artery disease, diabetes, PR, TIA. He presents because his home health nurse noticed new crackles and no edema on exam along with some possible shortness of breath which the patient now denies. There was concern that the patient might be developing heart failure exacerbation or pneumonia, of note the is concerned that the patient has been aspirating recently. The patient denies any current complaints other than feeling cold which is chronic for him, he denies chest pain, shortness of breath, fever, nausea, vomiting, abdominal pain or any other acute complaints. The patient last completed chemotherapy in November 2018, had craniotomy and surgical resection of right temporal glioblastoma lesion Dec 06 2018, and is due to visit his oncologist Dr. Lee next week to likely reinitiate chemotherapy. Pain Scale: 2 - Related Data Home Medications Medication Instructions Recorded Confirmed Aspirin [Adult Low Dose Aspirin EC] 81 mg PO HS 10/19/15 11/24/18 Cholecalciferol (D-3) [Vitamin D] 1,000 unit PO BID 08/26/17 11/24/18 Melatonin [Melatin] 9 mg PO HS PRN 08/26/17 11/24/18 Pantoprazole Sodium 40 mg PO DAILY 08/26/17 11/24/18 Sertraline [Zoloft] 100 mg PO DAILY 12/16/17 11/24/18 Topiramate [Topamax] 100 mg PO BID 12/16/17 11/24/18 Insulin LISPRO [HumaLOG] 10 units SQ TIDWM 01/11/18 11/24/18 Lisinopril [Zestril] 2.5 mg PO DAILY 01/11/18 11/24/18 Rifaximin [Xifaxan] 550 mg PO BID 01/11/18 11/24/18 Albuterol Sulfate [Albuterol 2 puff IH Q6H PRN 02/05/18 11/24/18 Inhaler] Sildenafil Citrate [Viagra] 100 mg PO AD PRN MDD 100MG/24HOURS 02/05/18 11/24/18 glipiZIDE [Glipizide] 10 mg PO DAILY 02/05/18 11/24/18 Dicyclomine [Bentyl] 10 mg PO TID PRN 02/11/18 11/24/18 Lactobacillus Acidophilus 1 cap PO BID 06/10/18 11/24/18 [Acidophilus Lactobacillus] Metoprolol Succinate [Toprol Xl] 25 mg PO DAILY 06/10/18 11/24/18 Nut.tx.gluc.intoler,Lac-Fr,Soy 237 ml PO BID PRN 06/10/18 11/24/18 [Glucerna Therapeutic Nutrition] Previous Rx's Medication Instructions Recorded Loperamide HCl [Imodium A-D] 2 mg PO Q6H PRN #90 tablet 01/20/18 Ondansetron ODT [Zofran ODT] 4 mg SL Q6H PRN #60 tab.rapdis 05/10/18 Fluconazole [Diflucan] 100 mg PO DAILY #8 tablet 06/07/18 Insulin Glargine [Lantus] 20 unit SQ DAILY #0 06/14/18 DiphenhydraMINE [Benadryl] 25 mg PO AD #2 capsule 08/04/18 Temozolomide [Temodar] 140 mg PO DAILY #5 capsule 09/16/18 Temozolomide [Temodar] 180 mg PO DAILY #5 capsule 09/16/18 MethylPREDNISolone [Medrol] 32 mg PO AD #2 tablet 10/26/18 Dexamethasone [Decadron] 4 mg PO DAILY #30 tab 11/04/18 Prochlorperazine Maleate 10 mg PO Q8HR PRN #60 tablet 11/24/18 [Compazine] LevETIRAcetam [Keppra] 1,000 mg PO BID #180 tablet 12/20/18 Sulfamethoxazole/Trimeth DS 1 each PO MoWeFr@2100 #36 tablet 12/20/18 [Bactrim Ds] Allergies Allergy/AdvReac Type Severity Reaction Status Date / Time gadobutrol Allergy Unknown Hives Verified 12/23/18 16:41 Gadolinium-Containing Allergy Unknown Hives Verified 12/23/18 16:41 Contrast Medi clobetasol Allergy Hives Verified 12/23/18 16:41 codeine Allergy Hives Verified 12/23/18 16:41 [From Tylenol-Codeine #3] desonide Allergy Hives Verified 12/23/18 16:41 diphenhydramine Allergy Unconscious Verified 12/23/18 16:41 [From Benadryl] hydrocodone [From Vicodin] Allergy Hives Verified 12/23/18 16:41 Latex, Natural Rubber Allergy Hives Verified 12/23/18 16:41 metoclopramide [From Reglan] Allergy See Verified 12/23/18 16:41 Comments oxycodone [From Percocet] Allergy Hives Verified 12/23/18 16:41 tramadol Allergy Hives Verified 12/23/18 16:41 DYE AdvReac Hives Uncoded 12/23/18 16:41 All systems ED: reviewed and negative except as stated. Review of Systems: As Per HPI Past Medical History - Past Medical History Medical history: Reports: non-contributory, cancer, coronary artery disease, diabetes Surgical history: Reports: angioplasty/stent, colectomy Psychiatric history: Reports: PTSD - Social History Smoking Status: Never smoker Smokeless Tobacco Status: No Alcohol use: Reports: none Drug use: Reports: none Physical Exam - General Limitations: no limitations General appearance: alert, in no apparent distress, other (53-year-old male who appears stated age, lying in bed, appears fatigued, not very conversational) - Head Head exam: other (Well healed surgical incision to right temporal region) - Eye Eye exam: Present: normal appearance, PERRL - Chest Chest inspection: Present: symmetric chest wall rise - Respiratory Respiratory exam: Present: other (Mild bilateral lower lobe crackles, otherwise normal lung sounds bilaterally) - Cardiovascular Cardiovascular exam: Present: regular rate, normal rhythm, normal heart sounds - Abdominal Exam Abdominal exam: Present: soft, Non-Tender - Extremities Exam Extremities exam: Present: other (2+ bilateral lower extremity pitting edema) - Neurological Exam Neurological exam: Present: alert, oriented X3 - Psychiatric Psychiatric exam: Present: depressed, flat affect - Skin Skin exam: Present: warm, dry Course Course Narrative: Patient presents with chief complaint of new onset bilateral lower extremity pedal edema and abnormal lung sounds found by home health nurse. is also concerned about aspiration. Physical exam does corroborate bilateral lower lobe crackles and pedal edema however the patient denies shortness of breath. Due to concerns of heart failure versus aspiration pneumonia we will evaluate with chest x-ray, EKG, BNP, BMP, CBC, troponin. Vital Signs Temperature 98.2 F 12/23/18 16:37 Pulse Rate 77 12/23/18 16:37 Respiratory Rate 16 12/23/18 16:37 Blood Pressure 107/71 12/23/18 16:37 O2 Sat by Pulse Oximetry 91 12/23/18 16:37 Temperature 98.2 F 12/23/18 16:37 Pulse Rate 67 12/23/18 18:35 Respiratory Rate 28 12/23/18 18:35 Blood Pressure 109/74 12/23/18 18:35 O2 Sat by Pulse Oximetry 94 12/23/18 18:35 Oxygen Delivery Oxygen Delivery Room Air Medical Decision Making - MDM Narrative Medical decision making narrative: Chest x-ray demonstrating right middle/right lower lobe opacification consistent with developing pneumonia. Given patient's recent history of chemotherapy and remote history of MRSA pneumonia we will initiate first doses of IV vancomycin and Zosyn and order peripheral venipuncture blood cultures. Remainder of labs including CBC, BMP, BNP, troponin negative for acute abnormality. Case discussed with Dr. Ferris admitting hospitalist who accepted patient for admission. - Medical Records Medical records reviewed: Yes I reviewed the patient's medical records. - Lab Data Lab results reviewed: Yes I reviewed the patient's lab results. Result diagrams: 12/23/18 17:31 12/23/18 17:31 Lab Results 12/23/18 12/23/18 12/23/18 Range/Units 17:31 17:31 17:31 WBC 9.6 (4.3-11.1) K/mcL RBC 4.05 L (4.19-5.50) M/mcL Hgb 12.0 L (12.9-16.9) g/dL Hct 36.0 L (37.5-50.1) % MCV 88.9 (83.0-100.0) fL MCH 29.6 (28.0-33.3) pg MCHC 33.3 (31.6-35.5) g/dL RDW 14.7 H (11.5-14.5) % Plt Count 113 L (140-400) K/mcL MPV 9.1 L (9.4-12.4) fL Immature Gran % 0.9 (0-4) % Seg Neutrophils % 84.8 % Lymphocytes % 8.6 % Monocytes % 5.2 % Eosinophils % 0.3 % Basophils % 0.2 % Neutrophils # 8.1 (1.6-8.9) K/mcL Lymphocytes # 0.8 (0.6-4.6) K/mcL Monocytes # 0.5 (0.0-1.3) K/mcL Eosinophils # 0.0 (0.0-0.6) K/mcL Basophils # 0.0 (0.0-0.2) K/mcL Sodium 140 (136-145) mEq/L Potassium 3.6 (3.5-5.1) mEq/L Chloride 111 H (98-107) mEq/L Carbon Dioxide 21 L (23-29) mEq/L BUN 19 (6-20) mg/dL Creatinine 0.88 (0.70-1.30) mg/dL Est GFR ( Amer) > 60 (> 60) Est GFR (Non-Af Amer) > 60 (> 60) BUN/Creatinine Ratio 22 (6-26) Glucose 283 H (70-105) mg/dL Calculated Osmolality 303 H (280-300) Calcium 8.8 (8.6-10.3) mg/dL Troponin I < 0.03 (< 0.04) ng/mL B-Natriuretic Peptide 58 (Less than 100) pg/mL - Radiology Data Radiology results reviewed: Yes I reviewed the patient's radiology results. Chest x-ray personally reviewed and report reviewed. There is a discrete opacification, due to limited lung expansion is difficult to determine if it is in the right middle or lower lobe. Consistent with developing pneumonia. Chest X-Ray 12/23/18 17:08 IMPRESSION: Right basilar infiltrate consistent with pneumonia. Continued plain film follow-up recommended to ensure resolution. D/ / David Bennett MD / David Bennett MD Interpreting Provider: David Bennett MD - EKG Data EKG #1 EKG attestation: Yes I reviewed and interpreted this EKG. EKG results narrative: EKG performed 12/23/18 at 17:49 for shortness of breath. Reviewed by myself and the attending. Sinus rhythm, rate of 71, ME of 154, QTC 454, no ST elevations or depressions or T-wave inversions or other signs of acute ischemia. No changes when compared to previous EKG from 08/11/18.
[2018-12-23] MEDS ORDERED: Piperacillin/Tazobactam 3.375 GM in 0.9 % Sodium Chloride Mini Bag 100 ML IVPB ONE (17:48)
--- NOTE | 2018-12-23 17:48 | Emergency Department Note ---
Disposition Clinical Impression: Shortness of breath Pneumonia Qualifiers: Pneumonia type: due to unspecified organism Laterality: right Lung location: lower lobe of lung Qualified Code(s): J18.1 - Lobar pneumonia, unspecified organism Disposition: Admitted As Inpatient Condition: Fair Time of Disposition: 18:55 General Adult HPI - General Chief complaint: ED Shortness of Breath/Dyspnea Stated complaint: GABO Time Seen by Provider: 12/23/18 16:35 Source: patient Limitations: no limitations - History of Present Illness Pain Scale: 2 - Related Data Home Medications Medication Instructions Recorded Confirmed Aspirin [Adult Low Dose Aspirin EC] 81 mg PO HS 10/19/15 11/24/18 Cholecalciferol (D-3) [Vitamin D] 1,000 unit PO BID 08/26/17 11/24/18 Melatonin [Melatin] 9 mg PO HS PRN 08/26/17 11/24/18 Pantoprazole Sodium 40 mg PO DAILY 08/26/17 11/24/18 Sertraline [Zoloft] 100 mg PO DAILY 12/16/17 11/24/18 Topiramate [Topamax] 100 mg PO BID 12/16/17 11/24/18 Insulin LISPRO [HumaLOG] 10 units SQ TIDWM 01/11/18 11/24/18 Lisinopril [Zestril] 2.5 mg PO DAILY 01/11/18 11/24/18 Rifaximin [Xifaxan] 550 mg PO BID 01/11/18 11/24/18 Albuterol Sulfate [Albuterol 2 puff IH Q6H PRN 02/05/18 11/24/18 Inhaler] Sildenafil Citrate [Viagra] 100 mg PO AD PRN MDD 100MG/24HOURS 02/05/18 11/24/18 glipiZIDE [Glipizide] 10 mg PO DAILY 02/05/18 11/24/18 Dicyclomine [Bentyl] 10 mg PO TID PRN 02/11/18 11/24/18 Lactobacillus Acidophilus 1 cap PO BID 06/10/18 11/24/18 [Acidophilus Lactobacillus] Metoprolol Succinate [Toprol Xl] 25 mg PO DAILY 06/10/18 11/24/18 Nut.tx.gluc.intoler,Lac-Fr,Soy 237 ml PO BID PRN 06/10/18 11/24/18 [Glucerna Therapeutic Nutrition] Previous Rx's Medication Instructions Recorded Loperamide HCl [Imodium A-D] 2 mg PO Q6H PRN #90 tablet 01/20/18 Ondansetron ODT [Zofran ODT] 4 mg SL Q6H PRN #60 tab.rapdis 05/10/18 Fluconazole [Diflucan] 100 mg PO DAILY #8 tablet 06/07/18 Insulin Glargine [Lantus] 20 unit SQ DAILY #0 06/14/18 DiphenhydraMINE [Benadryl] 25 mg PO AD #2 capsule 08/04/18 Temozolomide [Temodar] 140 mg PO DAILY #5 capsule 09/16/18 Temozolomide [Temodar] 180 mg PO DAILY #5 capsule 09/16/18 MethylPREDNISolone [Medrol] 32 mg PO AD #2 tablet 10/26/18 Dexamethasone [Decadron] 4 mg PO DAILY #30 tab 11/04/18 Prochlorperazine Maleate 10 mg PO Q8HR PRN #60 tablet 11/24/18 [Compazine] LevETIRAcetam [Keppra] 1,000 mg PO BID #180 tablet 12/20/18 Sulfamethoxazole/Trimeth DS 1 each PO MoWeFr@2100 #36 tablet 12/20/18 [Bactrim Ds] Allergies Allergy/AdvReac Type Severity Reaction Status Date / Time gadobutrol Allergy Unknown Hives Verified 12/23/18 16:41 Gadolinium-Containing Allergy Unknown Hives Verified 12/23/18 16:41 Contrast Medi clobetasol Allergy Hives Verified 12/23/18 16:41 codeine Allergy Hives Verified 12/23/18 16:41 [From Tylenol-Codeine #3] desonide Allergy Hives Verified 12/23/18 16:41 diphenhydramine Allergy Unconscious Verified 12/23/18 16:41 [From Benadryl] hydrocodone [From Vicodin] Allergy Hives Verified 12/23/18 16:41 Latex, Natural Rubber Allergy Hives Verified 12/23/18 16:41 metoclopramide [From Reglan] Allergy See Verified 12/23/18 16:41 Comments oxycodone [From Percocet] Allergy Hives Verified 12/23/18 16:41 tramadol Allergy Hives Verified 12/23/18 16:41 DYE AdvReac Hives Uncoded 12/23/18 16:41 Past Medical History - Past Medical History Medical history: Reports: non-contributory, cancer, coronary artery disease, diabetes Surgical history: Reports: angioplasty/stent, colectomy Psychiatric history: Reports: PTSD - Social History Smoking Status: Never smoker Smokeless Tobacco Status: No Alcohol use: Reports: none Drug use: Reports: none Physical Exam - General Limitations: no limitations General appearance: alert, in no apparent distress, other (53-year-old male who appears stated age, lying in bed, appears fatigued, not very conversational) Course Vital Signs Temperature 98.2 F 12/23/18 16:37 Pulse Rate 77 12/23/18 16:37 Respiratory Rate 16 12/23/18 16:37 Blood Pressure 107/71 12/23/18 16:37 O2 Sat by Pulse Oximetry 91 12/23/18 16:37 Temperature 98.2 F 12/23/18 16:37 Pulse Rate 67 12/23/18 19:02 Respiratory Rate 18 12/23/18 19:48 Blood Pressure 110/72 12/23/18 19:48 O2 Sat by Pulse Oximetry 94 12/23/18 19:02 Oxygen Delivery Oxygen Delivery Room Air Medical Decision Making - Lab Data Result diagrams: 12/23/18 17:31 12/23/18 17:31 Lab Results 12/23/18 12/23/18 12/23/18 Range/Units 17:31 17:31 17:31 WBC 9.6 (4.3-11.1) K/mcL RBC 4.05 L (4.19-5.50) M/mcL Hgb 12.0 L (12.9-16.9) g/dL Hct 36.0 L (37.5-50.1) % MCV 88.9 (83.0-100.0) fL MCH 29.6 (28.0-33.3) pg MCHC 33.3 (31.6-35.5) g/dL RDW 14.7 H (11.5-14.5) % Plt Count 113 L (140-400) K/mcL MPV 9.1 L (9.4-12.4) fL Immature Gran % 0.9 (0-4) % Seg Neutrophils % 84.8 % Lymphocytes % 8.6 % Monocytes % 5.2 % Eosinophils % 0.3 % Basophils % 0.2 % Neutrophils # 8.1 (1.6-8.9) K/mcL Lymphocytes # 0.8 (0.6-4.6) K/mcL Monocytes # 0.5 (0.0-1.3) K/mcL Eosinophils # 0.0 (0.0-0.6) K/mcL Basophils # 0.0 (0.0-0.2) K/mcL Sodium 140 (136-145) mEq/L Potassium 3.6 (3.5-5.1) mEq/L Chloride 111 H (98-107) mEq/L Carbon Dioxide 21 L (23-29) mEq/L BUN 19 (6-20) mg/dL Creatinine 0.88 (0.70-1.30) mg/dL Est GFR ( Amer) > 60 (> 60) Est GFR (Non-Af Amer) > 60 (> 60) BUN/Creatinine Ratio 22 (6-26) Glucose 283 H (70-105) mg/dL Calculated Osmolality 303 H (280-300) Calcium 8.8 (8.6-10.3) mg/dL Troponin I < 0.03 (< 0.04) ng/mL B-Natriuretic Peptide 58 (Less than 100) pg/mL Attestation Statement - Attestation Attestation: I saw and evalated the patient and and reviewed the resident's note/PA note/OR FIRST ASSIST REGISTERED NURSE note, and I agree with the resident's findings and plan. I personally supervised and was present for the ramirez/critical portions of the procedures. The medical decision-making was reviewed with the CHEMICAL PROCESS OPERATOR/PA/Advanced Practice Nurse/Resident Physician. I agree with the documented findings, disposition and treatment plan as described except to the extent set forth below. Patient does have a history of glioblastoma diagnosed one year ago after seizure and the patient has had brain surgery most recently 17 days ago and presents today with chest pain or shortness of breath and he does not have the symptoms at the present time when I evaluated him and he does have this chest x-ray which does show infiltrate and the patient likely has pneumonia and he does have a history of MRSA pneumonia so will be treated with Zosyn and vancomycin 1748 I did review the patient's EKG showing normal sinus rhythm with a rate of 71 without acute ischemic change or evidence of arrhythmia 2342
[2018-12-23 18:01] LABS: Basophils % 0.2 %; Eosinophils % 0.3 %; Immature Granulocytes % 0.9 % (0-4); Lymphocytes # 0.8 K/mcL (0.6-4.6); Lymphocytes % 8.6 %; Mean Corpuscular HGB Conc 33.3 g/dL (31.6-35.5); Mean Corpuscular Hemoglobin 29.6 pg (28.0-33.3); Mean Corpuscular Volume 88.9 fL (83.0-100.0); Mean Platelet Volume 9.1 fL (9.4-12.4); Monocytes # 0.5 K/mcL (0.0-1.3); Monocytes % 5.2 %; Neutrophils # 8.1 K/mcL (1.6-8.9); Platelet Count 113 K/mcL (140-400); Red Blood Count 4.05 M/mcL (4.19-5.50); Red Cell Distribution Width 14.7 % (11.5-14.5); Segmented Neutrophils % 84.8 %
[2018-12-23 18:22] LABS: BUN/Creatinine Ratio 22 (6-26); Blood Urea Nitrogen 19 mg/dL (6-20); Calcium 8.8 mg/dL (8.6-10.3); Carbon Dioxide 21 mEq/L (23-29); Chloride 111 mEq/L (98-107); Glucose 283 mg/dL (70-105); Osmolality,Calculated 303 (280-300); Potassium 3.6 mEq/L (3.5-5.1); Sodium 140 mEq/L (136-145); Troponin I < 0.03 ng/mL (< 0.04); eGFR For Non-African Americans > 60 (> 60)
[2018-12-23] MEDS ORDERED: Melatonin 3 MG TABLET PO PRN (20:53)
[2018-12-23] MEDS ORDERED: Ondansetron ODT 4 MG TAB.RAPDIS SL PRN (20:53)
[2018-12-23] MEDS ORDERED: *HR* Dextrose 50 % in Water (Syg) 50 ML SYRINGE IVP PRN (20:56)
[2018-12-23] MEDS ORDERED: Dextrose Gel 15 GM/37.5 ML TUBE PO PRN ×2 (20:56)
[2018-12-23] MEDS ORDERED: Naloxone 0.4 MG/ML INJ IVP PRN (20:56)
[2018-12-23] MEDS ORDERED: Ringers Solution, Lactated 1,000 ML IVC SCH (21:15)
[2018-12-23] MEDS: levETIRAcetam 250 MG TABLET PO SCH (22:30)
[2018-12-23] MEDS: Cholecalciferol (D-3) 1,000 UNIT TABLET PO SCH (22:31)
[2018-12-23] MEDS: Topiramate 100 MG TABLET PO SCH (22:31)
[2018-12-23] MEDS: Aspirin Enteric Coated 81 MG Tablet PO SCH (22:31)
[2018-12-23] MEDS: Insulin LISPRO 300 UNITS/3 ML VIAL SQ SCH (23:16)
--- NOTE | 2018-12-23 23:25 | Internal Med History&Physical ---
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 He is currently on levetiracetam for seizures. 3 weeks ago brain MRI showed a hematoma and residual tumor, undergoing repeat craniotomy at [facility] on Dec 06 2018. He is brought in to the ER today on advice of his visiting home nurse who noticed increasing edema of his lower extremities accompanied by shortness of breath and subsequently auscultated crackles in his lung which prompted the concern for developing heart failure. His was also concerned that he has been choking on his food and seemingly aspirating of recent, noticing a gurgling sensation in his throat. The patient does report having increasing cough productive of copious phlegm. In the ER he was seen h emodynamically stable and blood work was within normal limits however chest x- ray done reviewed by me shows a right basilar infiltrates consistent with pneumonia. He was started on empiric antibiotics and is admitted for further care. Vitals: Reviewed General: Fatigued in appearance Skin: Pale, dry skin. HEENT: Dry mucous membranes. (+) conjunctivae pallor. Neck: No JVD. No carotid bruits. No palpable thyroid. Chest: Normal thoracic expansion. Diminished breath sounds and fine rales in the right base. Heart: Normal S1 & S2; rhythmic. No rubs or murmurs. Abdomen: Non-distended, soft and non-tender to palpation. No peritoneal reaction. Extremities: No clubbing, cyanosis. 1-2+ lower leg or edema. No calf tenderness. Normal distal pulses. Neurological: Awake, alert and oriented to person, place and time. No focal deficits. Psych: Affect appropriate. Assessment/Plan 1. Pneumonia: Seemingly healthcare-associated given the hospitalizations and his immunosuppressed state. There is equally a concern for aspiration episodes with his difficulty swallowing. Will start empiric vancomycin and piptazo pending blood and sputum cultures. Will also send urine antigens and MRSA surveillance screen. 2. Lower extremity edema: Unclear etiology. Had an echo less than a year ago with a normal EF. Although plausible that he could have developed chemotherapy induced heart failure, it is of low likelihood. Will get a limited echo for assessment. Will hold off on diuretics for now as he appears to be intravascularly depleted. 3. Dysphagia: Will consult speech/swallow for further recommendations. 4. Diabetes: Poorly controlled. Will place on moderate insulin sliding scale. 5. CAD: Continue DAPT & statin. 6. Gliobastoma: Further care per oncology and neurosurgery. 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 SWOLLEN LYMPH NODES IN STOMACH- CHECKED EVERY 6 MO @ [facility]. Psychiatric history: PTSD - Past Surgical History Surgical History: angioplasty/stent, colectomy Additional surgical history: Crainiotomy - Social History Smoking Status: Never smoker Smokeless Tobacco Status: No Alcohol use: none Drug use: none - Family History Father Living Status: Still Living Hx Family Cardiac Disorders: Yes (CAD s/p PCI, CMP, ICD) Mother Hx Family Cardiac Disorders: Yes Hx Family Cancer: Yes (BLOOD CANCER-LEUKEMIA FAMILY) Hx Family Endocrine Disorder: Yes (DIABETES) Internal Medicine - H&P: Meds Aspirin [Adult Low Dose Aspirin EC] 81 mg PO HS 10/19/15 [History] Cholecalciferol (D-3) [Vitamin D] 1,000 unit PO BID 08/26/17 [History] Melatonin [Melatin] 9 mg PO HS PRN 08/26/17 [History] Pantoprazole Sodium 40 mg PO DAILY 08/26/17 [History] Sertraline [Zoloft] 100 mg PO DAILY 12/16/17 [History] Topiramate [Topamax] 100 mg PO BID 12/16/17 [History] Insulin LISPRO [HumaLOG] 10 units SQ TIDWM 01/11/18 [History] Rifaximin [Xifaxan] 550 mg PO BID 01/11/18 [History] Loperamide HCl [Imodium A-D] 2 mg PO Q6H PRN #90 tablet 01/20/18 [Rx] Sildenafil Citrate [Viagra] 100 mg PO AD PRN MDD 100MG/24HOURS 02/05/18 [History] Dicyclomine [Bentyl] 10 mg PO TID PRN 02/11/18 [History] Ondansetron ODT [Zofran ODT] 4 mg SL Q6H PRN #60 tab.rapdis 05/10/18 [Rx] Fluconazole [Diflucan] 100 mg PO DAILY #8 tablet 06/07/18 [Rx] Lactobacillus Acidophilus [Acidophilus Lactobacillus] 1 cap PO BID 06/10/18 [History] Metoprolol Succinate [Toprol Xl] 25 mg PO DAILY 06/10/18 [History] Insulin Glargine [Lantus] 20 unit SQ DAILY #0 06/14/18 [Rx] DiphenhydraMINE [Benadryl] 25 mg PO AD #2 capsule 08/04/18 [Rx] Temozolomide [Temodar] 140 mg PO DAILY #5 capsule 09/16/18 [Rx] Temozolomide [Temodar] 180 mg PO DAILY #5 capsule 09/16/18 [Rx] Prochlorperazine Maleate [Compazine] 10 mg PO Q8HR PRN #60 tablet 11/24/18 [Rx] LevETIRAcetam [Keppra] 1,000 mg PO BID #180 tablet 12/20/18 [Rx] Sulfamethoxazole/Trimeth DS [Bactrim Ds] 1 each PO MoWeFr@2100 #36 tablet 12/20/18 [Rx] Atorvastatin [Lipitor] 40 mg PO HS 12/23/18 [History] Clopidogrel [Plavix] 75 mg PO DAILY 12/23/18 [History] Dexamethasone [Decadron] 2 mg PO DAILY 12/23/18 [History] Allergy/AdvReac Type Severity Reaction Status Date / Time gadobutrol Allergy Unknown Hives Verified 12/23/18 16:41 Gadolinium-Containing Allergy Unknown Hives Verified 12/23/18 16:41 Contrast Medi clobetasol Allergy Hives Verified 12/23/18 16:41 codeine Allergy Hives Verified 12/23/18 16:41 [From Tylenol-Codeine #3] desonide Allergy Hives Verified 12/23/18 16:41 diphenhydramine Allergy Unconscious Verified 12/23/18 16:41 [From Benadryl] hydrocodone [From Vicodin] Allergy Hives Verified 12/23/18 16:41 Latex, Natural Rubber Allergy Hives Verified 12/23/18 16:41 metoclopramide [From Reglan] Allergy See Verified 12/23/18 16:41 Comments oxycodone [From Percocet] Allergy Hives Verified 12/23/18 16:41 tramadol Allergy Hives Verified 12/23/18 16:41 DYE AdvReac Hives Uncoded 12/23/18 16:41 All Systems PM: A 10-system review of systems was performed and is negative for pertinent findings except as documented above in the HPI. - Constitutional Vitals: Temp Pulse Resp BP Pulse Ox 98.4 F 74 16 107/61 91 12/23/18 20:58 12/23/18 20:58 12/23/18 20:58 12/23/18 20:58 12/23/18 20:58 Exam: . Internal Med - H&P Results - Labs CBC & Chem 7: 12/23/18 17:31 12/23/18 17:31 Labs: Short CBC 12/23/18 Range/Units 17:31 WBC 9.6 (4.3-11.1) K/mcL Hgb 12.0 L (12.9-16.9) g/dL Hct 36.0 L (37.5-50.1) % Plt Count 113 L (140-400) K/mcL Neutrophils # 8.1 (1.6-8.9) K/mcL BMP 12/23/18 17:31 Sodium 140 Potassium 3.6 Chloride 111 H Carbon Dioxide 21 L BUN 19 Creatinine 0.88 Glucose 283 H Calcium 8.8 Cardiac Enzymes 12/23/18 Range/Units 17:31 Troponin I < 0.03 (< 0.04) ng/mL - Impressions ITS Impressions Chest X-Ray 12/23/18 17:08 IMPRESSION: Right basilar infiltrate consistent with pneumonia. Continued plain film follow-up recommended to ensure resolution. D/ / David Bennett MD / David Bennett MD Interpreting Provider: David Bennett MD - Time Spent With Patient Total time spent is greater than 50% in coordination of care (as documented) at patient's floor/unit and/or counseling patient: Greater than 35 minutes
--- NOTE | 2018-12-23 23:56 | Event Note ---
Date of Encounter: 12/23/18 Time of Encounter: 23:54 At approx [address] Espinoza that the pt had fallen down. Reported that the pt fell onto his butt and that he didn't hit his head, he slipped after getting off the toilet. I assessed the pt at bedside and he appeared to have no acute FND. He strength and sensation intact. No dysfxn of motor, he is able to move all extremities. Pupils were equal size and shape. He followed command although was slow to do slow. Got a stat accucheck which showed a glucose of 119. VSS, afebrile, stable blood pressure, HR 77. Informed RN that we would begin q1hr neuro checks.
[2018-12-24] MEDS ORDERED: Vancomycin 500 MG in 0.9 % Sodium Chloride Mini Bag 100 ML IVPB ONE (02:00)
[2018-12-24] MEDS: Piperacillin/Tazobactam 3.375 GM in 0.9 % Sodium Chloride Mini Bag 100 ML IVPB SCH ×3 (03:37→18:12)
[2018-12-24] MEDS: Insulin LISPRO 300 UNITS/3 ML VIAL SQ SCH ×4 (08:18→20:45)
[2018-12-24] MEDS: Cholecalciferol (D-3) 1,000 UNIT TABLET PO SCH ×2 (08:19→20:45)
[2018-12-24] MEDS: Topiramate 100 MG TABLET PO SCH ×2 (08:19→20:45)
[2018-12-24] MEDS: levETIRAcetam 250 MG TABLET PO SCH ×2 (08:21→20:45)
[2018-12-24] MEDS ORDERED: Levofloxacin 750 MG/150 ML 750 MG/150 ML BAG IVPB SCH (09:00)
[2018-12-24] MEDS ORDERED: Metoprolol XL (24 HR) Succ 50 MG TAB.ER.24H PO SCH (09:00)
--- NOTE | 2018-12-24 12:46 | Internal Med Progress Note ---
Hospitalist Progress Note - Encounter Date of Encounter: 12/24/18 Time of Encounter: 09:30 - Subjective Interval History: H&P reviewed. Patient with history of glioblastoma multiforme on chemoradiation and s/p resection with repeat craniotomy recently in December 2018, diabetes, hypertension, CAD status post PCI, was admitted overnight due to SOB and CXR sh owing R basilar pneumonia. Continues to complain of mild shortness of breath but unable to expectorate much. Had fever of 100.4 at 1 AM this morning. - Exam Vitals: Temp Pulse Resp BP Pulse Ox 100.1 F H 74 16 93/57 91 12/24/18 07:00 12/24/18 07:00 12/24/18 07:00 12/24/18 07:00 12/24/18 07:00 Exam: General: Alert and oriented, ill looking Cardiovascular:Normal S1 & S2, No JVD. Pulse regular. Lungs: Fine bibasilar crackles, more prominent on the right lung base Abdomen:Soft, non-tender, no rigidity. Extremities:No deformity or swelling Neurological:Normal cognition and motor skills. Non-focal - Assessment and Plan (1) Pneumonia Current Visit: Yes Status: Acute Assessment and Plan: Presented with shortness of breath, fever with chest x-ray findings suggestive of right basilar pneumonia in the setting of recent hospitalization and immunocompromised state concern for HCAP +/- aspiration given the reported history of choking on food started on vanc/zosyn, continue wean O2 as tolerated strep/legionella ag, sputum culture follow up on blood cultures BP is borderline low, will check lactic acid and give PRN fluid boluses for BP < 90/60 would consider stress dose steroids if BP refractory to IVF as he has already steroid dependent due to brain cancer as below check RIP (2) Glioblastoma multiforme of brain Current Visit: Yes Status: Chronic Assessment and Plan: History of GBM on chemoradiation, status post resection on dexamethasone and keppra at home Given his steroid dependence at baseline, will consider stress dose steroids if his blood pressure does not respond to fluid resuscitation (3) Coronary artery disease Current Visit: No Status: Chronic Assessment and Plan: Resume home meds except for beta mariama which is on hold due to borderline blood pressure (4) Insulin dependent diabetes mellitus Current Visit: No Status: Chronic Assessment and Plan: Sliding scale insulin coverage (5) DVT prophylaxis Current Visit: No Status: Acute Assessment and Plan: SQ hep - Time Spent with Patient Total time spent is greater than 50% in coordination of care (as documented) at patient's floor/unit and/or counseling patient: 25 - 35 minutes Plan of Care Discussed with: patient Internal Medicine: Result - Labs CBC & Chem 7: 12/23/18 17:31 12/23/18 17:31 Labs: Short CBC 12/23/18 Range/Units 17:31 WBC 9.6 (4.3-11.1) K/mcL Hgb 12.0 L (12.9-16.9) g/dL Hct 36.0 L (37.5-50.1) % Plt Count 113 L (140-400) K/mcL Neutrophils # 8.1 (1.6-8.9) K/mcL BMP 12/23/18 17:31 Sodium 140 Potassium 3.6 Chloride 111 H Carbon Dioxide 21 L BUN 19 Creatinine 0.88 Glucose 283 H Calcium 8.8 Cardiac Enzymes 12/23/18 Range/Units 17:31 Troponin I < 0.03 (< 0.04) ng/mL - Impressions Impressions Chest X-Ray 12/23/18 17:08 IMPRESSION: Right basilar infiltrate consistent with pneumonia. Continued plain film follow-up recommended to ensure resolution. D/ / David Bennett MD / David Bennett MD Interpreting Provider: David Bennett MD Consult Discharge Plan - Plan [facility]errals: [facility] [Primary Care Provider] - (1) Pneumonia Qualifiers: Pneumonia type: due to unspecified organism Laterality: right Lung location: lower lobe of lung Qualified Code(s): J18.1 - Lobar pneumonia, unspecified organism (3) Coronary artery disease Qualifiers: Coronary Disease-Associated Artery/Lesion type: [place] artery [place] vs. transplanted heart: [place] heart Associated angina: with unspecified angina Qualified Code(s): I25.119 - Atherosclerotic heart disease of [place] coronary artery with unspecified angina pectoris
[2018-12-24] MEDS: 0.9 % Sodium Chloride 500 ML IVC PRN ×2 (13:22→14:23)
[2018-12-24] MEDS: 0.9 % Sodium Chloride 1,000 ML IVC SCH (13:23)
[2018-12-24] MEDS ORDERED: Aminoglycoside Consult 1 EACH MC ONE (13:59)
[2018-12-24] MEDS: Hydrocortisone Sodium Succ 100 MG/2 ML VIAL IVP SCH (15:00)
[2018-12-24] MEDS: Acetaminophen 325 MG TABLET PO PRN (15:00)
[2018-12-24 16:25] LABS: Adenovirus Not Detected (Not Detect); Bordetella Pertussis Not Detected (Not Detect); Chlamydophila pneumoniae Not Detected (Not Detect); Coronavirus 229E Not Detected (Not Detect); Coronavirus HKU1 Not Detected (Not Detect); Coronavirus NL63 Not Detected (Not Detect); Coronavirus OC43 Not Detected (Not Detect); Human Metapneumovirus Not Detected (Not Detect); Human Rhinovirus/Enterovirus Not Detected (Not Detect); Influenza A Subtype 2009 H1 Not Detected (Not Detect); Influenza A Untypeable Not Detected (Not Detect); Influenza B Not Detected (Not Detect); Mycoplasma pneumoniae Not Detected (Not Detect); Parainfluenza Virus 1 Not Detected (Not Detect); Parainfluenza Virus 2 Not Detected (Not Detect); Parainfluenza Virus 3 Not Detected (Not Detect); Parainfluenza Virus 4 Not Detected (Not Detect); Respiratory Syncytial Virus Not Detected (Not Detect)
--- NOTE | 2018-12-24 17:28 | Electrocardiograph Report ---
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
[2018-12-24 17:53] LABS: Bilirubin,Urine Negative (Negative); Blood,Urine Negative (Negative); Clarity,Urine Clear (Clear); Color,Urine Yellow (Yellow); Glucose,Urine (UA) 500 mg/dL (Normal); Ketones,Urine Negative (Negative); Leukocyte Esterase,Urine Negative (Negative); Nitrite,Urine Negative (Negative); PH,Urine 5.5 pH Units (5.0-8.0); Protein,Urine Negative (Neg-Trace); Specific Gravity,Urine 1.027 (1.010-1.025); Urobilinogen,Urine Normal (Normal)
[2018-12-24] MEDS: *HR* Heparin 5,000 UNIT/ML VIAL SQ SCH (18:19)
[2018-12-24] MEDS: Aspirin Enteric Coated 81 MG Tablet PO SCH (20:45)
[2018-12-25] MEDS: Hydrocortisone Sodium Succ 100 MG/2 ML VIAL IVP SCH ×3 (01:07→16:13)
[2018-12-25] MEDS: Piperacillin/Tazobactam 3.375 GM in 0.9 % Sodium Chloride Mini Bag 100 ML IVPB SCH ×3 (01:08→16:12)
[2018-12-25] MEDS: 0.9 % Sodium Chloride 1,000 ML IVC SCH (03:53)
[2018-12-25 04:05] LABS: Basophils % 0.1 %
[2018-12-25 04:07] LABS: Eosinophils # 0.1 K/mcL (0.0-0.6); Eosinophils % 0.7 %; Hemoglobin 9.9 g/dL (12.9-16.9); Immature Granulocytes % 0.7 % (0-4); Immature Platelets 0.6 % (1.1-6.1); Lymphocytes # 0.5 K/mcL (0.6-4.6); Mean Corpuscular Hemoglobin 29.6 pg (28.0-33.3); Mean Corpuscular Volume 89.6 fL (83.0-100.0); Mean Platelet Volume 9.4 fL (9.4-12.4); Monocytes # 0.4 K/mcL (0.0-1.3); Monocytes % 3.1 %; Neutrophils # 10.5 K/mcL (1.6-8.9); Platelet Count 103 K/mcL (140-400); Red Blood Count 3.35 M/mcL (4.19-5.50); Red Cell Distribution Width 14.8 % (11.5-14.5); Segmented Neutrophils % 91.4 %
[2018-12-25 04:26] LABS: BUN/Creatinine Ratio 16 (6-26); Blood Urea Nitrogen 14 mg/dL (6-20); Calcium 8.4 mg/dL (8.6-10.3); Carbon Dioxide 20 mEq/L (23-29); Chloride 116 mEq/L (98-107); Glucose 170 mg/dL (70-105); Osmolality,Calculated 298 (280-300); Potassium 3.3 mEq/L (3.5-5.1); Sodium 142 mEq/L (136-145); eGFR For Non-African Americans > 60 (> 60)
[2018-12-25] MEDS: *HR* Heparin 5,000 UNIT/ML VIAL SQ SCH ×2 (05:10→16:13)
[2018-12-25] MEDS: levETIRAcetam 250 MG TABLET PO SCH ×2 (09:19→21:33)
[2018-12-25] MEDS: Cholecalciferol (D-3) 1,000 UNIT TABLET PO SCH ×2 (09:19→21:31)
[2018-12-25] MEDS: Topiramate 100 MG TABLET PO SCH ×2 (09:19→22:04)
[2018-12-25] MEDS: Insulin LISPRO 300 UNITS/3 ML VIAL SQ SCH ×4 (09:20→21:43)
--- NOTE | 2018-12-25 11:20 | Internal Med Progress Note ---
Hospitalist Progress Note - Encounter Date of Encounter: 12/25/18 Time of Encounter: 09:45 - Subjective Interval History: Appears much more alert and responsive today. Blood pressure overall improved since yesterday evening. Other than bilateral knee pain, denies any chest pain, cough, shortness of breath. - Exam Vitals: Temp Pulse Resp BP Pulse Ox 98.5 F 61 16 111/57 95 12/25/18 07:10 12/25/18 07:10 12/25/18 07:10 12/25/18 07:10 12/25/18 07:10 Exam: General: Alert and oriented, appears more comfortable yesterday Cardiovascular:Normal S1 & S2, No JVD. Pulse regular. Lungs: Fine bibasilar crackles, more prominent on the right lung base Abdomen:Soft, non-tender, no rigidity. Extremities: no effusion on bilateral knees, cool to touch Neurological:Normal cognition and motor skills. Non-focal - Assessment and Plan (1) Pneumonia Current Visit: Yes Status: Acute Assessment and Plan: Presented with shortness of breath, fever with chest x-ray findings suggestive of right basilar pneumonia in the setting of recent hospitalization and immunocompromised state concern for bacterial HCAP, less likely aspiration as the speech evaluation did not show any signs of aspiration started on vanc/zosyn, will d/c vanc as MRSA screen is -ve RIP -ve wean O2 as tolerated strep/legionella ag, sputum culture pending follow up on blood cultures BP overall improved on stress dose steroid, would continue for today and taper if BP continues to be stable (2) Knee pain Current Visit: Yes Status: Acute Assessment and Plan: No obvious intra-articular pathology identified on physical exam, cool to touch likely related to myalgia from sepsis, would continue to monitor. Analgesics (3) Glioblastoma multiforme of brain Current Visit: Yes Status: Chronic Assessment and Plan: History of GBM on chemoradiation, status post resection on dexamethasone and keppra at home. Continue Keppra Given his steroid dependence at baseline, stress dose steroid was started yesterday due to borderline BP. Would continue for today (4) Coronary artery disease Current Visit: No Status: Chronic Assessment and Plan: Resume home meds except for beta mariama which is on hold due to borderline blood pressure (5) Insulin dependent diabetes mellitus Current Visit: No Status: Chronic Assessment and Plan: Sliding scale insulin coverage (6) DVT prophylaxis Current Visit: No Status: Acute Assessment and Plan: SQ hep - Summary of Assessment and Plan Summary of Assessment and Plan: Transfer out of 2 N. - Time Spent with Patient Total time spent is greater than 50% in coordination of care (as documented) at patient's floor/unit and/or counseling patient: 25 - 35 minutes Plan of Care Discussed with: patient Internal Medicine: Result - Labs CBC & Chem 7: 12/25/18 03:50 12/25/18 03:50 Labs: Short CBC 12/25/18 Range/Units 03:50 WBC 11.5 H (4.3-11.1) K/mcL Hgb 9.9 L D (12.9-16.9) g/dL Hct 30.0 L (37.5-50.1) % Plt Count 103 L (140-400) K/mcL Neutrophils # 10.5 H (1.6-8.9) K/mcL BMP 12/25/18 03:50 Sodium 142 Potassium 3.3 L Chloride 116 H Carbon Dioxide 20 L BUN 14 Creatinine 0.89 Glucose 170 H Calcium 8.4 L Urine 12/24/18 Range/Units 17:23 Urine Color Yellow (Yellow) Urine Clarity Clear (Clear) Urine pH 5.5 (5.0-8.0) pH Units Ur Specific [place] 1.027 H (1.010-1.025) Urine Protein Negative (Neg-Trace) mg/dL Urine Glucose (UA) 500 H (Normal) mg/dL Consult Discharge Plan - Plan Referrals: [facility] [Primary Care Provider] - (1) Pneumonia Qualifiers: Pneumonia type: due to unspecified organism Laterality: right Lung location: lower lobe of lung Qualified Code(s): J18.1 - Lobar pneumonia, unspecified organism (2) Knee pain Qualifiers: Chronicity: acute Laterality: bilateral Qualified Code(s): M25.561 - Pain in right knee; M25.562 - Pain in left knee (4) Coronary artery disease Qualifiers: Coronary Disease-Associated Artery/Lesion type: [place] artery [place] vs. transplanted heart: [place] heart Associated angina: with unspecified angina Qualified Code(s): I25.119 - Atherosclerotic heart disease of [place] coronary artery with unspecified angina pectoris
[2018-12-25] MEDS ORDERED: 0.9 % Sodium Chloride 1,000 ML ONE (16:22)
[2018-12-25] MEDS: Acetaminophen 325 MG TABLET PO PRN (21:32)
[2018-12-25] MEDS: Aspirin Enteric Coated 81 MG Tablet PO SCH (21:32)
[2018-12-26] MEDS: Piperacillin/Tazobactam 3.375 GM in 0.9 % Sodium Chloride Mini Bag 100 ML IVPB SCH ×2 (01:07→08:19)
[2018-12-26] MEDS: Hydrocortisone Sodium Succ 100 MG/2 ML VIAL IVP SCH ×2 (01:07→08:18)
[2018-12-26 02:48] LABS: BUN/Creatinine Ratio 16 (6-26); Blood Urea Nitrogen 14 mg/dL (6-20); Calcium 8.3 mg/dL (8.6-10.3); Carbon Dioxide 20 mEq/L (23-29); Chloride 113 mEq/L (98-107); Glucose 271 mg/dL (70-105); Osmolality,Calculated 298 (280-300); Potassium 3.4 mEq/L (3.5-5.1); Sodium 139 mEq/L (136-145); eGFR For Non-African Americans > 60 (> 60)
[2018-12-26 03:02] LABS: Mean Corpuscular Volume 89.5 fL (83.0-100.0)
[2018-12-26 03:03] LABS: Basophils % 0.1 %
[2018-12-26 03:13] LABS: Eosinophils % 0.5 %; Hematocrit 27.3 % (37.5-50.1); Immature Granulocytes % 0.5 % (0-4); Immature Platelets 1.3 % (1.1-6.1); Lymphocytes # 0.8 K/mcL (0.6-4.6); Mean Corpuscular Hemoglobin 29.5 pg (28.0-33.3); Mean Platelet Volume 9.7 fL (9.4-12.4); Monocytes # 0.4 K/mcL (0.0-1.3); Monocytes % 4.3 %; Neutrophils # 7.2 K/mcL (1.6-8.9); Red Blood Count 3.05 M/mcL (4.19-5.50); Red Cell Distribution Width 14.5 % (11.5-14.5); Segmented Neutrophils % 85.6 %
[2018-12-26 03:24] LABS: Platelet Count 94 K/mcL (140-400)
[2018-12-26] MEDS: *HR* Heparin 5,000 UNIT/ML VIAL SQ SCH (05:35)
[2018-12-26] MEDS: Topiramate 100 MG TABLET PO SCH (08:17)
[2018-12-26] MEDS: Cholecalciferol (D-3) 1,000 UNIT TABLET PO SCH (08:17)
[2018-12-26] MEDS: levETIRAcetam 250 MG TABLET PO SCH (08:18)
[2018-12-26] MEDS: Insulin LISPRO 300 UNITS/3 ML VIAL SQ SCH ×2 (08:19→11:44)
[2018-12-26 11:45] VITALS: BP 119/80
--- NOTE | 2018-12-26 11:49 | Discharge Summary ---
- NOTES TO OUTPATIENT PROVIDER Notes to Outpatient Provider: H&H in 5 days. Metoprolol is on hold due to sinus bradycardia in high 40-50s. Follow up with PCP/Cardiology Orders not resulted at time of discharge: Pending orders 12/23/18 18:14 Culture,Blood [BC] Stat 12/23/18 20:59 Culture,Sputum with Gram Stain [RM] Stat Date of Encounter: 12/26/18 Time of Encounter: 10:00 - Discharge Diagnosis (1) Pneumonia Priority: Primary Status: Acute Qualifiers: Pneumonia type: due to unspecified organism Laterality: right Lung location: lower lobe of lung Qualified Code(s): J18.1 - Lobar pneumonia, unspecified organism (2) Knee pain Priority: Secondary Status: Acute Qualifiers: Chronicity: acute Laterality: bilateral Qualified Code(s): M25.561 - Pain in right knee; M25.562 - Pain in left knee (3) Glioblastoma multiforme of brain Priority: Secondary Status: Chronic (4) Coronary artery disease Priority: Secondary Status: Chronic Qualifiers: Coronary Disease-Associated Artery/Lesion type: [place] artery [place] vs. transplanted heart: [place] heart Associated angina: with unspecified angina Qualified Code(s): I25.119 - Atherosclerotic heart disease of [place] coronary artery with unspecified angina pectoris (5) Insulin dependent diabetes mellitus Priority: Secondary Status: Chronic (6) DVT prophylaxis Priority: Secondary Status: Acute Hospital course: Mr. Delgado is a 53 year old male with history of glioblastoma multiforme on chemoradiation and s/p resection with repeat craniotomy recently in December 2018, diabetes, hypertension, CAD status post PCI, who was admitted for HCAP. Was also hypotensive on presentation requiring stress dose steroids x 2 days as he is on chronic dexamethasone. Clinically improved with broad spectrum antibiotics for 3 days and will be transitioned to PO Levaquin for additional 4 days. Of note, his hemoglobin was noted to be around 9 (baseline 11-12). However, this is in the setting of recent brain surgery, chemotherapy, and pt had negative FOBT during admission as well. He will be discharged with repeat H&H in 5 days. beta- mariama will continue to be on hold due to asymptomatic sinus bradycardia of high 40-50s. Discharge discussed with: patient, nurse - Time Spent with Patient Total time spent providing and/or coordinating discharge services: 32 mins - Discharge Medications Prescriptions: New levoFLOXacin [Levaquin] 750 mg PO DAILY #4 tablet Continued Cholecalciferol (D-3) [Vitamin D] 1,000 unit PO BID Pantoprazole Sodium 40 mg PO DAILY Melatonin [Melatin] 9 mg PO HS PRN PRN Reason: Insomnia Sertraline [Zoloft] 100 mg PO DAILY Topiramate [Topamax] 100 mg PO BID Rifaximin [Xifaxan] 550 mg PO BID Loperamide HCl [Imodium A-D] 2 mg PO Q6H PRN #90 tablet PRN Reason: Diarrhea Sildenafil Citrate [Viagra] 100 mg PO AD PRN MDD 100MG/24HOURS PRN Reason: Erectile Dysfunction Ondansetron ODT [Zofran ODT] 4 mg SL Q6H PRN #60 tab.rapdis PRN Reason: Nausea And Vomiting Temozolomide [Temodar] 140 mg PO DAILY #5 capsule Temozolomide [Temodar] 180 mg PO DAILY #5 capsule Prochlorperazine Maleate [Compazine] 10 mg PO Q8HR PRN #60 tablet PRN Reason: Nausea LevETIRAcetam [Keppra] 1,000 mg PO BID #180 tablet Sulfamethoxazole/Trimeth DS [Bactrim Ds] 1 each PO MoWeFr@2100 #36 tablet Dexamethasone [Decadron] 4 mg PO Q8H Clopidogrel [Plavix] 75 mg PO DAILY Albuterol Sulfate [Albuterol Inhaler] 2 puff PO Q6H PRN PRN Reason: Shortness Of Breath Aspirin [Lo-Dose Aspirin EC] 81 mg PO DAILY Atorvastatin Calcium [Lipitor] 40 mg PO HS Dexamethasone 2 mg PO BID Insulin ASPART [Novolog Flexpen] 12 units SQ TIDAC Insulin Glargine [Lantus] 53 unit SQ DAILY Lactobac #2-S. Therm-Bifido #1 [Visbiome 112.5 Billion Capsule] 1 cap PO DAILY Lisinopril [Zestril] 2.5 mg PO DAILY Discontinued Metoprolol Succinate [Toprol Xl] 25 mg PO DAILY Home Medications: Cholecalciferol (D-3) [Vitamin D] 1,000 unit PO BID 08/26/17 [History] Melatonin [Melatin] 9 mg PO HS PRN 08/26/17 [History] Pantoprazole Sodium 40 mg PO DAILY 08/26/17 [History] Sertraline [Zoloft] 100 mg PO DAILY 12/16/17 [History] Topiramate [Topamax] 100 mg PO BID 12/16/17 [History] Rifaximin [Xifaxan] 550 mg PO BID 01/11/18 [History] Loperamide HCl [Imodium A-D] 2 mg PO Q6H PRN #90 tablet 01/20/18 [Rx] Sildenafil Citrate [Viagra] 100 mg PO AD PRN MDD 100MG/24HOURS 02/05/18 [History] Ondansetron ODT [Zofran ODT] 4 mg SL Q6H PRN #60 tab.rapdis 05/10/18 [Rx] Temozolomide [Temodar] 140 mg PO DAILY #5 capsule 09/16/18 [Rx] Temozolomide [Temodar] 180 mg PO DAILY #5 capsule 09/16/18 [Rx] Prochlorperazine Maleate [Compazine] 10 mg PO Q8HR PRN #60 tablet 11/24/18 [Rx] LevETIRAcetam [Keppra] 1,000 mg PO BID #180 tablet 12/20/18 [Rx] Sulfamethoxazole/Trimeth DS [Bactrim Ds] 1 each PO MoWeFr@2100 #36 tablet 12/20/18 [Rx] Clopidogrel [Plavix] 75 mg PO DAILY 12/23/18 [History] Dexamethasone [Decadron] 4 mg PO Q8H 12/23/18 [History] Albuterol Sulfate [Albuterol Inhaler] 2 puff PO Q6H PRN 12/24/18 [History] Aspirin [Lo-Dose Aspirin EC] 81 mg PO DAILY 12/24/18 [History] Atorvastatin Calcium [Lipitor] 40 mg PO HS 12/24/18 [History] Dexamethasone 2 mg PO BID 12/24/18 [History] Insulin ASPART [Novolog Flexpen] 12 units SQ TIDAC 12/24/18 [History] Insulin Glargine [Lantus] 53 unit SQ DAILY 12/24/18 [History] Lactobac #2-S. Therm-Bifido #1 [Visbiome 112.5 Billion Capsule] 1 cap PO DAILY 12/24/18 [History] Lisinopril [Zestril] 2.5 mg PO DAILY 12/24/18 [History] levoFLOXacin [Levaquin] 750 mg PO DAILY #4 tablet 12/26/18 [Rx] Allergies/Adverse Reactions: Allergy/AdvReac Type Severity Reaction Status Date / Time gadobutrol Allergy Unknown Hives Verified 12/24/18 14:31 Gadolinium-Containing Allergy Unknown Hives Verified 12/24/18 14:31 Contrast Medi clobetasol Allergy Hives Verified 12/24/18 14:31 codeine Allergy Hives Verified 12/24/18 14:31 [From Tylenol-Codeine #3] desonide Allergy Hives Verified 12/24/18 14:31 diphenhydramine Allergy Unconscious Verified 12/24/18 14:31 [From Benadryl] hydrocodone [From Vicodin] Allergy Hives Verified 12/24/18 14:31 Latex, Natural Rubber Allergy Hives Verified 12/24/18 14:31 metoclopramide [From Reglan] Allergy See Verified 12/24/18 14:31 Comments oxycodone [From Percocet] Allergy Hives Verified 12/24/18 14:31 tramadol Allergy Hives Verified 12/24/18 14:31 DYE AdvReac Hives Uncoded 12/24/18 14:31 Date of admission: 12/24/18 13:58 [facility] care physician: [facility] Consults: 12/25/18 11:03 OT [Consult to Occupational Therapy] [CONS] Routine Comment: Evaluate, develop and implement POC Reason for Consult: Weakness/hx of brain CA Does patient have active BEDREST order?: No Is patient medically & hemodynamically stable?: Yes PT [Consult to Physical Therapy] [CONS] Routine Comment: Evaluate, develop and implement POC Reason for Consult: Weakness/hx of brain CA Does patient have active BEDREST order?: No Is patient medically & hemodynamically stable?: Yes - Constitutional Vitals: Temp Pulse Resp BP Pulse Ox 97.6 F 53 15 119/80 93 12/26/18 11:44 12/26/18 11:44 12/26/18 11:44 12/26/18 11:44 12/26/18 11:44 Exam: General: Alert and oriented, not in distress Cardiovascular:Normal S1 & S2, No JVD. Pulse regular. Lungs: Scattered right bibasilar crackles, otherwise clear to ausculatation Abdomen:Soft, non-tender, no rigidity. Extremities: no effusion on bilateral knees, cool to touch Neurological:Normal cognition and motor skills. Non-focal - Patient Status Disposition: Home Health Service Condition: Fair Functional capacity at discharge: independent ambulation Overall status at discharge: patient is progressing back to baseline - Discharge Instructions Instructions: Pneumonia (DC), Anemia (GEN), Diabetes Mellitus Type 2 in Adults (DC) Follow Up With: [facility] [Primary Care Provider] - - Diet and Activity Activity: resume usual activities as tolerated Diet: diabetic diet
--- NOTE | 2018-12-26 11:54 | Physician Discharge Referral ---
Home Health/Hosp Referral Info Transfer to: Home Health Provider in Charge Post Discharge: PCP - Diagnosis (1) Pneumonia Priority: Primary Status: Acute (2) Knee pain Priority: Secondary Status: Acute (3) Glioblastoma multiforme of brain Priority: Secondary Status: Chronic (4) Coronary artery disease Priority: Secondary Status: Chronic (5) Insulin dependent diabetes mellitus Priority: Secondary Status: Chronic (6) DVT prophylaxis Priority: Secondary Status: Acute - Respiratory Orders Smoking Cessation: Smoking cessation has been advised. For more information, call the [place] Tobacco Quit Line at 1-985-PCVE-NOW. - Diet/Nutrition Diet/Nutrition Orders: No Concentrated Sweets - Services Needed Following services are medically necessary services: Nursing, Home Health Aide, Physical Therapy, Occupational Therapy - Transfer Medications Prescriptions: levoFLOXacin [Levaquin] 750 mg PO DAILY #4 tablet Home Medications: Cholecalciferol (D-3) [Vitamin D] 1,000 unit PO BID 08/26/17 [History] Melatonin [Melatin] 9 mg PO HS PRN 08/26/17 [History] Pantoprazole Sodium 40 mg PO DAILY 08/26/17 [History] Sertraline [Zoloft] 100 mg PO DAILY 12/16/17 [History] Topiramate [Topamax] 100 mg PO BID 12/16/17 [History] Rifaximin [Xifaxan] 550 mg PO BID 01/11/18 [History] Loperamide HCl [Imodium A-D] 2 mg PO Q6H PRN #90 tablet 01/20/18 [Rx] Sildenafil Citrate [Viagra] 100 mg PO AD PRN MDD 100MG/24HOURS 02/05/18 [History] Ondansetron ODT [Zofran ODT] 4 mg SL Q6H PRN #60 tab.rapdis 05/10/18 [Rx] Temozolomide [Temodar] 140 mg PO DAILY #5 capsule 09/16/18 [Rx] Temozolomide [Temodar] 180 mg PO DAILY #5 capsule 09/16/18 [Rx] Prochlorperazine Maleate [Compazine] 10 mg PO Q8HR PRN #60 tablet 11/24/18 [Rx] LevETIRAcetam [Keppra] 1,000 mg PO BID #180 tablet 12/20/18 [Rx] Sulfamethoxazole/Trimeth DS [Bactrim Ds] 1 each PO MoWeFr@2100 #36 tablet 12/20/18 [Rx] Clopidogrel [Plavix] 75 mg PO DAILY 12/23/18 [History] Dexamethasone [Decadron] 4 mg PO Q8H 12/23/18 [History] Albuterol Sulfate [Albuterol Inhaler] 2 puff PO Q6H PRN 12/24/18 [History] Aspirin [Lo-Dose Aspirin EC] 81 mg PO DAILY 12/24/18 [History] Atorvastatin Calcium [Lipitor] 40 mg PO HS 12/24/18 [History] Dexamethasone 2 mg PO BID 12/24/18 [History] Insulin ASPART [Novolog Flexpen] 12 units SQ TIDAC 12/24/18 [History] Insulin Glargine [Lantus] 53 unit SQ DAILY 12/24/18 [History] Lactobac #2-S. Therm-Bifido #1 [Visbiome 112.5 Billion Capsule] 1 cap PO DAILY 12/24/18 [History] Lisinopril [Zestril] 2.5 mg PO DAILY 12/24/18 [History] levoFLOXacin [Levaquin] 750 mg PO DAILY #4 tablet 12/26/18 [Rx] Allergies/Adverse Reactions: Allergy/AdvReac Type Severity Reaction Status Date / Time gadobutrol Allergy Unknown Hives Verified 12/24/18 14:31 Gadolinium-Containing Allergy Unknown Hives Verified 12/24/18 14:31 Contrast Medi clobetasol Allergy Hives Verified 12/24/18 14:31 codeine Allergy Hives Verified 12/24/18 14:31 [From Tylenol-Codeine #3] desonide Allergy Hives Verified 12/24/18 14:31 diphenhydramine Allergy Unconscious Verified 12/24/18 14:31 [From Benadryl] hydrocodone [From Vicodin] Allergy Hives Verified 12/24/18 14:31 Latex, Natural Rubber Allergy Hives Verified 12/24/18 14:31 metoclopramide [From Reglan] Allergy See Verified 12/24/18 14:31 Comments oxycodone [From Percocet] Allergy Hives Verified 12/24/18 14:31 tramadol Allergy Hives Verified 12/24/18 14:31 DYE AdvReac Hives Uncoded 05/24/19 14:31 Certification: Further, I certify that my clinical findings support that this patient is homebound (i.e. absences from home require considerable and taxing effort and are for medical reasons or yarsanism services or infrequently or short duration when for other reasons) because: Homebound Reason: Patient requires assistance of a person or device to safely leave home Attestation: My signature below is to certify that this patient is under my care and that I, or nurse practitioner, or a physician's delinquent tax collector assistant working with me, has a [id number] encounter with this patient.
== END 2018-12-26 14:00 | disposition home health service (06) | DRG 195 ==
LOC: 3ANU 16:26 → EMEROOARM 16:26 → SUATTDRO 19:32 → 3ANU 20:45 → 2NNU 12-24 18:55 → 2ANU 12-25 12:28
PROVIDERS: ADMIT Internal Medicine Nephrology; ATTEND Internal Medicine

== ENCOUNTER 2019-08-25 15:16 | Inpatient (IN) ==
[2019-08-25] MEDS ORDERED: Isovue-370 500 ML BOTTLE IVP ONE (15:35)
[2019-08-25 16:28] LABS: Alanine Aminotransferase 33 Units/L (7-52); Albumin 3.3 g/dL (3.5-5.7); Albumin/Globulin Ratio 1.7 (1.1-2.2); Alkaline Phosphatase 123 Units/L (34-104); Aspartate Amino Transferase 20 Units/L (13-39); BUN/Creatinine Ratio 25 (6-26); Bilirubin,Total 0.3 mg/dL (0.3-1.0); Blood Urea Nitrogen 20 mg/dL (6-20); Calcium 8.7 mg/dL (8.6-10.3); Carbon Dioxide 22 mEq/L (23-29); Chloride 113 mEq/L (98-107); Glucose 238 mg/dL (70-105); Osmolality,Calculated 302 (280-300); Potassium 3.8 mEq/L (3.5-5.1); Sodium 141 mEq/L (136-145); Total Protein 5.3 g/dL (6.4-8.9); eGFR For African Americans > 60 (> 60); eGFR For Non-African Americans > 60 (> 60)
[2019-08-25 16:54] LABS: Bilirubin,Urine Small (Negative); Blood,Urine Negative (Negative); Clarity,Urine Cloudy (Clear); Color,Urine Yellow (Yellow); Glucose,Urine (UA) 250 mg/dL (Normal); Ketones,Urine Negative (Negative); Leukocyte Esterase,Urine Trace (Negative); Nitrite,Urine Negative (Negative); PH,Urine 5.5 pH Units (5.0-8.0); Protein,Urine Trace mg/dL (Neg-Trace); Specific Gravity,Urine > 1.030 (1.010-1.025); Urobilinogen,Urine Normal (Normal)
[2019-08-25 16:57] LABS: Bacteria,Urine Many per hpf (None-Few); Hyaline Casts,Urine None Seen per lpf (None-Few); RBC,Urine 0-3 per hpf (0-3); Squamous Epithelial Cell,Urine Many per lpf (None-Few)
[2019-08-25 17:19] LABS: Calcium Oxalate Crystals,Urine Present
[2019-08-25] MEDS ORDERED: cephALEXin 500 MG CAPSULE PO STA (17:38)
[2019-08-25] MEDS ORDERED: Naloxone 0.4 MG/ML INJ IVP PRN (23:21)
[2019-08-26] MEDS ORDERED: Nystatin SUSP 5 ML UD.LIQ PO PRN (00:36)
[2019-08-26] MEDS ORDERED: Dextrose Gel 15 GM/37.5 ML TUBE PO PRN ×2 (00:39)
[2019-08-26] MEDS ORDERED: D5% in Water 1,000 ML IVC PRN (00:39)
[2019-08-26] MEDS ORDERED: *HR* Dextrose 50 % in Water (Syg) 50 ML SYRINGE IVP PRN (00:39)
[2019-08-26] MEDS: dexAMETHasone 4 MG TABLET PO SCH ×3 (01:21→21:21)
[2019-08-26] MEDS: Melatonin 3 MG TABLET PO SCH ×2 (01:22→21:20)
[2019-08-26] MEDS: *HR* OxyCODONE Immed Rel 5 MG TABLET PO SCH ×3 (01:23→21:20)
[2019-08-26] MEDS: 0.9 % Sodium Chloride 1,000 ML IVC SCH ×3 (01:23→20:33)
[2019-08-26 04:37] LABS: Hemoglobin 11.7 g/dL (12.9-16.9)
[2019-08-26 04:39] LABS: Hematocrit 34.3 % (37.5-50.1); Immature Platelets 0.8 % (1.1-6.1); Mean Corpuscular HGB Conc 34.1 g/dL (31.6-35.5); Mean Corpuscular Hemoglobin 29.9 pg (28.0-33.3); Mean Corpuscular Volume 87.7 fL (83.0-100.0); Red Blood Count 3.91 M/mcL (4.19-5.50); White Blood Count 9.1 K/mcL (4.3-11.1)
[2019-08-26 04:57] LABS: BUN/Creatinine Ratio 24 (6-26); Blood Urea Nitrogen 17 mg/dL (6-20); Calcium 7.9 mg/dL (8.6-10.3); Carbon Dioxide 25 mEq/L (23-29); Chloride 109 mEq/L (98-107); Glucose 293 mg/dL (70-105); Osmolality,Calculated 300 (280-300); Potassium 3.7 mEq/L (3.5-5.1); Sodium 139 mEq/L (136-145); eGFR For African Americans > 60 (> 60); eGFR For Non-African Americans > 60 (> 60)
[2019-08-26] MEDS: *HR* Heparin 5,000 UNIT/ML VIAL SQ SCH ×2 (06:12→18:09)
[2019-08-26] MEDS: levETIRAcetam 250 MG TABLET PO SCH ×2 (08:35→21:20)
[2019-08-26] MEDS: Topiramate 100 MG TABLET PO SCH ×2 (08:36→21:21)
[2019-08-26] MEDS: Aspirin Enteric Coated 81 MG Tablet PO SCH (08:36)
[2019-08-26] MEDS: cefTRIAXone 1,000 MG in Water for inj. (sterile) 10 ML IVP SCH (08:36)
[2019-08-26] MEDS: Insulin LISPRO 300 UNITS/3 ML VIAL SQ SCH ×4 (08:46→21:17)
[2019-08-26] MEDS: Sulfamethoxazole/Trimeth DS 1 EACH TABLET PO SCH (12:06)
[2019-08-26] MEDS ORDERED: *HR* OxyCODONE Immed Rel 5 MG TABLET PO PRN (14:58)
[2019-08-26] MEDS ORDERED: *HR* OxyCODONE Immed Rel 5 MG TABLET PO SCH ×2 (16:00→17:53)
[2019-08-26] MEDS ORDERED: 0.9 % Sodium Chloride 1,000 ML ONE (19:22)
[2019-08-27 02:03] LABS: Hematocrit 32.7 % (37.5-50.1); Hemoglobin 11.1 g/dL (12.9-16.9); Mean Corpuscular HGB Conc 33.9 g/dL (31.6-35.5); Mean Corpuscular Hemoglobin 30.4 pg (28.0-33.3); Mean Corpuscular Volume 89.6 fL (83.0-100.0); Mean Platelet Volume 9.1 fL (9.4-12.4); Platelet Count 102 K/mcL (140-400); Red Blood Count 3.65 M/mcL (4.19-5.50); Red Cell Distribution Width 17.1 % (11.5-14.5)
[2019-08-27 02:27] LABS: BUN/Creatinine Ratio 21 (6-26); Blood Urea Nitrogen 14 mg/dL (6-20); Calcium 7.8 mg/dL (8.6-10.3); Carbon Dioxide 22 mEq/L (23-29); Chloride 114 mEq/L (98-107); Glucose 161 mg/dL (70-105); Magnesium 1.7 mg/dL (1.6-2.6); Osmolality,Calculated 298 (280-300); Phosphorous 2.8 mg/dL (2.7-4.5); Potassium 3.3 mEq/L (3.5-5.1); Sodium 142 mEq/L (136-145); eGFR For African Americans > 60 (> 60); eGFR For Non-African Americans > 60 (> 60)
[2019-08-27] MEDS: *HR* Heparin 5,000 UNIT/ML VIAL SQ SCH ×2 (05:09→17:49)
[2019-08-27] MEDS: *HR* OxyCODONE Immed Rel 5 MG TABLET PO SCH ×3 (05:09→21:49)
[2019-08-27] MEDS ORDERED: Potassium Chloride Elixir 20 MEQ/15 ML UDC PO ONE (07:55)
[2019-08-27] MEDS: dexAMETHasone 4 MG TABLET PO SCH ×2 (09:11→21:37)
[2019-08-27] MEDS: levETIRAcetam 250 MG TABLET PO SCH ×2 (09:11→21:37)
[2019-08-27] MEDS: Aspirin Enteric Coated 81 MG Tablet PO SCH (09:11)
[2019-08-27] MEDS: Topiramate 100 MG TABLET PO SCH ×2 (09:11→21:37)
[2019-08-27] MEDS: cefTRIAXone 1,000 MG in Water for inj. (sterile) 10 ML IVP SCH (09:12)
[2019-08-27] MEDS: *HR* OxyCODONE Immed Rel 5 MG TABLET PO PRN ×2 (09:12→17:48)
[2019-08-27] MEDS: Insulin LISPRO 300 UNITS/3 ML VIAL SQ SCH ×4 (09:23→20:30)
[2019-08-27] MEDS: Ampicillin/Sulbactam 3,000 MG in 0.9 % Sodium Chloride Mini Bag 100 ML IVPB SCH (18:02)
[2019-08-27] MEDS: Melatonin 3 MG TABLET PO SCH (21:49)
[2019-08-27] MEDS: 0.9 % Sodium Chloride 1,000 ML IVC SCH (23:19)
[2019-08-28] MEDS: Ampicillin/Sulbactam 3,000 MG in 0.9 % Sodium Chloride Mini Bag 100 ML IVPB SCH ×4 (00:36→17:48)
[2019-08-28 01:40] LABS: Mean Corpuscular Volume 88.3 fL (83.0-100.0)
[2019-08-28 01:42] LABS: Hematocrit 32.5 % (37.5-50.1); Hemoglobin 11.1 g/dL (12.9-16.9); Immature Platelets 0.9 % (1.1-6.1); Mean Corpuscular HGB Conc 34.2 g/dL (31.6-35.5); Mean Corpuscular Hemoglobin 30.2 pg (28.0-33.3); Mean Platelet Volume 8.6 fL (9.4-12.4); Red Blood Count 3.68 M/mcL (4.19-5.50); White Blood Count 9.9 K/mcL (4.3-11.1)
[2019-08-28 02:23] LABS: BUN/Creatinine Ratio 17 (6-26); Blood Urea Nitrogen 13 mg/dL (6-20); Calcium 8.1 mg/dL (8.6-10.3); Carbon Dioxide 24 mEq/L (23-29); Chloride 112 mEq/L (98-107); Glucose 132 mg/dL (70-105); Osmolality,Calculated 296 (280-300); Potassium 3.8 mEq/L (3.5-5.1); Sodium 142 mEq/L (136-145); eGFR For African Americans > 60 (> 60); eGFR For Non-African Americans > 60 (> 60)
[2019-08-28] MEDS: *HR* OxyCODONE Immed Rel 5 MG TABLET PO SCH ×3 (05:28→22:31)
[2019-08-28] MEDS: *HR* Heparin 5,000 UNIT/ML VIAL SQ SCH ×2 (05:28→17:48)
[2019-08-28] MEDS: Insulin LISPRO 300 UNITS/3 ML VIAL SQ SCH ×4 (07:30→22:28)
[2019-08-28] MEDS: Aspirin Enteric Coated 81 MG Tablet PO SCH (09:52)
[2019-08-28] MEDS: *HR* OxyCODONE Immed Rel 5 MG TABLET PO PRN ×3 (09:52→20:15)
[2019-08-28] MEDS: levETIRAcetam 250 MG TABLET PO SCH ×2 (09:53→20:15)
[2019-08-28] MEDS: Topiramate 100 MG TABLET PO SCH ×2 (09:53→20:15)
[2019-08-28] MEDS: dexAMETHasone 4 MG TABLET PO SCH ×2 (09:53→20:15)
[2019-08-28] MEDS: Melatonin 3 MG TABLET PO SCH (20:15)
[2019-08-29] MEDS: 0.9 % Sodium Chloride 1,000 ML IVC SCH ×4 (01:03→10:49)
[2019-08-29] MEDS: Ampicillin/Sulbactam 3,000 MG in 0.9 % Sodium Chloride Mini Bag 100 ML IVPB SCH ×4 (01:36→17:05)
[2019-08-29] MEDS: *HR* Heparin 5,000 UNIT/ML VIAL SQ SCH ×2 (06:46→17:12)
[2019-08-29] MEDS: *HR* OxyCODONE Immed Rel 5 MG TABLET PO SCH (06:49)
[2019-08-29] MEDS: Aspirin Enteric Coated 81 MG Tablet PO SCH (08:33)
[2019-08-29] MEDS: dexAMETHasone 4 MG TABLET PO SCH ×2 (08:33→21:46)
[2019-08-29] MEDS: levETIRAcetam 250 MG TABLET PO SCH ×2 (08:33→21:47)
[2019-08-29] MEDS: Topiramate 100 MG TABLET PO SCH ×2 (08:33→21:48)
[2019-08-29] MEDS: Sulfamethoxazole/Trimeth DS 1 EACH TABLET PO SCH (08:37)
[2019-08-29] MEDS: Insulin LISPRO 300 UNITS/3 ML VIAL SQ SCH ×4 (08:46→21:47)
[2019-08-29] MEDS ORDERED: Morphine Sulfate ER (12 HR) 30 MG TABLET.ER PO ONE (12:00)
[2019-08-29] MEDS: Melatonin 3 MG TABLET PO SCH (21:47)
[2019-08-29] MEDS: Morphine Sulfate ER (12 HR) 30 MG TABLET.ER PO SCH (21:47)
[2019-08-30] MEDS: Ampicillin/Sulbactam 3,000 MG in 0.9 % Sodium Chloride Mini Bag 100 ML IVPB SCH ×3 (00:43→12:12)
[2019-08-30 05:43] LABS: Red Cell Distribution Width 17.2 % (11.5-14.5); White Blood Count 10.6 K/mcL (4.3-11.1)
[2019-08-30 05:45] LABS: Hematocrit 36.4 % (37.5-50.1); Hemoglobin 11.9 g/dL (12.9-16.9); Immature Platelets 0.8 % (1.1-6.1); Mean Corpuscular HGB Conc 32.7 g/dL (31.6-35.5); Mean Corpuscular Hemoglobin 29.4 pg (28.0-33.3); Mean Corpuscular Volume 89.9 fL (83.0-100.0); Mean Platelet Volume 8.6 fL (9.4-12.4); Red Blood Count 4.05 M/mcL (4.19-5.50)
[2019-08-30 06:12] LABS: BUN/Creatinine Ratio 19 (6-26); Blood Urea Nitrogen 14 mg/dL (6-20); Calcium 8.4 mg/dL (8.6-10.3); Carbon Dioxide 24 mEq/L (23-29); Chloride 110 mEq/L (98-107); Glucose 135 mg/dL (70-105); Osmolality,Calculated 301 (280-300); Potassium 3.7 mEq/L (3.5-5.1); Sodium 144 mEq/L (136-145); eGFR For African Americans > 60 (> 60); eGFR For Non-African Americans > 60 (> 60)
[2019-08-30] MEDS: *HR* Heparin 5,000 UNIT/ML VIAL SQ SCH ×2 (06:15→06:27)
[2019-08-30] MEDS: Insulin LISPRO 300 UNITS/3 ML VIAL SQ SCH ×2 (08:00→11:07)
[2019-08-30] MEDS: Morphine Sulfate ER (12 HR) 30 MG TABLET.ER PO SCH ×2 (10:06→10:16)
[2019-08-30] MEDS: Aspirin Enteric Coated 81 MG Tablet PO SCH (10:06)
[2019-08-30] MEDS: levETIRAcetam 250 MG TABLET PO SCH (10:07)
[2019-08-30] MEDS: Topiramate 100 MG TABLET PO SCH (10:07)
[2019-08-30] MEDS: dexAMETHasone 4 MG TABLET PO SCH (10:07)
[2019-08-30 10:59] VITALS: BP 113/77
[2019-08-30] MEDS ORDERED: Morphine Sulfate ER (12 HR) 15 MG TABLET.ER PO SCH (18:00)
== END 2019-08-30 12:41 | disposition hospice, home (50) | DRG 689 ==
LOC: 3NENU 15:16 → EMEROOARM 15:16 → SUATTDRO 23:22 → 3NENU 08-26 00:06 → 2ANU 08-29 00:05
PROVIDERS: ADMIT Family Medicine; ATTEND Internal Medicine